=== PATIENT | female | born 1945 | race Caucasian/White ===

== ENCOUNTER → 2016-10-15 | Outpatient (CLI) | payer MEDICARE ==
--- NOTE | 2016-10-17 13:11 | MM ---
Reason for exam: screening (asymptomatic). Last mammogram was performed 2 years and 6 months ago. History: Patient is postmenopausal. Family history of breast cancer in paternal grandmother. Benign excisional biopsy of the right breast. Took estrogen for 9 years 6 months. Took progesterone for 9 years 6 months. Physical Findings: A clinical breast exam by your physician is recommended on an annual basis and results should be correlated with mammographic findings. MG Screening Mammo w CAD Bilateral CC and MLO view(s) were taken. Prior study comparison: April 14, 2014, bilateral MG screening mammo w CAD. The breast tissue is heterogeneously dense. This may lower the sensitivity of mammography. No significant changes when compared with prior studies. ASSESSMENT: Benign, BI-RAD 2 RECOMMENDATION: Routine screening mammogram of both breasts in 1 year.
== END | disposition home or self-care (01) ==
LOC: RADMAMWWP 12:28
PROVIDERS: ATTEND Family Medicine
DX: Z12.31 Encounter for screening mammogram for malignant neoplasm of breast (principal); Z80.3 Family history of malignant neoplasm of breast

== ENCOUNTER 2017-05-21 20:43 | Inpatient (IN) | payer MEDICARE ==
[~2017-05-21 20:43] MED LIST: AMIODARONE 50 MG/ML 3 ML VIAL IV ONE; NOREPINEPHRINE 1 MG/ML 4 ML VIAL IV ONE; SODIUM CHLORIDE 0.9% 250 ML BAG ONE
[2017-05-21] MEDS ORDERED: LORazepam 2 MG/ML INJ IV STA (20:51)
[2017-05-21] MEDS ORDERED: ROCURONIUM BROMIDE 10 MG/ML 10 ML VIAL IV STA (20:51)
--- NOTE | 2017-05-21 21:02 | P.CRDCN ---
History of Present Illness Consult date: 05/21/17 History of present illness: This is a 72-year-old female with history of COPD and diastolic congestive heart failure who was admitted to [facility] this afternoon with complaints of shortness of breath. She was admitted to the hospital with a diagnosis of for dyspnea related to multiple etiologies and exacerbation of COPD and CHF. There is no mention of any chest pain. However her troponins are mildly elevated. EKGs did not reveal any acute changes. Chest x-ray also showed evidence of possible right lobar lobe infiltrate. Patient was treated with some antibiotics and inhalers and was admitted to the floor. Apparently at the time of shift change, the nurses heard a loud noise and found that patient was on the floor face down. Apparently on the telemetry, patient was in ventricular fibrillation. She was given epinephrine and a shock and apparently she went into pulse less rhythm. Subsequently she gained weak pulse with blood pressure below 80. She was hypoxic. Subsequently she was intubated and prepped apparently patient remained hypotensive requiring epinephrine. Patient's EKG subsequent a showed a sinus rhythm with evidence of acute inferior wall ND. Patient was transferred to [facility] for further care. Because of history of fall and being on heparin, a computed tomography scan is done gently to rule out any intracranial bleed. The plan is to take her to carpenter/labor for intervention. If there is no bleed. Her prognosis is extremely poor. Review of Systems Not obtained Past Medical History Past Medical History: COPD, Diabetes Mellitus, Hyperlipidemia, Hypertension, Thyroid Disorder History of Any Multi-Drug Resistant Organisms: None Reported Past Surgical History: Cholecystectomy Additional Past Surgical History / Comment(s): carotid Past Psychological History: No Psychological Hx Reported Smoking Status: Current every day smoker Past Alcohol Use History: None Reported Past Drug Use History: None Reported Medications and Allergies Home Medications Medication Instructions Recorded Confirmed Type Albuterol Sulfate [Proair Hfa] 2 puff INHALATION Q4HR PRN 10/05/13 10/05/13 History Aspirin 81 mg PO DAILY 10/05/13 10/05/13 History Atorvastatin Calcium [Lipitor] 40 mg PO DAILY 10/05/13 10/05/13 History Cholecalciferol [Vitamin D3] 5,000 unit PO DAILY@1200 10/05/13 10/05/13 History FLUoxetine HCL 40 mg PO DAILY 10/05/13 10/05/13 History Levothyroxine Sodium [Synthroid] 50 mcg PO DAILY 10/05/13 10/05/13 History Lisinopril-Hctz 20-25 mg 1 each PO DAILY 10/05/13 10/05/13 History [Zestoretic 20-25] Naproxen 500 mg PO Q12HR #30 tab 10/05/13 Rx Ranitidine HCl [Zantac] 300 mg PO HS 10/05/13 10/05/13 History Simvastatin [Zocor] 20 mg PO HS 10/05/13 10/05/13 History metFORMIN HCL 500 mg PO DAILY 10/05/13 10/05/13 History Allergies Allergy/AdvReac Type Severity Reaction Status Date / Time No Known Allergies Allergy Verified 10/05/13 14:13 Physical Exam Vitals: Blood pressure is running about 180/100 and fluctuating. Patient is intubated and sedated. Lungs, diminished breath sounds with coarse rales. Heart: Distant heart sounds Abdomen: Distended Extremities mild edema EKG Interpretations (text) Sinus rhythm with acute inferior wall ND Assessment and Plan (1) Cardiac arrest Current Visit: Yes Status: Acute Code(s): I46.9 - CARDIAC ARREST, CAUSE UNSPECIFIED SNOMED Code(s): 112890704 (2) Ventricular fibrillation Current Visit: Yes Status: Acute Code(s): I49.01 - VENTRICULAR FIBRILLATION SNOMED Code(s): 89527296 (3) Acute ND, inferior wall Current Visit: Yes Status: Acute Code(s): I21.19 - STEMI INVOLVING OTH CORONARY ARTERY OF INFERIOR WALL SNOMED Code(s): 99843744 (4) CHF (congestive heart failure) Current Visit: Yes Status: Acute Code(s): I50.9 - HEART FAILURE, UNSPECIFIED SNOMED Code(s): 54728730 (5) Pneumonia Current Visit: Yes Status: Acute Code(s): J18.9 - PNEUMONIA, UNSPECIFIED ORGANISM SNOMED Code(s): 632661353 (6) COPD (chronic obstructive pulmonary disease) Current Visit: Yes Status: Acute Code(s): J44.9 - CHRONIC OBSTRUCTIVE PULMONARY DISEASE, UNSPECIFIED SNOMED Code(s): 00499326 Plan: We'll wait for the computed tomography scan. If there is no intracranial bleeding, Patient will be taken carpenter/labor. Meanwhile we'll continue the IV plus hours, IV amiodarone. Prognosis is guarded
--- NOTE | 2017-05-21 21:15 | CT ---
EXAMINATION: CT brain wo con DATE AND TIME: 05/21/2017 9:03 PM ORDERING PROVIDER: Obey Aviles DO CLINICAL INDICATION: Pain unresponsive TECHNIQUE: Standard departmental protocol. DLP 1082 mGy-cm. COMPARISON: MRI 10/28/2010 DESCRIPTION: The calvarium is intact. There is no intracranial hemorrhage. There is no mass or mass e ffect. There is no definite new attenuation defect. Remainder of the intra-axial and extra-axial comp artment examination is unremarkable. The paranasal sinuses, middle ear cavities, and mastoid sinus ai r cells are clear. The orbits are intact. IMPRESSION: NO ACUTE PROCESS.
--- NOTE | 2017-05-21 21:15 | ED ---
CPR HPI - General Chief Complaint: Cardiac Arrest/CPR Stated Complaint: unresponsive Time Seen by Provider: 05/21/17 20:44 Source: EMS Mode of arrival: EMS Limitations: no limitations - History of Present Illness Initial Comments: This 72-year-old white female presents as transfer from [facility]. She apparently was admitted as an inpatient for COPD and pneumonia. She went into cardiac arrest. She apparently had a V. fib arrest fell and hit her head. They ended up defibrillating her. They also noted a inferior wall ST elevation myocardial infarction. She did receive some epinephrine at the other hospital. The case is discussed with the ER physician at another hospital and they're sending her here to our facility for heart catheterization. They also discussed the case with the extender, Dr. Goodman from our hospital. He also accepted patient for heart catheterization. She is intubated at the other facility. She is unable to give any history. All records were obtained per transfer paperwork. - Related Data Home Medications Medication Instructions Recorded Confirmed Albuterol Sulfate [Proair Hfa] 2 puff INHALATION Q4HR PRN 10/05/13 10/05/13 Aspirin 81 mg PO DAILY 10/05/13 10/05/13 Atorvastatin Calcium [Lipitor] 40 mg PO DAILY 10/05/13 10/05/13 Cholecalciferol [Vitamin D3] 5,000 unit PO DAILY@1200 10/05/13 10/05/13 FLUoxetine HCL 40 mg PO DAILY 10/05/13 10/05/13 Levothyroxine Sodium [Synthroid] 50 mcg PO DAILY 10/05/13 10/05/13 Lisinopril-Hctz 20-25 mg 1 each PO DAILY 10/05/13 10/05/13 [Zestoretic 20-25] Ranitidine HCl [Zantac] 300 mg PO HS 10/05/13 10/05/13 Simvastatin [Zocor] 20 mg PO HS 10/05/13 10/05/13 metFORMIN HCL 500 mg PO DAILY 10/05/13 10/05/13 Previous Rx's Medication Instructions Recorded Naproxen 500 mg PO Q12HR #30 tab 10/05/13 Allergies Allergy/AdvReac Type Severity Reaction Status Date / Time No Known Allergies Allergy Verified 05/21/17 21:06 Review of Systems ROS Statement: Those systems with pertinent positive or pertinent negative responses have been documented in the HPI. ROS Other: All systems not noted in ROS Statement are negative. Past Medical History Past Medical History: COPD, Diabetes Mellitus, Hyperlipidemia, Hypertension, Thyroid Disorder History of Any Multi-Drug Resistant Organisms: None Reported Past Surgical History: Cholecystectomy Additional Past Surgical History / Comment(s): carotid Past Psychological History: No Psychological Hx Reported Smoking Status: Current every day smoker Past Alcohol Use History: None Reported Past Drug Use History: None Reported General Exam - General Exam Comments Initial Comments: GENERAL: The patient is well nourished and well hydrated. VITAL SIGNS: Heart rate, blood pressure, respiratory rate reviewed as recorded in nurse's notes. EYES: Pupils are round and reactive. Extraocular movements are intact. No conjunctival / lid redness or swelling. ENT: The patient is intubated. NECK: No swelling or evidence of injury. No subcutaneous emphysema. Trachea is midline. No thyroid mass. HEART: Regular rate and rhythm. Good peripheral pulses. LUNGS/CHEST: Breath sounds clear and equal bilaterally. No rales, rhonchi, or wheezes. No ecchymosis, subcutaneous emphysema. ABDOMEN: Abdomen soft without tenderness. No palpable masses or organomegaly. No peritoneal signs. No abdominal wall swelling or ecchymosis. EXTREMITIES: No extremity tenderness or swelling. NEUROLOGIC: Patient is intubated and sedated upon my evaluation. SKIN: No abrasions or ecchymosis is noted. No induration or masses noted. PSYCHIATRIC: Patient is currently on the ventilator and is sedated. Limitations: no limitations Course Vital Signs 05/21/17 21:03 Temperature 97.4 F L Pulse Rate 74 Respiratory 12 Rate Blood Pressure 148/104 O2 Sat by Pulse 99 Oximetry Medical Decision Making - Medical Decision Making The patient was seen and examined initially very briefly and sent directly to the computed tomography scan. It is felt as though she would require an emergent computed tomography scan to rule out intracranial bleed prior to heart catheterization and receiving heparin. The computed tomography scan did not show any evidence of intracranial bleed per my evaluation. Case is discussed with the radiologist Dr. Markham and he does not see any acute findings as well. The patient did have an EKG in the emergency department and this does show an undetermined rhythm with a wide complex QRS, suspected right bundle- branch block. There is ST depression in V4 through V6 some possible ST elevation in the inferior leads slightly. The QRS duration is 118 and the QTC is elevated at 521. The patient was emergently sent to the pathology laboratory aides teacher. Her initial blood pressure here was elevated but not treated at this time as she was sent emergently for further Cardiologic evaluation. The case will be discussed with internal medicine for admission. Disposition Clinical Impression: Acute myocardial infarction, Cardiac arrest with ventricular fibrillation, Respiratory failure, Hypertension, Pneumonia, COPD (chronic obstructive pulmonary disease) Disposition: ADMITTED IP TO THIS HOSP Condition: Critical Referrals: Charlotte Ortiz MD [Primary Care Provider] - 1-2 days Time of Disposition: 21:14 Decision Date: 05/21/17 Decision Time: 21:14
[2017-05-21] MEDS ORDERED: IV FLUID CONTINUATION 925 ML IV ONE (21:20)
[2017-05-21] MEDS ORDERED: LIDOCAINE 2% INJ 20 MG/ML SQ ONE (21:25)
[2017-05-21] MEDS ORDERED: SODIUM CHLORIDE 0.9% 1,000 ML IV ONE (21:33)
[2017-05-21] MEDS ORDERED: NOREPINEPHRIN 16 MG-0.9%NS PMX 16 MG/250 ML ML IV ONE (21:41)
[2017-05-21] MEDS ORDERED: DEXTROSE 5% IN WATER 100 ML with AMIODARONE 150 MG IV ONE (21:44)
[2017-05-21 21:46] LABS: ABG Base Excess -12.2 mmol/L; ABG HCO3 14 mmol/L (21-25); ABG Oxygen Saturation 99.3 % (94-97); ABG PCO2 29 mmHg (35-45); ABG PO2 264 mmHg (83-108); ABG TCO2 15 mmol/L (19-24)
[2017-05-21] MEDS ORDERED: IOHEXOL 350 MG/ML 125ML BOTTLE INJ ONE (21:50)
[2017-05-21] MEDS ORDERED: SODIUM BICARB 8.4% 50 ML VIAL (1 MEQ/ML) IV ONE (21:53)
[2017-05-21] MEDS ORDERED: HEPARIN SOD,PORK IN 0.45% NACL 25,000 UNIT in 0.45% NACL 1 500ML.BAG IV ONE (21:55)
[2017-05-21] MEDS ORDERED: AMIODARONE 450 MG in DEXTROSE 5% IN WATER 250 ML IV ONE ×2 (21:57)
[2017-05-21] MEDS ORDERED: HEPARIN SODIUM 1,000 UN/ML (10ML VL) ONE (22:01)
[2017-05-21] MEDS ORDERED: RX INFO: IV CONTRAST WAS GIVEN 1 EACH MISC MISCELLANE PRN (22:07)
[2017-05-21] MEDS ORDERED: ZOLPIDEM 5 MG TAB PO PRN (22:12)
[2017-05-21] MEDS ORDERED: WATER IV ONE (22:27)
[2017-05-21] MEDS ORDERED: DEXTROSE 5% IV ONE (22:27)
[2017-05-21] MEDS ORDERED: AMIODARONE IV ONE (22:27)
--- NOTE | 2017-05-21 22:31 | P.PCN ---
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 Procedure(s) Performed: Left heart catheterization without left ventriculography Description of Procedure: HISTORY: This is a 72-year-old female who was admitted to [facility] with dyspnea and evidence of CHF, pneumonia and mildly elevated troponin. Patient had a cardiac arrest with ventricular fibrillation requiring prolonged CPR and intubation. Patient was hypotensive and was started on epinephrine drip and was transferred to [facility] for cardiac cath and possible further intervention. Her EKG showed ST elevations in inferior leads. On arrival here. Patient's blood pressure was very low and patient appeared to be in atrial fibrillation. The family was apprised of her critical situation and explained that her prognosis is very poor. We got verbal consent from family proceed with catheterization. CONSENT: Patient is intubated and sedated. Pupils are dilated. Consent was obtained from the family verbally that includes and daughter. PROCEDURE: Patient was brought to the lab in a intubated status. Patient also got sedation. She was prepped and draped in the usual fashion. The peripheral pulses are very poor. The femoral vein was entered using Seldinger technique and a 5-[place] sheath was left in place. The femoral artery was entered using Seldinger technique with blind approach and a 6-[place] sheath was left in place. Both the sheaths were flushed and was connected to IV fluids. The left heart catheterization was performed using Marcelina catheters. Patient continued to be hypotensive requiring Levophed. She was found to have mild disease involving the left coronary system and possible spontaneous dissection of the RCA with good GRISEL 3 flow. The films were reviewed by Dr. Leggett who recommended maximum medical therapy. Conscious Sedation: Patient is fully Sedated by the time she came to the ammunition assembly ii laborer. HEMODYNAMICS: Blood pressure is about 70 systolic SELECTIVE CORONARY ARTERIOGRAPHY: LEFT MAIN: Moderate in size and divides immediately into the left anterior descending and circumflex THE LEFT ANTERIOR DESCENDING CORONARY ARTERY: Moderate caliber vessel with mild disease at the origin of the diagonal branch. It is calcified. No significant focal lesion noted THE LEFT CIRCUMFLEX AND IS CORONARY ARTERY: Moderate caliber vessel with no semen focal lesions THE RIGHT CORONARY ARTERY: Heavily calcified. There is a hazy lesion in the proximal and mid area which is felt to be secondary to spontaneous dissection. LEFT VENTRICULOGRAPHY: Not performed FINAL IMPRESSION: Calcified coronary system with mild disease in the LAD. The right coronary artery shows haziness in the proximal portion which is felt to be secondary to spontaneous dissection in the clot cannot be excluded. PLAN: The films were reviewed with on-call pusher operator Dr. Leggett. He recommended conservative management. PROGNOSIS: Poor
[2017-05-21 22:52] LABS: Glucose,Whole Blood 236 mg/dL (75-99)
[2017-05-21] MEDS ORDERED: POTASSIUM CHLORIDE 20 MEQ in SODIUM CHLORIDE 0.9% 100 ML IV ONE (23:00)
[2017-05-21] MEDS: SODIUM CHLORIDE 0.9% 1,000 ML IV SCH (23:03)
[2017-05-21 23:24] LABS: Basophils % (A) 0 %; Eosinophils % (A) 0 %; HCT 35.9 % (34.0-46.0); HGB 10.8 gm/dL (11.4-16.0); Hypochromasia Marked; Lymphocytes # (A) 1.1 k/uL (1.0-4.8); Lymphocytes % (A) 8 %; MCH 28.2 pg (25.0-35.0); MCHC 30.1 g/dL (31.0-37.0); MCV 93.7 fL (80.0-100.0); Mean Platelet Volume 8.8; Monocytes # (A) 0.5 k/uL (0-1.0); Monocytes % (A) 4 %; Neutrophils # (A) 11.7 k/uL (1.3-7.7); Neutrophils % (A) 87 %; Platelet Count 216 k/uL (150-450); Poikilocytosis Slight; RBC 3.83 m/uL (3.80-5.40); RDW 15.7 % (11.5-15.5); WBC 13.3 k/uL (3.8-10.6)
[2017-05-21 23:26] LABS: Albumin 2.4 g/dL (3.5-5.0); Calcium 7.1 mg/dL (8.4-10.2); Magnesium 1.4 mg/dL (1.6-2.3); Phosphorus 7.2 mg/dL (2.5-4.5); Potassium 3.8 mmol/L (3.5-5.1); Total Bilirubin 1.1 mg/dL (0.2-1.3); Total Protein 4.5 g/dL (6.3-8.2)
[2017-05-21 23:46] LABS: Creatine Kinase MB 32.8 ng/mL (0.0-2.4); Troponin I 0.875 ng/mL (0.000-0.034)
[2017-05-22] MEDS ORDERED: NALOXONE 0.4 MG/ML 1 ML VIAL IV PRN (00:03)
[2017-05-22] MEDS: MAGNESIUM SULFATE-D5W PMX 1 GM in DEXTROSE/WATER 1 100ML.BAG IVPB SCH ×3 (00:29→01:41)
[2017-05-22] MEDS: PROPOFOL 1,000 MG in EMPTY BAG 1 BAG IV SCH (00:50)
[2017-05-22] MEDS: IPRATROPIUM-ALBUTEROL 3 ML NEB INHALATION SCH ×6 (04:21→22:59)
[2017-05-22 05:14] LABS: INR 1.8 (<1.2); Partial Thromboplastin Time 26.9 sec (22.0-30.0); Prothrombin Time 16.7 sec (9.0-12.0)
[2017-05-22 05:27] LABS: Albumin 2.8 g/dL (3.5-5.0); Calcium 7.2 mg/dL (8.4-10.2); Magnesium 2.4 mg/dL (1.6-2.3); Phosphorus 4.4 mg/dL (2.5-4.5); Potassium 3.1 mmol/L (3.5-5.1); Total Bilirubin 1.5 mg/dL (0.2-1.3); Total Protein 5.1 g/dL (6.3-8.2)
[2017-05-22 05:31] LABS: HCT 38.2 % (34.0-46.0); HGB 11.3 gm/dL (11.4-16.0); Hypochromasia Marked; MCH 27.4 pg (25.0-35.0); MCHC 29.6 g/dL (31.0-37.0); MCV 92.4 fL (80.0-100.0); Mean Platelet Volume 8.9; Platelet Count 187 k/uL (150-450); Poikilocytosis Moderate; RBC 4.14 m/uL (3.80-5.40); RDW 15.8 % (11.5-15.5)
[2017-05-22 05:33] LABS: ABG HCO3 20 mmol/L (21-25); ABG PCO2 36 mmHg (35-45); ABG PH 7.36 (7.35-7.45); ABG PO2 87 mmHg (83-108); ABG TCO2 22 mmol/L (19-24)
[2017-05-22 06:18] LABS: Band Neutrophils % 29 %
[2017-05-22 06:22] LABS: Anisocytosis (M) Present; Lymphocytes # (M) 1.38 k/uL (1.0-4.8); Metamyelocytes # (M) 0.23 k/uL (0); Metamyelocytes % 1 %; Monocytes # (M) 0.23 k/uL (0-1.0); Neutrophils % (M) 64 %; Nucleated Red Blood Cells 3 /100 WBC (0-0); Polychromasia Present; Total Cells Counted 200
[2017-05-22 06:23] LABS: Large Platelets Present
[2017-05-22] MEDS ORDERED: POTASSIUM CHLORIDE ER 20 MEQ TAB.ER PO SCH (07:00)
[2017-05-22] MEDS: NOREPINEPHRIN 16 MG-0.9%NS PMX 16 MG/250 ML ML IV SCH ×2 (07:30→21:12)
[2017-05-22] MEDS: AMIODARONE 450 MG in DEXTROSE 5% IN WATER 250 ML IV SCH ×4 (07:50→22:28)
[2017-05-22] MEDS: POTASSIUM CHLORIDE 10 MEQ in SODIUM CHLORIDE 0.9% 100 ML IV SCH ×2 (08:09→09:15)
--- NOTE | 2017-05-22 08:27 | XR ---
EXAMINATION TYPE: XR chest 1V portable DATE OF EXAM: 05/22/2017 COMPARISON: 01/14/2010 INDICATION: Tube placement TECHNIQUE: Single frontal view of the chest is obtained. FINDINGS: The heart size is mildly prominent.. The pulmonary vasculature is normal. Mild right lower lobe infiltrate is minimal right pleural effusion is present. Nasogastric tube is present with the tip in left upper quadrant of the abdomen. Endotracheal tube is been placed 4.4 cm above the yeny. IMPRESSION: 1. Right lower lobe infiltrate with small right pleural effusion. Follow-up is recommended. 2. Lines and catheters discussed above.
[2017-05-22] MEDS: PANTOPRAZOLE 40 MG/10 ML VIAL IV SCH (09:29)
[2017-05-22] MEDS: ASPIRIN 325 MG TAB PO SCH (09:30)
[2017-05-22] MEDS: HEPARIN SODIUM,PORCINE 5,000 UNIT/ML 1 ML VIAL SQ SCH ×2 (09:30→17:12)
[2017-05-22] MEDS: CHLORHEXIDINE GLUCONATE 15 ML CUP MUCOUS MEM SCH ×2 (09:30→21:31)
--- NOTE | 2017-05-22 09:54 | P.CNPUL ---
History of Present Illness Consult date: 05/22/17 Chief complaint: Acute DE, acute cardiac arrest History of present illness: A 72-year-old female patient with known history of COPD and CHF with diastolic dysfunction was originally admitted to [facility] for worsening shortness of breath and acute COPD exacerbation and CHF exacerbation. She did not have any chest pain. She did have some mild elevation of the troponin and EKG did not show any acute abnormalities. Chest x-ray showed possibly a right lower lobe pneumonia. Note that the patient was being treated and she acutely had an acute cardiac arrest. She collapsed on the floor. Initially she was found to be investigated fibrillation. CPR was initiated and the patient was defibrillated on several occasions. She was intubated and she remained hypotensive requiring pressors. The exact downtime is not known however I expect this was approximately 20 minutes of CPR and defibrillation on this patient. The patient got moved to the [place] emergency department where the EKG showed acute ST segment elevation in inferior leads with reciprocal changes. 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 The left main was patent. There was mild disease in the proximal LAD and circumflex. The dominant vessel was RCA. This was reviewed by Dr. Leggett and it was decided not to do any intervention knowing that the patient had a GRISEL 3 flow in the RCA. The patient had 3 more episodes of V. tach and the [facility] where she had to be defibrillated. She was started on amiodarone drip and she got moved to the intensive care unit on 35 mics of levo fed for hypotension. This morning and echo cardiac rhythm was done and ejection fraction is less than 20%. Overnight she was given a total of 2 L of IV fluid and currently she is on normal saline today to have 100 mL an hour. She is producing urine output in the order of 20 mL an hour. She was producing better urine output prior to that. She is currently weaned down to 50 mics of the prevent. Note that the patient also had a traumatic head injury and a CAT scan of the brain was done in the emergency department that showed no acute abnormalities. As far as the right lower lobe pneumonia, the patient is on IV Zosyn. The patient has a right venous and arterial sheath in the right groin. Amiodarone is running at the maintenance of 0.5 mg/m. She is sedated and she is moving all 4 extremities to painful is diminished yet she is not following any commands. Mounika is running at 15 g. currently intubated on a mechanical ventilator on assist control mode at the rate of 18, tidal volume 500 , FiO2 of 50% and a PEEP of 5. Blood gases from this morning showed a pH of 7.36 with a pCO2 of 36 and pO2 of 87 on 50% FiO2. Review of Systems ROS unobtainable: due to endotracheal tube Past Medical History Past Medical History: COPD, Diabetes Mellitus, Hyperlipidemia, Hypertension, Thyroid Disorder History of Any Multi-Drug Resistant Organisms: None Reported Past Surgical History: Cholecystectomy Additional Past Surgical History / Comment(s): carotid Past Psychological History: No Psychological Hx Reported Smoking Status: Current every day smoker Past Alcohol Use History: None Reported Past Drug Use History: None Reported Medications and Allergies Home Medications Medication Instructions Recorded Confirmed Type Albuterol Sulfate [Proair Hfa] 1 - 2 puff INHALATION RT-Q4H PRN 10/05/13 History Aspirin 81 mg PO DAILY 10/05/13 05/22/17 History Atorvastatin Calcium [Lipitor] 40 mg PO DAILY 10/05/13 05/22/17 History Cholecalciferol [Vitamin D3] 5,000 unit PO DAILY@1200 10/05/13 05/22/17 History Levothyroxine Sodium [Synthroid] 50 mcg PO DAILY 10/05/13 05/22/17 History Lisinopril-Hctz 20-25 mg 1 tab PO DAILY 10/05/13 05/22/17 History [Zestoretic 20-25] Ranitidine HCl [Zantac] 300 mg PO BID 10/05/13 05/22/17 History metFORMIN HCL 500 mg PO DAILY 10/05/13 05/22/17 History Albuterol Nebulized [Ventolin 2.5 mg INHALATION RT-TID 05/22/17 05/22/17 History Nebulized] Budesonide/Formoterol Fumarate 2 puff INHALATION RT-BID 05/22/17 05/22/17 History [Symbicort 160-4.5 Mcg Inhaler] FLUoxetine HCL [PROzac] 60 mg PO DAILY 05/22/17 05/22/17 History HYDROcodone/APAP 10-325MG [Underwood 1 tab PO HS 05/22/17 05/22/17 History 10-325] HYDROcodone/APAP 10-325MG [[place]wood 2 tab PO TID 05/22/17 05/22/17 History 10-325] Lansoprazole [Prevacid] 30 mg PO DAILY 05/22/17 05/22/17 History Allergies Allergy/AdvReac Type Severity Reaction Status Date / Time acetaminophen Allergy Unknown Verified 05/22/17 09:03 [[facility] gabapentin Allergy Unknown Verified 05/22/17 09:03 propoxyphene Allergy Unknown Verified 05/22/17 09:[facility] Physical Exam Vitals: Vital Signs Temp Pulse Resp BP Pulse Ox 05/22/17 09:00 101 H 22 97 05/22/17 08:30 99.8 F H 97 20 97 05/22/17 08:13 97 05/22/17 08:00 96 21 96 05/22/17 07:30 95 24 97 05/22/17 07:00 95 21 96 05/22/17 06:30 94 20 96 05/22/17 06:00 93 20 97 05/22/17 05:30 92 28 H 96 05/22/17 05:00 91 24 96 05/22/17 04:43 94 05/22/17 04:30 94 18 98 05/22/17 04:20 95 05/22/17 04:00 98 22 95 05/22/17 03:30 101 H 20 96 05/22/17 03:00 100 19 96 05/22/17 02:50 98 21 95 05/22/17 02:40 97 18 95 05/22/17 02:30 96 18 94 L 05/22/17 02:20 93 18 94 L 05/22/17 02:10 90 18 94 L 05/22/17 02:00 92 18 94 L 05/22/17 01:50 93 18 96 05/22/17 01:40 96 18 97 05/22/17 01:30 95 18 97 05/22/17 01:20 94 18 96 05/22/17 01:10 111 H 19 96 05/22/17 01:00 96 19 97 05/22/17 00:50 96 20 98 05/22/17 00:40 98.4 F 95 20 100 05/22/17 00:30 113 H 21 03/07/18 00:27 114 H 05/22/17 00:20 114 H 18 82 L 05/22/17 00:17 97 05/22/17 00:10 113 H 25 H 05/22/17 00:00 112 H 23 05/21/17 23:50 115 H 20 05/21/17 23:40 112 H 22 87/69 05/21/17 23:30 111 H 21 05/21/17 23:20 111 H 20 05/21/17 23:10 94 20 05/21/17 23:00 90 21 05/21/17 22:50 90 24 05/21/17 22:40 95.8 F L 90 22 40/33 05/21/17 21:03 97.4 F L 74 12 148/104 99 Intake and Output 05/21/17 05/22/17 05/22/17 22:59 06:59 14:59 Intake Total 1000 3179.042 400 Output Total 295 70 Balance 1000 2884.042 330 Intake: IV 1000 3000 400 Magnesium Sulfate-D5w Pmx 300 1 gm In Dextrose/Water 1 100ml.bag @ 100 mls/hr IVPB Q1H [facility] Rx#: [id number] Potassium Chloride 20 meq 100 100 In Sodium Chloride 0.9% 100 ml @ 55 mls/hr IV ONCE ONE Rx#:[id number] Sodium Chloride 0.9% 1, 2600 300 000 ml As IV .STK-MED ONE Rx#:[id number] Intake, IV Titration 179.042 Amount Norepinephrin 16 mg-0.9% 167.117 Ns Pmx 16 mg In 250 ml As IV .STK-MED ONE Rx#: [id number] Propofol 1,000 mg In 11.925 Empty Bag 1 bag @ Titrate IV .Q0M [facility] Rx#: [id number] Output: Urine 295 70 Other: Voiding Method Indwelling Catheter Weight 83.915 kg 81.2 kg ABP, PAP, CO, CI - Last 8 Hours Arterial Blood Pressure 119/70 Arterial Blood Pressure 117/68 Arterial Blood Pressure 116/62 Arterial Blood Pressure 136/70 Arterial Blood Pressure 107/64 Arterial Blood Pressure 107/64 Arterial Blood Pressure 106/66 Arterial Blood Pressure 106/62 Arterial Blood Pressure 107/68 Arterial Blood Pressure 106/66 Arterial Blood Pressure 113/70 Arterial Blood Pressure 123/73 Arterial Blood Pressure 128/70 Arterial Blood Pressure 121/71 Arterial Blood Pressure 117/70 Arterial Blood Pressure 115/70 Arterial Blood Pressure 111/68 Arterial Blood Pressure 100/58 Arterial Blood Pressure 113/68 Arterial Blood Pressure 115/67 Patient currently intubated on mechanical ventilator. The patient is sedated and she is calm and comfortable. She is withdrawing to painful stimulation all 4 extremities. Neurologic exam shows adequate sensation to painful stimulation. She has a positive cough and a gag. Pupils around 5 mm in size and they're reactive to light. No nystagmus. No clonus and no facial asymmetry. Orogastric and orotracheal tube are both in place.Head exam was generally normal. There was no scleral icterus or corneal arcus. Mucous membranes were moist.Neck was supple and without jugular venous distension, thyromegaly, or carotid bruits. Carotids were easily palpable bilaterally. There was no adenopathy. Lung sounds are diminished in the right lung base otherwise breath sounds are equal and symmetrical bilaterally. ET tube is in a good location.Cardiac exam revealed the PMI to be normally situated and sized. The rhythm was regular and no extrasystoles were noted during several minutes of auscultation. The first and second heart sounds were normal and physiologic splitting of the second heart sound was noted. There were no murmurs, rubs, clicks, or gallops.Abdominal exam revealed normal bowel sounds. The abdomen was soft, non-tender, and without masses, organomegaly, or appreciable enlargement of the abdominal aorta. The patient has a right femoral venous and arterial line/sheath.Examination of the extremities revealed easily palpable radial, femoral and pedal pulses. There was no cyanosis, clubbing or edema. Patient has equal and symmetrical pulses in lower extremities bilaterally.Examination of the skin revealed no evidence of significant rashes, suspicious appearing nevi or other concerning lesions. Psych evaluation cannot be evaluated. Results - Laboratory Findings CBC and BMP: 05/22/17 04:30 05/22/17 04:30 ABG ABG pH 7.36 (7.35-7.45) 05/22/17 05:00 ABG pCO2 36 mmHg (35-45) 05/22/17 05:00 ABG pO2 87 mmHg (83-108) 05/22/17 05:00 ABG O2 Saturation 96.0 % (94-97) 05/22/17 05:00 PT/INR, D-dimer PT 16.7 sec (9.0-12.0) H 05/22/17 04:30 INR 1.8 (<1.2) H 05/22/17 04:30 Abnormal lab findings: Abnormal Labs 05/21/17 05/21/17 05/21/17 21:44 22:49 22:50 WBC Hgb MCHC RDW Neutrophils # Neutrophils # (Manual) Metamyelocytes # (Man) Nucleated RBCs PT INR ABG pH 7.30 L ABG pCO2 29 L ABG pO2 264 H ABG HCO3 14 L ABG Total CO2 15 L ABG O2 Saturation 99.3 H Potassium Carbon Dioxide Creatinine Glucose POC Glucose (mg/dL) 236 H Calcium Phosphorus Magnesium Total Bilirubin AST ALT Alkaline Phosphatase Total Creatine Kinase 601 H CK-MB (CK-2) 32.8 H* Troponin I 0.875 H* Total Protein Albumin HDL Cholesterol 05/21/17 05/21/17 05/22/17 22:50 22:50 04:30 WBC 13.3 H 23.0 H Hgb 10.8 L 11.3 L MCHC 30.1 L 29.6 L RDW 15.7 H 15.8 H Neutrophils # 11.7 H Neutrophils # (Manual) 21.30 H Metamyelocytes # (Man) 0.23 H Nucleated RBCs 3 H PT INR ABG pH ABG pCO2 ABG pO2 ABG HCO3 ABG Total CO2 ABG O2 Saturation Potassium Carbon Dioxide 16 L Creatinine Glucose 218 H POC Glucose (mg/dL) Calcium 7.1 L Phosphorus 7.2 H Magnesium 1.4 L Total Bilirubin AST 391 H ALT 102 H Alkaline Phosphatase Total Creatine Kinase CK-MB (CK-2) Troponin I Total Protein 4.5 L Albumin 2.4 L HDL Cholesterol 05/22/17 05/22/17 05/22/17 04:30 04:30 04:30 WBC Hgb MCHC RDW Neutrophils # Neutrophils # (Manual) Metamyelocytes # (Man) Nucleated RBCs PT 16.7 H INR 1.8 H ABG pH ABG pCO2 ABG pO2 ABG HCO3 ABG Total CO2 ABG O2 Saturation Potassium 3.1 L Carbon Dioxide Creatinine 1.20 H Glucose 190 H POC Glucose (mg/dL) Calcium 7.2 L Phosphorus Magnesium 2.4 H Total Bilirubin 1.5 H AST 1478 H ALT 433 H Alkaline Phosphatase 143 H Total Creatine Kinase 2781 H CK-MB (CK-2) 224.0 H* Troponin I 135.000 H* Total Protein 5.1 L Albumin 2.8 L HDL Cholesterol 29 L 05/22/17 05:00 WBC Hgb MCHC RDW Neutrophils # Neutrophils # (Manual) Metamyelocytes # (Man) Nucleated RBCs PT INR ABG pH ABG pCO2 ABG pO2 ABG HCO3 20 L ABG Total CO2 ABG O2 Saturation Potassium Carbon Dioxide Creatinine Glucose POC Glucose (mg/dL) Calcium Phosphorus Magnesium Total Bilirubin AST ALT Alkaline Phosphatase Total Creatine Kinase CK-MB (CK-2) Troponin I Total Protein Albumin HDL Cholesterol - Diagnostic Findings Chest x-ray: image reviewed Assessment and Plan Assessment: Assessment 1 acute cardiac arrest/V. fib, status post CPR, defibrillation and subsequent intubation mechanical ventilation [address] segment elevation myocardial infarction involving the inferior wall secondary to dissection of the RCA. The patient underwent emergent cardiac catheterization and she currently has a GRISEL 3 flow and she did not require coronary stenting. She was advised by interventional cardiology. 3 acute shock, cardiogenic in nature with an ejection fraction of 20% on today' s echocardiogram and the patient is pressor dependent 4 acute respiratory failure secondary to above 5 acute right lower lobe pneumonia 6 acute COPD exacerbation secondary to right lower lobe pneumonia 7 suspect hypoxic encephalopathy due to cardiac arrest 8 acute head trauma the time of a cardiac arrest. The patient had a negative CAT scan of the head 9 diabetes mellitus 10 hyperlipidemia 11 hypothyroidism 13 history of hypertension 14 leukocytosis secondary to above Plan I will bolus the patient another liter of IV fluids. I will keep the maintenance and 100 mL an hour. Wean off pressors and discontinue if possible to maintain a mean arterial pressure above 65. Continue amiodarone maintenance. Continue aspirin. Continue the pressors for now. IV Zosyn for right lower lobe pneumonia. Keep the patient sedated with Diprivan. We'll establish IV access the triple-lumen catheter and an Artline. Continue DuoNeb the last treatment [id number]. Sputum Gram stain and culture. Obtain official reports on the echocardiogram. Cardiology to follow-up. We'll continue to follow. We'll make further recommendations based on her progress. We'll also obtain a neurologic consultation regarding her cardiac arrest / hypoxic encephalopathy and had trauma. We'll put the patient is on his vascular coverage. Restart Synthroid orally through the NG tube at 50 g by mouth daily. IV Protonix. Time with Patient: Greater than 30
[2017-05-22] MEDS ORDERED: SODIUM CHLORIDE 0.9% 1,000 ML IV ONE (10:00)
--- NOTE | 2017-05-22 11:39 | XR ---
EXAMINATION TYPE: XR chest 1V confirm line [facility] DATE OF EXAM: 05/22/2017 COMPARISON: Prior chest x-ray 05/22/2017 HISTORY: Status post central venous catheter placement TECHNIQUE: Single frontal view of the chest is obtained. FINDINGS: There is been interval placement of a right subclavian central venous catheter, distal tip is overlying the right atrium. No pneumothorax or significant interval change compared to prior exam . IMPRESSION: No evident complication status post right subclavian central venous catheter placement
[2017-05-22] MEDS: PIPERACILLIN-TAZOBACTAM 3.375 GM in DEXTROSE/WATER 1 50ML.BAG IVPB SCH ×2 (11:54→21:32)
[2017-05-22] MEDS: SODIUM CHLORIDE 0.9% 1,000 ML IV SCH (11:55)
[2017-05-22] MEDS: LEVOTHYROXINE 50 MCG TAB PO SCH (11:57)
[2017-05-22] MEDS ORDERED: POTASSIUM BICARBONATE/CIT AC 20 MEQ TABLET.EFF PO SCH (12:00)
--- NOTE | 2017-05-22 12:04 | PCN ---
PROCEDURE NOTE PREOPERATIVE DIAGNOSIS: Cardiac arrest. POSTOPERATIVE DIAGNOSIS: Cardiac arrest. PROCEDURE: Insertion of triple-lumen catheter. TRIPLE LUMEN CATHETER PLACEMENT: Indication Hemodynamic monitoring/Intravenous access. A time-out was completed verifying correct patient, procedure, site, positioning, and implant(s) or special equipment if applicable. The patient was placed in a dependent position appropriate for triple lumen catheter placement based on the vein to be cannulated. The patient's right shoulder was prepped and draped in sterile fashion. 1% Lidocaine was used to anesthetize the surrounding skin area. A triple lumen 9F Cordis catheter was introduced into the right subclavian vein using Seldinger technique. The catheter was threaded smoothly over the guide wire and appropriate blood return was obtained. Each lumen of the catheter was evacuated of air and flushed with sterile saline. The catheter was then sutured in place to the skin and a sterile dressing applied. Perfusion to the extremity distal to the point of catheter insertion was checked and found to be adequate. No bedside complications or bleeding. MMODL / IJN: [id number] /
--- NOTE | 2017-05-22 12:10 | PCN ---
PROCEDURE NOTE PREOPERATIVE DIAGNOSIS: Cardiac arrest. POSTOPERATIVE DIAGNOSIS: Cardiac arrest. PROCEDURE: Insertion of an arterial line catheter. ARTERIAL LINE PLACEMENT: Indication Hemodynamic monitoring. A time-out was completed verifying correct patient, procedure, site, positioning, and implant(s) or special equipment if applicable. Memo's test was performed to ensure adequate perfusion. The patient's left wrist was prepped and draped in sterile fashion. 1% Lidocaine was used to anesthetize the area. An 18G Arrow arterial line was introduced into the left radial artery. The catheter was threaded over the guide wire and the needle was removed with appropriate pulsatile blood return. Blood loss was minimal. The catheter was then sutured in place to the skin and a sterile dressing applied. Perfusion to the extremity distal to the point of catheter insertion was checked and found to be adequate. The patient tolerated the procedure well and there were no complications. No bedside complication or bleeding. MMODL / IJN: [id number] /
[2017-05-22 13:11] LABS: Hemoglobin A1C 5.6 % (4.0-6.0)
--- NOTE | 2017-05-22 13:24 | P.HPIM ---
History of Present Illness H&P Date: 05/22/17 This is a 72-year-old female with complex past medical history noted below significant for severe COPD, underlying diastolic heart failure, and ongoing tobacco abuse who presented yesterday to [facility] with worsening shortness of breath. Patient was evaluated and was admitted to the hospital with suspected acute COPD exacerbation and acute diastolic heart failure. She was also started on broad-spectrum antibiotic for underlying pneumonia. She was found to have an elevated troponin that was indeterminant the patient denies any chest pain and there was no acute EKG changes. Patient was started on IV heparin and was admitted to telemetry floor. Last night patient went into cardiac arrest and received approximately 20 minutes of CPR and defibrillation. She became hypotensive requiring vasopressors. She was intubated and started on mechanical ventilation. Telemetry strip showed possible ventricular fibrillation with concerns about torsade de pointes. 12 leads EKG postresuscitation showed questionable ST elevation [place]. Patient was transferred to [facility] and underwent a left heart cath showing possible dissection of the RCA with otherwise nonobstructive coronary artery disease. She is currently sedated and intubated. She is in the intensive care unit. She is requiring low dose of vasopressors. Her urine output has decreased over the last several hours. She is currently maintained on IV fluid with 0.9 normal saline at 75 mL per hour. She was seen by different specialists. Review of Systems Unable to review other systems as patient is sedated and intubated Past Medical History Past Medical History: COPD, Diabetes Mellitus, Hyperlipidemia, Hypertension, Thyroid Disorder History of Any Multi-Drug Resistant Organisms: None Reported Past Surgical History: Cholecystectomy Additional Past Surgical History / Comment(s): carotid Past Psychological History: No Psychological Hx Reported Smoking Status: Current every day smoker Past Alcohol Use History: None Reported Past Drug Use History: None Reported Medications and Allergies Home Medications Medication Instructions Recorded Confirmed Type Albuterol Sulfate [Proair Hfa] 1 - 2 puff INHALATION RT-Q4H PRN 10/05/13 History Aspirin 81 mg PO DAILY 10/05/13 05/22/17 History Atorvastatin Calcium [Lipitor] 40 mg PO DAILY 10/05/13 05/22/17 History Cholecalciferol [Vitamin D3] 5,000 unit PO DAILY@1200 10/05/13 05/22/17 History Levothyroxine Sodium [Synthroid] 50 mcg PO DAILY 10/05/13 05/22/17 History Lisinopril-Hctz 20-25 mg 1 tab PO DAILY 10/05/13 05/22/17 History [Zestoretic 20-25] Ranitidine HCl [Zantac] 300 mg PO BID 10/05/13 05/22/17 History metFORMIN HCL 500 mg PO DAILY 10/05/13 05/22/17 History Albuterol Nebulized [Ventolin 2.5 mg INHALATION RT-TID 05/22/17 05/22/17 History Nebulized] Budesonide/Formoterol Fumarate 2 puff INHALATION RT-BID 05/22/17 05/22/17 History [Symbicort 160-4.5 Mcg Inhaler] FLUoxetine HCL [PROzac] 60 mg PO DAILY 05/22/17 05/22/17 History HYDROcodone/APAP 10-325MG [[place] 1 tab PO HS 05/22/17 05/22/17 History 10-325] HYDROcodone/APAP 10-325MG [[place] 2 tab PO TID 05/22/17 05/22/17 History 10-325] Lansoprazole [Prevacid] 30 mg PO DAILY 05/22/17 05/22/17 History Allergies Allergy/AdvReac Type Severity Reaction Status Date / Time acetaminophen Allergy Unknown Verified 05/22/17 09:03 [From [employer]] gabapentin Allergy Unknown Verified 05/22/17 09:03 propoxyphene Allergy Unknown Verified 05/22/17 09:03 [From [employer]] Physical Exam Vitals: Vital Signs Temp Pulse Resp BP Pulse Ox 05/22/17 13:00 99 24 94 L 05/22/17 12:30 106 H 29 H 94 L 05/22/17 12:00 99.0 F 96 24 95 05/22/17 11:30 98 20 95 05/22/17 11:00 95 27 H 96 05/22/17 10:30 99 20 96 05/22/17 10:00 101 H 22 96 05/22/17 09:30 100 28 H 96 05/22/17 09:00 101 H 22 97 05/22/17 08:30 99.8 F H 97 20 97 05/22/17 08:13 97 05/22/17 08:00 96 21 96 05/22/17 07:30 95 24 97 05/22/17 07:00 95 21 96 05/22/17 06:30 94 20 96 05/22/17 06:00 93 20 97 05/22/17 05:30 92 28 H 96 05/22/17 05:00 91 24 96 05/22/17 04:43 94 05/22/17 04:30 94 18 98 05/22/17 04:20 95 05/22/17 04:00 98 22 95 05/22/17 03:30 101 H 20 96 05/22/17 03:00 100 19 96 05/22/17 02:50 98 21 95 05/22/17 02:40 97 18 95 05/22/17 02:30 96 18 94 L 05/22/17 02:20 93 18 94 L 05/22/17 02:10 90 18 94 L 05/22/17 02:00 92 18 94 L 05/22/17 01:50 93 18 96 05/22/17 01:40 96 18 97 05/22/17 01:30 95 18 97 05/22/17 01:20 94 18 96 05/22/17 01:10 111 H 19 96 05/22/17 01:00 96 19 97 05/22/17 00:50 96 20 98 05/22/17 00:40 98.4 F 95 20 100 05/22/17 00:30 113 H 21 05/22/17 00:27 114 H 05/22/17 00:20 114 H 18 82 L 05/22/17 00:17 97 05/22/17 00:10 113 H 25 H 05/22/17 00:00 112 H 23 05/21/17 23:50 115 H 20 05/21/17 23:40 112 H 22 87/69 05/21/17 23:30 111 H 21 05/21/17 23:20 111 H 20 05/21/17 23:10 94 20 05/21/17 23:00 90 21 05/21/17 22:50 90 24 05/21/17 22:40 95.8 F L 90 22 40/33 05/21/17 21:03 97.4 F L 74 12 148/104 99 Intake and Output 05/21/17 05/22/17 05/22/17 22:59 06:59 14:59 Intake Total 1000 3179.042 900 Output Total 295 180 Balance 1000 2884.042 720 Intake: IV 1000 3000 850 Magnesium Sulfate-D5w Pmx 300 1 gm In Dextrose/Water 1 100ml.bag @ 100 mls/hr IVPB Q1H [facility] Rx#: [id number] Potassium Chloride 20 meq 100 200 In Sodium Chloride 0.9% 100 ml @ 55 mls/hr IV ONCE ONE Rx#:[id number] Sodium Chloride 0.9% 1, 2600 650 000 ml As IV .STK-MED ONE Rx#:[id number] Intake, IV Titration 179.042 50 Amount Norepinephrin 16 mg-0.9% 167.117 Ns Pmx 16 mg In 250 ml As IV .STK-MED ONE Rx#: [id number] Piperacillin-Tazobactam 3 50 .375 gm In Dextrose/Water 1 50ml.bag @ 12.5 mls/hr IVPB Q12HR [facility] Rx#: [id number] Propofol 1,000 mg In 11.925 Empty Bag 1 bag @ Titrate IV .Q0M [facility] Rx#: [id number] Output: Urine 295 180 Other: Voiding Method Indwelling Catheter Indwelling Catheter Weight 83.915 kg 81.2 kg ABP, PAP, CO, CI - Last 8 Hours Arterial Blood Pressure 143/68 Arterial Blood Pressure 116/76 Arterial Blood Pressure 104/71 Arterial Blood Pressure 140/66 Arterial Blood Pressure 128/86 Arterial Blood Pressure 110/70 Arterial Blood Pressure 124/79 Arterial Blood Pressure 123/74 Arterial Blood Pressure 119/70 Arterial Blood Pressure 117/68 Arterial Blood Pressure 116/62 Arterial Blood Pressure 136/70 Arterial Blood Pressure 107/64 Arterial Blood Pressure 107/64 Arterial Blood Pressure 106/66 Arterial Blood Pressure 106/62 General: The patient is sedated and intubated Eye: there is normal conjunctiva bilaterally. Neck: The neck is supple, there is no JVD. Cardiovascular: Normal S1-S2, no S3-S4, no murmurs. Respiratory: Lungs with mechanical ventilation found Gastrointestinal: Abdomen is soft, nontender Musculoskeletal: There is no pedal edema. Skin: Skin is warm and dry Results CBC & Chem 7: 05/22/17 04:30 05/22/17 04:30 Labs: Abnormal Lab Results - Last 24 Hours (Table) 05/21/17 05/21/17 05/21/17 Range/Units 21:44 22:49 22:50 WBC (3.8-10.6) k/uL Hgb (11.4-16.0) gm/dL MCHC (31.0-37.0) g/dL RDW (11.5-15.5) % Neutrophils # (1.3-7.7) k/uL Neutrophils # (Manual) (1.3-7.7) k/uL Metamyelocytes # (Man) (0) k/uL Nucleated RBCs (0-0) /100 WBC PT (9.0-12.0) sec INR (<1.2) ABG pH 7.30 L (7.35-7.45) ABG pCO2 29 L (35-45) mmHg ABG pO2 264 H (83-108) mmHg ABG HCO3 14 L (21-25) mmol/L ABG Total CO2 15 L (19-24) mmol/L ABG O2 Saturation 99.3 H (94-97) % Potassium (3.5-5.1) mmol/L Carbon Dioxide (22-30) mmol/L Creatinine (0.52-1.04) mg/dL Glucose (74-99) mg/dL POC Glucose (mg/dL) 236 H (75-99) mg/dL Calcium (8.4-10.2) mg/dL Phosphorus (2.5-4.5) mg/dL Magnesium (1.6-2.3) mg/dL Total Bilirubin (0.2-1.3) mg/dL AST (14-36) U/L ALT (9-52) U/L Alkaline Phosphatase (38-126) U/L Total Creatine Kinase 601 H (30-135) U/L CK-MB (CK-2) 32.8 H* (0.0-2.4) ng/mL Troponin I 0.875 H* (0.000-0.034) ng/mL Total Protein (6.3-8.2) g/dL Albumin (3.5-5.0) g/dL HDL Cholesterol (40-60) mg/dL 05/21/17 05/21/17 05/22/17 Range/Units 22:50 22:50 04:30 WBC 13.3 H 23.0 H (3.8-10.6) k/uL Hgb 10.8 L 11.3 L (11.4-16.0) gm/dL MCHC 30.1 L 29.6 L (31.0-37.0) g/dL RDW 15.7 H 15.8 H (11.5-15.5) % Neutrophils # 11.7 H (1.3-7.7) k/uL Neutrophils # (Manual) 21.30 H (1.3-7.7) k/uL Metamyelocytes # (Man) 0.23 H (0) k/uL Nucleated RBCs 3 H (0-0) /100 WBC PT (9.0-12.0) sec INR (<1.2) ABG pH (7.35-7.45) ABG pCO2 (35-45) mmHg ABG pO2 (83-108) mmHg ABG HCO3 (21-25) mmol/L ABG Total CO2 (19-24) mmol/L ABG O2 Saturation (94-97) % Potassium (3.5-5.1) mmol/L Carbon Dioxide 16 L (22-30) mmol/L Creatinine (0.52-1.04) mg/dL Glucose 218 H (74-99) mg/dL POC Glucose (mg/dL) (75-99) mg/dL Calcium 7.1 L (8.4-10.2) mg/dL Phosphorus 7.2 H (2.5-4.5) mg/dL Magnesium 1.4 L (1.6-2.3) mg/dL Total Bilirubin (0.2-1.3) mg/dL AST 391 H (14-36) U/L ALT 102 H (9-52) U/L Alkaline Phosphatase (38-126) U/L Total Creatine Kinase (30-135) U/L CK-MB (CK-2) (0.0-2.4) ng/mL Troponin I (0.000-0.034) ng/mL Total Protein 4.5 L (6.3-8.2) g/dL Albumin 2.4 L (3.5-5.0) g/dL HDL Cholesterol (40-60) mg/dL 05/22/17 05/22/17 05/22/17 Range/Units 04:30 04:30 04:30 WBC (3.8-10.6) k/uL Hgb (11.4-16.0) gm/dL MCHC (31.0-37.0) g/dL RDW (11.5-15.5) % Neutrophils # (1.3-7.7) k/uL Neutrophils # (Manual) (1.3-7.7) k/uL Metamyelocytes # (Man) (0) k/uL Nucleated RBCs (0-0) /100 WBC PT 16.7 H (9.0-12.0) sec INR 1.8 H (<1.2) ABG pH (7.35-7.45) ABG pCO2 (35-45) mmHg ABG pO2 (83-108) mmHg ABG HCO3 (21-25) mmol/L ABG Total CO2 (19-24) mmol/L ABG O2 Saturation (94-97) % Potassium 3.1 L (3.5-5.1) mmol/L Carbon Dioxide (22-30) mmol/L Creatinine 1.20 H (0.52-1.04) mg/dL Glucose 190 H (74-99) mg/dL POC Glucose (mg/dL) (75-99) mg/dL Calcium 7.2 L (8.4-10.2) mg/dL Phosphorus (2.5-4.5) mg/dL Magnesium 2.4 H (1.6-2.3) mg/dL Total Bilirubin 1.5 H (0.2-1.3) mg/dL AST 1478 H (14-36) U/L ALT 433 H (9-52) U/L Alkaline Phosphatase 143 H (38-126) U/L Total Creatine Kinase 2781 H (30-135) U/L CK-MB (CK-2) 224.0 H* (0.0-2.4) ng/mL Troponin I 135.000 H* (0.000-0.034) ng/mL Total Protein 5.1 L (6.3-8.2) g/dL Albumin 2.8 L (3.5-5.0) g/dL HDL Cholesterol 29 L (40-60) mg/dL 05/22/17 05/22/17 Range/Units 05:00 12:08 WBC (3.8-10.6) k/uL Hgb (11.4-16.0) gm/dL MCHC (31.0-37.0) g/dL RDW (11.5-15.5) % Neutrophils # (1.3-7.7) k/uL Neutrophils # (Manual) (1.3-7.7) k/uL Metamyelocytes # (Man) (0) k/uL Nucleated RBCs (0-0) /100 WBC PT (9.0-12.0) sec INR (<1.2) ABG pH (7.35-7.45) ABG pCO2 (35-45) mmHg ABG pO2 (83-108) mmHg ABG HCO3 20 L (21-25) mmol/L ABG Total CO2 (19-24) mmol/L ABG O2 Saturation (94-97) % Potassium (3.5-5.1) mmol/L Carbon Dioxide (22-30) mmol/L Creatinine (0.52-1.04) mg/dL Glucose (74-99) mg/dL POC Glucose (mg/dL) (75-99) mg/dL Calcium (8.4-10.2) mg/dL Phosphorus (2.5-4.5) mg/dL Magnesium (1.6-2.3) mg/dL Total Bilirubin (0.2-1.3) mg/dL AST (14-36) U/L ALT (9-52) U/L Alkaline Phosphatase (38-126) U/L Total Creatine Kinase 3105 H (30-135) U/L CK-MB (CK-2) 133.0 H* (0.0-2.4) ng/mL Troponin I (0.000-0.034) ng/mL Total Protein (6.3-8.2) g/dL Albumin (3.5-5.0) g/dL HDL Cholesterol (40-60) mg/dL Assessment and Plan Assessment: 1. Cardiac arrest at the outside hospital status post CPR for approximately 20 minutes/defibrillation 2. Acute ST elevation NH status post left heart catheterization with findings suggestive of dissection of the RCA. Otherwise nonobstructive coronary artery disease. Followed by cardiology. 3. Acute cardiogenic shock: Requiring vasopressors. We will continue IV fluid hydration. Repeat echocardiogram showed EF less than 20% which is new compared to her echo last month with a EF of greater than 50%. 4. Right lower lobe pneumonia maintained on Zosyn 5. Acute hypoxic respiratory failure 6. Acute liver shock with significant transaminitis secondary to episodes of hypotension. We will continue to monitor liver function tests daily 7. Type 2 diabetes mellitus 8. Mixed hyperlipidemia 9. Hypothyroidism maintained on levothyroxin Today, I reviewed her medication list and lab work results. Appreciate research consultant's recommendations. Continue ICU care. Vasopressors as needed to maintain mean arterial pressure greater than 60. Mechanical ventilation management and the client technologies specialist. We will repeat lab work in the morning. GI and DVT prophylaxis ordered.
[2017-05-22] MEDS: INSULIN ASPART 100 UNIT/ML 1 ML 10 ML VIAL SQ SCH ×5 (13:30→21:27)
[2017-05-22 13:42] LABS: Glucose,Whole Blood 135 mg/dL (75-99)
[2017-05-22] MEDS ORDERED: ATROPINE SULFATE 0.1 MG/ML 10ML SYRINGE ONE (15:18)
[2017-05-22 17:22] LABS: Glucose,Whole Blood 137 mg/dL (75-99)
--- NOTE | 2017-05-22 17:31 | ECHOF ---
Referral Reason:heart cath MEASUREMENTS -------- HEIGHT: 165.1 cm WEIGHT: 73.5 kg BP: 107/68 RVIDd: 2.9 cm (< 3.3) IVSd: 1.1 cm (0.6 - 1.1) LVIDd: 5.4 cm (3.9 - 5.3) LVPWd: 1.3 cm (0.6 - 1.1) IVSs: 1.4 cm LVIDs: 5.0 cm LVPWs: 1.8 cm LA Diam: 3.8 cm (2.7 - 3.8) LAESV Index (A-L): 31.89 ml/m Ao Diam: 3.0 cm (2.0 - 3.7) AV Cusp: 2.1 cm (1.5 - 2.6) MV EXCURSION: 21.171 mm (> 18.000) MV EF SLOPE: 116 mm/s (70 - 150) EPSS: 1.0 cm MV E Héctor: 0.76 m/s MV DecT: 165 ms MV A Héctor: 0.48 m/s MV E/A Ratio: 1.59 RAP: 15.00 mmHg RVSP: 40.96 mmHg FINDINGS -------- Sinus rhythm. This was a technically adequate study. The left ventricle is mildly dilated. There is mild concentric left ventricular hypertrophy. Over all left ventricular systolic function is severely impaired with, an EF < 20%. Global hypokinesis Atypical septal wall motion The right ventricle is normal in size. LA is midly dilated 29-33ml/m2. The right atrium is normal in size. Aortic valve is trileaflet and is mildly thickened. Mild mitral annular calcification present. [id number]-[id number] mitral regurgitation is present. Mild tricuspid regurgitation present. Right ventricular systolic pressure is normal at < 35 mmHg. The pulmonic valve was not well visualized. The aortic root size is normal. The inferior vena cava is dilated with no significant inspiratory collapse which is consistent estima lalito right atrial pressure of >15 mmHg. There is no pericardial effusion. Pleural Effusion with Fibrin. CONCLUSIONS -------- 1. Sinus rhythm. 2. This was a technically adequate study. 3. The left ventricle is mildly dilated. 4. There is mild concentric left ventricular hypertrophy. 5. Overall left ventricular systolic function is severely impaired with, an EF < 20%. 6. Global hypokinesis 7. Atypical septal wall motion 8. The right ventricle is normal in size. 9. LA is midly dilated 29-33ml/m2. 10. The right atrium is normal in size. 11. Aortic valve is trileaflet and is mildly thickened. 12. Mild mitral annular calcification present. 13. Djgpsuvy-[id number]-[id number] mitral regurgitation is present. 14. Mild tricuspid regurgitation present. 15. Right ventricular systolic pressure is normal at < 35 mmHg. 16. The pulmonic valve was not well visualized. 17. The aortic root size is normal. 18. The inferior vena cava is dilated with no significant inspiratory collapse which is consistent es timated right atrial pressure of >15 mmHg. 19. There is no pericardial effusion. 20. Pleural Effusion with Fibrin. PRECIPITATION EQUIPMENT TENDER: Catrina Barrientos RDCS
[2017-05-22] MEDS ORDERED: SODIUM CHLORIDE 0.9% 500 ML IV ONE (18:25)
[2017-05-22 19:18] LABS: Calcium 7.2 mg/dL (8.4-10.2); Potassium 3.7 mmol/L (3.5-5.1)
[2017-05-22 20:13] LABS: Glucose,Whole Blood 141 mg/dL (75-99)
[2017-05-22 21:29] LABS: Glucose,Whole Blood 139 mg/dL (75-99)
[2017-05-22 21:38] LABS: Appearance,Urine Cloudy (Clear); Bacteria,Urine Rare /hpf; Bilirubin,Urine Negative (Negative); Blood,Urine Large (Negative); Color,Urine Dark Brown; Glucose,Urine (UA) Negative (Negative); Ketones,Urine Trace (Negative); Leukocyte Esterase,Urine Negative (Negative); Mucus,Urine Few /hpf; Nitrite,Urine Negative (Negative); Protein,Urine 2+ (Negative); RBC,Urine 54 /hpf (0-5); Specific Gravity,Urine 1.031 (1.001-1.035); Squamous Epithelial Cell,Urine 3 /hpf (0-4); Urobilinogen,Urine <2.0 mg/dL (<2.0); WBC,Urine 15 /hpf (0-5)
[2017-05-22] MEDS: ATORVASTATIN 40 MG TAB PO SCH (22:29)
[2017-05-22] MEDS ORDERED: POTASSIUM BICARBONATE/CIT AC 20 MEQ TABLET.EFF NG-TUBE SCH (23:00)
[2017-05-23 00:15] LABS: Glucose,Whole Blood 134 mg/dL (75-99)
[2017-05-23] MEDS: INSULIN ASPART 100 UNIT/ML 1 ML 10 ML VIAL SQ SCH ×6 (00:16→20:35)
[2017-05-23] MEDS: HEPARIN SODIUM,PORCINE 5,000 UNIT/ML 1 ML VIAL SQ SCH ×3 (00:19→17:29)
[2017-05-23] MEDS: PROPOFOL 1,000 MG in EMPTY BAG 1 BAG IV SCH ×2 (00:48→09:10)
[2017-05-23] MEDS: IPRATROPIUM-ALBUTEROL 3 ML NEB INHALATION SCH ×5 (02:34→19:45)
[2017-05-23] MEDS ORDERED: METOPROLOL TARTRATE 25 MG TAB PO SCH (02:43)
[2017-05-23] MEDS: SODIUM CHLORIDE 0.9% 1,000 ML IV SCH ×2 (03:07→14:43)
[2017-05-23 03:53] LABS: Glucose,Whole Blood 137 mg/dL (75-99)
[2017-05-23 04:02] LABS: Anisocytosis Slight; Basophils % (A) 0 %; Eosinophils # (A) 0.1 k/uL (0-0.7); Eosinophils % (A) 1 %; HGB 10.5 gm/dL (11.4-16.0); Hypochromasia Marked; Lymphocytes # (A) 1.2 k/uL (1.0-4.8); Lymphocytes % (A) 8 %; MCH 27.6 pg (25.0-35.0); MCHC 30.8 g/dL (31.0-37.0); MCV 89.4 fL (80.0-100.0); Mean Platelet Volume 10.3; Monocytes # (A) 0.6 k/uL (0-1.0); Monocytes % (A) 4 %; Neutrophils # (A) 13.7 k/uL (1.3-7.7); Neutrophils % (A) 88 %; Platelet Count 119 k/uL (150-450); Poikilocytosis Slight; RDW 16.6 % (11.5-15.5); WBC 15.7 k/uL (3.8-10.6)
[2017-05-23 04:12] LABS: INR 2.3 (<1.2); Partial Thromboplastin Time 27.9 sec (22.0-30.0)
[2017-05-23 04:18] LABS: Albumin 2.4 g/dL (3.5-5.0); Calcium 7.2 mg/dL (8.4-10.2); Phosphorus 3.5 mg/dL (2.5-4.5); Potassium 3.4 mmol/L (3.5-5.1); Total Bilirubin 1.4 mg/dL (0.2-1.3); Total Protein 4.5 g/dL (6.3-8.2)
[2017-05-23 04:36] LABS: ABG Base Excess -1.1 mmol/L; ABG HCO3 22 mmol/L (21-25); ABG Oxygen Saturation 97.1 % (94-97); ABG PCO2 30 mmHg (35-45); ABG PH 7.48 (7.35-7.45); ABG PO2 97 mmHg (83-108); ABG TCO2 23 mmol/L (19-24)
[2017-05-23] MEDS ORDERED: CALCIUM GLUCONATE 1,000 MG in SODIUM CHLORIDE 0.9% 100 ML IVPB ONE (06:43)
[2017-05-23] MEDS ORDERED: POTASSIUM BICARBONATE/CIT AC 20 MEQ TABLET.EFF NG-TUBE SCH (07:00)
--- NOTE | 2017-05-23 07:22 | XR ---
EXAMINATION TYPE: XR chest 1V portable DATE OF EXAM: 05/23/2017 COMPARISON: Prior chest x-ray 05/22/2017 HISTORY: Intubated TECHNIQUE: Single frontal view of the chest is obtained. FINDINGS: Endotracheal tube, NG tube, right subclavian central venous catheter are overlying appropr iate positions and are stable. Heart remains enlarged. Increased density present at the right lung ba se greater than left is again seen. Interstitium mildly prominent. There is no evident pneumothorax. Overlying cardiac leads are noted. Pulmonary vascularity and abbey are stable. IMPRESSION: Cardiomegaly. Correlate for possible pneumonia and parapneumonic effusion, pulmonary kolby ous hypertension or volume overload, interstitial edema not excluded.
[2017-05-23] MEDS: CHLORHEXIDINE GLUCONATE 15 ML CUP MUCOUS MEM SCH ×2 (07:53→21:40)
[2017-05-23] MEDS: PANTOPRAZOLE 40 MG/10 ML VIAL IV SCH (07:53)
[2017-05-23] MEDS: FLUoxetine HCL 20 MG CAP PO SCH (07:54)
[2017-05-23] MEDS: LEVOTHYROXINE 50 MCG TAB PO SCH (07:54)
[2017-05-23] MEDS: ASPIRIN 325 MG TAB PO SCH (08:00)
[2017-05-23] MEDS: MAGNESIUM SULFATE-D5W PMX 1 GM in DEXTROSE/WATER 1 100ML.BAG IVPB SCH ×2 (09:00→09:15)
[2017-05-23] MEDS ORDERED: POTASSIUM CHLORIDE 20 MEQ in SODIUM CHLORIDE 0.9% 100 ML IVPB ONE (09:17)
[2017-05-23] MEDS ORDERED: Potassium Replacement Protocol 1 EACH MISC MISCELLANE PRN (09:17)
--- NOTE | 2017-05-23 10:02 | P.PN ---
Subjective Progress Note Date: 05/23/17 Principal diagnosis: Cardiac arrest This a 72-year-old female who was admitted to [facility] with dyspnea, evidence of CHF, pneumonia and mildly elevated troponins. Patient had cardiac arrest with ventricular fibrillation requiring prolonged CPR and intubation. Patient was hypotensive and was started on epinephrine drip was transferred to [facility] for cardiac catheterization and possible further intervention. 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 Patient remains sedated and intubated. She continues to have runs of nonsustained ventricular tachycardia. Echocardiogram showed an ejection fraction less than 20%. She is currently on Levophed and amiodarone. Potassium is 3.4 and magnesium is 2.0. Liver enzymes are significantly elevated. BUN/creatinine 31 and creatinine of 1.4. Blood pressure is currently stable in the 120s systolic. Objective - Vital Signs Vital signs: Vital Signs Temp 99.9 F H 05/23/17 08:00 Pulse 74 05/23/17 09:30 Resp 27 H 05/23/17 09:30 BP 87/69 05/21/17 23:40 Pulse Ox 97 05/23/17 09:30 Intake & Output 05/22/17 05/23/17 05/23/17 18:59 06:59 18:59 Intake Total 8442.536 0136.509 383.4 Output Total 330 552 30 Balance 1274.950 824.509 353.4 Weight 85.3 kg Intake: IV 1225 1046.2 383.4 Amiodarone 450 mg In 183.7 33.4 Dextrose 5% in Water 250 ml @ 0.5 MG/MIN 16.66 mls /hr IV .Q15H1M [facility] Rx#: [id number] Magnesium Sulfate-D5w Pmx 200 1 gm In Dextrose/Water 1 100ml.bag @ 100 mls/hr IVPB Q1H [facility]IA Rx#: [id number] Piperacillin-Tazobactam 3 37.5 .375 gm In Dextrose/Water 1 50ml.bag @ 12.5 mls/hr IVPB Q12HR [facility] Rx#: [id number] Potassium Chloride 20 meq 200 In Sodium Chloride 0.9% 100 ml @ 55 mls/hr IV ONCE ONE Rx#:[id number] Sodium Chloride 0.9% 1, 750 150 000 ml @ 75 mls/hr IV . [id number] [facility] Rx#:[id number] Sodium Chloride 0.9% 1, 1025 75 000 ml As IV .[facility] Rx#:[id number] Intake, IV Titration 379.950 270.309 Amount Amiodarone 450 mg In 243.791 Dextrose 5% in Water 250 ml @ 0.5 MG/MIN 16.66 mls /hr IV .Q15H1M [facility]IA Rx#: [id number] Norepinephrin 16 mg-0.9% 241.875 26.518 Ns Pmx 16 mg In 250 ml @ Titrate IV .Q0M [facility] Rx#: [id number] Piperacillin-Tazobactam 3 50 .375 gm In Dextrose/Water 1 50ml.bag @ 12.5 mls/hr IVPB Q12HR [facility] Rx#: [id number] Propofol 1,000 mg In 88.075 Empty Bag 1 bag @ Titrate IV .Q0M ANIA Rx#: [id number] Other 60 Output: Gastric Drainage 350 Urine 330 202 30 Other: Voiding Method Indwelling Catheter Indwelling Catheter ABP, PAP, CO, CI - Last Documented Arterial Blood Pressure 117/74 - Exam PHYSICAL EXAMINATION: HEENT: Head is atraumatic, normocephalic. Neck is supple. There is no elevated jugular venous pressure. HEART EXAMINATION: Heart sounds regular, S1 and S2 normal. No murmur or gallop heard. CHEST EXAMINATION: Lungs reveal diminished air entry bilaterally. No chest wall tenderness is noted on palpation or with deep breathing. ABDOMEN: Soft, distended. Bowel sounds are hypoactive. No organomegaly noted. EXTREMITIES: 1+ peripheral pulses with no evidence of peripheral edema and no calf tenderness noted. NEUROLOGIC patient is sedated and intubated. . - Labs CBC & Chem 7: 05/23/17 03:50 05/23/17 03:50 Labs: Abnormal Lab Results - Last 24 Hours (Table) 05/22/17 05/22/17 05/22/17 Range/Units 12:08 13:24 17:08 WBC (3.8-10.6) k/uL Hgb (11.4-16.0) gm/dL MCHC (31.0-37.0) g/dL RDW (11.5-15.5) % Plt Count (150-450) k/uL Neutrophils # (1.3-7.7) k/uL PT (9.0-12.0) sec INR (<1.2) ABG pH (7.35-7.45) ABG pCO2 (35-45) mmHg ABG O2 Saturation (94-97) % Potassium (3.5-5.1) mmol/L Chloride (98-107) mmol/L Carbon Dioxide (22-30) mmol/L BUN (7-17) mg/dL Creatinine (0.52-1.04) mg/dL Glucose (74-99) mg/dL POC Glucose (mg/dL) 135 H 137 H (75-99) mg/dL Calcium (8.4-10.2) mg/dL Ionized Calcium Julio César (4.5-5.3) mg/dL Total Bilirubin (0.2-1.3) mg/dL AST (14-36) U/L ALT (9-52) U/L Total Creatine Kinase 3105 H (30-135) U/L CK-MB (CK-2) 133.0 H* (0.0-2.4) ng/mL Troponin I 224.000 H* (0.000-0.034) ng/mL Total Protein (6.3-8.2) g/dL Albumin (3.5-5.0) g/dL Urine Appearance (Clear) Urine Protein (Negative) Urine Ketones (Negative) Urine Blood (Negative) Urine RBC (0-5) /hpf Urine WBC (0-5) /hpf Urine Bacteria (None) /hpf Urine Mucus (None) /hpf 05/22/17 05/22/17 05/22/17 Range/Units 18:03 20:11 21:20 WBC (3.8-10.6) k/uL Hgb (11.4-16.0) gm/dL MCHC (31.0-37.0) g/dL RDW (11.5-15.5) % Plt Count (150-450) k/uL Neutrophils # (1.3-7.7) k/uL PT (9.0-12.0) sec INR (<1.2) ABG pH (7.35-7.45) ABG pCO2 (35-45) mmHg ABG O2 Saturation (94-97) % Potassium (3.5-5.1) mmol/L Chloride 108 H (98-107) mmol/L Carbon Dioxide 21 L (22-30) mmol/L BUN 25 H (7-17) mg/dL Creatinine 1.43 H (0.52-1.04) mg/dL Glucose 130 H (74-99) mg/dL POC Glucose (mg/dL) 141 H (75-99) mg/dL Calcium 7.2 L (8.4-10.2) mg/dL Ionized Calcium Julio César (4.5-5.3) mg/dL Total Bilirubin (0.2-1.3) mg/dL AST (14-36) U/L ALT (9-52) U/L Total Creatine Kinase (30-135) U/L CK-MB (CK-2) (0.0-2.4) ng/mL Troponin I (0.000-0.034) ng/mL Total Protein (6.3-8.2) g/dL Albumin (3.5-5.0) g/dL Urine Appearance Cloudy H (Clear) Urine Protein 2+ H (Negative) Urine Ketones Trace H (Negative) Urine Blood Large H (Negative) Urine RBC 54 H (0-5) /hpf Urine WBC 15 H (0-5) /hpf Urine Bacteria Rare H (None) /hpf Urine Mucus Few H (None) /hpf 05/22/17 05/23/17 05/23/17 Range/Units 21:27 00:13 03:50 WBC 15.7 H (3.8-10.6) k/uL Hgb 10.5 L (11.4-16.0) gm/dL MCHC 30.8 L (31.0-37.0) g/dL RDW 16.6 H (11.5-15.5) % Plt Count 119 L (150-450) k/uL Neutrophils # 13.7 H (1.3-7.7) k/uL PT (9.0-12.0) sec INR (<1.2) ABG pH (7.35-7.45) ABG pCO2 (35-45) mmHg ABG O2 Saturation (94-97) % Potassium (3.5-5.1) mmol/L Chloride (98-107) mmol/L Carbon Dioxide (22-30) mmol/L BUN (7-17) mg/dL Creatinine (0.52-1.04) mg/dL Glucose (74-99) mg/dL POC Glucose (mg/dL) 139 H 134 H (75-99) mg/dL Calcium (8.4-10.2) mg/dL Ionized Calcium Julio César (4.5-5.3) mg/dL Total Bilirubin (0.2-1.3) mg/dL AST (14-36) U/L ALT (9-52) U/L Total Creatine Kinase (30-135) U/L CK-MB (CK-2) (0.0-2.4) ng/mL Troponin I (0.000-0.034) ng/mL Total Protein (6.3-8.2) g/dL Albumin (3.5-5.0) g/dL Urine Appearance (Clear) Urine Protein (Negative) Urine Ketones (Negative) Urine Blood (Negative) Urine RBC (0-5) /hpf Urine WBC (0-5) /hpf Urine Bacteria (None) /hpf Urine Mucus (None) /hpf 05/23/17 05/23/17 05/23/17 Range/Units 03:50 03:50 03:50 WBC (3.8-10.6) k/uL Hgb (11.4-16.0) gm/dL MCHC (31.0-37.0) g/dL RDW (11.5-15.5) % Plt Count (150-450) k/uL Neutrophils # (1.3-7.7) k/uL PT 21.0 H (9.0-12.0) sec INR 2.3 H (<1.2) ABG pH (7.35-7.45) ABG pCO2 (35-45) mmHg ABG O2 Saturation (94-97) % Potassium 3.4 L (3.5-5.1) mmol/L Chloride 109 H (98-107) mmol/L Carbon Dioxide (22-30) mmol/L BUN 31 H (7-17) mg/dL Creatinine 1.40 H (0.52-1.04) mg/dL Glucose 131 H (74-99) mg/dL POC Glucose (mg/dL) (75-99) mg/dL Calcium 7.2 L (8.4-10.2) mg/dL Ionized Calcium Julio César 4.1 L (4.5-5.3) mg/dL Total Bilirubin 1.4 H (0.2-1.3) mg/dL AST 7159 H (14-36) U/L ALT 2273 H (9-52) U/L Total Creatine Kinase (30-135) U/L CK-MB (CK-2) (0.0-2.4) ng/mL Troponin I (0.000-0.034) ng/mL Total Protein 4.5 L (6.3-8.2) g/dL Albumin 2.4 L (3.5-5.0) g/dL Urine Appearance (Clear) Urine Protein (Negative) Urine Ketones (Negative) Urine Blood (Negative) Urine RBC (0-5) /hpf Urine WBC (0-5) /hpf Urine Bacteria (None) /hpf Urine Mucus (None) /hpf 05/23/17 05/23/17 Range/Units 03:50 04:35 WBC (3.8-10.6) k/uL Hgb (11.4-16.0) gm/dL MCHC (31.0-37.0) g/dL RDW (11.5-15.5) % Plt Count (150-450) k/uL Neutrophils # (1.3-7.7) k/uL PT (9.0-12.0) sec INR (<1.2) ABG pH 7.48 H (7.35-7.45) ABG pCO2 30 L (35-45) mmHg ABG O2 Saturation 97.1 H (94-97) % Potassium (3.5-5.1) mmol/L Chloride (98-107) mmol/L Carbon Dioxide (22-30) mmol/L BUN (7-17) mg/dL Creatinine (0.52-1.04) mg/dL Glucose (74-99) mg/dL POC Glucose (mg/dL) 137 H (75-99) mg/dL Calcium (8.4-10.2) mg/dL Ionized Calcium Julio César (4.5-5.3) mg/dL Total Bilirubin (0.2-1.3) mg/dL AST (14-36) U/L ALT (9-52) U/L Total Creatine Kinase (30-135) U/L CK-MB (CK-2) (0.0-2.4) ng/mL Troponin I (0.000-0.034) ng/mL Total Protein (6.3-8.2) g/dL Albumin (3.5-5.0) g/dL Urine Appearance (Clear) Urine Protein (Negative) Urine Ketones (Negative) Urine Blood (Negative) Urine RBC (0-5) /hpf Urine WBC (0-5) /hpf Urine Bacteria (None) /hpf Urine Mucus (None) /hpf Microbiology - Last 24 Hours (Table) 05/22/17 08:00 Gram Stain - Preliminary Sputum Sputum Culture - Preliminary 05/22/17 21:20 Urine Culture - Preliminary Urine,Catheterized Assessment and Plan Assessment: 1 cardiac arrest with ventricular fibrillation #2 acute inferior wall IA #3 congestive heart failure, systolic, acute on chronic #4 pneumonia #5 COPD Plan: From cardiology perspective, we'll decrease the dose of Levaquin and increase amiodarone to 1 mg/min. Give 2 g of magnesium now and replace potassium with goal around 4.5. We will add metoprolol tartrate 12.5 mg by mouth twice a day only if systolic blood pressures greater than 110. We'll continue to follow the patient right further recommendations accordingly. RADIOLOGICAL ENGINEER note has been reviewed, I agree with a documented findings and plan of care. Patient was seen and examined.
--- NOTE | 2017-05-23 10:05 | P.PN ---
Subjective Progress Note Date: 05/23/17 A 72-year-old female patient with known history of COPD and CHF with diastolic dysfunction was originally admitted to [facility] for worsening shortness of breath and acute COPD exacerbation and CHF exacerbation. She did not have any chest pain. She did have some mild elevation of the troponin and EKG did not show any acute abnormalities. Chest x-ray showed possibly a right lower lobe pneumonia. Note that the patient was being treated and she acutely had an acute cardiac arrest. She collapsed on the floor. Initially she was found to be investigated fibrillation. CPR was initiated and the patient was defibrillated on several occasions. She was intubated and she remained hypotensive requiring pressors. The exact downtime is not known however I expect this was approximately 20 minutes of CPR and defibrillation on this patient. The patient got moved to the [facility] emergency department where the EKG showed acute ST segment elevation in inferior leads with reciprocal changes. 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 The left main was patent. There was mild disease in the proximal LAD and circumflex. The dominant vessel was RCA. This was reviewed by Dr. Leggett and it was decided not to do any intervention knowing that the patient had a GRISEL 3 flow in the RCA. The patient had 3 more episodes of V. tach and the [facility] where she had to be defibrillated. She was started on amiodarone drip and she got moved to the intensive care unit on 35 mics of levo fed for hypotension. This morning and echo cardiac rhythm was done and ejection fraction is less than 20%. Overnight she was given a total of 2 L of IV fluid and currently she is on normal saline today to have 100 mL an hour. She is producing urine output in the order of 20 mL an hour. She was producing better urine output prior to that. She is currently weaned down to 50 mics of the prevent. Note that the patient also had a traumatic head injury and a CAT scan of the brain was done in the emergency department that showed no acute abnormalities. As far as the right lower lobe pneumonia, the patient is on IV Zosyn. The patient has a right venous and arterial sheath in the right groin. Amiodarone is running at the maintenance of 0.5 mg/m. She is sedated and she is moving all 4 extremities to painful is diminished yet she is not following any commands. Diprivan is running at 15 g. currently intubated on a mechanical ventilator on assist control mode at the rate of 18, tidal volume 500 , FiO2 of 50% and a PEEP of 5. Blood gases from this morning showed a pH of 7.36 with a pCO2 of 36 and pO2 of 87 on 50% FiO2. On 05/23/2016 the patient is being seen for a follow-up. The patient remains intubated on a mechanical ventilator. The patient is also sedated with Diprivan. The patient remains calm and comfortable on today's evaluation. Overnight, the patient was having runs of nonsustained polymorphic V. tach. The patient did not require to be defibrillated. Cardiology was informed and the patient was placed on metoprolol 12.5 mg by mouth twice a day. This resulted in to some drop in his blood pressure. Levo fed was used to titrate the blood pressure and we have been gradually weaning down to the levo fed and currently levo fed is down to 2 mics. The patient is tolerating the drop in the pressors. Note that the patient also received significant amount of fluid and he received additional 2 L of bolus use yesterday and his net fluid balance is at least 5-1/2 L over the past 48 hours. This has helped with fluid resuscitation and the patient's CVP is currently at 18. Her chest x-ray from today is consistent with a right lower lobe pneumonia. ET tube is in a good location. No signs of any failure and the patient also has a triple lumen catheter which is in place. The patient had 2 additional rounds of polymorphic V. tach earlier this morning that were nonsustained. Cardiology was again informed. Amiodarone drip was increased up to 1 mg a minute. As far as electrolytes, the patient has a magnesium level of 2.0 and a potassium level of 3.4. Both of the electrodes were placed. Echocardiogram was done yesterday showed an ejection fraction of around less than 20%. The patient is also moderate to severe mitral regurgitation and a PA pressure of less than 35. No pericardial effusion seen. He is afebrile. The patient on Zosyn regarding the right lower lobe pneumonia. The vent settings on the day include an assist- control at the rate of 18, tidal volume 500, FiO2 of 50% with a PEEP of 5 and the patient's blood gas showed a pH of 7.48 with a pCO2 of 30 and pO2 of 97. No significant secretions from endotracheal tube. No significant bronchospasm and wheezing. The patient is still nothing by mouth. NG tube is in place. The patient also went into an acute shock liver following a cardiopulmonary arrest. The patient has significant elevation of the AST and ALT. This has also resulted in to some coagulopathy with the patient's INR is up to 2.3. There is also drop in the platelet counts down to 119. No signs of any acute bleeding. Objective - Vital Signs Vital signs: Vital Signs Temp 99.9 F H 05/23/17 08:00 Pulse 74 05/23/17 09:30 Resp 27 H 05/23/17 09:30 BP 87/69 05/21/17 23:40 Pulse Ox 97 05/23/17 09:30 Intake & Output 05/22/17 05/23/17 05/23/17 18:59 06:59 18:59 Intake Total 9305.315 0878.509 383.4 Output Total 330 552 30 Balance 1274.950 824.509 353.4 Weight 85.3 kg Intake: IV 1225 1046.2 383.4 Amiodarone 450 mg In 183.7 33.4 Dextrose 5% in Water 250 ml @ 0.5 MG/MIN 16.66 mls /hr IV .Q15H1M [facility] Rx#: [id number] Magnesium Sulfate-D5w Pmx 200 1 gm In Dextrose/Water 1 100ml.bag @ 100 mls/hr IVPB Q1H [facility] Rx#: [id number] Piperacillin-Tazobactam 3 37.5 .375 gm In Dextrose/Water 1 50ml.bag @ 12.5 mls/hr IVPB Q12HR [facility] Rx#: [id number] Potassium Chloride 20 meq 200 In Sodium Chloride 0.9% 100 ml @ 55 mls/hr IV ONCE [facility] Rx#:[id number] Sodium Chloride 0.9% 1, 750 150 000 ml @ 75 mls/hr IV . [id number] [facility] Rx#:[id number] Sodium Chloride 0.9% 1, 1025 75 000 ml As IV .[facility] Rx#:[id number] Intake, IV Titration 379.950 270.309 Amount Amiodarone 450 mg In 243.791 Dextrose 5% in Water 250 ml @ 0.5 MG/MIN 16.66 mls /hr IV .Q15H1M [facility] Rx#: [id number] Norepinephrin 16 mg-0.9% 241.875 26.518 Ns Pmx 16 mg In 250 ml @ Titrate IV .Q0M [facility] Rx#: [id number] Piperacillin-Tazobactam 3 50 .375 gm In Dextrose/Water 1 50ml.bag @ 12.5 mls/hr IVPB Q12HR [facility] Rx#: [id number] Propofol 1,000 mg In 88.075 Empty Bag 1 bag @ Titrate IV .Q0M [facility] Rx#: [id number] Other 60 Output: Gastric Drainage 350 Urine 330 202 30 Other: Voiding Method Indwelling Catheter Indwelling Catheter ABP, PAP, CO, CI - Last Documented Arterial Blood Pressure 117/74 - Exam Patient currently intubated on mechanical ventilator. The patient is sedated and she is calm and comfortable. She is withdrawing to painful stimulation all 4 extremities. Neurologic exam shows adequate sensation to painful stimulation. She has a positive cough and a gag. Pupils around 4 mm in size and they're reactive to light. No nystagmus. No clonus and no facial asymmetry. The patient is in the process of being given a sedation holiday. She's been off Diprivan for approximately 2 hours and there is no alertness still. The patient is a right subclavian triple-lumen catheter in place. Exit site is clean. Orogastric and orotracheal tube are both in place.Head exam was generally normal. There was no scleral icterus or corneal arcus. Mucous membranes were moist.Neck was supple and without jugular venous distension, thyromegaly, or carotid bruits. Carotids were easily palpable bilaterally. There was no adenopathy. Lung sounds are diminished in the right lung base otherwise breath sounds are equal and symmetrical bilaterally. ET tube is in a good location.Cardiac exam revealed the PMI to be normally situated and sized. The rhythm was regular and no extrasystoles were noted during several minutes of auscultation. The first and second heart sounds were normal and physiologic splitting of the second heart sound was noted. There were no murmurs, rubs, clicks, or gallops.Abdominal exam revealed normal bowel sounds. The abdomen was soft, non-tender, and without masses, organomegaly, or appreciable enlargement of the abdominal aorta. .Examination of the extremities revealed easily palpable radial, femoral and pedal pulses. There was no cyanosis, clubbing or edema. Patient has equal and symmetrical pulses in lower extremities bilaterally.Examination of the skin revealed no evidence of significant rashes, suspicious appearing nevi or other concerning lesions. Psych evaluation cannot be evaluated. - Labs CBC & Chem 7: 05/23/17 03:50 05/23/17 03:50 Labs: Abnormal Lab Results - Last 24 Hours (Table) 05/22/17 05/22/17 05/22/17 Range/Units 12:08 13:24 17:08 WBC (3.8-10.6) k/uL Hgb (11.4-16.0) gm/dL MCHC (31.0-37.0) g/dL RDW (11.5-15.5) % Plt Count (150-450) k/uL Neutrophils # (1.3-7.7) k/uL PT (9.0-12.0) sec INR (<1.2) ABG pH (7.35-7.45) ABG pCO2 (35-45) mmHg ABG O2 Saturation (94-97) % Potassium (3.5-5.1) mmol/L Chloride (98-107) mmol/L Carbon Dioxide (22-30) mmol/L BUN (7-17) mg/dL Creatinine (0.52-1.04) mg/dL Glucose (74-99) mg/dL POC Glucose (mg/dL) 135 H 137 H (75-99) mg/dL Calcium (8.4-10.2) mg/dL Ionized Calcium Julio César (4.5-5.3) mg/dL Total Bilirubin (0.2-1.3) mg/dL AST (14-36) U/L ALT (9-52) U/L Total Creatine Kinase 3105 H (30-135) U/L CK-MB (CK-2) 133.0 H* (0.0-2.4) ng/mL Troponin I 224.000 H* (0.000-0.034) ng/mL Total Protein (6.3-8.2) g/dL Albumin (3.5-5.0) g/dL Urine Appearance (Clear) Urine Protein (Negative) Urine Ketones (Negative) Urine Blood (Negative) Urine RBC (0-5) /hpf Urine WBC (0-5) /hpf Urine Bacteria (None) /hpf Urine Mucus (None) /hpf 05/22/17 05/22/17 05/22/17 Range/Units 18:03 20:11 21:20 WBC (3.8-10.6) k/uL Hgb (11.4-16.0) gm/dL MCHC (31.0-37.0) g/dL RDW (11.5-15.5) % Plt Count (150-450) k/uL Neutrophils # (1.3-7.7) k/uL PT (9.0-12.0) sec INR (<1.2) ABG pH (7.35-7.45) ABG pCO2 (35-45) mmHg ABG O2 Saturation (94-97) % Potassium (3.5-5.1) mmol/L Chloride 108 H (98-107) mmol/L Carbon Dioxide 21 L (22-30) mmol/L BUN 25 H (7-17) mg/dL Creatinine 1.43 H (0.52-1.04) mg/dL Glucose 130 H (74-99) mg/dL POC Glucose (mg/dL) 141 H (75-99) mg/dL Calcium 7.2 L (8.4-10.2) mg/dL Ionized Calcium Julio César (4.5-5.3) mg/dL Total Bilirubin (0.2-1.3) mg/dL AST (14-36) U/L ALT (9-52) U/L Total Creatine Kinase (30-135) U/L CK-MB (CK-2) (0.0-2.4) ng/mL Troponin I (0.000-0.034) ng/mL Total Protein (6.3-8.2) g/dL Albumin (3.5-5.0) g/dL Urine Appearance Cloudy H (Clear) Urine Protein 2+ H (Negative) Urine Ketones Trace H (Negative) Urine Blood Large H (Negative) Urine RBC 54 H (0-5) /hpf Urine WBC 15 H (0-5) /hpf Urine Bacteria Rare H (None) /hpf Urine Mucus Few H (None) /hpf 05/22/17 05/23/17 05/23/17 Range/Units 21:27 00:13 03:50 WBC 15.7 H (3.8-10.6) k/uL Hgb 10.5 L (11.4-16.0) gm/dL MCHC 30.8 L (31.0-37.0) g/dL RDW 16.6 H (11.5-15.5) % Plt Count 119 L (150-450) k/uL Neutrophils # 13.7 H (1.3-7.7) k/uL PT (9.0-12.0) sec INR (<1.2) ABG pH (7.35-7.45) ABG pCO2 (35-45) mmHg ABG O2 Saturation (94-97) % Potassium (3.5-5.1) mmol/L Chloride (98-107) mmol/L Carbon Dioxide (22-30) mmol/L BUN (7-17) mg/dL Creatinine (0.52-1.04) mg/dL Glucose (74-99) mg/dL POC Glucose (mg/dL) 139 H 134 H (75-99) mg/dL Calcium (8.4-10.2) mg/dL Ionized Calcium Julio César (4.5-5.3) mg/dL Total Bilirubin (0.2-1.3) mg/dL AST (14-36) U/L ALT (9-52) U/L Total Creatine Kinase (30-135) U/L CK-MB (CK-2) (0.0-2.4) ng/mL Troponin I (0.000-0.034) ng/mL Total Protein (6.3-8.2) g/dL Albumin (3.5-5.0) g/dL Urine Appearance (Clear) Urine Protein (Negative) Urine Ketones (Negative) Urine Blood (Negative) Urine RBC (0-5) /hpf Urine WBC (0-5) /hpf Urine Bacteria (None) /hpf Urine Mucus (None) /hpf 05/23/17 05/23/17 05/23/17 Range/Units 03:50 03:50 03:50 WBC (3.8-10.6) k/uL Hgb (11.4-16.0) gm/dL MCHC (31.0-37.0) g/dL RDW (11.5-15.5) % Plt Count (150-450) k/uL Neutrophils # (1.3-7.7) k/uL PT 21.0 H (9.0-12.0) sec INR 2.3 H (<1.2) ABG pH (7.35-7.45) ABG pCO2 (35-45) mmHg ABG O2 Saturation (94-97) % Potassium 3.4 L (3.5-5.1) mmol/L Chloride 109 H (98-107) mmol/L Carbon Dioxide (22-30) mmol/L BUN 31 H (7-17) mg/dL Creatinine 1.40 H (0.52-1.04) mg/dL Glucose 131 H (74-99) mg/dL POC Glucose (mg/dL) (75-99) mg/dL Calcium 7.2 L (8.4-10.2) mg/dL Ionized Calcium Julio César 4.1 L (4.5-5.3) mg/dL Total Bilirubin 1.4 H (0.2-1.3) mg/dL AST 7159 H (14-36) U/L ALT 2273 H (9-52) U/L Total Creatine Kinase (30-135) U/L CK-MB (CK-2) (0.0-2.4) ng/mL Troponin I (0.000-0.034) ng/mL Total Protein 4.5 L (6.3-8.2) g/dL Albumin 2.4 L (3.5-5.0) g/dL Urine Appearance (Clear) Urine Protein (Negative) Urine Ketones (Negative) Urine Blood (Negative) Urine RBC (0-5) /hpf Urine WBC (0-5) /hpf Urine Bacteria (None) /hpf Urine Mucus (None) /hpf 05/23/17 05/23/17 Range/Units 03:50 04:35 WBC (3.8-10.6) k/uL Hgb (11.4-16.0) gm/dL MCHC (31.0-37.0) g/dL RDW (11.5-15.5) % Plt Count (150-450) k/uL Neutrophils # (1.3-7.7) k/uL PT (9.0-12.0) sec INR (<1.2) ABG pH 7.48 H (7.35-7.45) ABG pCO2 30 L (35-45) mmHg ABG O2 Saturation 97.1 H (94-97) % Potassium (3.5-5.1) mmol/L Chloride (98-107) mmol/L Carbon Dioxide (22-30) mmol/L BUN (7-17) mg/dL Creatinine (0.52-1.04) mg/dL Glucose (74-99) mg/dL POC Glucose (mg/dL) 137 H (75-99) mg/dL Calcium (8.4-10.2) mg/dL Ionized Calcium Julio César (4.5-5.3) mg/dL Total Bilirubin (0.2-1.3) mg/dL AST (14-36) U/L ALT (9-52) U/L Total Creatine Kinase (30-135) U/L CK-MB (CK-2) (0.0-2.4) ng/mL Troponin I (0.000-0.034) ng/mL Total Protein (6.3-8.2) g/dL Albumin (3.5-5.0) g/dL Urine Appearance (Clear) Urine Protein (Negative) Urine Ketones (Negative) Urine Blood (Negative) Urine RBC (0-5) /hpf Urine WBC (0-5) /hpf Urine Bacteria (None) /hpf Urine Mucus (None) /hpf Microbiology - Last 24 Hours (Table) 05/22/17 08:00 Gram Stain - Preliminary Sputum Sputum Culture - Preliminary 05/22/17 21:20 Urine Culture - Preliminary Urine,Catheterized Assessment and Plan Assessment: Assessment 1 acute cardiac arrest/V. fib, status post CPR, defibrillation and subsequent intubation mechanical ventilation. [address] segment elevation myocardial infarction involving the inferior wall secondary to dissection of the RCA. The patient underwent emergent cardiac catheterization and she currently has a GRISEL 3 flow and she did not require coronary stenting. She was advised by interventional cardiology. 3 acute shock, cardiogenic in nature with an ejection fraction of 20% on today' s echocardiogram and the patient is pressor dependent On 05/23/2017, the patient is was resuscitated with IV fluids. Pressors have been cut down to 2 mics of levo fed. The patient's urine output is marginal and this morning at around 20 mL an hour. The patient will receive another [address] is up to 18. No diuretics have been utilized. Unfortunately the patient continues to have runs of nonsustained polymorphic V. tach and the patient is still on IV amiodarone at 1 mg/m per secretarial teacher recommendation. The patient also has his electrodes in place including the potassium and magnesium. Beta blockers were also initiated with Lopressor 12.5 mg by mouth twice a day. 4 acute respiratory failure secondary to above 5 acute right lower lobe pneumonia, stable on today's chest x-ray 6 acute COPD exacerbation secondary to right lower lobe pneumonia 7 suspect hypoxic encephalopathy due to cardiac arrest. The patient is currently off Diprivan and the patient is in the process of getting a sedation holiday. The mental status will be followed hourly basis. Suspect underlying hypoxic/anoxic encephalopathy. 8 acute head trauma the time of a cardiac arrest. The patient had a negative CAT scan of the head 9 diabetes mellitus 10 hyperlipidemia 11 hypothyroidism 13 history of hypertension 14 leukocytosis secondary to above 15 acute kidney injury secondary to above in the creatinine is up to 1.4 16 acute shock liver with an underlying coagulopathy. There is related to cardio pulmonary arrest. We'll monitor liver function tests. We will monitor the coagulation profile. Plan Continue vent support. Give the patient is sedation holiday and assess underlying mentation. Neurologic exam will be done hourly basis. Give the patient another 500 mL of normal saline bolus and this may be repeated to improve your urine output. Monitor the creatinine as the patient is developing acute kidney injury with a creatinine of 1.4. Monitor the liver function tests and the coagulation profile as the patient has been involved in a shock liver. Monitor the cardiac rhythm as the patient is having episodes of nonsustained VT. The patient remains on a combination of metoprolol and amiodarone. We'll try to wean of levo fed if possible and discontinue. Initiate tube feeds at a lower rate. Discontinue the Tylenol. Hold on Lipitor for 24 hours. Continue IV Zosyn regarding the right lower lobe pneumonia. Continue to follow and keep the patient ICU. We'll make further recommendations based on her progress. Critically care evaluation, 40 minutes. Time with Patient: Greater than 30
[2017-05-23] MEDS: PIPERACILLIN-TAZOBACTAM 3.375 GM in DEXTROSE/WATER 1 50ML.BAG IVPB SCH ×2 (10:26→21:42)
[2017-05-23] MEDS: AMIODARONE 450 MG in DEXTROSE 5% IN WATER 250 ML IV SCH ×6 (10:33→20:36)
[2017-05-23] MEDS ORDERED: SODIUM CHLORIDE 0.9% 500 ML IV ONE (11:00)
--- NOTE | 2017-05-23 11:32 | P.PN ---
Subjective Patient remains in critical condition. Last night she had another run of V. tach. She is on IV amiodarone. Her urine output is minimal at 20 mL per hour. Her vasopressors requirements are improving. Liver function tests are worse with worsening coagulopathy. She is off sedation this morning with no significant response to stimulation. Objective - Vital Signs Vital signs: Vital Signs Temp 99.9 F H 05/23/17 08:00 Pulse 81 05/23/17 11:14 Resp 28 H 05/23/17 10:30 BP 87/69 05/21/17 23:40 Pulse Ox 96 05/23/17 10:30 Intake & Output 05/22/17 05/23/17 05/23/17 18:59 06:59 18:59 Intake Total 6386.222 1792.509 598.838 Output Total 330 552 50 Balance 1274.950 824.509 548.838 Weight 85.3 kg Intake: IV 1225 1046.2 458.4 Amiodarone 450 mg In 183.7 33.4 Dextrose 5% in Water 250 ml @ 0.5 MG/MIN 16.66 mls /hr IV .Q15H1M [facility] Rx#: [id number] Magnesium Sulfate-D5w Pmx 200 1 gm In Dextrose/Water 1 100ml.bag @ 100 mls/hr IVPB Q1H [facility] Rx#: [id number] Piperacillin-Tazobactam 3 37.5 .375 gm In Dextrose/Water 1 50ml.bag @ 12.5 mls/hr IVPB Q12HR [facility] Rx#: [id number] Potassium Chloride 20 meq 200 In Sodium Chloride 0.9% 100 ml @ 55 mls/hr IV ONCE ONE Rx#:[id number] Sodium Chloride 0.9% 1, 750 225 000 ml @ 75 mls/hr IV . [id number] [facility] Rx#:[id number] Sodium Chloride 0.9% 1, 1025 75 000 ml As IV .[facility] Rx#:[id number] Intake, IV Titration 379.950 270.309 140.438 Amount Amiodarone 450 mg In 243.791 Dextrose 5% in Water 250 ml @ 0.5 MG/MIN 16.66 mls /hr IV .Q15H1M [facility] Rx#: [id number] Norepinephrin 16 mg-0.9% 241.875 26.518 39.188 Ns Pmx 16 mg In 250 ml @ Titrate IV .Q0M [facility] Rx#: [id number] Piperacillin-Tazobactam 3 50 .375 gm In Dextrose/Water 1 50ml.bag @ 12.5 mls/hr IVPB Q12HR [facility] Rx#: [id number] Propofol 1,000 mg In 88.075 101.250 Empty Bag 1 bag @ Titrate IV .Q0M [facility] Rx#: [id number] Other 60 Output: Gastric Drainage 350 Urine 330 202 50 Other: Voiding Method Indwelling Catheter Indwelling Catheter Indwelling Catheter ABP, PAP, CO, CI - Last Documented Arterial Blood Pressure 133/75 - Exam General: The patient is sedated and intubated Eye: there is normal conjunctiva bilaterally. Neck: The neck is supple, there is no JVD. Cardiovascular: Normal S1-S2, no S3-S4, no murmurs. Respiratory: Lungs with mechanical ventilator sounds Gastrointestinal: Abdomen is soft, nontender Musculoskeletal: There is no pedal edema. l. Skin: Skin is warm and dry - Labs CBC & Chem 7: 05/23/17 03:50 05/23/17 03:50 Labs: Abnormal Lab Results - Last 24 Hours (Table) 05/22/17 05/22/17 05/22/17 Range/Units 12:08 13:24 17:08 WBC (3.8-10.6) k/uL Hgb (11.4-16.0) gm/dL MCHC (31.0-37.0) g/dL RDW (11.5-15.5) % Plt Count (150-450) k/uL Neutrophils # (1.3-7.7) k/uL PT (9.0-12.0) sec INR (<1.2) ABG pH (7.35-7.45) ABG pCO2 (35-45) mmHg ABG O2 Saturation (94-97) % Potassium (3.5-5.1) mmol/L Chloride (98-107) mmol/L Carbon Dioxide (22-30) mmol/L BUN (7-17) mg/dL Creatinine (0.52-1.04) mg/dL Glucose (74-99) mg/dL POC Glucose (mg/dL) 135 H 137 H (75-99) mg/dL Calcium (8.4-10.2) mg/dL Ionized Calcium Julio César (4.5-5.3) mg/dL Total Bilirubin (0.2-1.3) mg/dL AST (14-36) U/L ALT (9-52) U/L Total Creatine Kinase 3105 H (30-135) U/L CK-MB (CK-2) 133.0 H* (0.0-2.4) ng/mL Troponin I 224.000 H* (0.000-0.034) ng/mL Total Protein (6.3-8.2) g/dL Albumin (3.5-5.0) g/dL Urine Appearance (Clear) Urine Protein (Negative) Urine Ketones (Negative) Urine Blood (Negative) Urine RBC (0-5) /hpf Urine WBC (0-5) /hpf Urine Bacteria (None) /hpf Urine Mucus (None) /hpf 05/22/17 05/22/17 05/22/17 Range/Units 18:03 20:11 21:20 WBC (3.8-10.6) k/uL Hgb (11.4-16.0) gm/dL MCHC (31.0-37.0) g/dL RDW (11.5-15.5) % Plt Count (150-450) k/uL Neutrophils # (1.3-7.7) k/uL PT (9.0-12.0) sec INR (<1.2) ABG pH (7.35-7.45) ABG pCO2 (35-45) mmHg ABG O2 Saturation (94-97) % Potassium (3.5-5.1) mmol/L Chloride 108 H (98-107) mmol/L Carbon Dioxide 21 L (22-30) mmol/L BUN 25 H (7-17) mg/dL Creatinine 1.43 H (0.52-1.04) mg/dL Glucose 130 H (74-99) mg/dL POC Glucose (mg/dL) 141 H (75-99) mg/dL Calcium 7.2 L (8.4-10.2) mg/dL Ionized Calcium Julio César (4.5-5.3) mg/dL Total Bilirubin (0.2-1.3) mg/dL AST (14-36) U/L ALT (9-52) U/L Total Creatine Kinase (30-135) U/L CK-MB (CK-2) (0.0-2.4) ng/mL Troponin I (0.000-0.034) ng/mL Total Protein (6.3-8.2) g/dL Albumin (3.5-5.0) g/dL Urine Appearance Cloudy H (Clear) Urine Protein 2+ H (Negative) Urine Ketones Trace H (Negative) Urine Blood Large H (Negative) Urine RBC 54 H (0-5) /hpf Urine WBC 15 H (0-5) /hpf Urine Bacteria Rare H (None) /hpf Urine Mucus Few H (None) /hpf 05/22/17 05/23/17 05/23/17 Range/Units 21:27 00:13 03:50 WBC 15.7 H (3.8-10.6) k/uL Hgb 10.5 L (11.4-16.0) gm/dL MCHC 30.8 L (31.0-37.0) g/dL RDW 16.6 H (11.5-15.5) % Plt Count 119 L (150-450) k/uL Neutrophils # 13.7 H (1.3-7.7) k/uL PT (9.0-12.0) sec INR (<1.2) ABG pH (7.35-7.45) ABG pCO2 (35-45) mmHg ABG O2 Saturation (94-97) % Potassium (3.5-5.1) mmol/L Chloride (98-107) mmol/L Carbon Dioxide (22-30) mmol/L BUN (7-17) mg/dL Creatinine (0.52-1.04) mg/dL Glucose (74-99) mg/dL POC Glucose (mg/dL) 139 H 134 H (75-99) mg/dL Calcium (8.4-10.2) mg/dL Ionized Calcium Julio César (4.5-5.3) mg/dL Total Bilirubin (0.2-1.3) mg/dL AST (14-36) U/L ALT (9-52) U/L Total Creatine Kinase (30-135) U/L CK-MB (CK-2) (0.0-2.4) ng/mL Troponin I (0.000-0.034) ng/mL Total Protein (6.3-8.2) g/dL Albumin (3.5-5.0) g/dL Urine Appearance (Clear) Urine Protein (Negative) Urine Ketones (Negative) Urine Blood (Negative) Urine RBC (0-5) /hpf Urine WBC (0-5) /hpf Urine Bacteria (None) /hpf Urine Mucus (None) /hpf 05/23/17 05/23/17 05/23/17 Range/Units 03:50 03:50 03:50 WBC (3.8-10.6) k/uL Hgb (11.4-16.0) gm/dL MCHC (31.0-37.0) g/dL RDW (11.5-15.5) % Plt Count (150-450) k/uL Neutrophils # (1.3-7.7) k/uL PT 21.0 H (9.0-12.0) sec INR 2.3 H (<1.2) ABG pH (7.35-7.45) ABG pCO2 (35-45) mmHg ABG O2 Saturation (94-97) % Potassium 3.4 L (3.5-5.1) mmol/L Chloride 109 H (98-107) mmol/L Carbon Dioxide (22-30) mmol/L BUN 31 H (7-17) mg/dL Creatinine 1.40 H (0.52-1.04) mg/dL Glucose 131 H (74-99) mg/dL POC Glucose (mg/dL) (75-99) mg/dL Calcium 7.2 L (8.4-10.2) mg/dL Ionized Calcium Julio César 4.1 L (4.5-5.3) mg/dL Total Bilirubin 1.4 H (0.2-1.3) mg/dL AST 7159 H (14-36) U/L ALT 2273 H (9-52) U/L Total Creatine Kinase (30-135) U/L CK-MB (CK-2) (0.0-2.4) ng/mL Troponin I (0.000-0.034) ng/mL Total Protein 4.5 L (6.3-8.2) g/dL Albumin 2.4 L (3.5-5.0) g/dL Urine Appearance (Clear) Urine Protein (Negative) Urine Ketones (Negative) Urine Blood (Negative) Urine RBC (0-5) /hpf Urine WBC (0-5) /hpf Urine Bacteria (None) /hpf Urine Mucus (None) /hpf 05/23/17 05/23/17 Range/Units 03:50 04:35 WBC (3.8-10.6) k/uL Hgb (11.4-16.0) gm/dL MCHC (31.0-37.0) g/dL RDW (11.5-15.5) % Plt Count (150-450) k/uL Neutrophils # (1.3-7.7) k/uL PT (9.0-12.0) sec INR (<1.2) ABG pH 7.48 H (7.35-7.45) ABG pCO2 30 L (35-45) mmHg ABG O2 Saturation 97.1 H (94-97) % Potassium (3.5-5.1) mmol/L Chloride (98-107) mmol/L Carbon Dioxide (22-30) mmol/L BUN (7-17) mg/dL Creatinine (0.52-1.04) mg/dL Glucose (74-99) mg/dL POC Glucose (mg/dL) 137 H (75-99) mg/dL Calcium (8.4-10.2) mg/dL Ionized Calcium Julio César (4.5-5.3) mg/dL Total Bilirubin (0.2-1.3) mg/dL AST (14-36) U/L ALT (9-52) U/L Total Creatine Kinase (30-135) U/L CK-MB (CK-2) (0.0-2.4) ng/mL Troponin I (0.000-0.034) ng/mL Total Protein (6.3-8.2) g/dL Albumin (3.5-5.0) g/dL Urine Appearance (Clear) Urine Protein (Negative) Urine Ketones (Negative) Urine Blood (Negative) Urine RBC (0-5) /hpf Urine WBC (0-5) /hpf Urine Bacteria (None) /hpf Urine Mucus (None) /hpf Microbiology - Last 24 Hours (Table) 05/22/17 08:00 Gram Stain - Preliminary Sputum Sputum Culture - Preliminary 05/22/17 21:20 Urine Culture - Preliminary Urine,Catheterized Assessment and Plan Assessment: 1. Cardiac arrest at the outside hospital status post CPR for approximately 20 minutes/defibrillation 2. Acute ST elevation VT status post left heart catheterization with findings suggestive of dissection of the RCA. Otherwise nonobstructive coronary artery disease. Followed by cardiology. 3. Acute cardiogenic shock: Requiring vasopressors. We will continue IV fluid hydration. Repeat echocardiogram showed EF less than 20% which is new compared to her echo last month with a EF of greater than 50%. 4. Right lower lobe pneumonia maintained on Zosyn 5. Acute hypoxic respiratory failure 6. Acute liver shock with significant transaminitis secondary to episodes of hypotension. We will continue to monitor liver function tests daily 7. Type 2 diabetes mellitus 8. Mixed hyperlipidemia 9. Hypothyroidism maintained on levothyroxin Today, I reviewed her medication list and lab work results. Appreciate exchange underwriting consultant's recommendations. Continue ICU care. Vasopressors as needed to maintain mean arterial pressure greater than 60. Mechanical ventilation management and the credit risk analyst. We will repeat lab work in the morning. GI and DVT prophylaxis ordered. Patient's overall condition is critical. Family updated by nursing and ICU staff. Overall prognosis is very poor
[2017-05-23 12:00] LABS: Glucose,Whole Blood 142 mg/dL (75-99)
[2017-05-23] MEDS: METOPROLOL TARTRATE 12.5 MG TAB PO SCH ×2 (12:24→20:39)
[2017-05-23 12:46] LABS: Ionized Calcium 4.3 mg/dL (4.5-5.3)
[2017-05-23 12:55] LABS: Calcium 7.4 mg/dL (8.4-10.2); Magnesium 2.6 mg/dL (1.6-2.3); Potassium 4.1 mmol/L (3.5-5.1)
[2017-05-23 18:07] LABS: Glucose,Whole Blood 123 mg/dL (75-99)
[2017-05-23 18:23] LABS: Magnesium 2.4 mg/dL (1.6-2.3); Potassium 3.6 mmol/L (3.5-5.1)
[2017-05-23] MEDS ORDERED: POTASSIUM CHLORIDE 20 MEQ in SODIUM CHLORIDE 0.9% 100 ML IVPB STA (18:51)
[2017-05-23 20:28] LABS: Glucose,Whole Blood 130 mg/dL (75-99)
[2017-05-23] MEDS: ATORVASTATIN 40 MG TAB PO SCH (20:39)
[2017-05-24 00:56] LABS: Glucose,Whole Blood 126 mg/dL (75-99)
[2017-05-24] MEDS: IPRATROPIUM-ALBUTEROL 3 ML NEB INHALATION SCH ×6 (00:56→19:40)
[2017-05-24] MEDS: INSULIN ASPART 100 UNIT/ML 1 ML 10 ML VIAL SQ SCH ×6 (00:59→21:00)
[2017-05-24] MEDS: HEPARIN SODIUM,PORCINE 5,000 UNIT/ML 1 ML VIAL SQ SCH ×4 (01:51→23:26)
[2017-05-24] MEDS: SODIUM CHLORIDE 0.9% 1,000 ML IV SCH ×2 (03:21→17:20)
[2017-05-24] MEDS: AMIODARONE 450 MG in DEXTROSE 5% IN WATER 250 ML IV SCH ×4 (03:22→11:48)
[2017-05-24 04:05] LABS: Anisocytosis Slight; Basophils % (A) 0 %; Eosinophils # (A) 0.3 k/uL (0-0.7); Eosinophils % (A) 2 %; HCT 36.2 % (34.0-46.0); HGB 10.9 gm/dL (11.4-16.0); Hypochromasia Marked; Lymphocytes # (A) 1.5 k/uL (1.0-4.8); Lymphocytes % (A) 8 %; MCH 27.1 pg (25.0-35.0); MCHC 30.1 g/dL (31.0-37.0); MCV 90.2 fL (80.0-100.0); Mean Platelet Volume 11.4; Monocytes # (A) 0.7 k/uL (0-1.0); Monocytes % (A) 4 %; Neutrophils # (A) 15.6 k/uL (1.3-7.7); Neutrophils % (A) 86 %; Platelet Count 103 k/uL (150-450); Poikilocytosis Slight; RBC 4.02 m/uL (3.80-5.40); RDW 16.4 % (11.5-15.5); WBC 18.2 k/uL (3.8-10.6)
[2017-05-24 04:16] LABS: Albumin 2.4 g/dL (3.5-5.0); Calcium 7.7 mg/dL (8.4-10.2); Magnesium 2.4 mg/dL (1.6-2.3); Phosphorus 3.7 mg/dL (2.5-4.5); Total Bilirubin 1.3 mg/dL (0.2-1.3); Total Protein 4.7 g/dL (6.3-8.2)
[2017-05-24 04:22] LABS: Partial Thromboplastin Time 25.2 sec (22.0-30.0); Prothrombin Time 18.1 sec (9.0-12.0)
[2017-05-24 04:27] LABS: Glucose,Whole Blood 116 mg/dL (75-99)
[2017-05-24 05:43] LABS: ABG HCO3 21 mmol/L (21-25); ABG Oxygen Saturation 96.8 % (94-97); ABG PCO2 29 mmHg (35-45); ABG PH 7.47 (7.35-7.45); ABG PO2 91 mmHg (83-108); ABG TCO2 22 mmol/L (19-24)
[2017-05-24] MEDS: LEVOTHYROXINE 50 MCG TAB PO SCH (07:14)
--- NOTE | 2017-05-24 07:18 | XR ---
EXAMINATION TYPE: XR chest 1V portable DATE OF EXAM: 05/24/2017 COMPARISON: 05/23/2017 HISTORY: Endotracheal tube placement. Ventilatory dependent respiratory failure. TECHNIQUE: Single frontal view of the chest is obtained. FINDINGS: Right-sided basilar airspace disease with a layering effect likely represents a small laye ring pleural effusion and right basal atelectasis although pneumonia is possible in the proper clinic al setting. Cardiac silhouette is enlarged. Right-sided central venous catheter, endotracheal tube, a nd enteric tube are unchanged in position in comparison to the prior. No new focal airspace disease i s seen. Left lung remains clear. Cardiac silhouette is enlarged. Mild multilevel degenerative changes of the thoracic spine and acromio clavicular joints are noted. IMPRESSION: Persistent right basilar airspace disease with a layering effect suggesting a small laye ring pleural effusion with associated atelectasis although pneumonia remains possible in the appropri ate clinical setting. Stable lines and tubes.
[2017-05-24] MEDS: CHLORHEXIDINE GLUCONATE 15 ML CUP MUCOUS MEM SCH ×2 (07:58→21:00)
[2017-05-24] MEDS: ASPIRIN 325 MG TAB PO SCH (07:58)
[2017-05-24] MEDS: PANTOPRAZOLE 40 MG/10 ML VIAL IV SCH (07:58)
[2017-05-24] MEDS: FLUoxetine HCL 20 MG CAP PO SCH (07:58)
[2017-05-24] MEDS: PROPOFOL 1,000 MG in EMPTY BAG 1 BAG IV SCH (07:59)
[2017-05-24 08:09] LABS: Glucose,Whole Blood 125 mg/dL (75-99)
[2017-05-24] MEDS: PIPERACILLIN-TAZOBACTAM 3.375 GM in DEXTROSE/WATER 1 50ML.BAG IVPB SCH ×2 (09:06→21:03)
[2017-05-24] MEDS ORDERED: ADENOSINE 3 MG/ML 2 ML VIAL IVP ONE (09:31)
[2017-05-24] MEDS: METOPROLOL TARTRATE 12.5 MG TAB PO SCH ×2 (09:58→21:00)
[2017-05-24] MEDS ORDERED: POTASSIUM CHLORIDE 20 MEQ in WATER FOR INJECTION 1 100ML.BAG IVPB STA ×2 (10:52→18:06)
[2017-05-24] MEDS ORDERED: SPIRONOLACTONE 25 MG TAB PO SCH (11:00)
--- NOTE | 2017-05-24 11:40 | P.PN ---
Subjective Progress Note Date: 05/24/17 A 72-year-old female patient with known history of COPD and CHF with diastolic dysfunction was originally admitted to [facility] for worsening shortness of breath and acute COPD exacerbation and CHF exacerbation. She did not have any chest pain. She did have some mild elevation of the troponin and EKG did not show any acute abnormalities. Chest x-ray showed possibly a right lower lobe pneumonia. Note that the patient was being treated and she acutely had an acute cardiac arrest. She collapsed on the floor. Initially she was found to be investigated fibrillation. CPR was initiated and the patient was defibrillated on several occasions. She was intubated and she remained hypotensive requiring pressors. The exact downtime is not known however I expect this was approximately 20 minutes of CPR and defibrillation on this patient. The patient got moved to the [place] emergency department where the EKG showed acute ST segment elevation in inferior leads with reciprocal changes. 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 The left main was patent. There was mild disease in the proximal LAD and circumflex. The dominant vessel was RCA. This was reviewed by Dr. Leggett and it was decided not to do any intervention knowing that the patient had a GRISEL 3 flow in the RCA. The patient had 3 more episodes of V. tach and the Instrument Room Technician where she had to be defibrillated. She was started on amiodarone drip and she got moved to the intensive care unit on 35 mics of levo fed for hypotension. This morning and echo cardiac rhythm was done and ejection fraction is less than 20%. Overnight she was given a total of 2 L of IV fluid and currently she is on normal saline today to have 100 mL an hour. She is producing urine output in the order of 20 mL an hour. She was producing better urine output prior to that. She is currently weaned down to 50 mics of the prevent. Note that the patient also had a traumatic head injury and a CAT scan of the brain was done in the emergency department that showed no acute abnormalities. As far as the right lower lobe pneumonia, the patient is on IV Zosyn. The patient has a right venous and arterial sheath in the right groin. Amiodarone is running at the maintenance of 0.5 mg/m. She is sedated and she is moving all 4 extremities to painful is diminished yet she is not following any commands. Diprivan is running at 15 g. currently intubated on a mechanical ventilator on assist control mode at the rate of 18, tidal volume 500 , FiO2 of 50% and a PEEP of 5. Blood gases from this morning showed a pH of 7.36 with a pCO2 of 36 and pO2 of 87 on 50% FiO2. On 05/23/2016 the patient is being seen for a follow-up. The patient remains intubated on a mechanical ventilator. The patient is also sedated with Diprivan. The patient remains calm and comfortable on today's evaluation. Overnight, the patient was having runs of nonsustained polymorphic V. tach. The patient did not require to be defibrillated. Cardiology was informed and the patient was placed on metoprolol 12.5 mg by mouth twice a day. This resulted in to some drop in his blood pressure. Levo fed was used to titrate the blood pressure and we have been gradually weaning down to the levo fed and currently levo fed is down to 2 mics. The patient is tolerating the drop in the pressors. Note that the patient also received significant amount of fluid and he received additional 2 L of bolus use yesterday and his net fluid balance is at least 5-1/2 L over the past 48 hours. This has helped with fluid resuscitation and the patient's CVP is currently at 18. Her chest x-ray from today is consistent with a right lower lobe pneumonia. ET tube is in a good location. No signs of any failure and the patient also has a triple lumen catheter which is in place. The patient had 2 additional rounds of polymorphic V. tach earlier this morning that were nonsustained. Cardiology was again informed. Amiodarone drip was increased up to 1 mg a minute. As far as electrolytes, the patient has a magnesium level of 2.0 and a potassium level of 3.4. Both of the electrodes were placed. Echocardiogram was done yesterday showed an ejection fraction of around less than 20%. The patient is also moderate to severe mitral regurgitation and a PA pressure of less than 35. No pericardial effusion seen. He is afebrile. The patient on Zosyn regarding the right lower lobe pneumonia. The vent settings on the day include an assist- control at the rate of 18, tidal volume 500, FiO2 of 50% with a PEEP of 5 and the patient's blood gas showed a pH of 7.48 with a pCO2 of 30 and pO2 of 97. No significant secretions from endotracheal tube. No significant bronchospasm and wheezing. The patient is still nothing by mouth. NG tube is in place. The patient also went into an acute shock liver following a cardiopulmonary arrest. The patient has significant elevation of the AST and ALT. This has also resulted in to some coagulopathy with the patient's INR is up to 2.3. There is also drop in the platelet counts down to 119. No signs of any acute bleeding. On 05/24/2018 and seeing this patient for a follow-up. As mentioned earlier the patient is post cardiac arrest. The active issue for now is her mentation. The patient was given a sedation holiday throughout the day yesterday and she was not able to follow any commands. She would open up her eyes spontaneously yet she is not purposeful. Overnight she had to be placed back on the sedation and this morning at around 7:00 I took her off the Diprivan. At the time of my evaluation, the patient was still unresponsive to any verbal stimulation. She will grimace to painful stimulation. She does not follow any commands. No seizure activity has been noted. Hemodynamically she is improved. She is off the pressors. She is producing urine output in the order of 30 mL an hour. She is on a IV fluids at 75 mL an hour normal saline. The patient is on assist control mode of ventilation at the rate of 18, tidal volume of 500, FiO2 of 40% and a PEEP of 5 and a blood gases from today showed a pH of 7.47 with a pCO2 of 10 and 29 and pO2 of 91. Chest x-ray findings are essentially unchanged and is still some persistent right lung pneumonia. Meanwhile, the patient's is still on IV Zosyn for right lung pneumonia. Cultures of been negative thus far. The sputum cultures shown Mehnaz. Renal function is stable with a creatinine of 1.4. The patient a shock liver and the liver function is improving. INR is lower compared to yesterday and dropped from 2.3 down to 2.0. The patient is tolerating the tube feeds. The patient is not having any further ventricular arrhythmias. The patient is on a maintenance amiodarone of 0.5 mg/m and Aldactone was also added to the regimen. Objective - Vital Signs Vital signs: Vital Signs Temp 98.4 F 05/24/17 08:00 Pulse 76 03/09/18 10:00 Resp 26 H 05/24/17 10:00 BP 99/66 05/24/17 10:00 Pulse Ox 98 05/24/17 10:00 Intake & Output 05/23/17 05/24/17 05/24/17 18:59 06:59 18:59 Intake Total 2307.276 1770.143 514.971 Output Total 300 316 110 Balance 2007.276 1454.143 404.971 Weight 85.3 kg 85.3 kg Intake: IV 1874.8 1049.9 300 Amiodarone 450 mg In 33.4 Dextrose 5% in Water 250 ml @ 0.5 MG/MIN 16.66 mls /hr IV .Q15H1M [facility] Rx#: [id number] Amiodarone 450 mg In 266.4 99.9 Dextrose 5% in Water 250 ml @ 1 MG/MIN 33.33 mls/ hr IV .Q7H31M [facility] Rx#: [id number] Magnesium Sulfate-D5w Pmx 200 1 gm In Dextrose/Water 1 100ml.bag @ 100 mls/hr IVPB Q1H [facility] Rx#: [id number] Piperacillin-Tazobactam 3 50 50 .375 gm In Dextrose/Water 1 50ml.bag @ 12.5 mls/hr IVPB Q12HR [facility] Rx#: [id number] Sodium Chloride 0.9% 1, 825 900 300 000 ml @ 75 mls/hr IV . [id number] [facility] Rx#:[id number] Sodium Chloride 0.9% 500 500 ml @ 999 mls/hr IV .Q31M [facility] Rx#:[id number] Intake, IV Titration 382.476 450.243 4.971 Amount Amiodarone 450 mg In 231.088 329.412 Dextrose 5% in Water 250 ml @ 1 MG/MIN 33.33 mls/ hr IV .Q7H31M [facility] Rx#: [id number] Norepinephrin 16 mg-0.9% 39.188 33.031 4.971 Ns Pmx 16 mg In 250 ml @ Titrate IV .Q0M [facility] Rx#: [id number] Propofol 1,000 mg In 112.200 87.8 Empty Bag 1 bag @ Titrate IV .Q0M [facility] Rx#: [id number] Tube Feeding 50 240 180 Other 30 30 Output: Urine 300 316 110 Other: Voiding Method Indwelling Catheter Indwelling Catheter Indwelling Catheter ABP, PAP, CO, CI - Last Documented Arterial Blood Pressure 120/98 - Exam Patient currently intubated on mechanical ventilator. The patient is sedated and she is calm and comfortable. She is withdrawing to painful stimulation all 4 extremities. N She has a positive cough and a gag. Pupils around 4 mm in size and they're reactive to light. No nystagmus. No clonus and no facial asymmetry. The patient is in the process of being given a sedation holiday. She has nonpurposeful. She is not following any simple commands at this point in time.. The patient is a right subclavian triple-lumen catheter in place. Exit site is clean. Orogastric and orotracheal tube are both in place.Head exam was generally normal. There was no scleral icterus or corneal arcus. Mucous membranes were moist.Neck was supple and without jugular venous distension, thyromegaly, or carotid bruits. Carotids were easily palpable bilaterally. There was no adenopathy. Lung sounds are diminished in the right lung base otherwise breath sounds are equal and symmetrical bilaterally. ET tube is in a good location.Cardiac exam revealed the PMI to be normally situated and sized. The rhythm was regular and no extrasystoles were noted during several minutes of auscultation. The first and second heart sounds were normal and physiologic splitting of the second heart sound was noted. There were no murmurs, rubs, clicks, or gallops.Abdominal exam revealed normal bowel sounds. The abdomen was soft, non-tender, and without masses, organomegaly, or appreciable enlargement of the abdominal aorta. .Examination of the extremities revealed easily palpable radial, femoral and pedal pulses. There was no cyanosis , clubbing or edema. Patient has equal and symmetrical pulses in lower extremities bilaterally.Examination of the skin revealed no evidence of significant rashes, suspicious appearing nevi or other concerning lesions. Psych evaluation cannot be evaluated. - Labs CBC & Chem 7: 05/24/17 03:50 05/24/17 03:50 Labs: Abnormal Lab Results - Last 24 Hours (Table) 05/23/17 05/23/17 05/23/17 Range/Units 11:58 12:00 18:00 WBC (3.8-10.6) k/uL Hgb (11.4-16.0) gm/dL MCHC (31.0-37.0) g/dL RDW (11.5-15.5) % Plt Count (150-450) k/uL Neutrophils # (1.3-7.7) k/uL PT (9.0-12.0) sec INR (<1.2) ABG pH (7.35-7.45) ABG pCO2 (35-45) mmHg Chloride 111 H (98-107) mmol/L Carbon Dioxide 20 L (22-30) mmol/L BUN 34 H (7-17) mg/dL Creatinine 1.40 H (0.52-1.04) mg/dL Glucose 130 H (74-99) mg/dL POC Glucose (mg/dL) 142 H (75-99) mg/dL Calcium 7.4 L (8.4-10.2) mg/dL Ionized Calcium Julio César 4.3 L (4.5-5.3) mg/dL Magnesium 2.6 H 2.4 H (1.6-2.3) mg/dL AST (14-36) U/L ALT (9-52) U/L Total Protein (6.3-8.2) g/dL Albumin (3.5-5.0) g/dL 05/23/17 05/23/17 05/24/17 Range/Units 18:04 20:24 00:55 WBC (3.8-10.6) k/uL Hgb (11.4-16.0) gm/dL MCHC (31.0-37.0) g/dL RDW (11.5-15.5) % Plt Count (150-450) k/uL Neutrophils # (1.3-7.7) k/uL PT (9.0-12.0) sec INR (<1.2) ABG pH (7.35-7.45) ABG pCO2 (35-45) mmHg Chloride (98-107) mmol/L Carbon Dioxide (22-30) mmol/L BUN (7-17) mg/dL Creatinine (0.52-1.04) mg/dL Glucose (74-99) mg/dL POC Glucose (mg/dL) 123 H 130 H 126 H (75-99) mg/dL Calcium (8.4-10.2) mg/dL Ionized Calcium Julio César (4.5-5.3) mg/dL Magnesium (1.6-2.3) mg/dL AST (14-36) U/L ALT (9-52) U/L Total Protein (6.3-8.2) g/dL Albumin (3.5-5.0) g/dL 05/24/17 05/24/17 05/24/17 Range/Units 03:50 03:50 04:00 WBC 18.2 H (3.8-10.6) k/uL Hgb 10.9 L (11.4-16.0) gm/dL MCHC 30.1 L (31.0-37.0) g/dL RDW 16.4 H (11.5-15.5) % Plt Count 103 L (150-450) k/uL Neutrophils # 15.6 H (1.3-7.7) k/uL PT 18.1 H (9.0-12.0) sec INR 2.0 H (<1.2) ABG pH (7.35-7.45) ABG pCO2 (35-45) mmHg Chloride 110 H (98-107) mmol/L Carbon Dioxide 20 L (22-30) mmol/L BUN 45 H (7-17) mg/dL Creatinine 1.40 H (0.52-1.04) mg/dL Glucose 127 H (74-99) mg/dL POC Glucose (mg/dL) (75-99) mg/dL Calcium 7.7 L (8.4-10.2) mg/dL Ionized Calcium Julio César (4.5-5.3) mg/dL Magnesium 2.4 H (1.6-2.3) mg/dL AST 3202 H (14-36) U/L ALT 1778 H (9-52) U/L Total Protein 4.7 L (6.3-8.2) g/dL Albumin 2.4 L (3.5-5.0) g/dL 05/24/17 05/24/17 05/24/17 Range/Units 04:13 05:39 08:07 WBC (3.8-10.6) k/uL Hgb (11.4-16.0) gm/dL MCHC (31.0-37.0) g/dL RDW (11.5-15.5) % Plt Count (150-450) k/uL Neutrophils # (1.3-7.7) k/uL PT (9.0-12.0) sec INR (<1.2) ABG pH 7.47 H (7.35-7.45) ABG pCO2 29 L (35-45) mmHg Chloride (98-107) mmol/L Carbon Dioxide (22-30) mmol/L BUN (7-17) mg/dL Creatinine (0.52-1.04) mg/dL Glucose (74-99) mg/dL POC Glucose (mg/dL) 116 H 125 H (75-99) mg/dL Calcium (8.4-10.2) mg/dL Ionized Calcium Julio César (4.5-5.3) mg/dL Magnesium (1.6-2.3) mg/dL AST (14-36) U/L ALT (9-52) U/L Total Protein (6.3-8.2) g/dL Albumin (3.5-5.0) g/dL Microbiology - Last 24 Hours (Table) 05/22/17 08:00 Gram Stain - Preliminary Sputum Sputum Culture - Preliminary Yeast species 05/22/17 21:20 Urine Culture - Final Urine,Catheterized Assessment and Plan Assessment: Assessment 1 acute cardiac arrest/V. fib, status post CPR, defibrillation and subsequent intubation mechanical ventilation. [address] segment elevation myocardial infarction involving the inferior wall secondary to dissection of the RCA. The patient underwent emergent cardiac catheterization and she currently has a GRISEL 3 flow and she did not require coronary stenting. She was advised by interventional cardiology. 3 acute shock, cardiogenic in nature with an ejection fraction of 20% on today' s echocardiogram and the patient is pressor dependent On 05/23/2017, the patient is was resuscitated with IV fluids. Pressors have been cut down to 2 mics of levo fed. The patient's urine output is marginal and this morning at around 20 mL an hour. The patient will receive another [address] is up to 18. No diuretics have been utilized. Unfortunately the patient continues to have runs of nonsustained polymorphic V. tach and the patient is still on IV amiodarone at 1 mg/m per job coach recommendation. The patient also has his electrodes in place including the potassium and magnesium. Beta blockers were also initiated with Lopressor 12.5 mg by mouth twice a day. On 05/24/2017 this shock state has improved and the patient is currently off pressors. The patient was well resuscitated IV fluids. The patient is currently on normal saline today to 75 mL an hour which can be potentially cut down further. 4 acute respiratory failure secondary to above 5 acute right lower lobe pneumonia, stable on today's chest x-ray 6 acute COPD exacerbation secondary to right lower lobe pneumonia 7 suspect hypoxic encephalopathy due to cardiac arrest. The patient did not demonstrate adequate neurologic recovery once off sedation and there may be an underlying component of hypoxic encephalopathy. 8 acute head trauma the time of a cardiac arrest. The patient had a negative CAT scan of the head 9 diabetes mellitus 10 hyperlipidemia 11 hypothyroidism 13 history of hypertension 14 leukocytosis secondary to above 15 acute kidney injury secondary to above in the creatinine is stable at 1.4 16 acute shock liver with an underlying coagulopathy. There is related to cardio pulmonary arrest. Plan Continue vent support. The patient will be kept off sedation and will monitor the mental status. We'll repeat the CAT scan of the brain special that there was a traumatic event and the patient had a blunt trauma to the head at a time of the cardiac arrest. Obtain neurology consultation. Tube feeds are being administered. Monitor the cardiac rhythm. Kept on the IV fluids to 20 mL an hour. Monitor renal function. Monitor liver function. Obtain an ammonia level. Consider addition of lactulose and ammonia is quite high. We'll continue to follow make further recommendations based on the progress. There may be a component of hypoxic/anoxic encephalopathy at time of the cardiac arrest. No other recommendations for now. Family was updated on the condition. Critically care evaluation, 35 minutes. Time with Patient: Greater than 30
--- NOTE | 2017-05-24 11:55 | P.PN ---
Subjective Patient is still intubated. She has not had any episodes of ventricular fibrillation or torsade. Vitals are stable pulse rate is in the 70s, blood pressure 120/98 mmHg arterial Breath sounds are reduced bilaterally but no rhonchi Heart sounds S1 and S2 are soft no murmurs or gallops Abdomen is soft nontender Extremities warm no edema Impression VF arrest Dissection of the RCA treated conservatively Episodes of torsade or nonsustained, yesterday Suggest Reduce IV amiodarone dose to 0.5 mg/m Maintain potassium above 5.0 Add spironolactone 25 mg by mouth daily Objective - Vital Signs Vital signs: Vital Signs Temp 98.4 F 05/24/17 08:00 Pulse 76 05/24/17 10:00 Resp 26 H 05/24/17 10:00 BP 99/66 05/24/17 10:00 Pulse Ox 98 05/24/17 10:00 Intake & Output 05/23/17 05/24/17 05/24/17 18:59 06:59 18:59 Intake Total 2307.276 1770.143 514.971 Output Total 300 316 110 Balance 2007.276 1454.143 404.971 Weight 85.3 kg 85.3 kg Intake: IV 1874.8 1049.9 300 Amiodarone 450 mg In 33.4 Dextrose 5% in Water 250 ml @ 0.5 MG/MIN 16.66 mls /hr IV .Q15H1M [facility] Rx#: [id number] Amiodarone 450 mg In 266.4 99.9 Dextrose 5% in Water 250 ml @ 1 MG/MIN 33.33 mls/ hr IV .Q7H31M [facility] Rx#: [id number] Magnesium Sulfate-D5w Pmx 200 1 gm In Dextrose/Water 1 100ml.bag @ 100 mls/hr IVPB Q1H [facility] Rx#: [id number] Piperacillin-Tazobactam 3 50 50 .375 gm In Dextrose/Water 1 50ml.bag @ 12.5 mls/hr IVPB Q12HR [facility] Rx#: [id number] Sodium Chloride 0.9% 1, 825 900 300 000 ml @ 75 mls/hr IV . [id number] [facility] Rx#:[id number] Sodium Chloride 0.9% 500 500 ml @ 999 mls/hr IV .Q31M [facility] Rx#:[id number] Intake, IV Titration 382.476 450.243 4.971 Amount Amiodarone 450 mg In 231.088 329.412 Dextrose 5% in Water 250 ml @ 1 MG/MIN 33.33 mls/ hr IV .Q7H31M [facility] Rx#: [id number] Norepinephrin 16 mg-0.9% 39.188 33.031 4.971 Ns Pmx 16 mg In 250 ml @ Titrate IV .Q0M [facility] Rx#: [id number] Propofol 1,000 mg In 112.200 87.8 Empty Bag 1 bag @ Titrate IV .Q0M [facility] Rx#: [id number] Tube Feeding 50 240 180 Other 30 30 Output: Urine 300 316 110 Other: Voiding Method Indwelling Catheter Indwelling Catheter Indwelling Catheter ABP, PAP, CO, CI - Last Documented Arterial Blood Pressure 120/98 - Labs CBC & Chem 7: 05/24/17 03:50 05/24/17 03:50 Labs: Abnormal Lab Results - Last 24 Hours (Table) 05/23/17 05/23/17 05/23/17 Range/Units 11:58 12:00 18:00 WBC (3.8-10.6) k/uL Hgb (11.4-16.0) gm/dL MCHC (31.0-37.0) g/dL RDW (11.5-15.5) % Plt Count (150-450) k/uL Neutrophils # (1.3-7.7) k/uL PT (9.0-12.0) sec INR (<1.2) ABG pH (7.35-7.45) ABG pCO2 (35-45) mmHg Chloride 111 H (98-107) mmol/L Carbon Dioxide 20 L (22-30) mmol/L BUN 34 H (7-17) mg/dL Creatinine 1.40 H (0.52-1.04) mg/dL Glucose 130 H (74-99) mg/dL POC Glucose (mg/dL) 142 H (75-99) mg/dL Calcium 7.4 L (8.4-10.2) mg/dL Ionized Calcium Julio César 4.3 L (4.5-5.3) mg/dL Magnesium 2.6 H 2.4 H (1.6-2.3) mg/dL AST (14-36) U/L ALT (9-52) U/L Total Protein (6.3-8.2) g/dL Albumin (3.5-5.0) g/dL 05/23/17 05/23/17 05/24/17 Range/Units 18:04 20:24 00:55 WBC (3.8-10.6) k/uL Hgb (11.4-16.0) gm/dL MCHC (31.0-37.0) g/dL RDW (11.5-15.5) % Plt Count (150-450) k/uL Neutrophils # (1.3-7.7) k/uL PT (9.0-12.0) sec INR (<1.2) ABG pH (7.35-7.45) ABG pCO2 (35-45) mmHg Chloride (98-107) mmol/L Carbon Dioxide (22-30) mmol/L BUN (7-17) mg/dL Creatinine (0.52-1.04) mg/dL Glucose (74-99) mg/dL POC Glucose (mg/dL) 123 H 130 H 126 H (75-99) mg/dL Calcium (8.4-10.2) mg/dL Ionized Calcium Julio César (4.5-5.3) mg/dL Magnesium (1.6-2.3) mg/dL AST (14-36) U/L ALT (9-52) U/L Total Protein (6.3-8.2) g/dL Albumin (3.5-5.0) g/dL 05/24/17 05/24/17 05/24/17 Range/Units 03:50 03:50 04:00 WBC 18.2 H (3.8-10.6) k/uL Hgb 10.9 L (11.4-16.0) gm/dL MCHC 30.1 L (31.0-37.0) g/dL RDW 16.4 H (11.5-15.5) % Plt Count 103 L (150-450) k/uL Neutrophils # 15.6 H (1.3-7.7) k/uL PT 18.1 H (9.0-12.0) sec INR 2.0 H (<1.2) ABG pH (7.35-7.45) ABG pCO2 (35-45) mmHg Chloride 110 H (98-107) mmol/L Carbon Dioxide 20 L (22-30) mmol/L BUN 45 H (7-17) mg/dL Creatinine 1.40 H (0.52-1.04) mg/dL Glucose 127 H (74-99) mg/dL POC Glucose (mg/dL) (75-99) mg/dL Calcium 7.7 L (8.4-10.2) mg/dL Ionized Calcium Julio César (4.5-5.3) mg/dL Magnesium 2.4 H (1.6-2.3) mg/dL AST 3202 H (14-36) U/L ALT 1778 H (9-52) U/L Total Protein 4.7 L (6.3-8.2) g/dL Albumin 2.4 L (3.5-5.0) g/dL 05/24/17 05/24/17 05/24/17 Range/Units 04:13 05:39 08:07 WBC (3.8-10.6) k/uL Hgb (11.4-16.0) gm/dL MCHC (31.0-37.0) g/dL RDW (11.5-15.5) % Plt Count (150-450) k/uL Neutrophils # (1.3-7.7) k/uL PT (9.0-12.0) sec INR (<1.2) ABG pH 7.47 H (7.35-7.45) ABG pCO2 29 L (35-45) mmHg Chloride (98-107) mmol/L Carbon Dioxide (22-30) mmol/L BUN (7-17) mg/dL Creatinine (0.52-1.04) mg/dL Glucose (74-99) mg/dL POC Glucose (mg/dL) 116 H 125 H (75-99) mg/dL Calcium (8.4-10.2) mg/dL Ionized Calcium Julio César (4.5-5.3) mg/dL Magnesium (1.6-2.3) mg/dL AST (14-36) U/L ALT (9-52) U/L Total Protein (6.3-8.2) g/dL Albumin (3.5-5.0) g/dL Microbiology - Last 24 Hours (Table) 05/22/17 08:00 Gram Stain - Preliminary Sputum Sputum Culture - Preliminary Yeast species 05/22/17 21:20 Urine Culture - Final Urine,Catheterized
[2017-05-24 12:10] LABS: Glucose,Whole Blood 127 mg/dL (75-99)
--- NOTE | 2017-05-24 14:03 | CT ---
EXAMINATION TYPE: CT brain wo con DATE OF EXAM: 05/24/2017 COMPARISON: NONE HISTORY: Encephalopathy CT DLP: 995.5 mGycm Automated exposure control for dose reduction was used. FINDINGS: There is [id number] degenerative change with a greater frontal lobe component. No acute hemorrh age or mass effect. No midline shift. Calvarium intact. Nonspecific periventricular white matter barba ges noted. Changes of chronic sinusitis noted. IMPRESSION: NO ACUTE HEMORRHAGE OR MASS EFFECT. DEGENERATIVE AND NONSPECIFIC PERIVENTRICULAR WHITE MATTER CHANGES NOTED. IF THERE IS CONCERN FOR ACUTE ISCHEMIA CORRELATE WITH MRI CLINICALLY WARRANTED.
--- NOTE | 2017-05-24 14:54 | P.CNNES ---
History of Present Illness Consult date: 05/24/17 Reason for Consult: Patient with cardiac arrest on ventilator and is unresponsive. History of Present Illness: This patient is a 72-year-old right-handed white female who was initially admitted to [facility] for symptoms of worsening shortness of breath and acute COPD exacerbation combined with CHF exacerbation. Chest x-ray there showed a right lower lobe pneumonia. Apparently while she was there she had a acute cardiac arrest. She collapsed to the floor. She was immediately attended to and had evidence of atrial fibrillation. CPR was initiated and the patient was defibrillated on several occasions. She was intubated and remained hypotensive requiring pressor agents. Exact downtime with a cardiac arrest is not known however due to suspected possibly 20 minutes of CPR and defibrillation was performed on the patient. The patient was then transferred to [facility] for further management. 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 The left main was patent. While in the [facility] the patient had 3 episodes of ventricular tachycardia. She had to be defibrillated. She was started on amiodarone drip and was moved up into the intensive care unit. Today the patient remains very confused and obtunded with no purposeful movements. She did have an initial computed tomography scan of the brain performed on 05/21/2017 which revealed no acute process. Despite having no sedation the patient has not shown much improvement in her overall mental status. There was concern for some some degree of anoxic encephalopathy following her cardiac arrest. For this reason neurology was consulted today for further evaluation. We did have the patient go for a repeat computed tomography scan of the brain today on 05/24/2017. CAT scan of the brain reveals no acute hemorrhage or mass effect. There is degenerative and nonspecific periventricular white matter changes noted. This essentially is unchanged from her initial computed tomography scan of the brain done on 05/21/2017. The patient is examined at bedside today in the intensive care unit. 2 of her children are there. They have not appreciated much improvement with her even though she is moving it extremities. The patient has been given a sedation holiday throughout the day today and yet has not shown much improvement in her movement. She has no purposeful movements. She is not opening her eyes. For these reasons neurology is now been consulted for further evaluation and recommendations. Review of Systems ROS unobtainable: due to endotracheal tube Constitutional: Denies chills, Denies fever Eyes: denies blurred vision, denies pain Ears, nose, mouth and throat: Denies headache, Denies sore throat Cardiovascular: Denies chest pain, Denies shortness of breath Respiratory: Denies cough Gastrointestinal: Denies abdominal pain, Denies diarrhea, Denies nausea, Denies vomiting Genitourinary: Denies dysuria, Denies hematuria Musculoskeletal: Denies myalgias Integumentary: Denies pruritus, Denies rash Neurological: Reports change in mentation, Reports confusion, Reports head injury, Denies numbness, Denies weakness Psychiatric: Denies anxiety, Denies depression Endocrine: Denies fatigue, Denies weight change Past Medical History Past Medical History: COPD, Diabetes Mellitus, Hyperlipidemia, Hypertension, Thyroid Disorder History of Any Multi-Drug Resistant Organisms: None Reported Past Surgical History: Cholecystectomy Additional Past Surgical History / Comment(s): carotid Past Psychological History: No Psychological Hx Reported Smoking Status: Current every day smoker Past Alcohol Use History: None Reported Past Drug Use History: None Reported Medications and Allergies Home Medications Medication Instructions Recorded Confirmed Type Albuterol Sulfate [Proair Hfa] 1 - 2 puff INHALATION RT-Q4H PRN 10/05/13 History Aspirin 81 mg PO DAILY 10/05/13 05/22/17 History Atorvastatin Calcium [Lipitor] 40 mg PO DAILY 10/05/13 05/22/17 History Cholecalciferol [Vitamin D3] 5,000 unit PO DAILY@1200 10/05/13 05/22/17 History Levothyroxine Sodium [Synthroid] 50 mcg PO DAILY 10/05/13 05/22/17 History Lisinopril-Hctz 20-25 mg 1 tab PO DAILY 10/05/13 05/22/17 History [Zestoretic 20-25] Ranitidine HCl [Zantac] 300 mg PO BID 10/05/13 05/22/17 History metFORMIN HCL 500 mg PO DAILY 10/05/13 05/22/17 History Albuterol Nebulized [Ventolin 2.5 mg INHALATION RT-TID 05/22/17 05/22/17 History Nebulized] Budesonide/Formoterol Fumarate 2 puff INHALATION RT-BID 05/22/17 05/22/17 History [Symbicort 160-4.5 Mcg Inhaler] FLUoxetine HCL [PROzac] 60 mg PO DAILY 05/22/17 05/22/17 History HYDROcodone/APAP 10-325MG [[place] 1 tab PO HS 05/22/17 05/22/17 History 10-325] HYDROcodone/APAP 10-325MG [[place] 2 tab PO TID 05/22/17 05/22/17 History 10-325] Lansoprazole [Prevacid] 30 mg PO DAILY 05/22/17 05/22/17 History Allergies Allergy/AdvReac Type Severity Reaction Status Date / Time acetaminophen Allergy Unknown Verified 05/22/17 09:03 [From Darvocet-N] gabapentin Allergy Unknown Verified 05/22/17 09:03 propoxyphene Allergy Unknown Verified 05/22/17 09:03 [From Darvocet-N] Physical Examination - Vital Signs Vital Signs: Vital Signs Temp Pulse Resp BP Pulse Ox 05/24/17 12:08 76 05/24/17 12:00 98.6 F 83 17 112/82 98 05/24/17 11:00 80 20 107/68 98 05/24/17 10:00 76 26 H 99/66 98 05/24/17 09:00 79 20 98 05/24/17 08:45 76 05/24/17 08:26 77 05/24/17 08:00 98.4 F 80 23 98 05/24/17 07:00 82 18 98 05/24/17 06:00 82 18 98 05/24/17 05:00 77 18 98 05/24/17 04:57 81 05/24/17 04:47 73 05/24/17 04:00 98.6 F 81 18 98 05/24/17 03:00 79 28 H 98 05/24/17 02:00 90 28 H 97 05/24/17 01:40 81 05/24/17 01:08 82 05/24/17 01:00 80 25 H 99 05/24/17 00:01 82 25 H 99 05/24/17 00:00 99 F 80 25 H 99 05/23/17 23:00 75 27 H 99 05/23/17 22:00 75 21 100 05/23/17 21:00 74 14 95 05/23/17 20:03 85 05/23/17 20:00 98.2 F 78 20 100 05/23/17 19:49 82 05/23/17 19:19 22 99 05/23/17 19:00 77 22 99 05/23/17 18:30 77 20 98 05/23/17 18:00 80 20 99 05/23/17 17:30 77 20 98 05/23/17 17:00 77 20 98 05/23/17 16:30 78 20 97 05/23/17 16:13 83 05/23/17 16:03 81 05/23/17 16:00 98.4 F 81 22 99 05/23/17 15:30 81 26 H 98 05/23/17 15:00 93 22 99 05/23/17 14:30 78 24 99 05/23/17 14:00 82 28 H 99 05/23/17 13:30 81 26 H 99 05/23/17 13:00 82 28 H 98 Intake and Output 05/23/17 05/24/17 05/24/17 22:59 06:59 14:59 Intake Total 6868.290 6252.964 664.971 Output Total 237 219 170 Balance 8623.804 4980.964 494.971 Intake: IV 816.5 666.6 450 Amiodarone 450 mg In 166.5 66.6 Dextrose 5% in Water 250 ml @ 1 MG/MIN 33.33 mls/ hr IV .Q7H31M [facility] Rx#: [id number] Piperacillin-Tazobactam 3 50 .375 gm In Dextrose/Water 1 50ml.bag @ 12.5 mls/hr IVPB Q12HR [facility] Rx#: [id number] Sodium Chloride 0.9% 1, 600 600 450 000 ml @ 75 mls/hr IV . [id number] [facility] Rx#:[id number] Intake, IV Titration 345.917 346.364 4.971 Amount Amiodarone 450 mg In 334.967 225.533 Dextrose 5% in Water 250 ml @ 1 MG/MIN 33.33 mls/ hr IV .Q7H31M [facility] Rx#: [id number] Norepinephrin 16 mg-0.9% 33.031 4.971 Ns Pmx 16 mg In 250 ml @ Titrate IV .Q0M [facility] Rx#: [id number] Propofol 1,000 mg In 10.95 87.8 Empty Bag 1 bag @ Titrate IV .Q0M [facility] Rx#: [id number] Tube Feeding 110 180 180 Other 30 30 Output: Urine 237 219 170 Other: Voiding Method Indwelling Catheter Indwelling Catheter Indwelling Catheter Weight 85.3 kg Patient Weight 05/25/17 06:59 Weight 85.3 kg ABP, PAP, CO, CI - Last 8 Hours Arterial Blood Pressure 117/97 Arterial Blood Pressure 112/88 Arterial Blood Pressure 120/98 Arterial Blood Pressure 118/98 Arterial Blood Pressure 120/96 Arterial Blood Pressure 98/89 Arterial Blood Pressure 92/79 Arterial Blood Pressure 98/80 - Constitutional General appearance: average body habitus, cooperative - EENT EENT: PERRL, mucous membranes moist - Respiratory Respiratory: lungs clear, normal breath sounds - Cardiovascular Cardiovascular: regular rate, normal S1, normal S2 Extremities: no peripheral edema bilaterally - Gastrointestinal Gastrointestinal: normoactive bowel sounds - Integumentary Integumentary: normal - Neurologic Cranial nerve examination: PERRL (Pupils are 7 mm and reactive to light. Corneal responses intact.), EOMI, face symmetric, intact gag reflex, intact corneal reflex Speech examination: other (Patient intubated on the ventilator.) Sensorimotor examination: intact Motor examination - right side: 2/5: biceps, triceps, wrist flexion, wrist extension, bag end sewer, hip flexors, knee extensors, dorsiflexion, toe extension (EHL) , plantarflexion Motor examination - left side: 3/5: biceps, triceps, wrist flexion, wrist extension, bag end sewer, hip flexors, knee extensors, dorsiflexion, toe extension (EHL) , plantarflexion Detailed sensory examination: intact Reflex and gait examination: intact Reflexes: 1+: ankle, bicep, knee, tricep - Musculoskeletal Musculoskeletal: no pain - Psychiatric Psychiatric: cooperative (Patient intubated on ventilator with non-purposeful movements.) Results - Laboratory Findings CBC and BMP: 05/24/17 03:50 05/24/17 03:50 Abnormal Lab Findings: Abnormal Labs 05/21/17 05/21/17 05/21/17 21:44 22:49 22:50 WBC Hgb MCHC RDW Plt Count Neutrophils # Neutrophils # (Manual) Metamyelocytes # (Man) Nucleated RBCs PT INR ABG pH 7.30 L ABG pCO2 29 L ABG pO2 264 H ABG HCO3 14 L ABG Total CO2 15 L ABG O2 Saturation 99.3 H Potassium Chloride Carbon Dioxide BUN Creatinine Glucose POC Glucose (mg/dL) 236 H Calcium Ionized Calcium [place] Phosphorus Magnesium Total Bilirubin AST ALT Alkaline Phosphatase Total Creatine Kinase 601 H CK-MB (CK-2) 32.8 H* Troponin I 0.875 H* Total Protein Albumin HDL Cholesterol Urine Appearance Urine Protein Urine Ketones Urine Blood Urine RBC Urine WBC Urine Bacteria Urine Mucus 05/21/17 05/21/17 05/22/17 22:50 22:50 04:30 WBC 13.3 H 23.0 H Hgb 10.8 L 11.3 L MCHC 30.1 L 29.6 L RDW 15.7 H 15.8 H Plt Count Neutrophils # 11.7 H Neutrophils # (Manual) 21.30 H Metamyelocytes # (Man) 0.23 H Nucleated RBCs 3 H PT INR ABG pH ABG pCO2 ABG pO2 ABG HCO3 ABG Total CO2 ABG O2 Saturation Potassium Chloride Carbon Dioxide 16 L BUN Creatinine Glucose 218 H POC Glucose (mg/dL) Calcium 7.1 L Ionized Calcium [place] Phosphorus 7.2 H Magnesium 1.4 L Total Bilirubin AST 391 H ALT 102 H Alkaline Phosphatase Total Creatine Kinase CK-MB (CK-2) Troponin I Total Protein 4.5 L Albumin 2.4 L HDL Cholesterol Urine Appearance Urine Protein Urine Ketones Urine Blood Urine RBC Urine WBC Urine Bacteria Urine Mucus 05/22/17 05/22/17 05/22/17 04:30 04:30 04:30 WBC Hgb MCHC RDW Plt Count Neutrophils # Neutrophils # (Manual) Metamyelocytes # (Man) Nucleated RBCs PT 16.7 H INR 1.8 H ABG pH ABG pCO2 ABG pO2 ABG HCO3 ABG Total CO2 ABG O2 Saturation Potassium 3.1 L Chloride Carbon Dioxide BUN Creatinine 1.20 H Glucose 190 H POC Glucose (mg/dL) Calcium 7.2 L Ionized Calcium [place] Phosphorus Magnesium 2.4 H Total Bilirubin 1.5 H AST 1478 H ALT 433 H Alkaline Phosphatase 143 H Total Creatine Kinase 2781 H CK-MB (CK-2) 224.0 H* Troponin I 135.000 H* Total Protein 5.1 L Albumin 2.8 L HDL Cholesterol 29 L Urine Appearance Urine Protein Urine Ketones Urine Blood Urine RBC Urine WBC Urine Bacteria Urine Mucus 05/22/17 05/22/17 05/22/17 05:00 12:08 13:24 WBC Hgb MCHC RDW Plt Count Neutrophils # Neutrophils # (Manual) Metamyelocytes # (Man) Nucleated RBCs PT INR ABG pH ABG pCO2 ABG pO2 ABG HCO3 20 L ABG Total CO2 ABG O2 Saturation Potassium Chloride Carbon Dioxide BUN Creatinine Glucose POC Glucose (mg/dL) 135 H Calcium Ionized Calcium [place] Phosphorus Magnesium Total Bilirubin AST ALT Alkaline Phosphatase Total Creatine Kinase 3105 H CK-MB (CK-2) 133.0 H* Troponin I 224.000 H* Total Protein Albumin HDL Cholesterol Urine Appearance Urine Protein Urine Ketones Urine Blood Urine RBC Urine WBC Urine Bacteria Urine Mucus 05/22/17 05/22/17 05/22/17 17:08 18:03 20:11 WBC Hgb MCHC RDW Plt Count Neutrophils # Neutrophils # (Manual) Metamyelocytes # (Man) Nucleated RBCs PT INR ABG pH ABG pCO2 ABG pO2 ABG HCO3 ABG Total CO2 ABG O2 Saturation Potassium Chloride 108 H Carbon Dioxide 21 L BUN 25 H Creatinine 1.43 H Glucose 130 H POC Glucose (mg/dL) 137 H 141 H Calcium 7.2 L Ionized Calcium [place] Phosphorus Magnesium Total Bilirubin AST ALT Alkaline Phosphatase Total Creatine Kinase CK-MB (CK-2) Troponin I Total Protein Albumin HDL Cholesterol Urine Appearance Urine Protein Urine Ketones Urine Blood Urine RBC Urine WBC Urine Bacteria Urine Mucus 05/22/17 05/22/17 05/23/17 21:20 21:27 00:13 WBC Hgb MCHC RDW Plt Count Neutrophils # Neutrophils # (Manual) Metamyelocytes # (Man) Nucleated RBCs PT INR ABG pH ABG pCO2 ABG pO2 ABG HCO3 ABG Total CO2 ABG O2 Saturation Potassium Chloride Carbon Dioxide BUN Creatinine Glucose POC Glucose (mg/dL) 139 H 134 H Calcium Ionized Calcium [place] Phosphorus Magnesium Total Bilirubin AST ALT Alkaline Phosphatase Total Creatine Kinase CK-MB (CK-2) Troponin I Total Protein Albumin HDL Cholesterol Urine Appearance Cloudy H Urine Protein 2+ H Urine Ketones Trace H Urine Blood Large H Urine RBC 54 H Urine WBC 15 H Urine Bacteria Rare H Urine Mucus Few H 05/23/17 05/23/17 05/23/17 03:50 03:50 03:50 WBC 15.7 H Hgb 10.5 L MCHC 30.8 L RDW 16.6 H Plt Count 119 L Neutrophils # 13.7 H Neutrophils # (Manual) Metamyelocytes # (Man) Nucleated RBCs PT 21.0 H INR 2.3 H ABG pH ABG pCO2 ABG pO2 ABG HCO3 ABG Total CO2 ABG O2 Saturation Potassium 3.4 L Chloride 109 H Carbon Dioxide BUN 31 H Creatinine 1.40 H Glucose 131 H POC Glucose (mg/dL) Calcium 7.2 L Ionized Calcium [place] Phosphorus Magnesium Total Bilirubin 1.4 H AST 7159 H ALT 2273 H Alkaline Phosphatase Total Creatine Kinase CK-MB (CK-2) Troponin I Total Protein 4.5 L Albumin 2.4 L HDL Cholesterol Urine Appearance Urine Protein Urine Ketones Urine Blood Urine RBC Urine WBC Urine Bacteria Urine Mucus 05/23/17 05/23/17 05/23/17 03:50 03:50 04:35 WBC Hgb MCHC RDW Plt Count Neutrophils # Neutrophils # (Manual) Metamyelocytes # (Man) Nucleated RBCs PT INR ABG pH 7.48 H ABG pCO2 30 L ABG pO2 ABG HCO3 ABG Total CO2 ABG O2 Saturation 97.1 H Potassium Chloride Carbon Dioxide BUN Creatinine Glucose POC Glucose (mg/dL) 137 H Calcium Ionized Calcium [place] 4.1 L Phosphorus Magnesium Total Bilirubin AST ALT Alkaline Phosphatase Total Creatine Kinase CK-MB (CK-2) Troponin I Total Protein Albumin HDL Cholesterol Urine Appearance Urine Protein Urine Ketones Urine Blood Urine RBC Urine WBC Urine Bacteria Urine Mucus 05/23/17 05/23/17 05/23/17 11:58 12:00 18:00 WBC Hgb MCHC RDW Plt Count Neutrophils # Neutrophils # (Manual) Metamyelocytes # (Man) Nucleated RBCs PT INR ABG pH ABG pCO2 ABG pO2 ABG HCO3 ABG Total CO2 ABG O2 Saturation Potassium Chloride 111 H Carbon Dioxide 20 L BUN 34 H Creatinine 1.40 H Glucose 130 H POC Glucose (mg/dL) 142 H Calcium 7.4 L Ionized Calcium [place] 4.3 L Phosphorus Magnesium 2.6 H 2.4 H Total Bilirubin AST ALT Alkaline Phosphatase Total Creatine Kinase CK-MB (CK-2) Troponin I Total Protein Albumin HDL Cholesterol Urine Appearance Urine Protein Urine Ketones Urine Blood Urine RBC Urine WBC Urine Bacteria Urine Mucus 05/23/17 05/23/17 05/24/17 18:04 20:24 00:55 WBC Hgb MCHC RDW Plt Count Neutrophils # Neutrophils # (Manual) Metamyelocytes # (Man) Nucleated RBCs PT INR ABG pH ABG pCO2 ABG pO2 ABG HCO3 ABG Total CO2 ABG O2 Saturation Potassium Chloride Carbon Dioxide BUN Creatinine Glucose POC Glucose (mg/dL) 123 H 130 H 126 H Calcium Ionized Calcium [place] Phosphorus Magnesium Total Bilirubin AST ALT Alkaline Phosphatase Total Creatine Kinase CK-MB (CK-2) Troponin I Total Protein Albumin HDL Cholesterol Urine Appearance Urine Protein Urine Ketones Urine Blood Urine RBC Urine WBC Urine Bacteria Urine Mucus 05/24/17 05/24/17 05/24/17 03:50 03:50 04:00 WBC 18.2 H Hgb 10.9 L MCHC 30.1 L RDW 16.4 H Plt Count 103 L Neutrophils # 15.6 H Neutrophils # (Manual) Metamyelocytes # (Man) Nucleated RBCs PT 18.1 H INR 2.0 H ABG pH ABG pCO2 ABG pO2 ABG HCO3 ABG Total CO2 ABG O2 Saturation Potassium Chloride 110 H Carbon Dioxide 20 L BUN 45 H Creatinine 1.40 H Glucose 127 H POC Glucose (mg/dL) Calcium 7.7 L Ionized Calcium [place] Phosphorus Magnesium 2.4 H Total Bilirubin AST 3202 H ALT 1778 H Alkaline Phosphatase Total Creatine Kinase CK-MB (CK-2) Troponin I Total Protein 4.7 L Albumin 2.4 L HDL Cholesterol Urine Appearance Urine Protein Urine Ketones Urine Blood Urine RBC Urine WBC Urine Bacteria Urine Mucus 05/24/17 05/24/17 05/24/17 04:13 05:39 08:07 WBC Hgb MCHC RDW Plt Count Neutrophils # Neutrophils # (Manual) Metamyelocytes # (Man) Nucleated RBCs PT INR ABG pH 7.47 H ABG pCO2 29 L ABG pO2 ABG HCO3 ABG Total CO2 ABG O2 Saturation Potassium Chloride Carbon Dioxide BUN Creatinine Glucose POC Glucose (mg/dL) 116 H 125 H Calcium Ionized Calcium [place] Phosphorus Magnesium Total Bilirubin AST ALT Alkaline Phosphatase Total Creatine Kinase CK-MB (CK-2) Troponin I Total Protein Albumin HDL Cholesterol Urine Appearance Urine Protein Urine Ketones Urine Blood Urine RBC Urine WBC Urine Bacteria Urine Mucus 05/24/17 12:07 WBC Hgb MCHC RDW Plt Count Neutrophils # Neutrophils # (Manual) Metamyelocytes # (Man) Nucleated RBCs PT INR ABG pH ABG pCO2 ABG pO2 ABG HCO3 ABG Total CO2 ABG O2 Saturation Potassium Chloride Carbon Dioxide BUN Creatinine Glucose POC Glucose (mg/dL) 127 H Calcium Ionized Calcium [place] Phosphorus Magnesium Total Bilirubin AST ALT Alkaline Phosphatase Total Creatine Kinase CK-MB (CK-2) Troponin I Total Protein Albumin HDL Cholesterol Urine Appearance Urine Protein Urine Ketones Urine Blood Urine RBC Urine WBC Urine Bacteria Urine Mucus Assessment and Plan (1) Anoxic encephalopathy Current Visit: Yes Status: Acute Code(s): G93.1 - ANOXIC BRAIN DAMAGE, NOT ELSEWHERE CLASSIFIED SNOMED Code(s): 078002177 (2) Acute myocardial infarction Current Visit: Yes Status: Acute Code(s): I21.9 - ACUTE MYOCARDIAL INFARCTION, UNSPECIFIED SNOMED Code(s): 92945037 (3) CHF (congestive heart failure) Current Visit: Yes Status: Acute Code(s): I50.9 - HEART FAILURE, UNSPECIFIED SNOMED Code(s): 69516590 (4) Cardiac arrest with ventricular fibrillation Current Visit: Yes Status: Acute Code(s): I46.9 - CARDIAC ARREST, CAUSE UNSPECIFIED; I49.01 - VENTRICULAR FIBRILLATION SNOMED Code(s): 90696224 (5) Pneumonia Current Visit: Yes Status: Acute Code(s): J18.9 - PNEUMONIA, UNSPECIFIED ORGANISM SNOMED Code(s): 952777101 Plan: This patient is a 72-year-old female with a complex past medical history including recent episode of cardiac arrest. Patient was transferred from [facility] for cardiac catheterization as she had evidence of dissection of the RCA. Cardiology is following her and she was intubated and transferred to the intensive care unit. Since extubation the patient has shown no significant improvement in her mental status. From her cardiac arrest it is estimated her down time was about 15-20 minutes before she was resuscitated. She has now been extubated in the intensive care unit but has no purposeful movements. She was sent for repeat computed tomography scan of the brain today the results which are noted above. No evidence for acute stroke or hemorrhage. No evidence of cerebral edema. She is to have a routine EEG performed today for further evaluation. Her neurological exam reveals her to have reactive pupils. Corneals are intact. She does withdraw to pain over all extremities and gag reflex is present. Her clinical history is one of severe anoxic encephalopathy following cardiac arrest. We will give further recommendations pending her EEG results. As noted repeat computed tomography scan of the brain failed to reveal any acute changes. This case was discussed at length with the patient's son who is at bedside. All of his questions were answered. He is aware of her guarded condition. We will await further recommendations from multiple specialists that are seeing this patient in the intensive care unit. Overall prognosis at this time remains very guarded. Time with Patient: Greater than 30
--- NOTE | 2017-05-24 15:44 | P.PN ---
Subjective Progress Note Date: 05/24/17 This is a 72-year-old female with complex past medical history noted below significant for severe COPD, underlying diastolic heart failure, and ongoing tobacco abuse who presented yesterday to [facility] with worsening shortness of breath. Patient was evaluated and was admitted to the hospital with suspected acute COPD exacerbation and acute diastolic heart failure. She was also started on broad-spectrum antibiotic for underlying pneumonia. She was found to have an elevated troponin that was indeterminant the patient denies any chest pain and there was no acute EKG changes. Patient was started on IV heparin and was admitted to telemetry floor. Last night patient went into cardiac arrest and received approximately 20 minutes of CPR and defibrillation. She became hypotensive requiring vasopressors. She was intubated and started on mechanical ventilation. Telemetry strip showed possible ventricular fibrillation with concerns about torsade de pointes. 12 leads EKG postresuscitation showed questionable ST elevation [place]. Patient was transferred to [facility] and underwent a left heart cath showing possible dissection of the RCA with otherwise nonobstructive coronary artery disease. She is currently sedated and intubated. She is in the intensive care unit. She is requiring low dose of vasopressors. Her urine output has decreased over the last several hours. She is currently maintained on IV fluid with 0.9 normal saline at 75 mL per hour. She was seen by different specialists. 05/24/2017 patient remains in the ICU intubated and requiring vasopressors. When the patient was weaned off sedation she did not wake up. She has movements of her arms and head that are not purposeful. She was seen by neurology they repeated a computed tomography scan of the brain showing no acute changes. She is going to have an EEG completed in a few minutes. Neurology felt this is likely related to anoxic encephalopathy due to her cardiac arrest. She is on IV antibiotics for her pneumonia. She is on IV amiodarone for runs of nonsustained polymorphic V. tach. She has been in sinus rhythm today. Cardiology is following. Patient is been evaluated by multiple consultants physicians. Objective - Vital Signs Vital signs: Vital Signs Temp 98.6 F 05/24/17 12:00 Pulse 72 05/24/17 15:00 Resp 25 H 05/24/17 15:00 BP 100/58 05/24/17 14:00 Pulse Ox 98 05/24/17 15:00 Intake & Output 05/23/17 05/24/17 05/24/17 18:59 06:59 18:59 Intake Total 230.276 1770.143 949.971 Output Total 300 316 290 Balance 2006.276 1454.143 659.971 Weight 85.3 kg 85.3 kg Intake: IV 1874.8 1049.9 675 Amiodarone 450 mg In 33.4 Dextrose 5% in Water 250 ml @ 0.5 MG/MIN 16.66 mls /hr IV .Q15H1M [facility] Rx#: [id number] Amiodarone 450 mg In 266.4 99.9 Dextrose 5% in Water 250 ml @ 1 MG/MIN 33.33 mls/ hr IV .Q7H31M [facility] Rx#: [id number] Magnesium Sulfate-D5w Pmx 200 1 gm In Dextrose/Water 1 100ml.bag @ 100 mls/hr IVPB Q1H [facility] Rx#: [id number] Piperacillin-Tazobactam 3 50 50 .375 gm In Dextrose/Water 1 50ml.bag @ 12.5 mls/hr IVPB Q12HR [facility] Rx#: [id number] Sodium Chloride 0.9% 1, 825 900 675 000 ml @ 75 mls/hr IV . [id number] [facility] Rx#:[id number] Sodium Chloride 0.9% 500 500 ml @ 999 mls/hr IV .Q31M [facility] Rx#:[id number] Intake, IV Titration 382.476 450.243 4.971 Amount Amiodarone 450 mg In 231.088 329.412 Dextrose 5% in Water 250 ml @ 1 MG/MIN 33.33 mls/ hr IV .Q7H31M [facility] Rx#: [id number] Norepinephrin 16 mg-0.9% 39.188 33.031 4.971 Ns Pmx 16 mg In 250 ml @ Titrate IV .Q0M [facility] Rx#: [id number] Propofol 1,000 mg In 112.200 87.8 Empty Bag 1 bag @ Titrate IV .Q0M [facility] Rx#: [id number] Tube Feeding 50 240 240 Other 30 30 Output: Urine 300 316 290 Other: Voiding Method Indwelling Catheter Indwelling Catheter Indwelling Catheter ABP, PAP, CO, CI - Last Documented Arterial Blood Pressure 115/93 - Exam Head normocephalic Neck supple Lungs clear to auscultation bilaterally no wheezing or crackles Heart regular rate and rhythm S1-S2, no rub or gallop Abdomen is soft nontender nondistended positive bowel sounds no hepatosplenomegaly Extremities no edema Neuro patient is intubated. Movements of her arms and head. She does not follow simple commands - Labs CBC & Chem 7: 05/24/17 03:50 05/24/17 03:50 Labs: Abnormal Lab Results - Last 24 Hours (Table) 05/23/17 05/23/17 05/23/17 Range/Units 18:00 18:04 20:24 WBC (3.8-10.6) k/uL Hgb (11.4-16.0) gm/dL MCHC (31.0-37.0) g/dL RDW (11.5-15.5) % Plt Count (150-450) k/uL Neutrophils # (1.3-7.7) k/uL PT (9.0-12.0) sec INR (<1.2) ABG pH (7.35-7.45) ABG pCO2 (35-45) mmHg Chloride (98-107) mmol/L Carbon Dioxide (22-30) mmol/L BUN (7-17) mg/dL Creatinine (0.52-1.04) mg/dL Glucose (74-99) mg/dL POC Glucose (mg/dL) 123 H 130 H (75-99) mg/dL Calcium (8.4-10.2) mg/dL Magnesium 2.4 H (1.6-2.3) mg/dL AST (14-36) U/L ALT (9-52) U/L Total Protein (6.3-8.2) g/dL Albumin (3.5-5.0) g/dL 05/24/17 05/24/17 05/24/17 Range/Units 00:55 03:50 03:50 WBC 18.2 H (3.8-10.6) k/uL Hgb 10.9 L (11.4-16.0) gm/dL MCHC 30.1 L (31.0-37.0) g/dL RDW 16.4 H (11.5-15.5) % Plt Count 103 L (150-450) k/uL Neutrophils # 15.6 H (1.3-7.7) k/uL PT (9.0-12.0) sec INR (<1.2) ABG pH (7.35-7.45) ABG pCO2 (35-45) mmHg Chloride 110 H (98-107) mmol/L Carbon Dioxide 20 L (22-30) mmol/L BUN 45 H (7-17) mg/dL Creatinine 1.40 H (0.52-1.04) mg/dL Glucose 127 H (74-99) mg/dL POC Glucose (mg/dL) 126 H (75-99) mg/dL Calcium 7.7 L (8.4-10.2) mg/dL Magnesium 2.4 H (1.6-2.3) mg/dL AST 3202 H (14-36) U/L ALT 1778 H (9-52) U/L Total Protein 4.7 L (6.3-8.2) g/dL Albumin 2.4 L (3.5-5.0) g/dL 05/24/17 05/24/17 05/24/17 Range/Units 04:00 04:13 05:39 WBC (3.8-10.6) k/uL Hgb (11.4-16.0) gm/dL MCHC (31.0-37.0) g/dL RDW (11.5-15.5) % Plt Count (150-450) k/uL Neutrophils # (1.3-7.7) k/uL PT 18.1 H (9.0-12.0) sec INR 2.0 H (<1.2) ABG pH 7.47 H (7.35-7.45) ABG pCO2 29 L (35-45) mmHg Chloride (98-107) mmol/L Carbon Dioxide (22-30) mmol/L BUN (7-17) mg/dL Creatinine (0.52-1.04) mg/dL Glucose (74-99) mg/dL POC Glucose (mg/dL) 116 H (75-99) mg/dL Calcium (8.4-10.2) mg/dL Magnesium (1.6-2.3) mg/dL AST (14-36) U/L ALT (9-52) U/L Total Protein (6.3-8.2) g/dL Albumin (3.5-5.0) g/dL 05/24/17 05/24/17 Range/Units 08:07 12:07 WBC (3.8-10.6) k/uL Hgb (11.4-16.0) gm/dL MCHC (31.0-37.0) g/dL RDW (11.5-15.5) % Plt Count (150-450) k/uL Neutrophils # (1.3-7.7) k/uL PT (9.0-12.0) sec INR (<1.2) ABG pH (7.35-7.45) ABG pCO2 (35-45) mmHg Chloride (98-107) mmol/L Carbon Dioxide (22-30) mmol/L BUN (7-17) mg/dL Creatinine (0.52-1.04) mg/dL Glucose (74-99) mg/dL POC Glucose (mg/dL) 125 H 127 H (75-99) mg/dL Calcium (8.4-10.2) mg/dL Magnesium (1.6-2.3) mg/dL AST (14-36) U/L ALT (9-52) U/L Total Protein (6.3-8.2) g/dL Albumin (3.5-5.0) g/dL Microbiology - Last 24 Hours (Table) 05/22/17 08:00 Gram Stain - Preliminary Sputum Sputum Culture - Preliminary Yeast species 05/22/17 21:20 Urine Culture - Final Urine,Catheterized Assessment and Plan Assessment: 1. Cardiac arrest with ventricular fibrillation at an outside hospital status post CPR for approximately 20 minutes and defibrillation. Required mechanical ventilation 2. Acute ST elevation [place] status post left heart catheterization with findings suggestive of dissection of the RCA. Otherwise nonobstructive coronary artery disease. Followed by cardiology. 3. Acute cardiogenic shock: Requiring vasopressors. We will continue IV fluid hydration. Repeat echocardiogram showed EF less than 20% which is new compared to her echo last month with a EF of greater than 50%. 4. Right lower lobe pneumonia maintained on Zosyn 5. Acute hypoxic respiratory failure 6. Acute liver shock with significant transaminitis secondary to episodes of hypotension. We will continue to monitor liver function tests daily 7. Type 2 diabetes mellitus 8. Mixed hyperlipidemia 9. Hypothyroidism maintained on levothyroxine 10. Acute kidney injury: Continue IV fluids. Creatinine 1.4 11. 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 Repeat computed tomography scan of the brain showing no acute changes. Patient scheduled for EEG. Neurology following. DVT prophylaxis subcu heparin GI prophylaxis Protonix I performed an examination of the patient and discussed their management with the physician Payroll Benefits Administrator. I have reviewed the Physician Payroll Benefits Administrator's notes and agree with the documented findings and plan of care
[2017-05-24 17:21] LABS: Glucose,Whole Blood 134 mg/dL (75-99)
[2017-05-24 17:36] LABS: Magnesium 2.1 mg/dL (1.6-2.3)
[2017-05-24] MEDS ORDERED: POTASSIUM CHLORIDE 20 MEQ in SODIUM CHLORIDE 0.9% 100 ML IVPB STA (18:17)
[2017-05-24 21:01] LABS: Glucose,Whole Blood 151 mg/dL (75-99)
[2017-05-24] MEDS ORDERED: HYDROmorphone 2 MG TAB PO PRN (22:56)
[2017-05-24] MEDS: HYDROmorphone 4 MG TABLET PO PRN (23:25)
[2017-05-25 00:06] LABS: Glucose,Whole Blood 127 mg/dL (75-99)
[2017-05-25] MEDS: IPRATROPIUM-ALBUTEROL 3 ML NEB INHALATION SCH ×6 (00:27→20:02)
[2017-05-25] MEDS: INSULIN ASPART 100 UNIT/ML 1 ML 10 ML VIAL SQ SCH ×6 (00:35→23:08)
[2017-05-25] MEDS: AMIODARONE 450 MG in DEXTROSE 5% IN WATER 250 ML IV SCH ×2 (01:30)
[2017-05-25 03:42] LABS: Glucose,Whole Blood 140 mg/dL (75-99)
[2017-05-25 04:19] LABS: Anisocytosis Slight; HCT 34.4 % (34.0-46.0); HGB 10.2 gm/dL (11.4-16.0); Hypochromasia Marked; MCHC 29.5 g/dL (31.0-37.0); MCV 91.6 fL (80.0-100.0); Mean Platelet Volume 11.9; Poikilocytosis Slight; RBC 3.76 m/uL (3.80-5.40); RDW 16.6 % (11.5-15.5)
[2017-05-25 04:30] LABS: Albumin 2.2 g/dL (3.5-5.0); Calcium 7.7 mg/dL (8.4-10.2); Magnesium 1.9 mg/dL (1.6-2.3); Phosphorus 2.8 mg/dL (2.5-4.5); Potassium 3.4 mmol/L (3.5-5.1); Total Bilirubin 1.2 mg/dL (0.2-1.3); Total Protein 4.3 g/dL (6.3-8.2)
[2017-05-25 05:16] LABS: Lymphocytes # (M) 1.19 k/uL (1.0-4.8); Metamyelocytes # (M) 0.15 k/uL (0); Metamyelocytes % 1 %; Monocytes # (M) 1.49 k/uL (0-1.0); Neutrophils # (M) 12.22 k/uL (1.3-7.7); Neutrophils % (M) 82 %; Nucleated Red Blood Cells 3 /100 WBC (0-0); Total Cells Counted 200; WBC 14.9 k/uL (3.8-10.6)
[2017-05-25 05:17] LABS: Platelet Count 59 k/uL (150-450)
[2017-05-25 05:18] LABS: ABG Base Excess -1.2 mmol/L; ABG HCO3 24 mmol/L (21-25); ABG Oxygen Saturation 97.3 % (94-97); ABG PCO2 38 mmHg (35-45); ABG PO2 102 mmHg (83-108); ABG TCO2 25 mmol/L (19-24)
[2017-05-25 05:27] LABS: INR 1.8 (<1.2); Partial Thromboplastin Time 26.9 sec (22.0-30.0); Prothrombin Time 16.2 sec (9.0-12.0)
[2017-05-25] MEDS ORDERED: Potassium Replacement Protocol 1 EACH MISC MISCELLANE PRN ×2 (05:46→06:00)
[2017-05-25] MEDS ORDERED: Magnesium Replacement Protocol 1 EACH MISC MISCELLANE PRN (05:47)
[2017-05-25] MEDS: SODIUM CHLORIDE 0.9% 1,000 ML IV SCH ×2 (05:57→22:43)
[2017-05-25] MEDS ORDERED: POTASSIUM CHLORIDE ER 20 MEQ TAB.ER PO SCH (06:00)
[2017-05-25] MEDS: LEVOTHYROXINE 50 MCG TAB PO SCH (06:17)
[2017-05-25] MEDS: MAGNESIUM SULFATE-D5W PMX 1 GM in DEXTROSE/WATER 1 100ML.BAG IVPB SCH ×2 (06:17→07:13)
[2017-05-25] MEDS: POTASSIUM BICARBONATE/CIT AC 20 MEQ TABLET.EFF NG-TUBE SCH ×2 (07:13→08:55)
--- NOTE | 2017-05-25 08:16 | XR ---
EXAMINATION TYPE: XR chest 1V portable DATE OF EXAM: 05/25/2017 CLINICAL HISTORY: Difficulty breathing progress study. TECHNIQUE: Single AP portable upright view of the chest is obtained. COMPARISON: Chest x-ray from one day earlier and older studies. FINDINGS: An endotracheal tube, orogastric tube, and right subclavian central venous catheter are al l stable in appearance. There is persisting cardiomegaly with atherosclerotic thoracic aorta. There is redemonstration of sma ll right pleural effusion and associated right lung atelectasis and/or infiltrate. Findings stable or slightly worsened. Left lung remains clear. Osseous structures are intact. IMPRESSION: Cardiomegaly with small right pleural effusion and associated right basilar atelectasis a nd/or infiltrate all redemonstrated. Finding slightly more prominent versus one day earlier.
[2017-05-25 08:18] LABS: Glucose,Whole Blood 178 mg/dL (75-99)
[2017-05-25] MEDS: ASPIRIN 325 MG TAB PO SCH (08:55)
[2017-05-25] MEDS: PANTOPRAZOLE 40 MG/10 ML VIAL IV SCH (08:55)
[2017-05-25] MEDS: METOPROLOL TARTRATE 12.5 MG TAB PO SCH ×2 (08:55→21:00)
[2017-05-25] MEDS: HEPARIN SODIUM,PORCINE 5,000 UNIT/ML 1 ML VIAL SQ SCH ×3 (08:55→23:08)
[2017-05-25] MEDS: FLUoxetine HCL 20 MG CAP PO SCH (08:55)
[2017-05-25] MEDS: CHLORHEXIDINE GLUCONATE 15 ML CUP MUCOUS MEM SCH ×2 (08:55→21:00)
[2017-05-25] MEDS: SPIRONOLACTONE 25 MG TAB PO SCH (08:56)
[2017-05-25] MEDS: PIPERACILLIN-TAZOBACTAM 3.375 GM in DEXTROSE/WATER 1 50ML.BAG IVPB SCH ×2 (09:00→21:00)
--- NOTE | 2017-05-25 10:58 | P.PN ---
Subjective Progress Note Date: 05/25/17 A 72-year-old female patient with known history of COPD and CHF with diastolic dysfunction was originally admitted to [facility] for worsening shortness of breath and acute COPD exacerbation and CHF exacerbation. She did not have any chest pain. She did have some mild elevation of the troponin and EKG did not show any acute abnormalities. Chest x-ray showed possibly a right lower lobe pneumonia. Note that the patient was being treated and she acutely had an acute cardiac arrest. She collapsed on the floor. Initially she was found to be investigated fibrillation. CPR was initiated and the patient was defibrillated on several occasions. She was intubated and she remained hypotensive requiring pressors. The exact downtime is not known however I expect this was approximately 20 minutes of CPR and defibrillation on this patient. The patient got moved to the [place] emergency department where the EKG showed acute ST segment elevation in inferior leads with reciprocal changes. 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 The left main was patent. There was mild disease in the proximal LAD and circumflex. The dominant vessel was RCA. This was reviewed by Dr. Leggett and it was decided not to do any intervention knowing that the patient had a GRISEL 3 flow in the RCA. The patient had 3 more episodes of V. tach and the [facility] [facility] where she had to be defibrillated. She was started on amiodarone drip and she got moved to the intensive care unit on 35 mics of levo fed for hypotension. This morning and echo cardiac rhythm was done and ejection fraction is less than 20%. Overnight she was given a total of 2 L of IV fluid and currently she is on normal saline today to have 100 mL an hour. She is producing urine output in the order of 20 mL an hour. She was producing better urine output prior to that. She is currently weaned down to 50 mics of the prevent. Note that the patient also had a traumatic head injury and a CAT scan of the brain was done in the emergency department that showed no acute abnormalities. As far as the right lower lobe pneumonia, the patient is on IV Zosyn. The patient has a right venous and arterial sheath in the right groin. Amiodarone is running at the maintenance of 0.5 mg/m. She is sedated and she is moving all 4 extremities to painful is diminished yet she is not following any commands. Diprivan is running at 15 g. currently intubated on a mechanical ventilator on assist control mode at the rate of 18, tidal volume 500 , FiO2 of 50% and a PEEP of 5. Blood gases from this morning showed a pH of 7.36 with a pCO2 of 36 and pO2 of 87 on 50% FiO2. On 05/23/2016 the patient is being seen for a follow-up. The patient remains intubated on a mechanical ventilator. The patient is also sedated with Diprivan. The patient remains calm and comfortable on today's evaluation. Overnight, the patient was having runs of nonsustained polymorphic V. tach. The patient did not require to be defibrillated. Cardiology was informed and the patient was placed on metoprolol 12.5 mg by mouth twice a day. This resulted in to some drop in his blood pressure. Levo fed was used to titrate the blood pressure and we have been gradually weaning down to the levo fed and currently levo fed is down to 2 mics. The patient is tolerating the drop in the pressors. Note that the patient also received significant amount of fluid and he received additional 2 L of bolus use yesterday and his net fluid balance is at least 5-1/2 L over the past 48 hours. This has helped with fluid resuscitation and the patient's CVP is currently at 18. Her chest x-ray from today is consistent with a right lower lobe pneumonia. ET tube is in a good location. No signs of any failure and the patient also has a triple lumen catheter which is in place. The patient had 2 additional rounds of polymorphic V. tach earlier this morning that were nonsustained. Cardiology was again informed. Amiodarone drip was increased up to 1 mg a minute. As far as electrolytes, the patient has a magnesium level of 2.0 and a potassium level of 3.4. Both of the electrodes were placed. Echocardiogram was done yesterday showed an ejection fraction of around less than 20%. The patient is also moderate to severe mitral regurgitation and a PA pressure of less than 35. No pericardial effusion seen. He is afebrile. The patient on Zosyn regarding the right lower lobe pneumonia. The vent settings on the day include an assist- control at the rate of 18, tidal volume 500, FiO2 of 50% with a PEEP of 5 and the patient's blood gas showed a pH of 7.48 with a pCO2 of 30 and pO2 of 97. No significant secretions from endotracheal tube. No significant bronchospasm and wheezing. The patient is still nothing by mouth. NG tube is in place. The patient also went into an acute shock liver following a cardiopulmonary arrest. The patient has significant elevation of the AST and ALT. This has also resulted in to some coagulopathy with the patient's INR is up to 2.3. There is also drop in the platelet counts down to 119. No signs of any acute bleeding. On 05/24/2017 and seeing this patient for a follow-up. As mentioned earlier the patient is post cardiac arrest. The active issue for now is her mentation. The patient was given a sedation holiday throughout the day yesterday and she was not able to follow any commands. She would open up her eyes spontaneously yet she is not purposeful. Overnight she had to be placed back on the sedation and this morning at around 7:00 I took her off the Diprivan. At the time of my evaluation, the patient was still unresponsive to any verbal stimulation. She will grimace to painful stimulation. She does not follow any commands. No seizure activity has been noted. Hemodynamically she is improved. She is off the pressors. She is producing urine output in the order of 30 mL an hour. She is on a IV fluids at 75 mL an hour normal saline. The patient is on assist control mode of ventilation at the rate of 18, tidal volume of 500, FiO2 of 40% and a PEEP of 5 and a blood gases from today showed a pH of 7.47 with a pCO2 of 10 and 29 and pO2 of 91. Chest x-ray findings are essentially unchanged and is still some persistent right lung pneumonia. Meanwhile, the patient's is still on IV Zosyn for right lung pneumonia. Cultures of been negative thus far. The sputum cultures shown Mehnaz. Renal function is stable with a creatinine of 1.4. The patient a shock liver and the liver function is improving. INR is lower compared to yesterday and dropped from 2.3 down to 2.0. The patient is tolerating the tube feeds. The patient is not having any further ventricular arrhythmias. The patient is on a maintenance amiodarone of 0.5 mg/m and Aldactone was also added to the regimen. On 05/25/2017, I'm seeing this patient for a follow-up. The patient is off sedation for 24 hours. There is a concern of hypoxic encephalopathy versus metabolic encephalopathy as the patient has not completely regained her consciousness. She is opening her eyes and she is moving all 4 extremities. She is not purposeful that she is not following any commands. CAT scan of the brain was done and was negative for any acute abnormalities and the EEG was also done and the patient also had an urology evaluation. The patient is off sedation. The patient is intubated on a mechanical ventilator. Vent settings remain essentially unchanged within assist-control of 18, tidal volume 500, FiO2 of 40% and a PEEP of 5 and the chest x-ray from today shows persistent right lower lobe consolidation and small effusion. The patient has a pH of 7.4 with a pCO2 of 38 and pO2 of 102. Renal function continues to improve and the creatinine is down to 1.1. As for the liver function tests, the patient also shows a drop and AST and ALP and a shock liver is also improving. INR is still at 1.8 with a PT of 16.2. The patient is producing adequate amount of urine output. Denies fluid balance is +2 L over the past 24 hours. The patient is on normal saline today to 75 mL an hour. The patient is also tolerating tube feeds. The patient is on IV Zosyn. Dilaudid was added for chronic back pain. Cardiac rhythm is sinus. Amiodarone drip is still running at maintenance. Objective - Vital Signs Vital signs: Vital Signs Temp 97.6 F 05/25/17 08:00 Pulse 78 05/25/17 10:00 Resp 21 05/25/17 10:00 BP 109/58 05/25/17 10:00 Pulse Ox 97 05/25/17 10:00 Intake & Output 05/24/17 05/25/17 05/25/17 18:59 06:59 18:59 Intake Total 2739.912 9138.242 630 Output Total 410 755 360 Balance 1076.288 993.242 270 Weight 85.3 kg Intake: IV 900 900 425 Piperacillin-Tazobactam 3 50 .375 gm In Dextrose/Water 1 50ml.bag @ 12.5 mls/hr IVPB Q12HR ANIA Rx#: [id number] Sodium Chloride 0.9% 1, 900 900 375 000 ml @ 75 mls/hr IV . [id number] ANIA Rx#:[id number] Intake, IV Titration 6.288 228.242 Amount Amiodarone 450 mg In 228.242 Dextrose 5% in Water 250 ml @ 0.5 MG/MIN 16.66 mls /hr IV .Q15H1M ANIA Rx#: [id number] Norepinephrin 16 mg-0.9% 4.971 Ns Pmx 16 mg In 250 ml @ Titrate IV .Q0M ANIA Rx#: [id number] Propofol 1,000 mg In 1.317 Empty Bag 1 bag @ Titrate IV .Q0M ANIA Rx#: [id number] Tube Feeding 520 560 175 Other 60 60 30 Output: Urine 410 755 360 Other: Voiding Method Indwelling Catheter Indwelling Catheter ABP, PAP, CO, CI - Last Documented Arterial Blood Pressure 133/93 - Exam Patient currently intubated on mechanical ventilator. The patient is off sedation for the past 24 hours. The patient is moving all 4 extremities and her neurologic exam is nonfocal. Nevertheless she is not purposeful that she is not following any commands. She withdraws to painful stimuli in all 4 extremities. She has a positive cough and a gag. Pupils around 4 mm in size and they're reactive to light. No nystagmus. No clonus and no facial asymmetry. The patient is in the process of being given a sedation holiday. She has nonpurposeful. She is not following any simple commands at this point in time.. The patient is a right subclavian triple-lumen catheter in place. Exit site is clean. Orogastric and orotracheal tube are both in place.Head exam was generally normal. There was no scleral icterus or corneal arcus. Mucous membranes were moist.Neck was supple and without jugular venous distension, thyromegaly, or carotid bruits. Carotids were easily palpable bilaterally. There was no adenopathy. Lung sounds are diminished in the right lung base otherwise breath sounds are equal and symmetrical bilaterally. ET tube is in a good location.Cardiac exam revealed the PMI to be normally situated and sized. The rhythm was regular and no extrasystoles were noted during several minutes of auscultation. The first and second heart sounds were normal and physiologic splitting of the second heart sound was noted. There were no murmurs, rubs, clicks, or gallops.Abdominal exam revealed normal bowel sounds. The abdomen was soft, non-tender, and without masses, organomegaly, or appreciable enlargement of the abdominal aorta. .Examination of the extremities revealed easily palpable radial, femoral and pedal pulses. There was no cyanosis , clubbing or edema. Patient has equal and symmetrical pulses in lower extremities bilaterally.Examination of the skin revealed no evidence of significant rashes, suspicious appearing nevi or other concerning lesions. Psych evaluation cannot be evaluated. - Labs CBC & Chem 7: 05/25/17 03:40 05/25/17 03:40 Labs: Abnormal Lab Results - Last 24 Hours (Table) 05/24/17 05/24/17 05/24/17 Range/Units 12:07 17:20 20:59 WBC (3.8-10.6) k/uL RBC (3.80-5.40) m/uL Hgb (11.4-16.0) gm/dL MCHC (31.0-37.0) g/dL RDW (11.5-15.5) % Plt Count (150-450) k/uL Neutrophils # (Manual) (1.3-7.7) k/uL Monocytes # (Manual) (0-1.0) k/uL Metamyelocytes # (Man) (0) k/uL Nucleated RBCs (0-0) /100 WBC PT (9.0-12.0) sec INR (<1.2) ABG Total CO2 (19-24) mmol/L ABG O2 Saturation (94-97) % Potassium (3.5-5.1) mmol/L Chloride (98-107) mmol/L BUN (7-17) mg/dL Creatinine (0.52-1.04) mg/dL Glucose (74-99) mg/dL POC Glucose (mg/dL) 127 H 134 H 151 H (75-99) mg/dL Calcium (8.4-10.2) mg/dL AST (14-36) U/L ALT (9-52) U/L Total Protein (6.3-8.2) g/dL Albumin (3.5-5.0) g/dL 05/25/17 05/25/17 05/25/17 Range/Units 00:04 03:39 03:40 WBC 14.9 H (3.8-10.6) k/uL RBC 3.76 L (3.80-5.40) m/uL Hgb 10.2 L (11.4-16.0) gm/dL MCHC 29.5 L (31.0-37.0) g/dL RDW 16.6 H (11.5-15.5) % Plt Count 59 L (150-450) k/uL Neutrophils # (Manual) 12.22 H (1.3-7.7) k/uL Monocytes # (Manual) 1.49 H (0-1.0) k/uL Metamyelocytes # (Man) 0.15 H (0) k/uL Nucleated RBCs 3 H (0-0) /100 WBC PT (9.0-12.0) sec INR (<1.2) ABG Total CO2 (19-24) mmol/L ABG O2 Saturation (94-97) % Potassium (3.5-5.1) mmol/L Chloride (98-107) mmol/L BUN (7-17) mg/dL Creatinine (0.52-1.04) mg/dL Glucose (74-99) mg/dL POC Glucose (mg/dL) 127 H 140 H (75-99) mg/dL Calcium (8.4-10.2) mg/dL AST (14-36) U/L ALT (9-52) U/L Total Protein (6.3-8.2) g/dL Albumin (3.5-5.0) g/dL 05/25/17 05/25/17 05/25/17 Range/Units 03:40 04:50 05:16 WBC (3.8-10.6) k/uL RBC (3.80-5.40) m/uL Hgb (11.4-16.0) gm/dL MCHC (31.0-37.0) g/dL RDW (11.5-15.5) % Plt Count (150-450) k/uL Neutrophils # (Manual) (1.3-7.7) k/uL Monocytes # (Manual) (0-1.0) k/uL Metamyelocytes # (Man) (0) k/uL Nucleated RBCs (0-0) /100 WBC PT 16.2 H (9.0-12.0) sec INR 1.8 H (<1.2) ABG Total CO2 25 H (19-24) mmol/L ABG O2 Saturation 97.3 H (94-97) % Potassium 3.4 L (3.5-5.1) mmol/L Chloride 109 H (98-107) mmol/L BUN 46 H (7-17) mg/dL Creatinine 1.10 H (0.52-1.04) mg/dL Glucose 136 H (74-99) mg/dL POC Glucose (mg/dL) (75-99) mg/dL Calcium 7.7 L (8.4-10.2) mg/dL AST 1144 H (14-36) U/L ALT 1157 H (9-52) U/L Total Protein 4.3 L (6.3-8.2) g/dL Albumin 2.2 L (3.5-5.0) g/dL 05/25/17 Range/Units 08:15 WBC (3.8-10.6) k/uL RBC (3.80-5.40) m/uL Hgb (11.4-16.0) gm/dL MCHC (31.0-37.0) g/dL RDW (11.5-15.5) % Plt Count (150-450) k/uL Neutrophils # (Manual) (1.3-7.7) k/uL Monocytes # (Manual) (0-1.0) k/uL Metamyelocytes # (Man) (0) k/uL Nucleated RBCs (0-0) /100 WBC PT (9.0-12.0) sec INR (<1.2) ABG Total CO2 (19-24) mmol/L ABG O2 Saturation (94-97) % Potassium (3.5-5.1) mmol/L Chloride (98-107) mmol/L BUN (7-17) mg/dL Creatinine (0.52-1.04) mg/dL Glucose (74-99) mg/dL POC Glucose (mg/dL) 178 H (75-99) mg/dL Calcium (8.4-10.2) mg/dL AST (14-36) U/L ALT (9-52) U/L Total Protein (6.3-8.2) g/dL Albumin (3.5-5.0) g/dL Microbiology - Last 24 Hours (Table) 05/22/17 08:00 Gram Stain - Preliminary Sputum Sputum Culture - Preliminary Yeast species Assessment and Plan Assessment: Assessment 1 acute cardiac arrest/V. fib, status post CPR, defibrillation and subsequent intubation mechanical ventilation. The patient was treated with amiodarone [address] segment elevation myocardial infarction involving the inferior wall secondary to dissection of the RCA. The patient underwent emergent cardiac catheterization and she currently has a GRISEL 3 flow and she did not require coronary stenting. She was advised by interventional cardiology. 3 acute shock, cardiogenic in nature with an ejection fraction of 20% and the patient has been on pressors which subsequently got wean off and discontinued. The patient is also on normal state rate of 75 mL an hour. 4 acute respiratory failure secondary to above 5 acute right lower lobe pneumonia, stable on today's chest x-ray 6 acute COPD exacerbation secondary to right lower lobe pneumonia 7 encephalopathy, rule out hypoxic encephalopathy rule out metabolic encephalopathy as the patient was in acute liver and kidney injury post cardiac arrest. LFTs are improving. Function is improving. Ammonia level is low. CAT scan of the brain is negative. Neurologist on the case. 8 acute head trauma the time of a cardiac arrest. The patient had a negative CAT scan of the head 9 diabetes mellitus 10 hyperlipidemia 11 hypothyroidism 13 history of hypertension 14 leukocytosis secondary to above 15 acute kidney injury improving the creatinine is down to 1.1 16 acute shock liver with an underlying coagulopathy. There is related to cardio pulmonary arrest. The liver function is improving. INR is at 1.8. Plan Continue vent support. The patient will be kept off sedation. Monitor mental status. There could be a component of metabolic encephalopathy which may ultimately improved. CAT scan of the brain is negative. Neurology on the case. EEG is performed and done and the results are still pending for now. Meanwhile, the patient is hemodynamically stable. The patient is off pressors. Creatinine is normalized down to 1.1. Patient is tolerating tube feeds. Hemodynamically stable and the patient is adequately being oxygenated and ventilated. No cardiac arrhythmias have been noted. We'll start the patient oral amiodarone to 400 mg by mouth twice a day. The patient is stable. Not ready for further weaning and extubation yet. I had a lengthy discussion with the family and updated them on this patient's condition. There is a critically care evaluation, 32 minutes. Time with Patient: Greater than 30
--- NOTE | 2017-05-25 11:40 | EEG ---
ELECTROENCEPHALOGRAM REPORT DATE OF EE05/24/2017 ELECTROENCEPHALOGRAPHIC EXAMINATION REPORT: INDICATION FOR EXAMINATION: This patient is a 72-year-old female, intubated on the ventilator, and is unresponsive. Patient with history of cardiac arrest. AGE: 72. EEG FINDINGS: A routine 21-channel awake digital EEG recording was accomplished utilizing the 10-20 international system with bipolar and referential montages. The background activity in the most alert resting state at a sensitivity setting of 7 microvolts is a 5 Hz activity over the posterior head regions. This posterior rhythm attenuates minimally to eye opening. There is a moderate amount of low amplitude 18-20 Hz beta activity seen maximally over the anterior head regions. Muscle and movement artifact was observed on a few occasions during the tracing. Hyperventilation was not performed. Photic stimulation at flash frequencies of 2-30 Hz produced a minimal occipital driving response. No epileptiform discharges were seen. IMPRESSION: This EEG gives evidence of a severe widespread diffuse disturbance in cerebral function. The EEG failed to reveal any focal, lateralized, or epileptiform abnormalities. If clinically indicated, a follow-up EEG is recommended. Clinical correlation is recommended. MMODL / IJN: [id number] /
[2017-05-25] MEDS: AMIODARONE 200 MG TAB PO SCH ×2 (11:54→21:00)
[2017-05-25 12:11] LABS: Glucose,Whole Blood 134 mg/dL (75-99)
--- NOTE | 2017-05-25 13:37 | P.PN ---
Subjective Progress Note Date: 05/25/17 This is a 72-year-old female with complex past medical history noted below significant for severe COPD, underlying diastolic heart failure, and ongoing tobacco abuse who presented yesterday to [facility] with worsening shortness of breath. Patient was evaluated and was admitted to the hospital with suspected acute COPD exacerbation and acute diastolic heart failure. She was also started on broad-spectrum antibiotic for underlying pneumonia. She was found to have an elevated troponin that was indeterminant the patient denies any chest pain and there was no acute EKG changes. Patient was started on IV heparin and was admitted to telemetry floor. Last night patient went into cardiac arrest and received approximately 20 minutes of CPR and defibrillation. She became hypotensive requiring vasopressors. She was intubated and started on mechanical ventilation. Telemetry strip showed possible ventricular fibrillation with concerns about torsade de pointes. 12 leads EKG postresuscitation showed questionable ST elevation [place]. 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 She is currently sedated and intubated. She is in the intensive care unit. She is requiring low dose of vasopressors. Her urine output has decreased over the last several hours. She is currently maintained on IV fluid with 0.9 normal saline at 75 mL per hour. She was seen by different specialists. 05/24/2017 patient remains in the ICU intubated and requiring vasopressors. When the patient was weaned off sedation she did not wake up. She has movements of her arms and head that are not purposeful. She was seen by neurology they repeated a computed tomography scan of the brain showing no acute changes. She is going to have an EEG completed in a few minutes. Neurology felt this is likely related to anoxic encephalopathy due to her cardiac arrest. She is on IV antibiotics for her pneumonia. She is on IV amiodarone for runs of nonsustained polymorphic V. tach. She has been in sinus rhythm today. Cardiology is following. Patient is been evaluated by multiple consultants physicians. On 05/25/2017 patient remains in the ICU intubated. She is opening her eyes and turning her head to the side of her son calling her. She also has movements of her arms and head that are not purposeful. She was seen by neurology they repeated a computed tomography scan of the brain showing no acute changes. She had an EEG. Neurology felt this is likely related to anoxic encephalopathy due to her cardiac arrest. She is on IV antibiotics for her pneumonia. She is on IV amiodarone for runs of nonsustained polymorphic V. tach. She has been in sinus rhythm today. Cardiology is following. Patient is been evaluated by multiple consultants physicians. Objective - Vital Signs Vital signs: Vital Signs Temp 97.6 F 05/25/17 08:00 Pulse 63 05/25/17 12:00 Resp 18 05/25/17 12:00 BP 94/51 05/25/17 12:00 Pulse Ox 98 05/25/17 12:00 Intake & Output 05/24/17 05/25/17 05/25/17 18:59 06:59 18:59 Intake Total 0844.636 3358.242 665 Output Total 410 755 360 Balance 1076.288 993.242 305 Weight 85.3 kg Intake: IV 900 900 425 Piperacillin-Tazobactam 3 50 .375 gm In Dextrose/Water 1 50ml.bag @ 12.5 mls/hr IVPB Q12HR [facility] Rx#: [id number] Sodium Chloride 0.9% 1, 900 900 375 000 ml @ 75 mls/hr IV . [id number] [facility] Rx#:[id number] Intake, IV Titration 6.288 228.242 Amount Amiodarone 450 mg In 228.242 Dextrose 5% in Water 250 ml @ 0.5 MG/MIN 16.66 mls /hr IV .Q15H1M [facility] Rx#: [id number] Norepinephrin 16 mg-0.9% 4.971 Ns Pmx 16 mg In 250 ml @ Titrate IV .Q0M [facility] Rx#: [id number] Propofol 1,000 mg In 1.317 Empty Bag 1 bag @ Titrate IV .Q0M [facility] Rx#: [id number] Tube Feeding 520 560 210 Other 60 60 30 Output: Urine 410 755 360 Other: Voiding Method Indwelling Catheter Indwelling Catheter ABP, PAP, CO, CI - Last Documented Arterial Blood Pressure 133/93 - Exam Head normocephalic and atraumatic Neck supple no JVD Lungs clear to auscultation bilaterally no wheezing or crackles Heart regular rate and rhythm S1-S2, no rub or gallop Abdomen is soft nontender nondistended positive bowel sounds no hepatosplenomegaly Extremities no edema no cyanosis or clubbing Neuro patient is intubated. Movements of her arms and head. She did follow simple commands today which is a change since yesterday. - Labs CBC & Chem 7: 05/25/17 03:40 05/25/17 03:40 Labs: Abnormal Lab Results - Last 24 Hours (Table) 05/24/17 05/24/17 05/25/17 Range/Units 17:20 20:59 00:04 WBC (3.8-10.6) k/uL RBC (3.80-5.40) m/uL Hgb (11.4-16.0) gm/dL MCHC (31.0-37.0) g/dL RDW (11.5-15.5) % Plt Count (150-450) k/uL Neutrophils # (Manual) (1.3-7.7) k/uL Monocytes # (Manual) (0-1.0) k/uL Metamyelocytes # (Man) (0) k/uL Nucleated RBCs (0-0) /100 WBC PT (9.0-12.0) sec INR (<1.2) ABG Total CO2 (19-24) mmol/L ABG O2 Saturation (94-97) % Potassium (3.5-5.1) mmol/L Chloride (98-107) mmol/L BUN (7-17) mg/dL Creatinine (0.52-1.04) mg/dL Glucose (74-99) mg/dL POC Glucose (mg/dL) 134 H 151 H 127 H (75-99) mg/dL Calcium (8.4-10.2) mg/dL AST (14-36) U/L ALT (9-52) U/L Total Protein (6.3-8.2) g/dL Albumin (3.5-5.0) g/dL 05/25/17 05/25/17 05/25/17 Range/Units 03:39 03:40 03:40 WBC 14.9 H (3.8-10.6) k/uL RBC 3.76 L (3.80-5.40) m/uL Hgb 10.2 L (11.4-16.0) gm/dL MCHC 29.5 L (31.0-37.0) g/dL RDW 16.6 H (11.5-15.5) % Plt Count 59 L (150-450) k/uL Neutrophils # (Manual) 12.22 H (1.3-7.7) k/uL Monocytes # (Manual) 1.49 H (0-1.0) k/uL Metamyelocytes # (Man) 0.15 H (0) k/uL Nucleated RBCs 3 H (0-0) /100 WBC PT (9.0-12.0) sec INR (<1.2) ABG Total CO2 (19-24) mmol/L ABG O2 Saturation (94-97) % Potassium 3.4 L (3.5-5.1) mmol/L Chloride 109 H (98-107) mmol/L BUN 46 H (7-17) mg/dL Creatinine 1.10 H (0.52-1.04) mg/dL Glucose 136 H (74-99) mg/dL POC Glucose (mg/dL) 140 H (75-99) mg/dL Calcium 7.7 L (8.4-10.2) mg/dL AST 1144 H (14-36) U/L ALT 1157 H (9-52) U/L Total Protein 4.3 L (6.3-8.2) g/dL Albumin 2.2 L (3.5-5.0) g/dL 05/25/17 05/25/17 05/25/17 Range/Units 04:50 05:16 08:15 WBC (3.8-10.6) k/uL RBC (3.80-5.40) m/uL Hgb (11.4-16.0) gm/dL MCHC (31.0-37.0) g/dL RDW (11.5-15.5) % Plt Count (150-450) k/uL Neutrophils # (Manual) (1.3-7.7) k/uL Monocytes # (Manual) (0-1.0) k/uL Metamyelocytes # (Man) (0) k/uL Nucleated RBCs (0-0) /100 WBC PT 16.2 H (9.0-12.0) sec INR 1.8 H (<1.2) ABG Total CO2 25 H (19-24) mmol/L ABG O2 Saturation 97.3 H (94-97) % Potassium (3.5-5.1) mmol/L Chloride (98-107) mmol/L BUN (7-17) mg/dL Creatinine (0.52-1.04) mg/dL Glucose (74-99) mg/dL POC Glucose (mg/dL) 178 H (75-99) mg/dL Calcium (8.4-10.2) mg/dL AST (14-36) U/L ALT (9-52) U/L Total Protein (6.3-8.2) g/dL Albumin (3.5-5.0) g/dL 05/25/17 Range/Units 12:09 WBC (3.8-10.6) k/uL RBC (3.80-5.40) m/uL Hgb (11.4-16.0) gm/dL MCHC (31.0-37.0) g/dL RDW (11.5-15.5) % Plt Count (150-450) k/uL Neutrophils # (Manual) (1.3-7.7) k/uL Monocytes # (Manual) (0-1.0) k/uL Metamyelocytes # (Man) (0) k/uL Nucleated RBCs (0-0) /100 WBC PT (9.0-12.0) sec INR (<1.2) ABG Total CO2 (19-24) mmol/L ABG O2 Saturation (94-97) % Potassium (3.5-5.1) mmol/L Chloride (98-107) mmol/L BUN (7-17) mg/dL Creatinine (0.52-1.04) mg/dL Glucose (74-99) mg/dL POC Glucose (mg/dL) 134 H (75-99) mg/dL Calcium (8.4-10.2) mg/dL AST (14-36) U/L ALT (9-52) U/L Total Protein (6.3-8.2) g/dL Albumin (3.5-5.0) g/dL Microbiology - Last 24 Hours (Table) 05/22/17 08:00 Gram Stain - Preliminary Sputum Sputum Culture - Preliminary Yeast species Assessment and Plan Plan: 1. Cardiac arrest with ventricular fibrillation at an outside hospital status post CPR for approximately 20 minutes and defibrillation. Required mechanical ventilation 2. Acute ST elevation [place] status post left heart catheterization with findings suggestive of dissection of the RCA. Otherwise nonobstructive coronary artery disease. Followed by cardiology. 3. Acute cardiogenic shock: Requiring vasopressors. We will continue IV fluid hydration. Repeat echocardiogram showed EF less than 20% which is new compared to her echo last month with a EF of greater than 50%. 4. Right lower lobe pneumonia maintained on Zosyn 5. Acute hypoxic respiratory failure 6. Acute liver shock with significant transaminitis secondary to episodes of hypotension. We will continue to monitor liver function tests daily 7. Type 2 diabetes mellitus 8. Mixed hyperlipidemia 9. Hypothyroidism maintained on levothyroxine 10. Acute kidney injury: Continue IV fluids. Creatinine 1.4 11. 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 Repeat computed tomography scan of the brain showing no acute changes. Patient scheduled for EEG. Neurology following. DVT prophylaxis subcu heparin GI prophylaxis Protonix
--- NOTE | 2017-05-25 15:23 | P.PN ---
Subjective Progress Note Date: 05/25/17 This patient is a 72-year-old female who is seen today in the intensive care unit following recent episode of cardiac arrest and anoxic encephalopathy. Patient was seen yesterday on initial neurological consultation. She was sent for a computed tomography scan of the brain yesterday which revealed no acute hemorrhage or mass effect. There were degenerative and nonspecific periventricular white matter changes noted. There was no evidence for cerebral edema. Patient also underwent a routine EEG which was reviewed yesterday and revealed severe slowing but no epileptiform discharges. This would be consistent with a anoxic encephalopathy following cardiac arrest. This morning she is examined at bedside in the intensive care unit with 2 of her sons at bedside. The patient is more awake today and is able to follow simple commands. She could not do this yesterday. Pulmonary medicine is keeping her on the vent overnight to see how she does. She has been off of all sedation since yesterday morning. Hopefully she will remain off of sedation and weaning trials may be initiated tomorrow per Dr. Alaniz. Overall the patient is following some simple commands. We reviewed the results of the CAT scan of the brain and EEG results with both of the sons were at bedside. They're aware of these findings today. We will plan to get a follow-up EEG for her possibly on Saturday for comparison. Clinically she is showing some improvement in her mental status. We will continue close neurological follow-up this patient in the intensive care unit. Objective - Vital Signs Vital signs: Vital Signs Temp 97.5 F L 05/25/17 12:00 Pulse 66 05/25/17 13:00 Resp 19 05/25/17 13:00 BP 98/50 05/25/17 13:00 Pulse Ox 99 05/25/17 13:00 Intake & Output 05/24/17 05/25/17 05/25/17 18:59 06:59 18:59 Intake Total 4592.385 7786.242 915 Output Total 410 755 485 Balance 1076.288 993.242 430 Weight 85.3 kg Intake: IV 900 900 575 Piperacillin-Tazobactam 3 50 .375 gm In Dextrose/Water 1 50ml.bag @ 12.5 mls/hr IVPB Q12HR [facility] Rx#: [id number] Sodium Chloride 0.9% 1, 900 900 525 000 ml @ 75 mls/hr IV . [id number] [facility] Rx#:[id number] Intake, IV Titration 6.288 228.242 Amount Amiodarone 450 mg In 228.242 Dextrose 5% in Water 250 ml @ 0.5 MG/MIN 16.66 mls /hr IV .Q15H1M [facility] Rx#: [id number] Norepinephrin 16 mg-0.9% 4.971 Ns Pmx 16 mg In 250 ml @ Titrate IV .Q0M [facility] Rx#: [id number] Propofol 1,000 mg In 1.317 Empty Bag 1 bag @ Titrate IV .Q0M [facility] Rx#: [id number] Tube Feeding 520 560 280 Other 60 60 60 Output: Urine 410 755 485 Other: Voiding Method Indwelling Catheter Indwelling Catheter ABP, PAP, CO, CI - Last Documented Arterial Blood Pressure 133/93 - Exam Physical examination: PHYSICAL EXAMINATION: Patient is resting comfortably in bed. VITAL SIGNS: Blood pressure is [94/51]. Heart rate is [63]. Respiration is [18] . Temperature is [97.7]. HEENT: Head is atraumatic, neck is supple, there were no carotid bruits. CHEST: Lungs are clear to auscultation and percussion. CARDIAC: S1, S2 normal rate and rhythm. There is no murmur. ABDOMEN: Soft and nontender. Bowel sounds are present. EXTREMITIES: There is no pedal edema. Peripheral pulses are present. Neurological examination: Patient is examined today in the intensive care unit. She remains on the ventilator. She is opening her eyes and is following some simple commands. She is able to initiate hand kid club attendant squeeze on her right side very easily. Cranial nerves II through XII are grossly intact. Patient does withdraw to painful stimuli overall 4 extremities. Deep tendon reflexes are 1+ and symmetric. Plantar responses flexor bilaterally. - Labs CBC & Chem 7: 05/25/17 03:40 05/25/17 03:40 Labs: Abnormal Lab Results - Last 24 Hours (Table) 05/24/17 05/24/17 05/25/17 Range/Units 17:20 20:59 00:04 WBC (3.8-10.6) k/uL RBC (3.80-5.40) m/uL Hgb (11.4-16.0) gm/dL MCHC (31.0-37.0) g/dL RDW (11.5-15.5) % Plt Count (150-450) k/uL Neutrophils # (Manual) (1.3-7.7) k/uL Monocytes # (Manual) (0-1.0) k/uL Metamyelocytes # (Man) (0) k/uL Nucleated RBCs (0-0) /100 WBC PT (9.0-12.0) sec INR (<1.2) ABG Total CO2 (19-24) mmol/L ABG O2 Saturation (94-97) % Potassium (3.5-5.1) mmol/L Chloride (98-107) mmol/L BUN (7-17) mg/dL Creatinine (0.52-1.04) mg/dL Glucose (74-99) mg/dL POC Glucose (mg/dL) 134 H 151 H 127 H (75-99) mg/dL Calcium (8.4-10.2) mg/dL AST (14-36) U/L ALT (9-52) U/L Total Protein (6.3-8.2) g/dL Albumin (3.5-5.0) g/dL 05/25/17 05/25/17 05/25/17 Range/Units 03:39 03:40 03:40 WBC 14.9 H (3.8-10.6) k/uL RBC 3.76 L (3.80-5.40) m/uL Hgb 10.2 L (11.4-16.0) gm/dL MCHC 29.5 L (31.0-37.0) g/dL RDW 16.6 H (11.5-15.5) % Plt Count 59 L (150-450) k/uL Neutrophils # (Manual) 12.22 H (1.3-7.7) k/uL Monocytes # (Manual) 1.49 H (0-1.0) k/uL Metamyelocytes # (Man) 0.15 H (0) k/uL Nucleated RBCs 3 H (0-0) /100 WBC PT (9.0-12.0) sec INR (<1.2) ABG Total CO2 (19-24) mmol/L ABG O2 Saturation (94-97) % Potassium 3.4 L (3.5-5.1) mmol/L Chloride 109 H (98-107) mmol/L BUN 46 H (7-17) mg/dL Creatinine 1.10 H (0.52-1.04) mg/dL Glucose 136 H (74-99) mg/dL POC Glucose (mg/dL) 140 H (75-99) mg/dL Calcium 7.7 L (8.4-10.2) mg/dL AST 1144 H (14-36) U/L ALT 1157 H (9-52) U/L Total Protein 4.3 L (6.3-8.2) g/dL Albumin 2.2 L (3.5-5.0) g/dL 05/25/17 05/25/17 05/25/17 Range/Units 04:50 05:16 08:15 WBC (3.8-10.6) k/uL RBC (3.80-5.40) m/uL Hgb (11.4-16.0) gm/dL MCHC (31.0-37.0) g/dL RDW (11.5-15.5) % Plt Count (150-450) k/uL Neutrophils # (Manual) (1.3-7.7) k/uL Monocytes # (Manual) (0-1.0) k/uL Metamyelocytes # (Man) (0) k/uL Nucleated RBCs (0-0) /100 WBC PT 16.2 H (9.0-12.0) sec INR 1.8 H (<1.2) ABG Total CO2 25 H (19-24) mmol/L ABG O2 Saturation 97.3 H (94-97) % Potassium (3.5-5.1) mmol/L Chloride (98-107) mmol/L BUN (7-17) mg/dL Creatinine (0.52-1.04) mg/dL Glucose (74-99) mg/dL POC Glucose (mg/dL) 178 H (75-99) mg/dL Calcium (8.4-10.2) mg/dL AST (14-36) U/L ALT (9-52) U/L Total Protein (6.3-8.2) g/dL Albumin (3.5-5.0) g/dL 05/25/17 Range/Units 12:09 WBC (3.8-10.6) k/uL RBC (3.80-5.40) m/uL Hgb (11.4-16.0) gm/dL MCHC (31.0-37.0) g/dL RDW (11.5-15.5) % Plt Count (150-450) k/uL Neutrophils # (Manual) (1.3-7.7) k/uL Monocytes # (Manual) (0-1.0) k/uL Metamyelocytes # (Man) (0) k/uL Nucleated RBCs (0-0) /100 WBC PT (9.0-12.0) sec INR (<1.2) ABG Total CO2 (19-24) mmol/L ABG O2 Saturation (94-97) % Potassium (3.5-5.1) mmol/L Chloride (98-107) mmol/L BUN (7-17) mg/dL Creatinine (0.52-1.04) mg/dL Glucose (74-99) mg/dL POC Glucose (mg/dL) 134 H (75-99) mg/dL Calcium (8.4-10.2) mg/dL AST (14-36) U/L ALT (9-52) U/L Total Protein (6.3-8.2) g/dL Albumin (3.5-5.0) g/dL Microbiology - Last 24 Hours (Table) 05/22/17 08:00 Gram Stain - Preliminary Sputum Sputum Culture - Preliminary Yeast species Assessment and Plan (1) Anoxic encephalopathy Current Visit: Yes Status: Acute Code(s): G93.1 - ANOXIC BRAIN DAMAGE, NOT ELSEWHERE CLASSIFIED SNOMED Code(s): 064103885 (2) Acute myocardial infarction Current Visit: Yes Status: Acute Code(s): I21.9 - ACUTE MYOCARDIAL INFARCTION, UNSPECIFIED SNOMED Code(s): 70432209 (3) CHF (congestive heart failure) Current Visit: Yes Status: Acute Code(s): I50.9 - HEART FAILURE, UNSPECIFIED SNOMED Code(s): 52679832 (4) Cardiac arrest with ventricular fibrillation Current Visit: Yes Status: Acute Code(s): I46.9 - CARDIAC ARREST, CAUSE UNSPECIFIED; I49.01 - VENTRICULAR FIBRILLATION SNOMED Code(s): 34292571 (5) Pneumonia Current Visit: Yes Status: Acute Code(s): J18.9 - PNEUMONIA, UNSPECIFIED ORGANISM SNOMED Code(s): 403894383 Plan: This patient is a 72-year-old female with a complex past medical history including recent episode of cardiac arrest. Patient was transferred from [facility] for cardiac catheterization as she had evidence of dissection of the RCA. Cardiology is following her and she was intubated and transferred to the intensive care unit. The patient remains on the ventilator. She is much more awake and alert today as compared to yesterday. Patient is to remain on the ventilator today. Pulmonary medicine may consider weaning parameters tomorrow. She was sent for a computed tomography scan of the brain yesterday results which are noted above. CAT scan failed to reveal any evidence of acute stroke or cerebral edema following cardiac arrest. As noted her mental status is improved today and she is opening her eyes and following some simple commands. Patient underwent routine EEG the results of which are noted above. EEG is consistent with an anoxic encephalopathy following cardiac arrest. We have recommended a follow-up EEG to be done on Saturday for comparison. The patient's neurological exam findings and test results were reviewed today with 2 of her sons at bedside. All of their questions were answered. She is requiring some dye allotted for treatment of chronic back pain. The sons are aware that she is being given pain medication when needed. She is making slow progress following cardiac arrest. As noted we will plan to get a follow-up EEG on Saturday for comparison. Her overall prognosis at this time remains guarded. This case was discussed at length with both of her sons at bedside today in the intensive care unit. All of their questions were answered. They are aware of her guarded condition.
--- NOTE | 2017-05-25 16:02 | P.PN ---
Subjective Patient is still intubated. 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 Ventricular fibrillation Episodes of PMVT, nonsustained which is now settled down Plan Keep potassium greater than 4.5, keep magnesium greater than 2.0 avoid QT prolonging drugs Continue spironolactone Objective - Vital Signs Vital signs: Vital Signs Temp 97.5 F L 05/25/17 12:00 Pulse 62 05/25/17 15:37 Resp 19 05/25/17 13:00 BP 98/50 05/25/17 13:00 Pulse Ox 99 05/25/17 13:00 Intake & Output 05/24/17 05/25/17 05/25/17 18:59 06:59 18:59 Intake Total 3078.879 2179.242 915 Output Total 410 755 485 Balance 1076.288 993.242 430 Weight 85.3 kg Intake: IV 900 900 575 Piperacillin-Tazobactam 3 50 .375 gm In Dextrose/Water 1 50ml.bag @ 12.5 mls/hr IVPB Q12HR [facility] Rx#: [id number] Sodium Chloride 0.9% 1, 900 900 525 000 ml @ 75 mls/hr IV . [id number] [facility] Rx#:[id number] Intake, IV Titration 6.288 228.242 Amount Amiodarone 450 mg In 228.242 Dextrose 5% in Water 250 ml @ 0.5 MG/MIN 16.66 mls /hr IV .Q15H1M [facility] Rx#: [id number] Norepinephrin 16 mg-0.9% 4.971 Ns Pmx 16 mg In 250 ml @ Titrate IV .Q0M [facility] Rx#: [id number] Propofol 1,000 mg In 1.317 Empty Bag 1 bag @ Titrate IV .Q0M [facility] Rx#: [id number] Tube Feeding 520 560 280 Other 60 60 60 Output: Urine 410 755 485 Other: Voiding Method Indwelling Catheter Indwelling Catheter ABP, PAP, CO, CI - Last Documented Arterial Blood Pressure 133/93 - Labs CBC & Chem 7: 05/25/17 03:40 05/25/17 03:40 Labs: Abnormal Lab Results - Last 24 Hours (Table) 05/24/17 05/24/17 05/25/17 Range/Units 17:20 20:59 00:04 WBC (3.8-10.6) k/uL RBC (3.80-5.40) m/uL Hgb (11.4-16.0) gm/dL MCHC (31.0-37.0) g/dL RDW (11.5-15.5) % Plt Count (150-450) k/uL Neutrophils # (Manual) (1.3-7.7) k/uL Monocytes # (Manual) (0-1.0) k/uL Metamyelocytes # (Man) (0) k/uL Nucleated RBCs (0-0) /100 WBC PT (9.0-12.0) sec INR (<1.2) ABG Total CO2 (19-24) mmol/L ABG O2 Saturation (94-97) % Potassium (3.5-5.1) mmol/L Chloride (98-107) mmol/L BUN (7-17) mg/dL Creatinine (0.52-1.04) mg/dL Glucose (74-99) mg/dL POC Glucose (mg/dL) 134 H 151 H 127 H (75-99) mg/dL Calcium (8.4-10.2) mg/dL AST (14-36) U/L ALT (9-52) U/L Total Protein (6.3-8.2) g/dL Albumin (3.5-5.0) g/dL 05/25/17 05/25/17 05/25/17 Range/Units 03:39 03:40 03:40 WBC 14.9 H (3.8-10.6) k/uL RBC 3.76 L (3.80-5.40) m/uL Hgb 10.2 L (11.4-16.0) gm/dL MCHC 29.5 L (31.0-37.0) g/dL RDW 16.6 H (11.5-15.5) % Plt Count 59 L (150-450) k/uL Neutrophils # (Manual) 12.22 H (1.3-7.7) k/uL Monocytes # (Manual) 1.49 H (0-1.0) k/uL Metamyelocytes # (Man) 0.15 H (0) k/uL Nucleated RBCs 3 H (0-0) /100 WBC PT (9.0-12.0) sec INR (<1.2) ABG Total CO2 (19-24) mmol/L ABG O2 Saturation (94-97) % Potassium 3.4 L (3.5-5.1) mmol/L Chloride 109 H (98-107) mmol/L BUN 46 H (7-17) mg/dL Creatinine 1.10 H (0.52-1.04) mg/dL Glucose 136 H (74-99) mg/dL POC Glucose (mg/dL) 140 H (75-99) mg/dL Calcium 7.7 L (8.4-10.2) mg/dL AST 1144 H (14-36) U/L ALT 1157 H (9-52) U/L Total Protein 4.3 L (6.3-8.2) g/dL Albumin 2.2 L (3.5-5.0) g/dL 05/25/17 05/25/17 05/25/17 Range/Units 04:50 05:16 08:15 WBC (3.8-10.6) k/uL RBC (3.80-5.40) m/uL Hgb (11.4-16.0) gm/dL MCHC (31.0-37.0) g/dL RDW (11.5-15.5) % Plt Count (150-450) k/uL Neutrophils # (Manual) (1.3-7.7) k/uL Monocytes # (Manual) (0-1.0) k/uL Metamyelocytes # (Man) (0) k/uL Nucleated RBCs (0-0) /100 WBC PT 16.2 H (9.0-12.0) sec INR 1.8 H (<1.2) ABG Total CO2 25 H (19-24) mmol/L ABG O2 Saturation 97.3 H (94-97) % Potassium (3.5-5.1) mmol/L Chloride (98-107) mmol/L BUN (7-17) mg/dL Creatinine (0.52-1.04) mg/dL Glucose (74-99) mg/dL POC Glucose (mg/dL) 178 H (75-99) mg/dL Calcium (8.4-10.2) mg/dL AST (14-36) U/L ALT (9-52) U/L Total Protein (6.3-8.2) g/dL Albumin (3.5-5.0) g/dL 05/25/17 Range/Units 12:09 WBC (3.8-10.6) k/uL RBC (3.80-5.40) m/uL Hgb (11.4-16.0) gm/dL MCHC (31.0-37.0) g/dL RDW (11.5-15.5) % Plt Count (150-450) k/uL Neutrophils # (Manual) (1.3-7.7) k/uL Monocytes # (Manual) (0-1.0) k/uL Metamyelocytes # (Man) (0) k/uL Nucleated RBCs (0-0) /100 WBC PT (9.0-12.0) sec INR (<1.2) ABG Total CO2 (19-24) mmol/L ABG O2 Saturation (94-97) % Potassium (3.5-5.1) mmol/L Chloride (98-107) mmol/L BUN (7-17) mg/dL Creatinine (0.52-1.04) mg/dL Glucose (74-99) mg/dL POC Glucose (mg/dL) 134 H (75-99) mg/dL Calcium (8.4-10.2) mg/dL AST (14-36) U/L ALT (9-52) U/L Total Protein (6.3-8.2) g/dL Albumin (3.5-5.0) g/dL
[2017-05-25 16:32] LABS: Glucose,Whole Blood 153 mg/dL (75-99)
[2017-05-25 22:49] LABS: Glucose,Whole Blood 126 mg/dL (75-99)
[2017-05-25 23:45] LABS: Glucose,Whole Blood 128 mg/dL (75-99)
[2017-05-26] MEDS: IPRATROPIUM-ALBUTEROL 3 ML NEB INHALATION SCH ×7 (00:24→23:21)
[2017-05-26] MEDS ORDERED: Potassium Replacement Protocol 1 EACH MISC MISCELLANE PRN (00:52)
[2017-05-26] MEDS: INSULIN ASPART 100 UNIT/ML 1 ML 10 ML VIAL SQ SCH ×4 (01:03→19:05)
[2017-05-26] MEDS: POTASSIUM BICARBONATE/CIT AC 20 MEQ TABLET.EFF NG-TUBE SCH ×2 (03:21→04:54)
[2017-05-26 04:47] LABS: Anisocytosis Slight; HCT 36.1 % (34.0-46.0); HGB 10.7 gm/dL (11.4-16.0); Hypochromasia Marked; MCH 27.4 pg (25.0-35.0); MCHC 29.6 g/dL (31.0-37.0); MCV 92.6 fL (80.0-100.0); Mean Platelet Volume 11.6; Poikilocytosis Moderate; RDW 16.2 % (11.5-15.5)
[2017-05-26 04:51] LABS: Platelet Count 69 k/uL (150-450)
[2017-05-26 04:53] LABS: INR 1.4 (<1.2); Partial Thromboplastin Time 24.6 sec (22.0-30.0); Prothrombin Time 13.5 sec (9.0-12.0)
[2017-05-26 05:01] LABS: ABG Base Excess 0.1 mmol/L; ABG HCO3 24 mmol/L (21-25); ABG Oxygen Saturation 97.6 % (94-97); ABG PCO2 36 mmHg (35-45); ABG PH 7.43 (7.35-7.45); ABG PO2 99 mmHg (83-108)
[2017-05-26 05:38] LABS: ALT 807 U/L (9-52); AST 453 U/L (14-36); Albumin 2.4 g/dL (3.5-5.0); Alkaline Phosphatase 112 U/L (38-126); Anion Gap 8 mmol/L; Blood Urea Nitrogen 39 mg/dL (7-17); Calcium 8.2 mg/dL (8.4-10.2); Carbon Dioxide 24 mmol/L (22-30); Chloride 112 mmol/L (98-107); Glucose 128 mg/dL (74-99); Magnesium 1.9 mg/dL (1.6-2.3); Phosphorus 2.9 mg/dL (2.5-4.5); Potassium 4.5 mmol/L (3.5-5.1); Sodium 144 mmol/L (137-145); Total Bilirubin 1.1 mg/dL (0.2-1.3); Total Protein 4.6 g/dL (6.3-8.2)
[2017-05-26] MEDS: LEVOTHYROXINE 50 MCG TAB PO SCH (06:46)
[2017-05-26] MEDS: HEPARIN SODIUM,PORCINE 5,000 UNIT/ML 1 ML VIAL SQ SCH ×2 (07:41→17:29)
[2017-05-26] MEDS: ASPIRIN 325 MG TAB PO SCH (07:42)
[2017-05-26] MEDS: FLUoxetine HCL 20 MG CAP PO SCH (07:42)
[2017-05-26] MEDS: METOPROLOL TARTRATE 12.5 MG TAB PO SCH ×2 (07:42→20:32)
[2017-05-26] MEDS: SPIRONOLACTONE 25 MG TAB PO SCH (07:42)
[2017-05-26] MEDS: CHLORHEXIDINE GLUCONATE 15 ML CUP MUCOUS MEM SCH ×2 (07:42→20:33)
[2017-05-26] MEDS: PANTOPRAZOLE 40 MG/10 ML VIAL IV SCH (07:42)
[2017-05-26] MEDS: AMIODARONE 200 MG TAB PO SCH ×2 (07:43→20:32)
--- NOTE | 2017-05-26 07:46 | XR ---
EXAMINATION TYPE: XR chest 1V portable DATE OF EXAM: 05/26/2017 CLINICAL HISTORY: Difficulty breathing progress study. TECHNIQUE: Single AP portable semiupright view of the chest is obtained. COMPARISON: Chest x-ray from one day earlier and older studies. FINDINGS: An endotracheal tube, orogastric tube, and right subclavian central venous catheter are al l stable in appearance. There is persistent cardiomegaly with atherosclerotic thoracic aorta. There is redemonstration of rig ht basilar opacity felt to reflect small right pleural effusion and associated right lung atelectasis and/or infiltrate. Findings stable from most recent study. Left lung remains predominantly clear. Os seous structures are intact. IMPRESSION: Overall stable findings, cardiomegaly with small right pleural effusion and associated right basilar atelectasis and/or infiltrate all redemonstrated.
[2017-05-26] MEDS: PIPERACILLIN-TAZOBACTAM 3.375 GM in DEXTROSE/WATER 1 50ML.BAG IVPB SCH ×2 (07:53→22:05)
[2017-05-26] MEDS: MAGNESIUM SULFATE-D5W PMX 1 GM in DEXTROSE/WATER 1 100ML.BAG IVPB SCH ×2 (07:53→10:34)
[2017-05-26 07:58] LABS: Band Neutrophils % 1 %; Lymphocytes # (M) 1.47 k/uL (1.0-4.8); Metamyelocytes # (M) 0.16 k/uL (0); Metamyelocytes % 1 %; Monocytes # (M) 1.14 k/uL (0-1.0); Neutrophils % (M) 84 %; Nucleated Red Blood Cells 5 /100 WBC (0-0); Polychromasia Present; Total Cells Counted 200; WBC 16.3 k/uL (3.8-10.6)
--- NOTE | 2017-05-26 09:08 | US ---
EXAMINATION TYPE: US venous doppler duplex UE LT DATE OF EXAM: 05/26/2017 COMPARISON: NONE CLINICAL HISTORY: R/O blood clot. Nurse states patient upper forearm and lower upper arm were swelled and warm, but has improved. Not on blood thinners. SIDE PERFORMED: Left Limited exam due to patient on vent and unable to move Left Arm: Negative for DVT. Edema is seen. Grayscale, color doppler, spectral doppler imaging performed of the deep veins of the left upper extr emity. There is normal flow, compressibility and vascular waveforms. IMPRESSION: No ultrasound evidence for acute DVT in visualized portions of the left upper extremity.
--- NOTE | 2017-05-26 10:16 | P.PN ---
Subjective Progress Note Date: 05/26/17 A 72-year-old female patient with known history of COPD and CHF with diastolic dysfunction was originally admitted to [facility] for worsening shortness of breath and acute COPD exacerbation and CHF exacerbation. She did not have any chest pain. She did have some mild elevation of the troponin and EKG did not show any acute abnormalities. Chest x-ray showed possibly a right lower lobe pneumonia. Note that the patient was being treated and she acutely had an acute cardiac arrest. She collapsed on the floor. Initially she was found to be investigated fibrillation. CPR was initiated and the patient was defibrillated on several occasions. She was intubated and she remained hypotensive requiring pressors. The exact downtime is not known however I expect this was approximately 20 minutes of CPR and defibrillation on this patient. The patient got moved to the [place] emergency department where the EKG showed acute ST segment elevation in inferior leads with reciprocal changes. 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 The left main was patent. There was mild disease in the proximal LAD and circumflex. The dominant vessel was RCA. This was reviewed by Dr. Leggett and it was decided not to do any intervention knowing that the patient had a GRISEL 3 flow in the RCA. The patient had 3 more episodes of V. tach and the [facility] where she had to be defibrillated. She was started on amiodarone drip and she got moved to the intensive care unit on 35 mics of levo fed for hypotension. This morning and echo cardiac rhythm was done and ejection fraction is less than 20%. Overnight she was given a total of 2 L of IV fluid and currently she is on normal saline today to have 100 mL an hour. She is producing urine output in the order of 20 mL an hour. She was producing better urine output prior to that. She is currently weaned down to 50 mics of the prevent. Note that the patient also had a traumatic head injury and a CAT scan of the brain was done in the emergency department that showed no acute abnormalities. As far as the right lower lobe pneumonia, the patient is on IV Zosyn. The patient has a right venous and arterial sheath in the right groin. Amiodarone is running at the maintenance of 0.5 mg/m. She is sedated and she is moving all 4 extremities to painful is diminished yet she is not following any commands. Diprivan is running at 15 g. currently intubated on a mechanical ventilator on assist control mode at the rate of 18, tidal volume 500 , FiO2 of 50% and a PEEP of 5. Blood gases from this morning showed a pH of 7.36 with a pCO2 of 36 and pO2 of 87 on 50% FiO2. On 05/23/2016 the patient is being seen for a follow-up. The patient remains intubated on a mechanical ventilator. The patient is also sedated with Diprivan. The patient remains calm and comfortable on today's evaluation. Overnight, the patient was having runs of nonsustained polymorphic V. tach. The patient did not require to be defibrillated. Cardiology was informed and the patient was placed on metoprolol 12.5 mg by mouth twice a day. This resulted in to some drop in his blood pressure. Levo fed was used to titrate the blood pressure and we have been gradually weaning down to the levo fed and currently levo fed is down to 2 mics. The patient is tolerating the drop in the pressors. Note that the patient also received significant amount of fluid and he received additional 2 L of bolus use yesterday and his net fluid balance is at least 5-1/2 L over the past 48 hours. This has helped with fluid resuscitation and the patient's CVP is currently at 18. Her chest x-ray from today is consistent with a right lower lobe pneumonia. ET tube is in a good location. No signs of any failure and the patient also has a triple lumen catheter which is in place. The patient had 2 additional rounds of polymorphic V. tach earlier this morning that were nonsustained. Cardiology was again informed. Amiodarone drip was increased up to 1 mg a minute. As far as electrolytes, the patient has a magnesium level of 2.0 and a potassium level of 3.4. Both of the electrodes were placed. Echocardiogram was done yesterday showed an ejection fraction of around less than 20%. The patient is also moderate to severe mitral regurgitation and a PA pressure of less than 35. No pericardial effusion seen. He is afebrile. The patient on Zosyn regarding the right lower lobe pneumonia. The vent settings on the day include an assist- control at the rate of 18, tidal volume 500, FiO2 of 50% with a PEEP of 5 and the patient's blood gas showed a pH of 7.48 with a pCO2 of 30 and pO2 of 97. No significant secretions from endotracheal tube. No significant bronchospasm and wheezing. The patient is still nothing by mouth. NG tube is in place. The patient also went into an acute shock liver following a cardiopulmonary arrest. The patient has significant elevation of the AST and ALT. This has also resulted in to some coagulopathy with the patient's INR is up to 2.3. There is also drop in the platelet counts down to 119. No signs of any acute bleeding. On 05/24/2017 and seeing this patient for a follow-up. As mentioned earlier the patient is post cardiac arrest. The active issue for now is her mentation. The patient was given a sedation holiday throughout the day yesterday and she was not able to follow any commands. She would open up her eyes spontaneously yet she is not purposeful. Overnight she had to be placed back on the sedation and this morning at around 7:00 I took her off the Diprivan. At the time of my evaluation, the patient was still unresponsive to any verbal stimulation. She will grimace to painful stimulation. She does not follow any commands. No seizure activity has been noted. Hemodynamically she is improved. She is off the pressors. She is producing urine output in the order of 30 mL an hour. She is on a IV fluids at 75 mL an hour normal saline. The patient is on assist control mode of ventilation at the rate of 18, tidal volume of 500, FiO2 of 40% and a PEEP of 5 and a blood gases from today showed a pH of 7.47 with a pCO2 of 10 and 29 and pO2 of 91. Chest x-ray findings are essentially unchanged and is still some persistent right lung pneumonia. Meanwhile, the patient's is still on IV Zosyn for right lung pneumonia. Cultures of been negative thus far. The sputum cultures shown Mehnaz. Renal function is stable with a creatinine of 1.4. The patient a shock liver and the liver function is improving. INR is lower compared to yesterday and dropped from 2.3 down to 2.0. The patient is tolerating the tube feeds. The patient is not having any further ventricular arrhythmias. The patient is on a maintenance amiodarone of 0.5 mg/m and Aldactone was also added to the regimen. On 05/25/2017, I'm seeing this patient for a follow-up. The patient is off sedation for 24 hours. There is a concern of hypoxic encephalopathy versus metabolic encephalopathy as the patient has not completely regained her consciousness. She is opening her eyes and she is moving all 4 extremities. She is not purposeful that she is not following any commands. CAT scan of the brain was done and was negative for any acute abnormalities and the EEG was also done and the patient also had an urology evaluation. The patient is off sedation. The patient is intubated on a mechanical ventilator. Vent settings remain essentially unchanged within assist-control of 18, tidal volume 500, FiO2 of 40% and a PEEP of 5 and the chest x-ray from today shows persistent right lower lobe consolidation and small effusion. The patient has a pH of 7.4 with a pCO2 of 38 and pO2 of 102. Renal function continues to improve and the creatinine is down to 1.1. As for the liver function tests, the patient also shows a drop and AST and ALP and a shock liver is also improving. INR is still at 1.8 with a PT of 16.2. The patient is producing adequate amount of urine output. Denies fluid balance is +2 L over the past 24 hours. The patient is on normal saline today to 75 mL an hour. The patient is also tolerating tube feeds. The patient is on IV Zosyn. Dilaudid was added for chronic back pain. Cardiac rhythm is sinus. Amiodarone drip is still running at maintenance. On 05/27/2007 and I'm seeing this patient. The patient has still been off sedation for the past 48 hours. She is encephalopathic. I would say her neurologic exam is essentially the same. She still not following commands and she is not purposeful. She'll open her eyes and when yelled that she would. The nose and showed a grandson open her eyes. For now she hasn't followed any commands to me at least. The nurses confirm that. No seizure activity. Neurologist on the case. She is an assist-control mode of ventilation at the rate of 18, FiO2 of 5040% with a PEEP of 5 and tidal volume of 500. Blood gases from today showed a pH of 7.43 with a pCO2 of 36 and pO2 of 99. Chest x- ray is essentially unchanged and there patient has a stable consolidation of the right lung base. She remains on IV Zosyn. He was dynamically, she is in a sinus rhythm and the patient is on no pressors. No further cardiac arrhythmias have been noted the patient was switched to oral amiodarone yesterday. Her measured ejection fraction is around 20%. Producing adequate amount of urine output. tolerating the tube feeds. The patient is afebrile. The patient is on normal saline at the rate of 20 mL an hour. No other significant events overnight. For now we are waiting to have some improvement in mentation to proceed with further weaning. Objective - Vital Signs Vital signs: Vital Signs Temp 96.9 F L 05/26/17 08:00 Pulse 69 05/26/17 08:00 Resp 19 05/26/17 08:00 BP 124/87 05/26/17 08:00 Pulse Ox 98 05/26/17 08:00 Intake & Output 05/25/17 05/26/17 05/26/17 17:59 06:59 18:59 Intake Total 325.5 Output Total 60 Balance 265.5 Weight Intake: IV 90.5 0.9% normal saline 3 pressure bag Piperacillin-Tazobactam 3 12.5 .375 gm In Dextrose/Water 1 50ml.bag @ 12.5 mls/hr IVPB Q12HR ANIA Rx#: [id number] Sodium Chloride 0.9% 1, 75 000 ml @ 75 mls/hr IV . [id number] ANIA Rx#:[id number] Intake, IV Titration 100 Amount Magnesium Sulfate-D5w Pmx 100 1 gm In Dextrose/Water 1 100ml.bag @ 100 mls/hr IVPB Q1H ANIA Rx#: [id number] Tube Feeding 105 Other 30 Output: Urine 60 Other: Voiding Method ABP, PAP, CO, CI - Last Documented Arterial Blood Pressure 133/93 - Exam Patient currently intubated on mechanical ventilator. The patient is off sedation for the past 24 hours. The patient is moving all 4 extremities and her neurologic exam is nonfocal. Nevertheless she is not purposeful that she is not following any commands. She withdraws to painful stimuli in all 4 extremities. She has a positive cough and a gag. Pupils around 4 mm in size and they're reactive to light. No nystagmus. No clonus and no facial asymmetry. The patient is in the process of being given a sedation holiday. She has nonpurposeful. She is not following any simple commands at this point in time.. The patient is a right subclavian triple-lumen catheter in place. Exit site is clean. Orogastric and orotracheal tube are both in place.Head exam was generally normal. There was no scleral icterus or corneal arcus. Mucous membranes were moist.Neck was supple and without jugular venous distension, thyromegaly, or carotid bruits. Carotids were easily palpable bilaterally. There was no adenopathy. Lung sounds are diminished in the right lung base otherwise breath sounds are equal and symmetrical bilaterally. ET tube is in a good location.Cardiac exam revealed the PMI to be normally situated and sized. The rhythm was regular and no extrasystoles were noted during several minutes of auscultation. The first and second heart sounds were normal and physiologic splitting of the second heart sound was noted. There were no murmurs, rubs, clicks, or gallops.Abdominal exam revealed normal bowel sounds. The abdomen was soft, non-tender, and without masses, organomegaly, or appreciable enlargement of the abdominal aorta. .Examination of the extremities revealed easily palpable radial, femoral and pedal pulses. There was no cyanosis , clubbing or edema. Patient has equal and symmetrical pulses in lower extremities bilaterally.Examination of the skin revealed no evidence of significant rashes, suspicious appearing nevi or other concerning lesions. Psych evaluation cannot be evaluated. - Labs CBC & Chem 7: 05/26/17 03:20 05/26/17 03:20 Labs: Abnormal Lab Results - Last 24 Hours (Table) 05/25/17 05/25/17 05/25/17 Range/Units 12:09 16:30 22:47 WBC (3.8-10.6) k/uL Hgb (11.4-16.0) gm/dL MCHC (31.0-37.0) g/dL RDW (11.5-15.5) % Plt Count (150-450) k/uL Neutrophils # (Manual) (1.3-7.7) k/uL Monocytes # (Manual) (0-1.0) k/uL Metamyelocytes # (Man) (0) k/uL Nucleated RBCs (0-0) /100 WBC PT (9.0-12.0) sec INR (<1.2) ABG O2 Saturation (94-97) % Chloride (98-107) mmol/L BUN (7-17) mg/dL Glucose (74-99) mg/dL POC Glucose (mg/dL) 134 H 153 H 126 H (75-99) mg/dL Calcium (8.4-10.2) mg/dL AST (14-36) U/L ALT (9-52) U/L Total Protein (6.3-8.2) g/dL Albumin (3.5-5.0) g/dL 05/25/17 05/26/17 05/26/17 Range/Units 23:43 03:20 03:20 WBC 16.3 H (3.8-10.6) k/uL Hgb 10.7 L (11.4-16.0) gm/dL MCHC 29.6 L (31.0-37.0) g/dL RDW 16.2 H (11.5-15.5) % Plt Count 69 L (150-450) k/uL Neutrophils # (Manual) 13.80 H (1.3-7.7) k/uL Monocytes # (Manual) 1.14 H (0-1.0) k/uL Metamyelocytes # (Man) 0.16 H (0) k/uL Nucleated RBCs 5 H (0-0) /100 WBC PT 13.5 H (9.0-12.0) sec INR 1.4 H (<1.2) ABG O2 Saturation (94-97) % Chloride (98-107) mmol/L BUN (7-17) mg/dL Glucose (74-99) mg/dL POC Glucose (mg/dL) 128 H (75-99) mg/dL Calcium (8.4-10.2) mg/dL AST (14-36) U/L ALT (9-52) U/L Total Protein (6.3-8.2) g/dL Albumin (3.5-5.0) g/dL 05/26/17 05/26/17 Range/Units 03:20 04:45 WBC (3.8-10.6) k/uL Hgb (11.4-16.0) gm/dL MCHC (31.0-37.0) g/dL RDW (11.5-15.5) % Plt Count (150-450) k/uL Neutrophils # (Manual) (1.3-7.7) k/uL Monocytes # (Manual) (0-1.0) k/uL Metamyelocytes # (Man) (0) k/uL Nucleated RBCs (0-0) /100 WBC PT (9.0-12.0) sec INR (<1.2) ABG O2 Saturation 97.6 H (94-97) % Chloride 112 H (98-107) mmol/L BUN 39 H (7-17) mg/dL Glucose 128 H (74-99) mg/dL POC Glucose (mg/dL) (75-99) mg/dL Calcium 8.2 L (8.4-10.2) mg/dL AST 453 H (14-36) U/L ALT 807 H (9-52) U/L Total Protein 4.6 L (6.3-8.2) g/dL Albumin 2.4 L (3.5-5.0) g/dL Microbiology - Last 24 Hours (Table) 05/22/17 08:00 Gram Stain - Final Sputum Sputum Culture - Final Saccaromyces cerevisiae 05/25/17 18:05 Gram Stain - Preliminary Arm - Left Wound Culture - Preliminary 05/25/17 18:45 Anaerobic Culture - Preliminary Arm - Left Assessment and Plan Assessment: Assessment 1 acute cardiac arrest/V. fib, status post CPR, defibrillation and subsequent intubation mechanical ventilation. Currently in a sinus rhythm and the patient is on amiodarone orally. [address] segment elevation myocardial infarction involving the inferior wall secondary to dissection of the RCA. The patient underwent emergent cardiac catheterization and she currently has a GRISEL 3 flow and she did not require coronary stenting. She was advised by interventional cardiology. 3 acute shock, cardiogenic in nature with an ejection fraction of 20% and the patient has been on pressors which subsequently got wean off and discontinued. 4 acute hypoxic respiratory failure secondary to above 5 acute right lower lobe pneumonia, stable on today's chest x-ray 6 acute COPD exacerbation secondary to right lower lobe pneumonia 7 encephalopathy, rule out hypoxic encephalopathy rule out metabolic encephalopathy as the patient was in acute liver and kidney injury post cardiac arrest. LFTs are improving. Function is improving. Ammonia level is low. CAT scan of the brain is negative. Neurologist on the case. The patient has been off sedation for the past 48 hours and unfortunately the neurologic status is still the same and the patient is not following any simple commands yet and the neurologic exam is nonfocal yet the patient is not purposeful. 8 acute head trauma the time of a cardiac arrest. The patient had a negative CAT scan of the head 9 diabetes mellitus 10 hyperlipidemia 11 hypothyroidism 13 history of hypertension 14 leukocytosis secondary to above 15 acute kidney injury improving the creatinine is down to 0.7 16 acute shock liver with an underlying coagulopathy. There is related to cardiopulmonary arrest. The liver function is improving. Plan We'll check weaning parameters. I don't think the patient is very to wean yet as long as the mental status is still inappropriate. Hemodynamically she is doing well. She is quite stable for now. Her cardiac rhythm is sinus. Right lower lobe pneumonia is being treated. Continue vent support. Continue monitoring the neuro status and would proceed with further weaning was the patient is purposeful and recover some of her underlying altered mentation. She is still encephalopathic. The EEG showing severe widespread diffuse disturbance of the cerebral function. It'll be worthwhile to repeat the EEG again. May consider another CAT scan of the brain. We'll discuss this with neurology. We'll check a follow-up coagulation profile. Put the patient on lactulose. We'll continue to follow. This is a critically care evaluation was done and 32 minutes. Time with Patient: Greater than 30
[2017-05-26] MEDS: SODIUM CHLORIDE 0.9% 1,000 ML IV SCH (10:35)
[2017-05-26] MEDS: LACTULOSE 20 GM/30 ML CUP PO SCH (11:11)
[2017-05-26] MEDS ORDERED: VANCOMYCIN IV PER PHARMACY 1 EACH MISC MISCELLANE SCH (11:30)
--- NOTE | 2017-05-26 11:31 | P.PN ---
Subjective Progress Note Date: 05/26/17 This is a 72-year-old female with complex past medical history noted below significant for severe COPD, underlying diastolic heart failure, and ongoing tobacco abuse who presented yesterday to [facility] with worsening shortness of breath. Patient was evaluated and was admitted to the hospital with suspected acute COPD exacerbation and acute diastolic heart failure. She was also started on broad-spectrum antibiotic for underlying pneumonia. She was found to have an elevated troponin that was indeterminant the patient denies any chest pain and there was no acute EKG changes. Patient was started on IV heparin and was admitted to telemetry floor. Last night patient went into cardiac arrest and received approximately 20 minutes of CPR and defibrillation. She became hypotensive requiring vasopressors. She was intubated and started on mechanical ventilation. Telemetry strip showed possible ventricular fibrillation with concerns about torsade de pointes. 12 leads EKG postresuscitation showed questionable ST elevation [place]. Patient was transferred to [facility] and underwent a left heart cath showing possible dissection of the RCA with otherwise nonobstructive coronary artery disease. She is currently sedated and intubated. She is in the intensive care unit. She is requiring low dose of vasopressors. Her urine output has decreased over the last several hours. She is currently maintained on IV fluid with 0.9 normal saline at 75 mL per hour. She was seen by different specialists. 05/24/2017 patient remains in the ICU intubated and requiring vasopressors. When the patient was weaned off sedation she did not wake up. She has movements of her arms and head that are not purposeful. She was seen by neurology they repeated a computed tomography scan of the brain showing no acute changes. She is going to have an EEG completed in a few minutes. Neurology felt this is likely related to anoxic encephalopathy due to her cardiac arrest. She is on IV antibiotics for her pneumonia. She is on IV amiodarone for runs of nonsustained polymorphic V. tach. She has been in sinus rhythm today. Cardiology is following. Patient is been evaluated by multiple consultants physicians. On 05/25/2017 patient remains in the ICU intubated. She is opening her eyes and turning her head to the side of her son calling her. She also has movements of her arms and head that are not purposeful. She was seen by neurology they repeated a computed tomography scan of the brain showing no acute changes. She had an EEG. Neurology felt this is likely related to anoxic encephalopathy due to her cardiac arrest. She is on IV antibiotics for her pneumonia. She is on IV amiodarone for runs of nonsustained polymorphic V. tach. She has been in sinus rhythm today. Cardiology is following. Patient is been evaluated by multiple consultants physicians. On 05/26/2017 patient remains in the ICU intubated and maintained on mechanical ventilation. She is opening her eyes but not following any commands. She also has movements of her arms and head that are not purposeful. She was seen by neurology they repeated a computed tomography scan of the brain showing no acute changes. She had an EEG. Neurology felt this is likely related to anoxic encephalopathy due to her cardiac arrest. She is on IV antibiotics for her pneumonia. She has swelling and warm salt of the left upper extremity there was minimal amount of pus coming out of what looks like an old IV site , Doppler was done and was negative for DVT , culture of the drainage was done , will add IV vancomycin pharmacy to dose .She is on IV amiodarone for runs of nonsustained polymorphic V. tach. She has been in sinus rhythm today. Cardiology is following. Patient is been evaluated by multiple consultants physicians. Objective - Vital Signs Vital signs: Vital Signs Temp 96.9 F L 05/26/17 08:00 Pulse 74 05/26/17 11:00 Resp 15 05/26/17 11:00 BP 103/73 05/26/17 11:00 Pulse Ox 98 05/26/17 11:00 Intake & Output 05/25/17 05/26/17 05/26/17 17:59 06:59 18:59 Intake Total 772.0 Output Total 195 Balance 577.0 Weight Intake: IV 332.0 0.9% normal saline 12 pressure bag Piperacillin-Tazobactam 3 50.0 .375 gm In Dextrose/Water 1 50ml.bag @ 12.5 mls/hr IVPB Q12HR ANIA Rx#: [id number] Sodium Chloride 0.9% 1, 270 000 ml @ 75 mls/hr IV . [id number] ANIA Rx#:[id number] Intake, IV Titration 200 Amount Magnesium Sulfate-D5w Pmx 200 1 gm In Dextrose/Water 1 100ml.bag @ 100 mls/hr IVPB Q1H ANIA Rx#: [id number] Tube Feeding 210 Other 30 Output: Urine 195 Other: Voiding Method Indwelling Catheter # Bowel Movements 1 ABP, PAP, CO, CI - Last Documented Arterial Blood Pressure 133/93 - Exam Head normocephalic and atraumatic Neck supple no JVD Lungs clear to auscultation bilaterally no wheezing or crackles Heart regular rate and rhythm S1-S2, no rub or gallop Abdomen is soft nontender nondistended positive bowel sounds no hepatosplenomegaly Extremities no edema no cyanosis or clubbing Neuro patient is intubated. Movements of her arms and head. She did follow simple commands today which is a change since yesterday. - Labs CBC & Chem 7: 05/26/17 03:20 05/26/17 03:20 Labs: Abnormal Lab Results - Last 24 Hours (Table) 05/25/17 05/25/17 05/25/17 Range/Units 12:09 16:30 22:47 WBC (3.8-10.6) k/uL Hgb (11.4-16.0) gm/dL MCHC (31.0-37.0) g/dL RDW (11.5-15.5) % Plt Count (150-450) k/uL Neutrophils # (Manual) (1.3-7.7) k/uL Monocytes # (Manual) (0-1.0) k/uL Metamyelocytes # (Man) (0) k/uL Nucleated RBCs (0-0) /100 WBC PT (9.0-12.0) sec INR (<1.2) ABG O2 Saturation (94-97) % Chloride (98-107) mmol/L BUN (7-17) mg/dL Glucose (74-99) mg/dL POC Glucose (mg/dL) 134 H 153 H 126 H (75-99) mg/dL Calcium (8.4-10.2) mg/dL AST (14-36) U/L ALT (9-52) U/L Total Protein (6.3-8.2) g/dL Albumin (3.5-5.0) g/dL 05/25/17 05/26/17 05/26/17 Range/Units 23:43 03:20 03:20 WBC 16.3 H (3.8-10.6) k/uL Hgb 10.7 L (11.4-16.0) gm/dL MCHC 29.6 L (31.0-37.0) g/dL RDW 16.2 H (11.5-15.5) % Plt Count 69 L (150-450) k/uL Neutrophils # (Manual) 13.80 H (1.3-7.7) k/uL Monocytes # (Manual) 1.14 H (0-1.0) k/uL Metamyelocytes # (Man) 0.16 H (0) k/uL Nucleated RBCs 5 H (0-0) /100 WBC PT 13.5 H (9.0-12.0) sec INR 1.4 H (<1.2) ABG O2 Saturation (94-97) % Chloride (98-107) mmol/L BUN (7-17) mg/dL Glucose (74-99) mg/dL POC Glucose (mg/dL) 128 H (75-99) mg/dL Calcium (8.4-10.2) mg/dL AST (14-36) U/L ALT (9-52) U/L Total Protein (6.3-8.2) g/dL Albumin (3.5-5.0) g/dL 05/26/17 05/26/17 Range/Units 03:20 04:45 WBC (3.8-10.6) k/uL Hgb (11.4-16.0) gm/dL MCHC (31.0-37.0) g/dL RDW (11.5-15.5) % Plt Count (150-450) k/uL Neutrophils # (Manual) (1.3-7.7) k/uL Monocytes # (Manual) (0-1.0) k/uL Metamyelocytes # (Man) (0) k/uL Nucleated RBCs (0-0) /100 WBC PT (9.0-12.0) sec INR (<1.2) ABG O2 Saturation 97.6 H (94-97) % Chloride 112 H (98-107) mmol/L BUN 39 H (7-17) mg/dL Glucose 128 H (74-99) mg/dL POC Glucose (mg/dL) (75-99) mg/dL Calcium 8.2 L (8.4-10.2) mg/dL AST 453 H (14-36) U/L ALT 807 H (9-52) U/L Total Protein 4.6 L (6.3-8.2) g/dL Albumin 2.4 L (3.5-5.0) g/dL Microbiology - Last 24 Hours (Table) 05/22/17 08:00 Gram Stain - Final Sputum Sputum Culture - Final Saccaromyces cerevisiae 05/25/17 18:05 Gram Stain - Preliminary Arm - Left Wound Culture - Preliminary 05/25/17 18:45 Anaerobic Culture - Preliminary Arm - Left Assessment and Plan Plan: 1. Cardiac arrest with ventricular fibrillation at an outside hospital status post CPR for approximately 20 minutes and defibrillation. Required mechanical ventilation 2. Acute ST elevation OK status post left heart catheterization with findings suggestive of dissection of the RCA. Otherwise nonobstructive coronary artery disease. Followed by cardiology. 3. Acute cardiogenic shock: Requiring vasopressors. We will continue IV fluid hydration. Repeat echocardiogram showed EF less than 20% which is new compared to her echo last month with a EF of greater than 50%. 4. Right lower lobe pneumonia maintained on Zosyn 5. Acute hypoxic respiratory failure 6. Acute liver shock with significant transaminitis secondary to episodes of hypotension. We will continue to monitor liver function tests daily 7. Type 2 diabetes mellitus 8. Mixed hyperlipidemia 9. Hypothyroidism maintained on levothyroxine 10. Acute kidney injury: Continue IV fluids. Creatinine 1.4 11. 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 Repeat computed tomography scan of the brain showing no acute changes. Patient scheduled for EEG. Neurology following. DVT prophylaxis subcu heparin GI prophylaxis Protonix
[2017-05-26 12:03] LABS: Glucose,Whole Blood 132 mg/dL (75-99)
--- NOTE | 2017-05-26 12:36 | P.PN ---
Subjective Progress Note Date: 05/26/17 This patient is a 72-year-old female who is seen today in the intensive care unit for follow-up regarding anoxic encephalopathy following cardiac arrest. Her son is at bedside and apparently today he has noted a slight decline in her cognitive functioning. Patient remains intubated on the ventilator and is encephalopathic. She had a history of cardiac arrest with a prolonged downtime. She is currently on IV amiodarone for runs of nonsustained polymorphic V. tach. Cardiology is following the patient. Yesterday the patient was somewhat more alert and was opening her eyes and seemed to nod appropriately to questions. Today she seems to be more lethargic. Son also feels she is not as responsive as she was yesterday. She did undergo routine EEG on 05/24/2017. This EEG did give evidence of severe disturbance in cerebral function consistent with anoxic encephalopathy following cardiac arrest. We have recommended a repeat EEG to be done tomorrow morning for comparison. We would recommend a computed tomography scan of the brain to be done today and compared to her previous CT of the brain done on 05/24/2017 to make sure there is no interval change. The patient is currently on the ventilator. She has remained off of all sedation. She is still is encephalopathic and does not have purposeful movements. She does open her eyes but is slightly less responsive as compared to yesterday. The patient was noted to show increased swelling around her left arm. She was sent for a ultrasound venous Doppler of the left upper extremity. This came back negative for evidence of DVT. Pulmonary medicine is following her condition closely in the ICU. We will continue close neurological follow-up for this patient in the intensive care unit. Her overall prognosis remains guarded. Case was discussed at length with the patient's son who was at bedside and all of his questions were answered. He is aware of her guarded condition. Objective - Vital Signs Vital signs: Vital Signs Temp 96.9 F L 05/26/17 08:00 Pulse 68 05/26/17 12:00 Resp 15 05/26/17 11:00 BP 103/73 05/26/17 11:00 Pulse Ox 98 05/26/17 11:00 Intake & Output 05/25/17 05/26/17 05/26/17 17:59 06:59 18:59 Intake Total 772.0 Output Total 195 Balance 577.0 Weight Intake: IV 332.0 0.9% normal saline 12 pressure bag Piperacillin-Tazobactam 3 50.0 .375 gm In Dextrose/Water 1 50ml.bag @ 12.5 mls/hr IVPB Q12HR ANIA Rx#: [id number] Sodium Chloride 0.9% 1, 270 000 ml @ 75 mls/hr IV . [id number] ANIA Rx#:[id number] Intake, IV Titration 200 Amount Magnesium Sulfate-D5w Pmx 200 1 gm In Dextrose/Water 1 100ml.bag @ 100 mls/hr IVPB Q1H ANIA Rx#: [id number] Tube Feeding 210 Other 30 Output: Urine 195 Other: Voiding Method Indwelling Catheter # Bowel Movements 1 ABP, PAP, CO, CI - Last Documented Arterial Blood Pressure 133/93 - Exam Physical examination: PHYSICAL EXAMINATION: Patient is resting comfortably in bed. VITAL SIGNS: Blood pressure is [103/73]. Heart rate is [74]. Respiration is [15] . Temperature is [96.9]. HEENT: Head is atraumatic, neck is supple, there were no carotid bruits. CHEST: Lungs are clear to auscultation and percussion. CARDIAC: S1, S2 normal rate and rhythm. There is no murmur. ABDOMEN: Soft and nontender. Bowel sounds are present. EXTREMITIES: There is no pedal edema. Peripheral pulses are present. Neurological examination: Patient is examined today in the intensive care unit. She remains on the ventilator. She is opening her eyes but is not following simple commands today. She does open her eyes and seems to track. She seems less responsive as compared to yesterday. Cranial nerves II through XII are grossly intact. Patient does withdraw to painful stimuli overall 4 extremities. Deep tendon reflexes are 1+ and symmetric. Plantar responses flexor bilaterally. - Labs CBC & Chem 7: 05/26/17 03:20 05/26/17 03:20 Labs: Abnormal Lab Results - Last 24 Hours (Table) 05/25/17 05/25/17 05/25/17 Range/Units 12:09 16:30 22:47 WBC (3.8-10.6) k/uL Hgb (11.4-16.0) gm/dL MCHC (31.0-37.0) g/dL RDW (11.5-15.5) % Plt Count (150-450) k/uL Neutrophils # (Manual) (1.3-7.7) k/uL Monocytes # (Manual) (0-1.0) k/uL Metamyelocytes # (Man) (0) k/uL Nucleated RBCs (0-0) /100 WBC PT (9.0-12.0) sec INR (<1.2) ABG O2 Saturation (94-97) % Chloride (98-107) mmol/L BUN (7-17) mg/dL Glucose (74-99) mg/dL POC Glucose (mg/dL) 134 H 153 H 126 H (75-99) mg/dL Calcium (8.4-10.2) mg/dL AST (14-36) U/L ALT (9-52) U/L Total Protein (6.3-8.2) g/dL Albumin (3.5-5.0) g/dL 05/25/17 05/26/17 05/26/17 Range/Units 23:43 03:20 03:20 WBC 16.3 H (3.8-10.6) k/uL Hgb 10.7 L (11.4-16.0) gm/dL MCHC 29.6 L (31.0-37.0) g/dL RDW 16.2 H (11.5-15.5) % Plt Count 69 L (150-450) k/uL Neutrophils # (Manual) 13.80 H (1.3-7.7) k/uL Monocytes # (Manual) 1.14 H (0-1.0) k/uL Metamyelocytes # (Man) 0.16 H (0) k/uL Nucleated RBCs 5 H (0-0) /100 WBC PT 13.5 H (9.0-12.0) sec INR 1.4 H (<1.2) ABG O2 Saturation (94-97) % Chloride (98-107) mmol/L BUN (7-17) mg/dL Glucose (74-99) mg/dL POC Glucose (mg/dL) 128 H (75-99) mg/dL Calcium (8.4-10.2) mg/dL AST (14-36) U/L ALT (9-52) U/L Total Protein (6.3-8.2) g/dL Albumin (3.5-5.0) g/dL 05/26/17 05/26/17 05/26/17 Range/Units 03:20 04:45 12:00 WBC (3.8-10.6) k/uL Hgb (11.4-16.0) gm/dL MCHC (31.0-37.0) g/dL RDW (11.5-15.5) % Plt Count (150-450) k/uL Neutrophils # (Manual) (1.3-7.7) k/uL Monocytes # (Manual) (0-1.0) k/uL Metamyelocytes # (Man) (0) k/uL Nucleated RBCs (0-0) /100 WBC PT (9.0-12.0) sec INR (<1.2) ABG O2 Saturation 97.6 H (94-97) % Chloride 112 H (98-107) mmol/L BUN 39 H (7-17) mg/dL Glucose 128 H (74-99) mg/dL POC Glucose (mg/dL) 132 H (75-99) mg/dL Calcium 8.2 L (8.4-10.2) mg/dL AST 453 H (14-36) U/L ALT 807 H (9-52) U/L Total Protein 4.6 L (6.3-8.2) g/dL Albumin 2.4 L (3.5-5.0) g/dL Microbiology - Last 24 Hours (Table) 05/22/17 08:00 Gram Stain - Final Sputum Sputum Culture - Final Saccaromyces cerevisiae 05/25/17 18:05 Gram Stain - Preliminary Arm - Left Wound Culture - Preliminary 05/25/17 18:45 Anaerobic Culture - Preliminary Arm - Left Assessment and Plan (1) Anoxic encephalopathy Current Visit: Yes Status: Acute Code(s): G93.1 - ANOXIC BRAIN DAMAGE, NOT ELSEWHERE CLASSIFIED SNOMED Code(s): 076387317 (2) Acute myocardial infarction Current Visit: Yes Status: Acute Code(s): I21.9 - ACUTE MYOCARDIAL INFARCTION, UNSPECIFIED SNOMED Code(s): 64014744 (3) CHF (congestive heart failure) Current Visit: Yes Status: Acute Code(s): I50.9 - HEART FAILURE, UNSPECIFIED SNOMED Code(s): 39485575 (4) Cardiac arrest with ventricular fibrillation Current Visit: Yes Status: Acute Code(s): I46.9 - CARDIAC ARREST, CAUSE UNSPECIFIED; I49.01 - VENTRICULAR FIBRILLATION SNOMED Code(s): 02488821 (5) Pneumonia Current Visit: Yes Status: Acute Code(s): J18.9 - PNEUMONIA, UNSPECIFIED ORGANISM SNOMED Code(s): 742118834 Plan: This patient is a 72-year-old female who is seen today in the intensive care unit following cardiac arrest with prolonged down time. She underwent evaluation for anoxic encephalopathy following cardiac arrest and had a computed tomography scan of the brain and EEG performed on 05/24/2017. Today she is reevaluated in the intensive care unit and has remained off of all sedation. She seems to be less responsive today as compared to yesterday. She is opening her eyes but has no purposeful movements. We have recommended repeat computed tomography scan of the brain to be done today. We will also obtain a follow-up EEG tomorrow for comparison. Clinically she has evidence of a severe anoxic encephalopathy following cardiac arrest. We have reviewed these results once again with the patient's son who is at bedside. All of his questions were answered. We will continue close neurological follow-up for this patient in the intensive care unit. Her overall prognosis at this time remains very guarded.
[2017-05-26] MEDS: VANCOMYCIN 1,500 MG in SODIUM CHLORIDE 0.9% 250 ML IVPB SCH (13:03)
[2017-05-26 13:13] LABS: Glucose,Whole Blood 140 mg/dL (75-99)
--- NOTE | 2017-05-26 14:23 | CT ---
EXAMINATION TYPE: CT brain wo con DATE OF EXAM: 05/26/2017 COMPARISON: 05/24/2017 HISTORY: Follow up for continued altered mental status. CT DLP: 813.3 mGycm Automated exposure control for dose reduction was used. TECHNIQUE: CT scan of the head is performed without contrast. FINDINGS: There is no acute intracranial hemorrhage or midline shift identified. There is diffuse v entricular and sulcal prominence consistent with diffuse age-related cerebral atrophy. There is low- attenuation in the periventricular white matter consistent with chronic small vessel ischemic change. The globes are intact. Mild mucosal thickening is seen within the sphenoid and ethmoid sinuses. Rem ainder the visualized paranasal sinuses are well aerated. Note is made of cerumen in the external aud itory canals. Focal area of encephalomalacia within the right candelaria likely relates to old lacunar inju ry. This is CSF attenuated. IMPRESSION: 1. No acute intracranial hemorrhage or midline shift. 2. Nonspecific white matter change, likely on the basis of microangiopathy with old lacunar injury in the right candelaria. 2. Age-related cerebral atrophy. 3. Mild paranasal sinus disease and incidental note of cerumen within the external auditory canals.
--- NOTE | 2017-05-26 15:39 | XR ---
EXAMINATION TYPE: XR chest 1V portable DATE OF EXAM: 05/26/2017 COMPARISON: 05/26/2017 at 6:18 AM HISTORY: Orogastric tube placement TECHNIQUE: Single frontal view of the chest is obtained. FINDINGS: Bibasilar airspace disease is similar to the prior, right greater than left. Endotracheal tube slightly cephalad in position but may relate to patient head positioning as it was appropriate o n the prior exam. Right central venous catheter is unchanged. Enteric tube courses below the gastroes ophageal junction, appropriately placed. Cardiac silhouette is enlarged. Osseous structures appear gr ossly intact with degenerative changes of the acromio clavicular joints. IMPRESSION: Appropriately placed orogastric tube and right central venous catheter. Endotracheal tub e appears slightly cephalad in position but may relate to the patient's head positioning as it was ap propriately placed on the prior. 2. Bibasilar linear opacities favored to represent small effusions with associated atelectasis.
--- NOTE | 2017-05-26 16:08 | P.PN ---
Subjective Patient is still intubated. Minimal neurologic improvement so far. No ventricular arrhythmias now. Sinus rhythm in the 50s and 60s Blood pressure 119/83 mmHg pulse rate in the 60s Breath sounds are clear no rhonchi or crackles Heart sounds are soft normal S1 normal S2 Abdomen is soft nontender Extremities are warm Impression Ventricular fibrillation RCA dissection on medical treatment Episodes of polymorphic VT which are now settled down and she has not had any ventricular arrhythmias over the last 72 hours Plan Continue current treatment and maintain electrolytes Objective - Vital Signs Vital signs: Vital Signs Temp 97.9 F 05/26/17 16:00 Pulse 68 05/26/17 16:00 Resp 19 05/26/17 16:00 BP 124/82 05/26/17 16:00 Pulse Ox 99 05/26/17 16:00 Intake & Output 05/25/17 05/26/17 05/26/17 17:59 06:59 18:59 Intake Total 1469.0 Output Total 380 Balance 1089.0 Weight Intake: IV 894.0 0.9% normal saline 24 pressure bag Piperacillin-Tazobactam 3 50.0 .375 gm In Dextrose/Water 1 50ml.bag @ 12.5 mls/hr IVPB Q12HR ANIA Rx#: [id number] Sodium Chloride 0.9% 1, 570 000 ml @ 75 mls/hr IV . [id number] ANIA Rx#:[id number] Vancomycin 1,500 mg In 250 Sodium Chloride 0.9% 250 ml @ 125 mls/hr IVPB Q16H ANIA Rx#:[id number] Intake, IV Titration 200 Amount Magnesium Sulfate-D5w Pmx 200 1 gm In Dextrose/Water 1 100ml.bag @ 100 mls/hr IVPB Q1H ANIA Rx#: [id number] Tube Feeding 315 Other 60 Output: Urine 380 Other: Voiding Method Indwelling Catheter # Bowel Movements 1 ABP, PAP, CO, CI - Last Documented Arterial Blood Pressure 133/93 - Labs CBC & Chem 7: 05/26/17 03:20 05/26/17 03:20 Labs: Abnormal Lab Results - Last 24 Hours (Table) 05/25/17 05/25/17 05/25/17 Range/Units 16:30 22:47 23:43 WBC (3.8-10.6) k/uL Hgb (11.4-16.0) gm/dL MCHC (31.0-37.0) g/dL RDW (11.5-15.5) % Plt Count (150-450) k/uL Neutrophils # (Manual) (1.3-7.7) k/uL Monocytes # (Manual) (0-1.0) k/uL Metamyelocytes # (Man) (0) k/uL Nucleated RBCs (0-0) /100 WBC PT (9.0-12.0) sec INR (<1.2) ABG O2 Saturation (94-97) % Chloride (98-107) mmol/L BUN (7-17) mg/dL Glucose (74-99) mg/dL POC Glucose (mg/dL) 153 H 126 H 128 H (75-99) mg/dL Calcium (8.4-10.2) mg/dL AST (14-36) U/L ALT (9-52) U/L Total Protein (6.3-8.2) g/dL Albumin (3.5-5.0) g/dL 05/26/17 05/26/17 05/26/17 Range/Units 03:20 03:20 03:20 WBC 16.3 H (3.8-10.6) k/uL Hgb 10.7 L (11.4-16.0) gm/dL MCHC 29.6 L (31.0-37.0) g/dL RDW 16.2 H (11.5-15.5) % Plt Count 69 L (150-450) k/uL Neutrophils # (Manual) 13.80 H (1.3-7.7) k/uL Monocytes # (Manual) 1.14 H (0-1.0) k/uL Metamyelocytes # (Man) 0.16 H (0) k/uL Nucleated RBCs 5 H (0-0) /100 WBC PT 13.5 H (9.0-12.0) sec INR 1.4 H (<1.2) ABG O2 Saturation (94-97) % Chloride 112 H (98-107) mmol/L BUN 39 H (7-17) mg/dL Glucose 128 H (74-99) mg/dL POC Glucose (mg/dL) (75-99) mg/dL Calcium 8.2 L (8.4-10.2) mg/dL AST 453 H (14-36) U/L ALT 807 H (9-52) U/L Total Protein 4.6 L (6.3-8.2) g/dL Albumin 2.4 L (3.5-5.0) g/dL 05/26/17 05/26/17 05/26/17 Range/Units 04:45 12:00 13:02 WBC (3.8-10.6) k/uL Hgb (11.4-16.0) gm/dL MCHC (31.0-37.0) g/dL RDW (11.5-15.5) % Plt Count (150-450) k/uL Neutrophils # (Manual) (1.3-7.7) k/uL Monocytes # (Manual) (0-1.0) k/uL Metamyelocytes # (Man) (0) k/uL Nucleated RBCs (0-0) /100 WBC PT (9.0-12.0) sec INR (<1.2) ABG O2 Saturation 97.6 H (94-97) % Chloride (98-107) mmol/L BUN (7-17) mg/dL Glucose (74-99) mg/dL POC Glucose (mg/dL) 132 H 140 H (75-99) mg/dL Calcium (8.4-10.2) mg/dL AST (14-36) U/L ALT (9-52) U/L Total Protein (6.3-8.2) g/dL Albumin (3.5-5.0) g/dL Microbiology - Last 24 Hours (Table) 05/22/17 08:00 Gram Stain - Final Sputum Sputum Culture - Final Saccaromyces cerevisiae 05/25/17 18:05 Gram Stain - Preliminary Arm - Left Wound Culture - Preliminary 05/25/17 18:45 Anaerobic Culture - Preliminary Arm - Left
[2017-05-26 19:04] LABS: Glucose,Whole Blood 138 mg/dL (75-99)
[2017-05-26 20:13] LABS: Glucose,Whole Blood 125 mg/dL (75-99)
[2017-05-27 00:03] LABS: Glucose,Whole Blood 144 mg/dL (75-99)
[2017-05-27] MEDS: HEPARIN SODIUM,PORCINE 5,000 UNIT/ML 1 ML VIAL SQ SCH ×4 (00:44→23:45)
[2017-05-27] MEDS: INSULIN ASPART 100 UNIT/ML 1 ML 10 ML VIAL SQ SCH ×5 (01:17→23:41)
[2017-05-27] MEDS: HYDROmorphone 4 MG TABLET PO PRN ×2 (01:48→20:38)
[2017-05-27] MEDS: IPRATROPIUM-ALBUTEROL 3 ML NEB INHALATION SCH ×5 (02:41→19:56)
[2017-05-27 04:25] LABS: Anisocytosis Slight; Basophils % (A) 0 %; Eosinophils % (A) 0 %; HCT 33.3 % (34.0-46.0); Hypochromasia Marked; Lymphocytes # (A) 1.3 k/uL (1.0-4.8); Lymphocytes % (A) 8 %; MCH 27.5 pg (25.0-35.0); MCHC 30.1 g/dL (31.0-37.0); MCV 91.5 fL (80.0-100.0); Mean Platelet Volume 11.8; Monocytes # (A) 1.6 k/uL (0-1.0); Monocytes % (A) 10 %; Neutrophils # (A) 12.2 k/uL (1.3-7.7); Neutrophils % (A) 78 %; Poikilocytosis Slight; RBC 3.64 m/uL (3.80-5.40); RDW 17.4 % (11.5-15.5); WBC 15.7 k/uL (3.8-10.6)
[2017-05-27 04:32] LABS: INR 1.5 (<1.2); Partial Thromboplastin Time 24.3 sec (22.0-30.0); Prothrombin Time 13.6 sec (9.0-12.0)
[2017-05-27 04:34] LABS: Platelet Count 74 k/uL (150-450)
[2017-05-27 05:06] LABS: ABG Base Excess 1.4 mmol/L; ABG HCO3 26 mmol/L (21-25); ABG Oxygen Saturation 96.6 % (94-97); ABG PCO2 38 mmHg (35-45); ABG PH 7.44 (7.35-7.45); ABG PO2 90 mmHg (83-108); ABG TCO2 27 mmol/L (19-24)
[2017-05-27 05:19] LABS: Albumin 2.3 g/dL (3.5-5.0); Magnesium 1.8 mg/dL (1.6-2.3); Phosphorus 3.1 mg/dL (2.5-4.5); Total Bilirubin 1.1 mg/dL (0.2-1.3); Total Protein 4.5 g/dL (6.3-8.2)
[2017-05-27 05:46] LABS: Potassium 4.1 mmol/L (3.5-5.1)
--- NOTE | 2017-05-27 07:15 | XR ---
EXAMINATION TYPE: XR chest 1V portable DATE OF EXAM: 05/27/2017 COMPARISON: 05/26/2017 HISTORY: Ventilatory dependent respiratory failure. TECHNIQUE: Single frontal view of the chest is obtained. FINDINGS: There are stable lines and tubes with appropriately placed enteric tube, endotracheal tube, and right-sided central venous catheter. There is unchanged bibasilar airspace disease with a layer ing effect on the right suggesting a small layering pleural effusion. Remainder the lungs are clear. Cardiac silhouette is again enlarged. Osseous structures appear grossly intact with degenerative shanelle nges of the acromioclavicular joints and thoracic spine. IMPRESSION: Stable properly placed lines and tubes. Unchanged bibasilar opacities, right greater poonam n left favored to represent a small right pleural effusion and bibasilar atelectasis.
[2017-05-27 07:43] LABS: Glucose,Whole Blood 119 mg/dL (75-99)
[2017-05-27] MEDS: LEVOTHYROXINE 50 MCG TAB PO SCH (08:31)
[2017-05-27] MEDS: FLUoxetine HCL 20 MG CAP PO SCH (08:31)
[2017-05-27] MEDS: METOPROLOL TARTRATE 12.5 MG TAB PO SCH ×2 (08:31→20:37)
[2017-05-27] MEDS: SPIRONOLACTONE 25 MG TAB PO SCH (08:31)
[2017-05-27] MEDS: CHLORHEXIDINE GLUCONATE 15 ML CUP MUCOUS MEM SCH (08:31)
[2017-05-27] MEDS: LACTULOSE 20 GM/30 ML CUP PO SCH (08:31)
[2017-05-27] MEDS: PANTOPRAZOLE 40 MG/10 ML VIAL IV SCH (08:31)
[2017-05-27] MEDS: AMIODARONE 200 MG TAB PO SCH ×2 (08:32→20:38)
[2017-05-27] MEDS: ASPIRIN 325 MG TAB PO SCH (08:32)
[2017-05-27] MEDS: VANCOMYCIN 1,500 MG in SODIUM CHLORIDE 0.9% 250 ML IVPB SCH ×2 (08:37→23:46)
--- NOTE | 2017-05-27 12:00 | P.PN ---
Subjective Progress Note Date: 05/27/17 Patient is more awake this morning. Plan is to extubate later on. Objective - Vital Signs Vital signs: Vital Signs Temp 97.7 F 05/27/17 08:00 Pulse 63 05/27/17 11:46 Resp 18 05/27/17 10:00 BP 101/69 05/27/17 10:00 Pulse Ox 97 05/27/17 10:00 Intake & Output 05/26/17 05/27/17 05/27/17 18:59 06:59 18:59 Intake Total 1838.0 1511.0 328 Output Total 525 595 133 Balance 1313.0 916.0 195 Weight 91.5 kg 91.5 kg Intake: IV 1128.0 986.0 228 0.9% normal saline 33 36 3 pressure bag Piperacillin-Tazobactam 3 50.0 50.0 .375 gm In Dextrose/Water 1 50ml.bag @ 12.5 mls/hr IVPB Q12HR ANIA Rx#: [id number] Sodium Chloride 0.9% 1, 795 900 225 000 ml @ 75 mls/hr IV . [id number] ANIA Rx#:[id number] Vancomycin 1,500 mg In 250 Sodium Chloride 0.9% 250 ml @ 125 mls/hr IVPB Q16H ANIA Rx#:[id number] Intake, IV Titration 200 Amount Magnesium Sulfate-D5w Pmx 200 1 gm In Dextrose/Water 1 100ml.bag @ 100 mls/hr IVPB Q1H ANIA Rx#: [id number] Tube Feeding 420 525 70 Other 90 30 Output: Urine 525 595 133 Other: Voiding Method Indwelling Catheter Indwelling Catheter # Bowel Movements 1 1 2 ABP, PAP, CO, CI - Last Documented Arterial Blood Pressure 133/93 - Exam General: The patient is intubated. She is awake and responsive. Eye: there is normal conjunctiva bilaterally. Neck: The neck is supple, there is no JVD. Cardiovascular: Normal S1-S2, no S3-S4, no murmurs. Respiratory: Lungs with mechanical ventilator sounds Gastrointestinal: Abdomen is soft, nontender Musculoskeletal: There is no pedal edema. l. Skin: Skin is warm and dry - Labs CBC & Chem 7: 05/27/17 04:15 05/27/17 04:15 Labs: Abnormal Lab Results - Last 24 Hours (Table) 05/26/17 05/26/17 05/26/17 Range/Units 12:00 13:02 19:02 WBC (3.8-10.6) k/uL RBC (3.80-5.40) m/uL Hgb (11.4-16.0) gm/dL Hct (34.0-46.0) % MCHC (31.0-37.0) g/dL RDW (11.5-15.5) % Plt Count (150-450) k/uL Neutrophils # (1.3-7.7) k/uL Monocytes # (0-1.0) k/uL PT (9.0-12.0) sec INR (<1.2) ABG HCO3 (21-25) mmol/L ABG Total CO2 (19-24) mmol/L Chloride (98-107) mmol/L BUN (7-17) mg/dL Glucose (74-99) mg/dL POC Glucose (mg/dL) 132 H 140 H 138 H (75-99) mg/dL Calcium (8.4-10.2) mg/dL AST (14-36) U/L ALT (9-52) U/L Total Protein (6.3-8.2) g/dL Albumin (3.5-5.0) g/dL 05/26/17 05/27/17 05/27/17 Range/Units 20:11 00:00 04:15 WBC 15.7 H (3.8-10.6) k/uL RBC 3.64 L (3.80-5.40) m/uL Hgb 10.0 L (11.4-16.0) gm/dL Hct 33.3 L (34.0-46.0) % MCHC 30.1 L (31.0-37.0) g/dL RDW 17.4 H (11.5-15.5) % Plt Count 74 L (150-450) k/uL Neutrophils # 12.2 H (1.3-7.7) k/uL Monocytes # 1.6 H (0-1.0) k/uL PT (9.0-12.0) sec INR (<1.2) ABG HCO3 (21-25) mmol/L ABG Total CO2 (19-24) mmol/L Chloride (98-107) mmol/L BUN (7-17) mg/dL Glucose (74-99) mg/dL POC Glucose (mg/dL) 125 H 144 H (75-99) mg/dL Calcium (8.4-10.2) mg/dL AST (14-36) U/L ALT (9-52) U/L Total Protein (6.3-8.2) g/dL Albumin (3.5-5.0) g/dL 05/27/17 05/27/17 05/27/17 Range/Units 04:15 04:15 05:03 WBC (3.8-10.6) k/uL RBC (3.80-5.40) m/uL Hgb (11.4-16.0) gm/dL Hct (34.0-46.0) % MCHC (31.0-37.0) g/dL RDW (11.5-15.5) % Plt Count (150-450) k/uL Neutrophils # (1.3-7.7) k/uL Monocytes # (0-1.0) k/uL PT 13.6 H (9.0-12.0) sec INR 1.5 H (<1.2) ABG HCO3 26 H (21-25) mmol/L ABG Total CO2 27 H (19-24) mmol/L Chloride 111 H (98-107) mmol/L BUN 38 H (7-17) mg/dL Glucose 119 H (74-99) mg/dL POC Glucose (mg/dL) (75-99) mg/dL Calcium 8.0 L (8.4-10.2) mg/dL AST 205 H (14-36) U/L ALT 553 H (9-52) U/L Total Protein 4.5 L (6.3-8.2) g/dL Albumin 2.3 L (3.5-5.0) g/dL 05/27/17 Range/Units 07:42 WBC (3.8-10.6) k/uL RBC (3.80-5.40) m/uL Hgb (11.4-16.0) gm/dL Hct (34.0-46.0) % MCHC (31.0-37.0) g/dL RDW (11.5-15.5) % Plt Count (150-450) k/uL Neutrophils # (1.3-7.7) k/uL Monocytes # (0-1.0) k/uL PT (9.0-12.0) sec INR (<1.2) ABG HCO3 (21-25) mmol/L ABG Total CO2 (19-24) mmol/L Chloride (98-107) mmol/L BUN (7-17) mg/dL Glucose (74-99) mg/dL POC Glucose (mg/dL) 119 H (75-99) mg/dL Calcium (8.4-10.2) mg/dL AST (14-36) U/L ALT (9-52) U/L Total Protein (6.3-8.2) g/dL Albumin (3.5-5.0) g/dL Microbiology - Last 24 Hours (Table) 05/25/17 18:05 Gram Stain - Preliminary Arm - Left Wound Culture - Preliminary Assessment and Plan Assessment: 1. Cardiac arrest at the outside hospital status post CPR for approximately 20 minutes/defibrillation 2. 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 Otherwise nonobstructive coronary artery disease. Followed by cardiology. 3. Acute cardiogenic shock: Requiring vasopressors. We will continue IV fluid hydration. Repeat echocardiogram showed EF less than 20% which is new compared to her echo last month with a EF of greater than 50%. 4. Right lower lobe pneumonia maintained on Zosyn 5. Acute hypoxic respiratory failure 6. Acute liver shock with significant transaminitis secondary to episodes of hypotension. now improving significantly 7. Type 2 diabetes mellitus 8. Mixed hyperlipidemia 9. Hypothyroidism maintained on levothyroxin Patient is doing a lot better. Plan is to extubate later on today. We'll continue supportive care. Repeat lab work in the morning.
[2017-05-27 12:13] LABS: Glucose,Whole Blood 120 mg/dL (75-99)
--- NOTE | 2017-05-27 12:44 | P.PN ---
Subjective Progress Note Date: 05/27/17 Principal diagnosis: Acute cardiac arrest/ventricular fibrillation status post CPR defibrillation and subsequent intubation A 72-year-old female patient with known history of COPD and CHF with diastolic dysfunction was originally admitted to [facility] for worsening shortness of breath and acute COPD exacerbation and CHF exacerbation. She did not have any chest pain. She did have some mild elevation of the troponin and EKG did not show any acute abnormalities. Chest x-ray showed possibly a right lower lobe pneumonia. Note that the patient was being treated and she acutely had an acute cardiac arrest. She collapsed on the floor. Initially she was found to be investigated fibrillation. CPR was initiated and the patient was defibrillated on several occasions. She was intubated and she remained hypotensive requiring pressors. The exact downtime is not known however I expect this was approximately 20 minutes of CPR and defibrillation on this patient. The patient got moved to the [facility] emergency department where the EKG showed acute ST segment elevation in inferior leads with reciprocal changes. The patient was taken immediately to the [facility] and the patient was found to have a dissection the RCA. The left main was patent. There was mild disease in the proximal LAD and circumflex. The dominant vessel was RCA. This was reviewed by Dr. Leggett and it was decided not to do any intervention knowing that the patient had a GRISEL 3 flow in the RCA. The patient had 3 more episodes of V. tach and the [facility] where she had to be defibrillated. She was started on amiodarone drip and she got moved to the intensive care unit on 35 mics of levo fed for hypotension. This morning and echo cardiac rhythm was done and ejection fraction is less than 20%. Overnight she was given a total of 2 L of IV fluid and currently she is on normal saline today to have 100 mL an hour. She is producing urine output in the order of 20 mL an hour. She was producing better urine output prior to that. She is currently weaned down to 50 mics of the prevent. Note that the patient also had a traumatic head injury and a CAT scan of the brain was done in the emergency department that showed no acute abnormalities. As far as the right lower lobe pneumonia, the patient is on IV Zosyn. The patient has a right venous and arterial sheath in the right groin. Amiodarone is running at the maintenance of 0.5 mg/m. She is sedated and she is moving all 4 extremities to painful is diminished yet she is not following any commands. Diprivan is running at 15 g. currently intubated on a mechanical ventilator on assist control mode at the rate of 18, tidal volume 500 , FiO2 of 50% and a PEEP of 5. Blood gases from this morning showed a pH of 7.36 with a pCO2 of 36 and pO2 of 87 on 50% FiO2. On 05/23/2016 the patient is being seen for a follow-up. The patient remains intubated on a mechanical ventilator. The patient is also sedated with Diprivan. The patient remains calm and comfortable on today's evaluation. Overnight, the patient was having runs of nonsustained polymorphic V. tach. The patient did not require to be defibrillated. Cardiology was informed and the patient was placed on metoprolol 12.5 mg by mouth twice a day. This resulted in to some drop in his blood pressure. Levo fed was used to titrate the blood pressure and we have been gradually weaning down to the levo fed and currently levo fed is down to 2 mics. The patient is tolerating the drop in the pressors. Note that the patient also received significant amount of fluid and he received additional 2 L of bolus use yesterday and his net fluid balance is at least 5-1/2 L over the past 48 hours. This has helped with fluid resuscitation and the patient's CVP is currently at 18. Her chest x-ray from today is consistent with a right lower lobe pneumonia. ET tube is in a good location. No signs of any failure and the patient also has a triple lumen catheter which is in place. The patient had 2 additional rounds of polymorphic V. tach earlier this morning that were nonsustained. Cardiology was again informed. Amiodarone drip was increased up to 1 mg a minute. As far as electrolytes, the patient has a magnesium level of 2.0 and a potassium level of 3.4. Both of the electrodes were placed. Echocardiogram was done yesterday showed an ejection fraction of around less than 20%. The patient is also moderate to severe mitral regurgitation and a PA pressure of less than 35. No pericardial effusion seen. He is afebrile. The patient on Zosyn regarding the right lower lobe pneumonia. The vent settings on the day include an assist- control at the rate of 18, tidal volume 500, FiO2 of 50% with a PEEP of 5 and the patient's blood gas showed a pH of 7.48 with a pCO2 of 30 and pO2 of 97. No significant secretions from endotracheal tube. No significant bronchospasm and wheezing. The patient is still nothing by mouth. NG tube is in place. The patient also went into an acute shock liver following a cardiopulmonary arrest. The patient has significant elevation of the AST and ALT. This has also resulted in to some coagulopathy with the patient's INR is up to 2.3. There is also drop in the platelet counts down to 119. No signs of any acute bleeding. On 05/24/2017 and seeing this patient for a follow-up. As mentioned earlier the patient is post cardiac arrest. The active issue for now is her mentation. The patient was given a sedation holiday throughout the day yesterday and she was not able to follow any commands. She would open up her eyes spontaneously yet she is not purposeful. Overnight she had to be placed back on the sedation and this morning at around 7:00 I took her off the Diprivan. At the time of my evaluation, the patient was still unresponsive to any verbal stimulation. She will grimace to painful stimulation. She does not follow any commands. No seizure activity has been noted. Hemodynamically she is improved. She is off the pressors. She is producing urine output in the order of 30 mL an hour. She is on a IV fluids at 75 mL an hour normal saline. The patient is on assist control mode of ventilation at the rate of 18, tidal volume of 500, FiO2 of 40% and a PEEP of 5 and a blood gases from today showed a pH of 7.47 with a pCO2 of 10 and 29 and pO2 of 91. Chest x-ray findings are essentially unchanged and is still some persistent right lung pneumonia. Meanwhile, the patient's is still on IV Zosyn for right lung pneumonia. Cultures of been negative thus far. The sputum cultures shown Mehnaz. Renal function is stable with a creatinine of 1.4. The patient a shock liver and the liver function is improving. INR is lower compared to yesterday and dropped from 2.3 down to 2.0. The patient is tolerating the tube feeds. The patient is not having any further ventricular arrhythmias. The patient is on a maintenance amiodarone of 0.5 mg/m and Aldactone was also added to the regimen. On 05/25/2017, I'm seeing this patient for a follow-up. The patient is off sedation for 24 hours. There is a concern of hypoxic encephalopathy versus metabolic encephalopathy as the patient has not completely regained her consciousness. She is opening her eyes and she is moving all 4 extremities. She is not purposeful that she is not following any commands. CAT scan of the brain was done and was negative for any acute abnormalities and the EEG was also done and the patient also had an urology evaluation. The patient is off sedation. The patient is intubated on a mechanical ventilator. Vent settings remain essentially unchanged within assist-control of 18, tidal volume 500, FiO2 of 40% and a PEEP of 5 and the chest x-ray from today shows persistent right lower lobe consolidation and small effusion. The patient has a pH of 7.4 with a pCO2 of 38 and pO2 of 102. Renal function continues to improve and the creatinine is down to 1.1. As for the liver function tests, the patient also shows a drop and AST and ALP and a shock liver is also improving. INR is still at 1.8 with a PT of 16.2. The patient is producing adequate amount of urine output. Denies fluid balance is +2 L over the past 24 hours. The patient is on normal saline today to 75 mL an hour. The patient is also tolerating tube feeds. The patient is on IV Zosyn. Dilaudid was added for chronic back pain. Cardiac rhythm is sinus. Amiodarone drip is still running at maintenance. On 05/27/2007 and I'm seeing this patient. The patient has still been off sedation for the past 48 hours. She is encephalopathic. I would say her neurologic exam is essentially the same. She still not following commands and she is not purposeful. She'll open her eyes and when yelled that she would. The nose and showed a grandson open her eyes. For now she hasn't followed any commands to me at least. The nurses confirm that. No seizure activity. Neurologist on the case. She is an assist-control mode of ventilation at the rate of 18, FiO2 of 5040% with a PEEP of 5 and tidal volume of 500. Blood gases from today showed a pH of 7.43 with a pCO2 of 36 and pO2 of 99. Chest x- ray is essentially unchanged and there patient has a stable consolidation of the right lung base. She remains on IV Zosyn. He was dynamically, she is in a sinus rhythm and the patient is on no pressors. No further cardiac arrhythmias have been noted the patient was switched to oral amiodarone yesterday. Her measured ejection fraction is around 20%. Producing adequate amount of urine output. tolerating the tube feeds. The patient is afebrile. The patient is on normal saline at the rate of 20 mL an hour. No other significant events overnight. For now we are waiting to have some improvement in mentation to proceed with further weaning. Patient was reevaluated today on 05/27/2017, she remains on mechanical ventilation, ventilator settings were noted FiO2 of 40% assist control rate of 18 tidal volume of 500 and PEEP of 5. ABG showed a pO2 of 90 pCO2 of 38 pH of 7.44 electrolytes were noted renal profile was noted. Seems to be relatively normal liver enzymes are noted to be a bit elevated. CBC is relatively normal. Chest x-ray showed bibasilar opacities right more so than left, and small right-sided pleural effusion. Chest x-ray findings favor atelectasis. Objective - Vital Signs Vital signs: Vital Signs Temp 97.7 F 05/27/17 08:00 Pulse 63 05/27/17 11:46 Resp 18 05/27/17 10:00 BP 101/69 05/27/17 10:00 Pulse Ox 97 05/27/17 10:00 Intake & Output 05/26/17 05/27/17 05/27/17 18:59 06:59 18:59 Intake Total 1838.0 1511.0 328 Output Total 525 595 133 Balance 1313.0 916.0 195 Weight 91.5 kg 91.5 kg Intake: IV 1128.0 986.0 228 0.9% normal saline 33 36 3 pressure bag Piperacillin-Tazobactam 3 50.0 50.0 .375 gm In Dextrose/Water 1 50ml.bag @ 12.5 mls/hr IVPB Q12HR ANIA Rx#: [id number] Sodium Chloride 0.9% 1, 795 900 225 000 ml @ 75 mls/hr IV . [id number] ANIA Rx#:[id number] Vancomycin 1,500 mg In 250 Sodium Chloride 0.9% 250 ml @ 125 mls/hr IVPB Q16H ANIA Rx#:[id number] Intake, IV Titration 200 Amount Magnesium Sulfate-D5w Pmx 200 1 gm In Dextrose/Water 1 100ml.bag @ 100 mls/hr IVPB Q1H ANIA Rx#: [id number] Tube Feeding 420 525 70 Other 90 30 Output: Urine 525 595 133 Other: Voiding Method Indwelling Catheter Indwelling Catheter # Bowel Movements 1 1 2 ABP, PAP, CO, CI - Last Documented Arterial Blood Pressure 133/93 - Exam Physical Exam: Revealed a 72-year-old female in no distress on mechanical ventilation, arousable, follows all simple instructions. Head: Atraumatic, normocephalic. Neck: Neck supple no neck masses, endotracheal tube is intact. HEENT:[ PERRLA, EOMI, no icterus, throat is clear, moist mucous membranes noted..] Chest: [Clear throughout, no crackles, no rhonchi, no wheezes.] Cardiac Exam: [Normal S1 and S2, no S3 gallop, no murmur.] Abdomen: [Soft, nontender, no megaly, no rebound, no guarding, normal bowel sounds.] Extremities: [No clubbing, no edema, no cyanosis.] Neurological Exam: [No focal neurologic deficit.] Psychiatric: Normal mood affect and mental status examination. - Labs CBC & Chem 7: 05/27/17 04:15 05/27/17 04:15 Labs: Abnormal Lab Results - Last 24 Hours (Table) 05/26/17 05/26/17 05/26/17 Range/Units 13:02 19:02 20:11 WBC (3.8-10.6) k/uL RBC (3.80-5.40) m/uL Hgb (11.4-16.0) gm/dL Hct (34.0-46.0) % MCHC (31.0-37.0) g/dL RDW (11.5-15.5) % Plt Count (150-450) k/uL Neutrophils # (1.3-7.7) k/uL Monocytes # (0-1.0) k/uL PT (9.0-12.0) sec INR (<1.2) ABG HCO3 (21-25) mmol/L ABG Total CO2 (19-24) mmol/L Chloride (98-107) mmol/L BUN (7-17) mg/dL Glucose (74-99) mg/dL POC Glucose (mg/dL) 140 H 138 H 125 H (75-99) mg/dL Calcium (8.4-10.2) mg/dL AST (14-36) U/L ALT (9-52) U/L Total Protein (6.3-8.2) g/dL Albumin (3.5-5.0) g/dL 05/27/17 05/27/17 05/27/17 Range/Units 00:00 04:15 04:15 WBC 15.7 H (3.8-10.6) k/uL RBC 3.64 L (3.80-5.40) m/uL Hgb 10.0 L (11.4-16.0) gm/dL Hct 33.3 L (34.0-46.0) % MCHC 30.1 L (31.0-37.0) g/dL RDW 17.4 H (11.5-15.5) % Plt Count 74 L (150-450) k/uL Neutrophils # 12.2 H (1.3-7.7) k/uL Monocytes # 1.6 H (0-1.0) k/uL PT 13.6 H (9.0-12.0) sec INR 1.5 H (<1.2) ABG HCO3 (21-25) mmol/L ABG Total CO2 (19-24) mmol/L Chloride (98-107) mmol/L BUN (7-17) mg/dL Glucose (74-99) mg/dL POC Glucose (mg/dL) 144 H (75-99) mg/dL Calcium (8.4-10.2) mg/dL AST (14-36) U/L ALT (9-52) U/L Total Protein (6.3-8.2) g/dL Albumin (3.5-5.0) g/dL 05/27/17 05/27/17 05/27/17 Range/Units 04:15 05:03 07:42 WBC (3.8-10.6) k/uL RBC (3.80-5.40) m/uL Hgb (11.4-16.0) gm/dL Hct (34.0-46.0) % MCHC (31.0-37.0) g/dL RDW (11.5-15.5) % Plt Count (150-450) k/uL Neutrophils # (1.3-7.7) k/uL Monocytes # (0-1.0) k/uL PT (9.0-12.0) sec INR (<1.2) ABG HCO3 26 H (21-25) mmol/L ABG Total CO2 27 H (19-24) mmol/L Chloride 111 H (98-107) mmol/L BUN 38 H (7-17) mg/dL Glucose 119 H (74-99) mg/dL POC Glucose (mg/dL) 119 H (75-99) mg/dL Calcium 8.0 L (8.4-10.2) mg/dL AST 205 H (14-36) U/L ALT 553 H (9-52) U/L Total Protein 4.5 L (6.3-8.2) g/dL Albumin 2.3 L (3.5-5.0) g/dL 05/27/17 Range/Units 12:12 WBC (3.8-10.6) k/uL RBC (3.80-5.40) m/uL Hgb (11.4-16.0) gm/dL Hct (34.0-46.0) % MCHC (31.0-37.0) g/dL RDW (11.5-15.5) % Plt Count (150-450) k/uL Neutrophils # (1.3-7.7) k/uL Monocytes # (0-1.0) k/uL PT (9.0-12.0) sec INR (<1.2) ABG HCO3 (21-25) mmol/L ABG Total CO2 (19-24) mmol/L Chloride (98-107) mmol/L BUN (7-17) mg/dL Glucose (74-99) mg/dL POC Glucose (mg/dL) 120 H (75-99) mg/dL Calcium (8.4-10.2) mg/dL AST (14-36) U/L ALT (9-52) U/L Total Protein (6.3-8.2) g/dL Albumin (3.5-5.0) g/dL Microbiology - Last 24 Hours (Table) 0310/18 18:05 Gram Stain - Preliminary Arm - Left Wound Culture - Preliminary Assessment and Plan Assessment: 1 acute cardiac arrest/V. fib, status post CPR, defibrillation and subsequent intubation mechanical ventilation. Currently in a sinus rhythm and the patient is on amiodarone orally. [address] segment elevation myocardial infarction involving the inferior wall secondary to dissection of the RCA. The patient underwent emergent cardiac catheterization and she currently has a GRISEL 3 flow and she did not require coronary stenting. She was advised by interventional cardiology. 3 acute shock, cardiogenic in nature with an ejection fraction of 20% and the patient has been on pressors which subsequently got wean off and discontinued. 4 acute hypoxic respiratory failure secondary to above 5 acute right lower lobe pneumonia, stable on today's chest x-ray 6 acute COPD exacerbation secondary to right lower lobe pneumonia 7 encephalopathy, rule out hypoxic encephalopathy rule out metabolic encephalopathy as the patient was in acute liver and kidney injury post cardiac arrest. LFTs are improving. Function is improving. Ammonia level is low. CAT scan of the brain is negative. Neurologist on the case. The patient has been off sedation for the past 48 hours and unfortunately the neurologic status is still the same and the patient is not following any simple commands yet and the neurologic exam is nonfocal yet the patient is not purposeful. 8 acute head trauma the time of a cardiac arrest. The patient had a negative CAT scan of the head 9 diabetes mellitus 10 hyperlipidemia 11 hypothyroidism 13 history of hypertension 14 leukocytosis secondary to above 15 acute kidney injury improving the creatinine is down to 0.8 16 acute shock liver with an underlying coagulopathy. There is related to cardiopulmonary arrest. The liver function is improving. Recommendation: Patient was evaluated thoroughly, she was given a weaning trial with a pressure support and CPAP, and she seemed to tolerated that spontaneous breathing trial on her own quite well. I was at the bedside when this was happening, she was following all simple instructions for me, hence proceeded to extubating the patient. Discussed her condition with family members at bedside. Critical care time is 35 minutes. Time with Patient: Greater than 30
--- NOTE | 2017-05-27 15:07 | P.PN ---
Subjective Patient is still intubated. Doing well from a cardiac vascular standpoint and no ventricular fibrillation or ventricular tachycardia. Pulse rate in the 60s, blood pressure 101/71 mmHg respirations 20 Breath sounds are reduced bilaterally no rhonchi no crackles Heart sounds are normal normal S1 normal S2 Extent is warm Impression Coronary dissection of the RCA Medical treatment Ventricular fibrillation No further episodes Plan Continue medical treatment Objective - Vital Signs Vital signs: Vital Signs Temp 98 F 05/27/17 12:00 Pulse 62 05/27/17 14:00 Resp 21 05/27/17 14:00 BP 101/71 05/27/17 14:00 Pulse Ox 96 05/27/17 14:00 Intake & Output 05/26/17 05/27/17 05/27/17 18:59 06:59 18:59 Intake Total 1838.0 1511.0 703 Output Total 525 595 294 Balance 1313.0 916.0 409 Weight 91.5 kg 91.5 kg Intake: IV 1128.0 986.0 603 0.9% normal saline 33 36 3 pressure bag Piperacillin-Tazobactam 3 50.0 50.0 .375 gm In Dextrose/Water 1 50ml.bag @ 12.5 mls/hr IVPB Q12HR AN[facility] Rx#: [id number] Sodium Chloride 0.9% 1, 795 900 600 000 ml @ 75 mls/hr IV . [id number] ANIA Rx#:[id number] Vancomycin 1,500 mg In 250 Sodium Chloride 0.9% 250 ml @ 125 mls/hr IVPB Q16H ANIA Rx#:[id number] Intake, IV Titration 200 Amount Magnesium Sulfate-D5w Pmx 200 1 gm In Dextrose/Water 1 100ml.bag @ 100 mls/hr IVPB Q1H ANIA Rx#: [id number] Tube Feeding 420 525 70 Other 90 30 Output: Urine 525 595 294 Other: Voiding Method Indwelling Catheter Indwelling Catheter Indwelling Catheter # Bowel Movements 1 1 2 ABP, PAP, CO, CI - Last Documented Arterial Blood Pressure 133/93 - Labs CBC & Chem 7: 05/27/17 04:15 05/27/17 04:15 Labs: Abnormal Lab Results - Last 24 Hours (Table) 05/26/17 05/26/17 05/27/17 Range/Units 19:02 20:11 00:00 WBC (3.8-10.6) k/uL RBC (3.80-5.40) m/uL Hgb (11.4-16.0) gm/dL Hct (34.0-46.0) % MCHC (31.0-37.0) g/dL RDW (11.5-15.5) % Plt Count (150-450) k/uL Neutrophils # (1.3-7.7) k/uL Monocytes # (0-1.0) k/uL PT (9.0-12.0) sec INR (<1.2) ABG HCO3 (21-25) mmol/L ABG Total CO2 (19-24) mmol/L Chloride (98-107) mmol/L BUN (7-17) mg/dL Glucose (74-99) mg/dL POC Glucose (mg/dL) 138 H 125 H 144 H (75-99) mg/dL Calcium (8.4-10.2) mg/dL AST (14-36) U/L ALT (9-52) U/L Total Protein (6.3-8.2) g/dL Albumin (3.5-5.0) g/dL 05/27/17 05/27/17 05/27/17 Range/Units 04:15 04:15 04:15 WBC 15.7 H (3.8-10.6) k/uL RBC 3.64 L (3.80-5.40) m/uL Hgb 10.0 L (11.4-16.0) gm/dL Hct 33.3 L (34.0-46.0) % MCHC 30.1 L (31.0-37.0) g/dL RDW 17.4 H (11.5-15.5) % Plt Count 74 L (150-450) k/uL Neutrophils # 12.2 H (1.3-7.7) k/uL Monocytes # 1.6 H (0-1.0) k/uL PT 13.6 H (9.0-12.0) sec INR 1.5 H (<1.2) ABG HCO3 (21-25) mmol/L ABG Total CO2 (19-24) mmol/L Chloride 111 H (98-107) mmol/L BUN 38 H (7-17) mg/dL Glucose 119 H (74-99) mg/dL POC Glucose (mg/dL) (75-99) mg/dL Calcium 8.0 L (8.4-10.2) mg/dL AST 205 H (14-36) U/L ALT 553 H (9-52) U/L Total Protein 4.5 L (6.3-8.2) g/dL Albumin 2.3 L (3.5-5.0) g/dL 05/27/17 05/27/17 05/27/17 Range/Units 05:03 07:42 12:12 WBC (3.8-10.6) k/uL RBC (3.80-5.40) m/uL Hgb (11.4-16.0) gm/dL Hct (34.0-46.0) % MCHC (31.0-37.0) g/dL RDW (11.5-15.5) % Plt Count (150-450) k/uL Neutrophils # (1.3-7.7) k/uL Monocytes # (0-1.0) k/uL PT (9.0-12.0) sec INR (<1.2) ABG HCO3 26 H (21-25) mmol/L ABG Total CO2 27 H (19-24) mmol/L Chloride (98-107) mmol/L BUN (7-17) mg/dL Glucose (74-99) mg/dL POC Glucose (mg/dL) 119 H 120 H (75-99) mg/dL Calcium (8.4-10.2) mg/dL AST (14-36) U/L ALT (9-52) U/L Total Protein (6.3-8.2) g/dL Albumin (3.5-5.0) g/dL Microbiology - Last 24 Hours (Table) 05/25/17 18:05 Gram Stain - Preliminary Arm - Left Wound Culture - Preliminary
[2017-05-27] MEDS: SODIUM CHLORIDE 0.9% 1,000 ML IV SCH ×2 (17:23→20:39)
[2017-05-27 18:02] LABS: Glucose,Whole Blood 118 mg/dL (75-99)
[2017-05-27] MEDS: ACETAMINOPHEN TAB 325 MG TAB PO PRN (18:03)
[2017-05-27] MEDS: PIPERACILLIN-TAZOBACTAM 3.375 GM in DEXTROSE/WATER 1 50ML.BAG IVPB SCH ×2 (20:04→20:38)
--- NOTE | 2017-05-27 22:58 | P.PN ---
Subjective Progress Note Date: 05/27/17 This patient is a 72-year-old female who is seen today in the intensive care unit for follow-up regarding anoxic encephalopathy following cardiac arrest. The patient was seen yesterday while she was still intubated on the ventilator. She underwent a computed tomography scan of the brain which failed to reveal any acute changes. Today the patient was able to be extubated and is now resting comfortably in bed. She is able to answer simple questions. She does seem to be awakened appropriate at this time. Patient's and son were at bedside. They're pleased with her improvement overnight. The patient does seem to follow all simple commands. She is afebrile. As noted her cardiac arrest was significant but she is showing good improvement today in terms of her mental status. She is being followed by cardiology. Would continue close follow-up with this patient in the intensive care unit. Case was discussed at length today with the patient's son and at bedside. There were updated on her overall neurological status and condition today. We will continue close follow-up with this patient in the intensive care unit. Objective - Vital Signs Vital signs: Vital Signs Temp 98.2 F 05/27/17 16:00 Pulse 63 05/27/17 17:00 Resp 22 05/27/17 17:00 BP 103/68 05/27/17 17:00 Pulse Ox 97 05/27/17 17:00 Intake & Output 05/26/17 05/27/17 05/27/17 18:59 06:59 18:59 Intake Total 1838.0 1511.0 928 Output Total 525 595 391 Balance 1313.0 916.0 537 Weight 91.5 kg 91.5 kg Intake: IV 1128.0 986.0 828 0.9% normal saline 33 36 3 pressure bag Piperacillin-Tazobactam 3 50.0 50.0 .375 gm In Dextrose/Water 1 50ml.bag @ 12.5 mls/hr IVPB Q12HR ANIA Rx#: [id number] Sodium Chloride 0.9% 1, 795 900 825 000 ml @ 75 mls/hr IV . [id number] ANIA Rx#:[id number] Vancomycin 1,500 mg In 250 Sodium Chloride 0.9% 250 ml @ 125 mls/hr IVPB Q16H ANIA Rx#:[id number] Intake, IV Titration 200 Amount Magnesium Sulfate-D5w Pmx 200 1 gm In Dextrose/Water 1 100ml.bag @ 100 mls/hr IVPB Q1H ANIA Rx#: [id number] Tube Feeding 420 525 70 Other 90 30 Output: Urine 525 595 391 Other: Voiding Method Indwelling Catheter Indwelling Catheter Indwelling Catheter # Bowel Movements 1 1 2 ABP, PAP, CO, CI - Last Documented Arterial Blood Pressure 133/93 - Exam Physical examination: PHYSICAL EXAMINATION: Patient is resting comfortably in bed. Patient was extubated today. VITAL SIGNS: Blood pressure is [103/68]. Heart rate is [63]. Respiration is [22] . Temperature is [98.2]. HEENT: Head is atraumatic, neck is supple, there were no carotid bruits. CHEST: Lungs are clear to auscultation and percussion. CARDIAC: S1, S2 normal rate and rhythm. There is no murmur. ABDOMEN: Soft and nontender. Bowel sounds are present. EXTREMITIES: There is no pedal edema. Peripheral pulses are present. Neurological examination: Patient is examined today in the intensive care unit. Patient was extubated earlier today. She is now alert and able to follow simple commands. Her speech is slow but fluent with no evidence of any aphasia or dysarthria. Her memory and intellectual functions slightly impaired. Cranial nerves II through XII are grossly intact. Motor examination fails to reveal any focal weakness. Deep tendon reflexes are 1+ and symmetric. Plantar responses flexor bilaterally. Coordination gait cannot be assessed in this patient at this time. - Labs CBC & Chem 7: 05/27/17 04:15 05/27/17 04:15 Labs: Abnormal Lab Results - Last 24 Hours (Table) 05/26/17 05/26/17 05/27/17 Range/Units 19:02 20:11 00:00 WBC (3.8-10.6) k/uL RBC (3.80-5.40) m/uL Hgb (11.4-16.0) gm/dL Hct (34.0-46.0) % MCHC (31.0-37.0) g/dL RDW (11.5-15.5) % Plt Count (150-450) k/uL Neutrophils # (1.3-7.7) k/uL Monocytes # (0-1.0) k/uL PT (9.0-12.0) sec INR (<1.2) ABG HCO3 (21-25) mmol/L ABG Total CO2 (19-24) mmol/L Chloride (98-107) mmol/L BUN (7-17) mg/dL Glucose (74-99) mg/dL POC Glucose (mg/dL) 138 H 125 H 144 H (75-99) mg/dL Calcium (8.4-10.2) mg/dL AST (14-36) U/L ALT (9-52) U/L Total Protein (6.3-8.2) g/dL Albumin (3.5-5.0) g/dL 05/27/17 05/27/17 05/27/17 Range/Units 04:15 04:15 04:15 WBC 15.7 H (3.8-10.6) k/uL RBC 3.64 L (3.80-5.40) m/uL Hgb 10.0 L (11.4-16.0) gm/dL Hct 33.3 L (34.0-46.0) % MCHC 30.1 L (31.0-37.0) g/dL RDW 17.4 H (11.5-15.5) % Plt Count 74 L (150-450) k/uL Neutrophils # 12.2 H (1.3-7.7) k/uL Monocytes # 1.6 H (0-1.0) k/uL PT 13.6 H (9.0-12.0) sec INR 1.5 H (<1.2) ABG HCO3 (21-25) mmol/L ABG Total CO2 (19-24) mmol/L Chloride 111 H (98-107) mmol/L BUN 38 H (7-17) mg/dL Glucose 119 H (74-99) mg/dL POC Glucose (mg/dL) (75-99) mg/dL Calcium 8.0 L (8.4-10.2) mg/dL AST 205 H (14-36) U/L ALT 553 H (9-52) U/L Total Protein 4.5 L (6.3-8.2) g/dL Albumin 2.3 L (3.5-5.0) g/dL 05/27/17 05/27/17 05/27/17 Range/Units 05:03 07:42 12:12 WBC (3.8-10.6) k/uL RBC (3.80-5.40) m/uL Hgb (11.4-16.0) gm/dL Hct (34.0-46.0) % MCHC (31.0-37.0) g/dL RDW (11.5-15.5) % Plt Count (150-450) k/uL Neutrophils # (1.3-7.7) k/uL Monocytes # (0-1.0) k/uL PT (9.0-12.0) sec INR (<1.2) ABG HCO3 26 H (21-25) mmol/L ABG Total CO2 27 H (19-24) mmol/L Chloride (98-107) mmol/L BUN (7-17) mg/dL Glucose (74-99) mg/dL POC Glucose (mg/dL) 119 H 120 H (75-99) mg/dL Calcium (8.4-10.2) mg/dL AST (14-36) U/L ALT (9-52) U/L Total Protein (6.3-8.2) g/dL Albumin (3.5-5.0) g/dL Microbiology - Last 24 Hours (Table) 05/25/17 18:05 Gram Stain - Preliminary Arm - Left Wound Culture - Preliminary Assessment and Plan (1) Anoxic encephalopathy Current Visit: Yes Status: Acute Code(s): G93.1 - ANOXIC BRAIN DAMAGE, NOT ELSEWHERE CLASSIFIED SNOMED Code(s): 567349640 (2) Acute myocardial infarction Current Visit: Yes Status: Acute Code(s): I21.9 - ACUTE MYOCARDIAL INFARCTION, UNSPECIFIED SNOMED Code(s): 85598293 (3) CHF (congestive heart failure) Current Visit: Yes Status: Acute Code(s): I50.9 - HEART FAILURE, UNSPECIFIED SNOMED Code(s): 48259258 (4) Cardiac arrest with ventricular fibrillation Current Visit: Yes Status: Acute Code(s): I46.9 - CARDIAC ARREST, CAUSE UNSPECIFIED; I49.01 - VENTRICULAR FIBRILLATION SNOMED Code(s): 48569546 (5) Pneumonia Current Visit: Yes Status: Acute Code(s): J18.9 - PNEUMONIA, UNSPECIFIED ORGANISM SNOMED Code(s): 417950892 Plan: This patient is a 72-year-old female who suffered an acute cardiac arrest with downtime of around 20 minutes. She has been showing good recovery today in the intensive care unit. She was extubated this afternoon and is more awake and alert. She is now following all simple commands. This is significant improvement for the patient as compared to yesterday. We will continue to follow her progress closely in the intensive care unit. Would increase activity as she tolerates. Her overall prognosis at this time remains guarded.
[2017-05-27 23:41] LABS: Glucose,Whole Blood 109 mg/dL (75-99)
[2017-05-28] MEDS: IPRATROPIUM-ALBUTEROL 3 ML NEB INHALATION SCH ×6 (00:39→21:44)
[2017-05-28 05:24] LABS: Anisocytosis Slight; Basophils % (A) 0 %; Eosinophils # (A) 0.1 k/uL (0-0.7); Eosinophils % (A) 0 %; HCT 32.9 % (34.0-46.0); HGB 9.7 gm/dL (11.4-16.0); Hypochromasia Marked; Lymphocytes # (A) 1.9 k/uL (1.0-4.8); Lymphocytes % (A) 10 %; MCH 27.3 pg (25.0-35.0); MCHC 29.3 g/dL (31.0-37.0); MCV 92.9 fL (80.0-100.0); Mean Platelet Volume 11.1; Monocytes # (A) 1.7 k/uL (0-1.0); Monocytes % (A) 9 %; Neutrophils # (A) 15.1 k/uL (1.3-7.7); Neutrophils % (A) 79 %; Poikilocytosis Slight; RBC 3.54 m/uL (3.80-5.40); RDW 17.6 % (11.5-15.5); WBC 19.2 k/uL (3.8-10.6)
[2017-05-28 05:26] LABS: Anion Gap 7 mmol/L; Blood Urea Nitrogen 36 mg/dL (7-17); Calcium 8.4 mg/dL (8.4-10.2); Carbon Dioxide 27 mmol/L (22-30); Chloride 110 mmol/L (98-107); Glucose 95 mg/dL (74-99); Potassium 4.7 mmol/L (3.5-5.1); Sodium 144 mmol/L (137-145)
[2017-05-28 05:42] LABS: Platelet Count 92 k/uL (150-450)
[2017-05-28] MEDS: SODIUM CHLORIDE 0.9% 1,000 ML IV SCH (05:51)
[2017-05-28] MEDS: HYDROmorphone 4 MG TABLET PO PRN (05:53)
[2017-05-28] MEDS: INSULIN ASPART 100 UNIT/ML 1 ML 10 ML VIAL SQ SCH ×3 (05:58→17:42)
[2017-05-28 05:59] LABS: Glucose,Whole Blood 102 mg/dL (75-99)
[2017-05-28 06:43] LABS: Magnesium 1.6 mg/dL (1.6-2.3); Phosphorus 3.6 mg/dL (2.5-4.5)
[2017-05-28] MEDS: LEVOTHYROXINE 50 MCG TAB PO SCH (06:53)
[2017-05-28] MEDS: PIPERACILLIN-TAZOBACTAM 3.375 GM in DEXTROSE/WATER 1 50ML.BAG IVPB SCH ×2 (08:29→20:16)
[2017-05-28] MEDS: AMIODARONE 200 MG TAB PO SCH ×2 (08:30→20:05)
[2017-05-28] MEDS: MAGNESIUM SULFATE-D5W PMX 1 GM in DEXTROSE/WATER 1 100ML.BAG IVPB SCH ×2 (08:30→09:32)
[2017-05-28] MEDS: HEPARIN SODIUM,PORCINE 5,000 UNIT/ML 1 ML VIAL SQ SCH ×3 (08:30→23:28)
[2017-05-28] MEDS: METOPROLOL TARTRATE 12.5 MG TAB PO SCH ×2 (08:31→20:05)
[2017-05-28] MEDS: LACTULOSE 20 GM/30 ML CUP PO SCH (08:31)
[2017-05-28] MEDS: FLUoxetine HCL 20 MG CAP PO SCH (08:31)
[2017-05-28] MEDS: PANTOPRAZOLE 40 MG/10 ML VIAL IV SCH (08:31)
[2017-05-28] MEDS: ASPIRIN 325 MG TAB PO SCH (08:31)
[2017-05-28] MEDS: SPIRONOLACTONE 25 MG TAB PO SCH (08:32)
--- NOTE | 2017-05-28 10:18 | XR ---
EXAMINATION TYPE: XR chest 1V DATE OF EXAM: 05/28/2017 COMPARISON: NONE INDICATION: Shortness of breath TECHNIQUE: Single frontal view of the chest is obtained. FINDINGS: The heart size is enlarged. The pulmonary vasculature is normal. There is silhouetting the bilateral diaphragms suggestive for underlying pleural fluid and/or atelect asis. Right central venous catheter is present with the tip in the proximal right atrium. EKG leads o verlie the chest. IMPRESSION: 1. Worsening bibasilar opacities may be subsegmental atelectasis and/or small pleural effusions. Cont inued follow-up is recommended. 2. Cardiomegaly. 3. Right central venous catheter with the tip in the proximal right atrium. The nasogastric tube and endotracheal tube is been.
[2017-05-28 11:58] LABS: Glucose,Whole Blood 133 mg/dL (75-99)
--- NOTE | 2017-05-28 12:21 | P.PN ---
Subjective Patient is doing significantly better today. She was extubated yesterday. Family at bedside. She is awake and alert. She is answering all of my questions appropriately and following all commands. Objective - Vital Signs Vital signs: Vital Signs Temp 97.6 F 05/28/17 08:00 Pulse 63 05/28/17 12:00 Resp 22 05/28/17 12:00 BP 104/68 05/28/17 12:00 Pulse Ox 97 05/28/17 12:00 Intake & Output 05/27/17 05/28/17 05/28/17 18:59 06:59 18:59 Intake Total 1003 1064 634.0 Output Total 471 450 195 Balance 532 614 439.0 Weight 91.5 kg 95.9 kg Intake: IV 903 1064 434.0 0.9% normal saline 3 39 9 pressure bag Piperacillin-Tazobactam 3 50 50.0 .375 gm In Dextrose/Water 1 50ml.bag @ 12.5 mls/hr IVPB Q12HR ANIA Rx#: [id number] Sodium Chloride 0.9% 1, 900 975 375 000 ml @ 75 mls/hr IV . [id number] ANIA Rx#:[id number] Intake, IV Titration 200 Amount Magnesium Sulfate-D5w Pmx 200 1 gm In Dextrose/Water 1 100ml.bag @ 100 mls/hr IVPB Q1H ANIA Rx#: [id number] Tube Feeding 70 Other 30 Output: Urine 471 450 195 Other: Voiding Method Indwelling Catheter Indwelling Catheter Indwelling Catheter # Bowel Movements 2 ABP, PAP, CO, CI - Last Documented Arterial Blood Pressure 133/93 - Exam General: The patient is intubated. She is awake and responsive. Eye: there is normal conjunctiva bilaterally. Neck: The neck is supple, there is no JVD. Cardiovascular: Normal S1-S2, no S3-S4, no murmurs. Respiratory: Lungs with mechanical ventilator sounds Gastrointestinal: Abdomen is soft, nontender Musculoskeletal: There is no pedal edema. l. Skin: Skin is warm and dry - Labs CBC & Chem 7: 05/28/17 05:00 05/28/17 05:00 Labs: Abnormal Lab Results - Last 24 Hours (Table) 05/27/17 05/27/17 05/28/17 Range/Units 18:00 23:41 05:00 WBC (3.8-10.6) k/uL RBC (3.80-5.40) m/uL Hgb (11.4-16.0) gm/dL Hct (34.0-46.0) % MCHC (31.0-37.0) g/dL RDW (11.5-15.5) % Plt Count (150-450) k/uL Neutrophils # (1.3-7.7) k/uL Monocytes # (0-1.0) k/uL Chloride 110 H (98-107) mmol/L BUN 36 H (7-17) mg/dL POC Glucose (mg/dL) 118 H 109 H (75-99) mg/dL 05/28/17 05/28/17 05/28/17 Range/Units 05:00 05:57 11:56 WBC 19.2 H (3.8-10.6) k/uL RBC 3.54 L (3.80-5.40) m/uL Hgb 9.7 L (11.4-16.0) gm/dL Hct 32.9 L (34.0-46.0) % MCHC 29.3 L (31.0-37.0) g/dL RDW 17.6 H (11.5-15.5) % Plt Count 92 L (150-450) k/uL Neutrophils # 15.1 H (1.3-7.7) k/uL Monocytes # 1.7 H (0-1.0) k/uL Chloride (98-107) mmol/L BUN (7-17) mg/dL POC Glucose (mg/dL) 102 H 133 H (75-99) mg/dL Microbiology - Last 24 Hours (Table) 05/25/17 18:45 Anaerobic Culture - Preliminary Arm - Left 05/25/17 18:05 Gram Stain - Final Arm - Left Wound Culture - Final Assessment and Plan Assessment: 1. Cardiac arrest at the outside hospital status post CPR for approximately 20 minutes/defibrillation 2. Acute ST elevation LA status post left heart catheterization with findings suggestive of dissection of the RCA. Otherwise nonobstructive coronary artery disease. Followed by cardiology. 3. Acute cardiogenic shock: Requiring vasopressors. We will continue IV fluid hydration. Repeat echocardiogram showed EF less than 20% which is new compared to her echo last month with a EF of greater than 50%. 4. Right lower lobe pneumonia maintained on Zosyn 5. Acute hypoxic respiratory failure 6. Acute liver shock with significant transaminitis secondary to episodes of hypotension. now improving significantly. Liver function test back to normal 7. Type 2 diabetes mellitus 8. Mixed hyperlipidemia 9. Hypothyroidism maintained on levothyroxin Patient is doing a lot better. She was extubated on 05/27. Family at bedside. She may be transferred outside of the intensive care unit to telemetry floor. PT/OT evaluation. We'll continue supportive care. Repeat lab work in the morning.
--- NOTE | 2017-05-28 13:12 | P.PN ---
Subjective Progress Note Date: 05/28/17 Principal diagnosis: Acute cardiac arrest/ventricular fibrillation status post CPR defibrillation and subsequent intubation A 72-year-old female patient with known history of COPD and CHF with diastolic dysfunction was originally admitted to [facility] for worsening shortness of breath and acute COPD exacerbation and CHF exacerbation. She did not have any chest pain. She did have some mild elevation of the troponin and EKG did not show any acute abnormalities. Chest x-ray showed possibly a right lower lobe pneumonia. Note that the patient was being treated and she acutely had an acute cardiac arrest. She collapsed on the floor. Initially she was found to be investigated fibrillation. CPR was initiated and the patient was defibrillated on several occasions. She was intubated and she remained hypotensive requiring pressors. The exact downtime is not known however I expect this was approximately 20 minutes of CPR and defibrillation on this patient. The patient got moved to the [place] emergency department where the EKG showed acute ST segment elevation in inferior leads with reciprocal changes. 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 The left main was patent. There was mild disease in the proximal LAD and circumflex. The dominant vessel was RCA. This was reviewed by Dr. Leggett and it was decided not to do any intervention knowing that the patient had a GRISEL 3 flow in the RCA. The patient had 3 more episodes of V. tach and the [employer] [facility] where she had to be defibrillated. She was started on amiodarone drip and she got moved to the intensive care unit on 35 mics of levo fed for hypotension. This morning and echo cardiac rhythm was done and ejection fraction is less than 20%. Overnight she was given a total of 2 L of IV fluid and currently she is on normal saline today to have 100 mL an hour. She is producing urine output in the order of 20 mL an hour. She was producing better urine output prior to that. She is currently weaned down to 50 mics of the prevent. Note that the patient also had a traumatic head injury and a CAT scan of the brain was done in the emergency department that showed no acute abnormalities. As far as the right lower lobe pneumonia, the patient is on IV Zosyn. The patient has a right venous and arterial sheath in the right groin. Amiodarone is running at the maintenance of 0.5 mg/m. She is sedated and she is moving all 4 extremities to painful is diminished yet she is not following any commands. Diprivan is running at 15 g. currently intubated on a mechanical ventilator on assist control mode at the rate of 18, tidal volume 500 , FiO2 of 50% and a PEEP of 5. Blood gases from this morning showed a pH of 7.36 with a pCO2 of 36 and pO2 of 87 on 50% FiO2. On 05/23/2016 the patient is being seen for a follow-up. The patient remains intubated on a mechanical ventilator. The patient is also sedated with Diprivan. The patient remains calm and comfortable on today's evaluation. Overnight, the patient was having runs of nonsustained polymorphic V. tach. The patient did not require to be defibrillated. Cardiology was informed and the patient was placed on metoprolol 12.5 mg by mouth twice a day. This resulted in to some drop in his blood pressure. Levo fed was used to titrate the blood pressure and we have been gradually weaning down to the levo fed and currently levo fed is down to 2 mics. The patient is tolerating the drop in the pressors. Note that the patient also received significant amount of fluid and he received additional 2 L of bolus use yesterday and his net fluid balance is at least 5-1/2 L over the past 48 hours. This has helped with fluid resuscitation and the patient's CVP is currently at 18. Her chest x-ray from today is consistent with a right lower lobe pneumonia. ET tube is in a good location. No signs of any failure and the patient also has a triple lumen catheter which is in place. The patient had 2 additional rounds of polymorphic V. tach earlier this morning that were nonsustained. Cardiology was again informed. Amiodarone drip was increased up to 1 mg a minute. As far as electrolytes, the patient has a magnesium level of 2.0 and a potassium level of 3.4. Both of the electrodes were placed. Echocardiogram was done yesterday showed an ejection fraction of around less than 20%. The patient is also moderate to severe mitral regurgitation and a PA pressure of less than 35. No pericardial effusion seen. He is afebrile. The patient on Zosyn regarding the right lower lobe pneumonia. The vent settings on the day include an assist- control at the rate of 18, tidal volume 500, FiO2 of 50% with a PEEP of 5 and the patient's blood gas showed a pH of 7.48 with a pCO2 of 30 and pO2 of 97. No significant secretions from endotracheal tube. No significant bronchospasm and wheezing. The patient is still nothing by mouth. NG tube is in place. The patient also went into an acute shock liver following a cardiopulmonary arrest. The patient has significant elevation of the AST and ALT. This has also resulted in to some coagulopathy with the patient's INR is up to 2.3. There is also drop in the platelet counts down to 119. No signs of any acute bleeding. On 05/24/2017 and seeing this patient for a follow-up. As mentioned earlier the patient is post cardiac arrest. The active issue for now is her mentation. The patient was given a sedation holiday throughout the day yesterday and she was not able to follow any commands. She would open up her eyes spontaneously yet she is not purposeful. Overnight she had to be placed back on the sedation and this morning at around 7:00 I took her off the Diprivan. At the time of my evaluation, the patient was still unresponsive to any verbal stimulation. She will grimace to painful stimulation. She does not follow any commands. No seizure activity has been noted. Hemodynamically she is improved. She is off the pressors. She is producing urine output in the order of 30 mL an hour. She is on a IV fluids at 75 mL an hour normal saline. The patient is on assist control mode of ventilation at the rate of 18, tidal volume of 500, FiO2 of 40% and a PEEP of 5 and a blood gases from today showed a pH of 7.47 with a pCO2 of 10 and 29 and pO2 of 91. Chest x-ray findings are essentially unchanged and is still some persistent right lung pneumonia. Meanwhile, the patient's is still on IV Zosyn for right lung pneumonia. Cultures of been negative thus far. The sputum cultures shown Mehnaz. Renal function is stable with a creatinine of 1.4. The patient a shock liver and the liver function is improving. INR is lower compared to yesterday and dropped from 2.3 down to 2.0. The patient is tolerating the tube feeds. The patient is not having any further ventricular arrhythmias. The patient is on a maintenance amiodarone of 0.5 mg/m and Aldactone was also added to the regimen. On 05/25/2017, I'm seeing this patient for a follow-up. The patient is off sedation for 24 hours. There is a concern of hypoxic encephalopathy versus metabolic encephalopathy as the patient has not completely regained her consciousness. She is opening her eyes and she is moving all 4 extremities. She is not purposeful that she is not following any commands. CAT scan of the brain was done and was negative for any acute abnormalities and the EEG was also done and the patient also had an urology evaluation. The patient is off sedation. The patient is intubated on a mechanical ventilator. Vent settings remain essentially unchanged within assist-control of 18, tidal volume 500, FiO2 of 40% and a PEEP of 5 and the chest x-ray from today shows persistent right lower lobe consolidation and small effusion. The patient has a pH of 7.4 with a pCO2 of 38 and pO2 of 102. Renal function continues to improve and the creatinine is down to 1.1. As for the liver function tests, the patient also shows a drop and AST and ALP and a shock liver is also improving. INR is still at 1.8 with a PT of 16.2. The patient is producing adequate amount of urine output. Denies fluid balance is +2 L over the past 24 hours. The patient is on normal saline today to 75 mL an hour. The patient is also tolerating tube feeds. The patient is on IV Zosyn. Dilaudid was added for chronic back pain. Cardiac rhythm is sinus. Amiodarone drip is still running at maintenance. On 05/27/2007 and I'm seeing this patient. The patient has still been off sedation for the past 48 hours. She is encephalopathic. I would say her neurologic exam is essentially the same. She still not following commands and she is not purposeful. She'll open her eyes and when yelled that she would. The nose and showed a grandson open her eyes. For now she hasn't followed any commands to me at least. The nurses confirm that. No seizure activity. Neurologist on the case. She is an assist-control mode of ventilation at the rate of 18, FiO2 of 5040% with a PEEP of 5 and tidal volume of 500. Blood gases from today showed a pH of 7.43 with a pCO2 of 36 and pO2 of 99. Chest x- ray is essentially unchanged and there patient has a stable consolidation of the right lung base. She remains on IV Zosyn. He was dynamically, she is in a sinus rhythm and the patient is on no pressors. No further cardiac arrhythmias have been noted the patient was switched to oral amiodarone yesterday. Her measured ejection fraction is around 20%. Producing adequate amount of urine output. tolerating the tube feeds. The patient is afebrile. The patient is on normal saline at the rate of 20 mL an hour. No other significant events overnight. For now we are waiting to have some improvement in mentation to proceed with further weaning. Patient was reevaluated today on 05/27/2017, she remains on mechanical ventilation, ventilator settings were noted FiO2 of 40% assist control rate of 18 tidal volume of 500 and PEEP of 5. ABG showed a pO2 of 90 pCO2 of 38 pH of 7.44 electrolytes were noted renal profile was noted. Seems to be relatively normal liver enzymes are noted to be a bit elevated. CBC is relatively normal. Chest x-ray showed bibasilar opacities right more so than left, and small right-sided pleural effusion. Chest x-ray findings favor atelectasis. Patient was reevaluated today on 05/28/2017, patient was extubated yesterday, presently on a nasal cannula, doing well, she has no active pulmonary symptoms, no cough no wheezing no shortness of breath. Slightly confused, but overall quite appropriate. Patient couldn't recall the year, but she was able to recall the month, and the place where she is. Labs were reviewed WBC count is 19.2 hemoglobin is 9.7 basic metabolic profile is relatively normal renal profile is also relatively normal. Objective - Vital Signs Vital signs: Vital Signs Temp 97.6 F 05/28/17 08:00 Pulse 68 05/28/17 12:57 Resp 22 05/28/17 12:00 BP 104/68 05/28/17 12:00 Pulse Ox 97 05/28/17 12:00 Intake & Output 05/27/17 05/28/17 05/28/17 18:59 06:59 18:59 Intake Total 1003 1064 634.0 Output Total 471 450 195 Balance 532 614 439.0 Weight 91.5 kg 95.9 kg Intake: IV 903 1064 434.0 0.9% normal saline 3 39 9 pressure bag Piperacillin-Tazobactam 3 50 50.0 .375 gm In Dextrose/Water 1 50ml.bag @ 12.5 mls/hr IVPB Q12HR ANIA Rx#: [id number] Sodium Chloride 0.9% 1, 900 975 375 000 ml @ 75 mls/hr IV . [id number] ANIA Rx#:[id number] Intake, IV Titration 200 Amount Magnesium Sulfate-D5w Pmx 200 1 gm In Dextrose/Water 1 100ml.bag @ 100 mls/hr IVPB Q1H ANIA Rx#: [id number] Tube Feeding 70 Other 30 Output: Urine 471 450 195 Other: Voiding Method Indwelling Catheter Indwelling Catheter Indwelling Catheter # Bowel Movements 2 ABP, PAP, CO, CI - Last Documented Arterial Blood Pressure 133/93 - Exam Physical Exam: Revealed a 72-year-old female in no distress on nasal cannula. Head: Atraumatic, normocephalic. Neck: Neck supple no neck masses, endotracheal tube is intact. HEENT:[ PERRLA, EOMI, no icterus, throat is clear, moist mucous membranes noted..] Chest: [Clear throughout, no crackles, no rhonchi, no wheezes.] Cardiac Exam: [Normal S1 and S2, no S3 gallop, no murmur.] Abdomen: [Soft, nontender, no megaly, no rebound, no guarding, normal bowel sounds.] Extremities: [No clubbing, no edema, no cyanosis.] Neurological Exam: [No gross focal neurologic deficit.] Psychiatric: Normal mood affect and mental status examination. - Labs CBC & Chem 7: 05/28/17 05:00 05/28/17 05:00 Labs: Abnormal Lab Results - Last 24 Hours (Table) 05/27/17 05/27/17 05/28/17 Range/Units 18:00 23:41 05:00 WBC (3.8-10.6) k/uL RBC (3.80-5.40) m/uL Hgb (11.4-16.0) gm/dL Hct (34.0-46.0) % MCHC (31.0-37.0) g/dL RDW (11.5-15.5) % Plt Count (150-450) k/uL Neutrophils # (1.3-7.7) k/uL Monocytes # (0-1.0) k/uL Chloride 110 H (98-107) mmol/L BUN 36 H (7-17) mg/dL POC Glucose (mg/dL) 118 H 109 H (75-99) mg/dL 05/28/17 05/28/17 05/28/17 Range/Units 05:00 05:57 11:56 WBC 19.2 H (3.8-10.6) k/uL RBC 3.54 L (3.80-5.40) m/uL Hgb 9.7 L (11.4-16.0) gm/dL Hct 32.9 L (34.0-46.0) % MCHC 29.3 L (31.0-37.0) g/dL RDW 17.6 H (11.5-15.5) % Plt Count 92 L (150-450) k/uL Neutrophils # 15.1 H (1.3-7.7) k/uL Monocytes # 1.7 H (0-1.0) k/uL Chloride (98-107) mmol/L BUN (7-17) mg/dL POC Glucose (mg/dL) 102 H 133 H (75-99) mg/dL Microbiology - Last 24 Hours (Table) 05/25/17 18:45 Anaerobic Culture - Preliminary Arm - Left 05/25/17 18:05 Gram Stain - Final Arm - Left Wound Culture - Final Assessment and Plan Assessment: 1 acute cardiac arrest/V. fib, status post CPR, defibrillation and subsequent intubation mechanical ventilation. Currently in a sinus rhythm and the patient is on amiodarone orally. [address] segment elevation myocardial infarction involving the inferior wall secondary to dissection of the RCA. The patient underwent emergent cardiac catheterization and she currently has a GRISEL 3 flow and she did not require coronary stenting. She was advised by interventional cardiology. 3 acute shock, cardiogenic in nature with an ejection fraction of 20% and the patient has been on pressors which subsequently got wean off and discontinued. 4 acute hypoxic respiratory failure secondary to above 5 acute right lower lobe pneumonia, stable on today's chest x-ray 6 acute COPD exacerbation secondary to right lower lobe pneumonia 7 encephalopathy, rule out hypoxic encephalopathy rule out metabolic encephalopathy as the patient was in acute liver and kidney injury post cardiac arrest. LFTs are improving. Function is improving. Ammonia level is low. CAT scan of the brain is negative. Neurologist on the case. The patient has been off sedation for the past 48 hours and unfortunately the neurologic status is still the same and the patient is not following any simple commands yet and the neurologic exam is nonfocal yet the patient is not purposeful. 8 acute head trauma the time of a cardiac arrest. The patient had a negative CAT scan of the head 9 diabetes mellitus 10 hyperlipidemia 11 hypothyroidism 13 history of hypertension 14 leukocytosis secondary to above 15 acute kidney injury improving the creatinine is down to 0.8 16 acute shock liver with an underlying coagulopathy. There is related to cardiopulmonary arrest. The liver function is improving. Recommendation: Continue present supportive care measures, patient could be transferred out of the ICU to a monitor bed on selective, we'll continue to follow closely. Time with Patient: Less than 30
[2017-05-28] MEDS ORDERED: VANCOMYCIN TROUGH DUE 1 EACH MISC MISCELLANE ONE (15:00)
[2017-05-28 17:16] LABS: Glucose,Whole Blood 109 mg/dL (75-99)
[2017-05-28] MEDS: VANCOMYCIN 1,500 MG in SODIUM CHLORIDE 0.9% 250 ML IVPB SCH (17:44)
[2017-05-28] MEDS: ACETAMINOPHEN TAB 325 MG TAB PO PRN (18:10)
--- NOTE | 2017-05-28 20:04 | EEG ---
ELECTROENCEPHALOGRAM REPORT DATE OF EE05/28/2017 ELECTROENCEPHALOGRAPHIC EXAMINATION REPORT: INDICATION FOR EXAMINATION: This patient is a 72-year-old female who has suffered an acute cardiac arrest. Patient extubated yesterday and is now showing signs of improvement. This is a follow-up EEG for comparison. AGE: 74. EEG FINDINGS: A routine 21-channel awake digital EEG recording was accomplished utilizing the 10-20 international system with bipolar and referential montages. The background activity in the most alert resting state consists of a low to medium amplitude, fairly well developed and well sustained 6-7 Hz activity over the posterior head region. This posterior rhythm attenuates to eye opening. There is a small amount of low amplitude 18-20 Hz beta activity seen maximally over the anterior head regions. Muscle and movement artifact was observed on a few occasions during the tracing. Hyperventilation was not performed. Photic stimulation at flash frequencies of 2-30 Hz produced a good symmetrical occipital driving response. Toward the early and mid portion of the tracing the patient does drift into spontaneous drowsiness producing generalized slowing. No epileptiform discharges were seen. IMPRESSION: This EEG is mildly abnormal in a diffuse fashion due to slowing of the EEG background. The EEG failed to reveal any focal, lateralized, or epileptiform abnormalities. Compared to a previous EEG performed on 05/24/2017, there is significant improvement in the EEG background. Clinical correlation is recommended. MMBENNETTL / WONGN: [id number] /
--- NOTE | 2017-05-28 20:13 | P.PN ---
Subjective Progress Note Date: 05/28/17 This patient is a 72-year-old female who suffered cardiac arrest with a down time of the approximately 20 minutes of CPR and defibrillation. She was initially intubated and was closely monitored in the intensive care unit over the last few days. She was extubated yesterday and did show significant improvement in her mental status and is much more awake and alert today. She was transferred out of the intensive care unit to the [facility] care floor earlier this morning. Patient did have evidence of acute ST elevation myocardial involvement and underwent cardiac catheterization finding suggesting a dissection of the RCA. Cardiology is following the patient for this condition. Patient had significant evidence on initial EEG for severe anoxic encephalopathy following cardiac arrest. She did have a follow-up EEG today which will be reviewed. Her EEG was completed today and was reviewed and does reveal mild to moderate degree of slowing. There are episodes during the EEG when she becomes more lethargic but easily arousable. We discussed these findings today with the patient's son who was admitted bedside. Apparently this morning she was much more alert and able to follow all commands. She is still alert but seems to be slightly confused at times. We have discussed the findings again with the son who was at bedside in that she has suffered some degree of anoxic brain injury from the cardiac arrest. We are recommending a repeat computed tomography scan of the brain to be done tonight and we will follow-up and compared to the previous scan that was done on 05/26/2017. The patient does follow simple commands. She does show slight weakness in her left upper extremity as there is also swelling in the left forearm. We will continue to follow her progress for a closely and will await the result of her computed tomography scan of the brain to be done later today. We have discussed these findings in detail with the son. He also feels that she is not as alert as she was yesterday. We will continue close neurological follow-up with the patient. Objective - Vital Signs Vital signs: Vital Signs Temp 97.6 F 05/28/17 08:00 Pulse 66 05/28/17 16:59 Resp 18 05/28/17 16:00 BP 126/86 05/28/17 16:00 Pulse Ox 98 05/28/17 16:00 Intake & Output 05/27/17 05/28/17 05/28/17 18:59 06:59 18:59 Intake Total 1003 1064 752.0 Output Total 471 450 195 Balance 532 614 557.0 Weight 91.5 kg 95.9 kg Intake: IV 903 1064 434.0 0.9% normal saline 3 39 9 pressure bag Piperacillin-Tazobactam 3 50 50.0 .375 gm In Dextrose/Water 1 50ml.bag @ 12.5 mls/hr IVPB Q12HR ANIA Rx#: [id number] Sodium Chloride 0.9% 1, 900 975 375 000 ml @ 75 mls/hr IV . [id number] ANIA Rx#:[id number] Intake, IV Titration 200 Amount Magnesium Sulfate-D5w Pmx 200 1 gm In Dextrose/Water 1 100ml.bag @ 100 mls/hr IVPB Q1H ANIA Rx#: [id number] Oral 118 Tube Feeding 70 Other 30 Output: Urine 471 450 195 Other: Voiding Method Indwelling Catheter Indwelling Catheter Indwelling Catheter # Bowel Movements 2 ABP, PAP, CO, CI - Last Documented Arterial Blood Pressure 133/93 - Exam Physical examination: PHYSICAL EXAMINATION: Patient is resting comfortably in bed. Patient examined on selective care today. She is slightly confused. VITAL SIGNS: Blood pressure is [126/86]. Heart rate is [65]. Respiration is [18] . Temperature is [97.7]. HEENT: Head is atraumatic, neck is supple, there were no carotid bruits. CHEST: Lungs are clear to auscultation and percussion. CARDIAC: S1, S2 normal rate and rhythm. There is no murmur. ABDOMEN: Soft and nontender. Bowel sounds are present. EXTREMITIES: There is no pedal edema. Peripheral pulses are present. Neurological examination: Patient is examined today and selective care floor. She was transferred out of the intensive care unit this morning. She is following some simple commands but still seems to be slightly encephalopathic. She has slight weakness in her left upper extremity. There is no facial asymmetry. Deep tendon reflexes are 1 + and symmetric. Plantar response is flexor bilaterally. - Labs CBC & Chem 7: 05/28/17 05:00 05/28/17 05:00 Labs: Abnormal Lab Results - Last 24 Hours (Table) 05/27/17 05/28/17 05/28/17 Range/Units 23:41 05:00 05:00 WBC 19.2 H (3.8-10.6) k/uL RBC 3.54 L (3.80-5.40) m/uL Hgb 9.7 L (11.4-16.0) gm/dL Hct 32.9 L (34.0-46.0) % MCHC 29.3 L (31.0-37.0) g/dL RDW 17.6 H (11.5-15.5) % Plt Count 92 L (150-450) k/uL Neutrophils # 15.1 H (1.3-7.7) k/uL Monocytes # 1.7 H (0-1.0) k/uL Chloride 110 H (98-107) mmol/L BUN 36 H (7-17) mg/dL POC Glucose (mg/dL) 109 H (75-99) mg/dL 05/28/17 05/28/17 05/28/17 Range/Units 05:57 11:56 16:49 WBC (3.8-10.6) k/uL RBC (3.80-5.40) m/uL Hgb (11.4-16.0) gm/dL Hct (34.0-46.0) % MCHC (31.0-37.0) g/dL RDW (11.5-15.5) % Plt Count (150-450) k/uL Neutrophils # (1.3-7.7) k/uL Monocytes # (0-1.0) k/uL Chloride (98-107) mmol/L BUN (7-17) mg/dL POC Glucose (mg/dL) 102 H 133 H 109 H (75-99) mg/dL Microbiology - Last 24 Hours (Table) 05/25/17 18:45 Anaerobic Culture - Preliminary Arm - Left 05/25/17 18:05 Gram Stain - Final Arm - Left Wound Culture - Final Assessment and Plan (1) Anoxic encephalopathy Current Visit: Yes Status: Acute Code(s): G93.1 - ANOXIC BRAIN DAMAGE, NOT ELSEWHERE CLASSIFIED SNOMED Code(s): 509674019 (2) Acute myocardial infarction Current Visit: Yes Status: Acute Code(s): I21.9 - ACUTE MYOCARDIAL INFARCTION, UNSPECIFIED SNOMED Code(s): 74582079 (3) CHF (congestive heart failure) Current Visit: Yes Status: Acute Code(s): I50.9 - HEART FAILURE, UNSPECIFIED SNOMED Code(s): 24970500 (4) Cardiac arrest with ventricular fibrillation Current Visit: Yes Status: Acute Code(s): I46.9 - CARDIAC ARREST, CAUSE UNSPECIFIED; I49.01 - VENTRICULAR FIBRILLATION SNOMED Code(s): 49095056 (5) Pneumonia Current Visit: Yes Status: Acute Code(s): J18.9 - PNEUMONIA, UNSPECIFIED ORGANISM SNOMED Code(s): 163437260 Plan: This patient is a 72-year-old female who suffered an acute cardiac arrest with downtime of about 20 minutes. She has suffered some degree of anoxic encephalopathy following cardiac arrest. She was extubated yesterday in the intensive care unit. She was transferred to the [facility] care medical floor early this morning and was making some improvement. This evening she is slightly more confused and not is a little awake and alert as she was yesterday. We have recommended to have a repeat computed tomography scan of the brain done this evening as follow-up in comparison to her previous study. She is being treated for right lower lobe pneumonia and is currently on Zosyn. She was much more awake and alert this morning according to the son. However since the past several hours she seems to be slightly more confused. We have discussed these findings with the son at that side today. He is aware for change in mentation slightly from yesterday. We will have a follow-up computed tomography scan of the brain done today and will await those results. We reviewed the results of the EEG that was done today with the son as well. There is still mild to moderate slowing noted throughout. This is an improvement from her initial EEG however she does seem to be mildly encephalopathic this evening. We will continue close neurological follow-up with the patient. Her overall prognosis remains guarded. Case was discussed with the patient's son at bedside. All of his questions were answered. He is aware of her guarded condition.
--- NOTE | 2017-05-28 20:48 | CT ---
EXAMINATION TYPE: CT brain wo con DATE OF EXAM: 05/28/2017 COMPARISON: 05/26/2017 HISTORY: Confusion CT DLP: 776.2 mGycm Automated exposure control for dose reduction was used. FINDINGS: There is mild cerebral cortical atrophy. There is no mass effect nor midline shift. There is no sign of intracranial hemorrhage. The calvarium is intact. There is some mucosal thickening in the ethmoid and sphenoid sinus. There is debris in both external auditory canals. IMPRESSION: MILD ATROPHY. NO ACUTE INTRACRANIAL ABNORMALITY. MILD SINUSITIS. NO CHANGE.
[2017-05-28 21:01] LABS: Glucose,Whole Blood 117 mg/dL (75-99)
[2017-05-29] MEDS: IPRATROPIUM-ALBUTEROL 3 ML NEB INHALATION SCH ×7 (00:16→23:24)
[2017-05-29 05:50] LABS: Glucose,Whole Blood 101 mg/dL (75-99)
[2017-05-29] MEDS: INSULIN ASPART 100 UNIT/ML 1 ML 10 ML VIAL SQ SCH ×4 (06:01→21:42)
[2017-05-29] MEDS: VANCOMYCIN 1,750 MG in SODIUM CHLORIDE 0.9% 250 ML IVPB SCH ×2 (06:01→21:27)
[2017-05-29] MEDS: LEVOTHYROXINE 50 MCG TAB PO SCH (06:01)
[2017-05-29] MEDS: ACETAMINOPHEN TAB 325 MG TAB PO PRN (06:47)
[2017-05-29 06:53] LABS: Anisocytosis Slight; Basophils % (A) 0 %; Eosinophils # (A) 0.1 k/uL (0-0.7); Eosinophils % (A) 0 %; HCT 36.3 % (34.0-46.0); HGB 10.7 gm/dL (11.4-16.0); Hypochromasia Marked; Lymphocytes # (A) 1.6 k/uL (1.0-4.8); Lymphocytes % (A) 8 %; MCH 27.4 pg (25.0-35.0); MCHC 29.5 g/dL (31.0-37.0); MCV 92.8 fL (80.0-100.0); Mean Platelet Volume 9.6; Monocytes # (A) 1.4 k/uL (0-1.0); Monocytes % (A) 7 %; Neutrophils # (A) 16.4 k/uL (1.3-7.7); Neutrophils % (A) 83 %; Platelet Count 135 k/uL (150-450); Poikilocytosis Moderate; RBC 3.91 m/uL (3.80-5.40); RDW 17.7 % (11.5-15.5); WBC 19.8 k/uL (3.8-10.6)
[2017-05-29 07:03] LABS: Calcium 8.6 mg/dL (8.4-10.2); Potassium 4.7 mmol/L (3.5-5.1)
[2017-05-29] MEDS: HEPARIN SODIUM,PORCINE 5,000 UNIT/ML 1 ML VIAL SQ SCH ×3 (09:08→23:54)
[2017-05-29] MEDS: AMIODARONE 200 MG TAB PO SCH (09:08)
[2017-05-29] MEDS: ASPIRIN 325 MG TAB PO SCH (09:08)
[2017-05-29] MEDS: FLUoxetine HCL 20 MG CAP PO SCH (09:08)
[2017-05-29] MEDS: METOPROLOL TARTRATE 12.5 MG TAB PO SCH (09:09)
[2017-05-29] MEDS: SPIRONOLACTONE 25 MG TAB PO SCH (09:09)
[2017-05-29] MEDS: LACTULOSE 20 GM/30 ML CUP PO SCH (09:09)
[2017-05-29] MEDS: PIPERACILLIN-TAZOBACTAM 3.375 GM in DEXTROSE/WATER 1 50ML.BAG IVPB SCH ×2 (09:09→23:54)
[2017-05-29] MEDS: PANTOPRAZOLE 40 MG/10 ML VIAL IV SCH (09:09)
--- NOTE | 2017-05-29 10:10 | P.PN ---
Subjective Patient is resting in bed. Mildly tachypneic vitals stable blood pressure 126/ 92 mmHg pulse rate in the 70s afebrile 97.6F Breath sounds but reduced bilaterally with rhonchorous breath sounds bilaterally crackles at the bases bilaterally Heart sounds S1 and S2 are soft and normal no murmurs Abdomen soft nontender Extremities warm no edema Labs reviewed white count elevated hemoglobin 10.7 potassium 4.7 creatinine 0.81 Impression RCA dissection, medical treatment VF arrest Short bursts of PMVT No arrhythmias for the last several days in the ICU or on telemetry now while on medical treatment Severe LV dysfunction ejection fraction less than 20% Plan Reduce amiodarone to 4 mg by mouth daily Continue aspirin Increase metoprolol to 50 mg twice daily Spironolactone 25 g by mouth daily to continue Keep potassium greater than 4.0 and magnesium within 2.0 Repeat 2-D echo tomorrow Objective - Vital Signs Vital signs: Vital Signs Temp 97.6 F 05/29/17 03:31 Pulse 72 05/29/17 08:14 Resp 18 05/29/17 03:31 BP 126/92 05/29/17 03:31 Pulse Ox 99 05/29/17 03:31 Intake & Output 05/28/17 05/29/17 05/29/17 18:59 06:59 18:59 Intake Total 752.0 Output Total 195 450 Balance 557.0 -450 Weight 93.5 kg Intake: IV 434.0 0.9% normal saline 9 pressure bag Piperacillin-Tazobactam 3 50.0 .375 gm In Dextrose/Water 1 50ml.bag @ 12.5 mls/hr IVPB Q12HR ANIA Rx#: [id number] Sodium Chloride 0.9% 1, 375 000 ml @ 75 mls/hr IV . [id number] ANIA Rx#:[id number] Intake, IV Titration 200 Amount Magnesium Sulfate-D5w Pmx 200 1 gm In Dextrose/Water 1 100ml.bag @ 100 mls/hr IVPB Q1H ANIA Rx#: [id number] Oral 118 Output: Urine 195 450 Uretheral (Constantino) 200 Other: Voiding Method Indwelling Catheter Indwelling Catheter ABP, PAP, CO, CI - Last Documented Arterial Blood Pressure 133/93 - Labs CBC & Chem 7: 05/29/17 05:53 05/29/17 05:53 Labs: Abnormal Lab Results - Last 24 Hours (Table) 05/28/17 05/28/17 05/28/17 Range/Units 11:56 16:49 20:59 WBC (3.8-10.6) k/uL Hgb (11.4-16.0) gm/dL MCHC (31.0-37.0) g/dL RDW (11.5-15.5) % Plt Count (150-450) k/uL Neutrophils # (1.3-7.7) k/uL Monocytes # (0-1.0) k/uL Chloride (98-107) mmol/L BUN (7-17) mg/dL POC Glucose (mg/dL) 133 H 109 H 117 H (75-99) mg/dL 05/29/17 05/29/17 05/29/17 Range/Units 05:48 05:53 05:53 WBC 19.8 H (3.8-10.6) k/uL Hgb 10.7 L (11.4-16.0) gm/dL MCHC 29.5 L (31.0-37.0) g/dL RDW 17.7 H (11.5-15.5) % Plt Count 135 L (150-450) k/uL Neutrophils # 16.4 H (1.3-7.7) k/uL Monocytes # 1.4 H (0-1.0) k/uL Chloride 112 H (98-107) mmol/L BUN 34 H (7-17) mg/dL POC Glucose (mg/dL) 101 H (75-99) mg/dL
[2017-05-29 11:50] LABS: Glucose,Whole Blood 121 mg/dL (75-99)
--- NOTE | 2017-05-29 12:28 | P.PN ---
Subjective Patient is doing well today. She is awake and alert. No issues overnight. She is getting a bedside echocardiogram done this morning. Objective - Vital Signs Vital signs: Vital Signs Temp 98.0 F 05/29/17 12:00 Pulse 73 05/29/17 12:00 Resp 18 05/29/17 12:00 BP 134/92 05/29/17 12:00 Pulse Ox 97 05/29/17 12:00 Intake & Output 05/28/17 05/29/17 05/29/17 18:59 06:59 18:59 Intake Total 752.0 Output Total 195 450 Balance 557.0 -450 Weight 93.5 kg Intake: IV 434.0 0.9% normal saline 9 pressure bag Piperacillin-Tazobactam 3 50.0 .375 gm In Dextrose/Water 1 50ml.bag @ 12.5 mls/hr IVPB Q12HR ANIA Rx#: [id number] Sodium Chloride 0.9% 1, 375 000 ml @ 75 mls/hr IV . [id number] ANIA Rx#:[id number] Intake, IV Titration 200 Amount Magnesium Sulfate-D5w Pmx 200 1 gm In Dextrose/Water 1 100ml.bag @ 100 mls/hr IVPB Q1H ANIA Rx#: [id number] Oral 118 Output: Urine 195 450 Uretheral (Constantino) 200 Other: Voiding Method Indwelling Catheter Indwelling Catheter ABP, PAP, CO, CI - Last Documented Arterial Blood Pressure 133/93 - Exam General: Patient is awake and alert. Eye: there is normal conjunctiva bilaterally. Neck: The neck is supple, there is no JVD. Cardiovascular: Normal S1-S2, no S3-S4, no murmurs. Respiratory: Lungs there is scattered crackles all over the chest. Gastrointestinal: Abdomen is soft, nontender Musculoskeletal: There is no pedal edema. Skin: Skin is warm and dry - Labs CBC & Chem 7: 05/29/17 05:53 05/29/17 05:53 Labs: Abnormal Lab Results - Last 24 Hours (Table) 05/28/17 05/28/17 05/29/17 Range/Units 16:49 20:59 05:48 WBC (3.8-10.6) k/uL Hgb (11.4-16.0) gm/dL MCHC (31.0-37.0) g/dL RDW (11.5-15.5) % Plt Count (150-450) k/uL Neutrophils # (1.3-7.7) k/uL Monocytes # (0-1.0) k/uL Chloride (98-107) mmol/L BUN (7-17) mg/dL POC Glucose (mg/dL) 109 H 117 H 101 H (75-99) mg/dL 05/29/17 05/29/17 05/29/17 Range/Units 05:53 05:53 11:32 WBC 19.8 H (3.8-10.6) k/uL Hgb 10.7 L (11.4-16.0) gm/dL MCHC 29.5 L (31.0-37.0) g/dL RDW 17.7 H (11.5-15.5) % Plt Count 135 L (150-450) k/uL Neutrophils # 16.4 H (1.3-7.7) k/uL Monocytes # 1.4 H (0-1.0) k/uL Chloride 112 H (98-107) mmol/L BUN 34 H (7-17) mg/dL POC Glucose (mg/dL) 121 H (75-99) mg/dL Assessment and Plan Assessment: 1. Cardiac arrest at the outside hospital status post CPR for approximately 20 minutes/defibrillation 2. Acute ST elevation [place] status post left heart catheterization with findings suggestive of dissection of the RCA. Otherwise nonobstructive coronary artery disease. Followed by cardiology. 3. Acute cardiogenic shock: Requiring vasopressors. We will continue IV fluid hydration. Repeat echocardiogram showed EF less than 20% which is new compared to her echo last month with a EF of greater than 50%. 4. Right lower lobe pneumonia maintained on Zosyn and vancomycin. 5. Acute hypoxic respiratory failure 6. Acute liver shock with significant transaminitis secondary to episodes of hypotension. now improving significantly. Liver function test back to normal 7. Type 2 diabetes mellitus 8. Mixed hyperlipidemia 9. Hypothyroidism maintained on levothyroxin Patient is doing a lot better. She was extubated on 05/27. Repeat echocardiogram done this morning awaiting report. PT/OT evaluation. We'll continue supportive care. Repeat lab work in the morning.
[2017-05-29] MEDS: HYDROmorphone 4 MG TABLET PO PRN (12:51)
[2017-05-29] MEDS ORDERED: FUROSEMIDE 10 MG/ML 2 ML VIAL IV STA (13:04)
--- NOTE | 2017-05-29 13:28 | XR ---
EXAMINATION TYPE: XR chest 1V portable DATE OF EXAM: 05/29/2017 Comparison: 05/28/2017 Clinical History: 72-year-old female with shortness of breath. Findings: RIGHT subclavian CVC tip in the right atrium. Heart mildly enlarged. Diffuse interstitial prominence with a slight increasing right greater than left bibasilar densities and suggestion of small effusion s, right greater than left. Impression: 1. Continued CHF with pulmonary vascular congestion. Slight worsening from prior. 2. Small effusions, right greater than left, with prominent adjacent atelectasis and/or consolidation extending up to the midlung level.
--- NOTE | 2017-05-29 14:01 | P.PN ---
Subjective Progress Note Date: 05/29/17 Principal diagnosis: Acute cardiac arrest/ventricular fibrillation status post CPR defibrillation and subsequent intubation A 72-year-old female patient with known history of COPD and CHF with diastolic dysfunction was originally admitted to [facility] for worsening shortness of breath and acute COPD exacerbation and CHF exacerbation. She did not have any chest pain. She did have some mild elevation of the troponin and EKG did not show any acute abnormalities. Chest x-ray showed possibly a right lower lobe pneumonia. Note that the patient was being treated and she acutely had an acute cardiac arrest. She collapsed on the floor. Initially she was found to be investigated fibrillation. CPR was initiated and the patient was defibrillated on several occasions. She was intubated and she remained hypotensive requiring pressors. The exact downtime is not known however I expect this was approximately 20 minutes of CPR and defibrillation on this patient. The patient got moved to the [place] emergency department where the EKG showed acute ST segment elevation in inferior leads with reciprocal changes. 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 The left main was patent. There was mild disease in the proximal LAD and circumflex. The dominant vessel was RCA. This was reviewed by Dr. Leggett and it was decided not to do any intervention knowing that the patient had a GRISEL 3 flow in the RCA. The patient had 3 more episodes of V. tach and the [facility] where she had to be defibrillated. She was started on amiodarone drip and she got moved to the intensive care unit on 35 mics of levo fed for hypotension. This morning and echo cardiac rhythm was done and ejection fraction is less than 20%. Overnight she was given a total of 2 L of IV fluid and currently she is on normal saline today to have 100 mL an hour. She is producing urine output in the order of 20 mL an hour. She was producing better urine output prior to that. She is currently weaned down to 50 mics of the prevent. Note that the patient also had a traumatic head injury and a CAT scan of the brain was done in the emergency department that showed no acute abnormalities. As far as the right lower lobe pneumonia, the patient is on IV Zosyn. The patient has a right venous and arterial sheath in the right groin. Amiodarone is running at the maintenance of 0.5 mg/m. She is sedated and she is moving all 4 extremities to painful is diminished yet she is not following any commands. Diprivan is running at 15 g. currently intubated on a mechanical ventilator on assist control mode at the rate of 18, tidal volume 500 , FiO2 of 50% and a PEEP of 5. Blood gases from this morning showed a pH of 7.36 with a pCO2 of 36 and pO2 of 87 on 50% FiO2. On 05/23/2016 the patient is being seen for a follow-up. The patient remains intubated on a mechanical ventilator. The patient is also sedated with Diprivan. The patient remains calm and comfortable on today's evaluation. Overnight, the patient was having runs of nonsustained polymorphic V. tach. The patient did not require to be defibrillated. Cardiology was informed and the patient was placed on metoprolol 12.5 mg by mouth twice a day. This resulted in to some drop in his blood pressure. Levo fed was used to titrate the blood pressure and we have been gradually weaning down to the levo fed and currently levo fed is down to 2 mics. The patient is tolerating the drop in the pressors. Note that the patient also received significant amount of fluid and he received additional 2 L of bolus use yesterday and his net fluid balance is at least 5-1/2 L over the past 48 hours. This has helped with fluid resuscitation and the patient's CVP is currently at 18. Her chest x-ray from today is consistent with a right lower lobe pneumonia. ET tube is in a good location. No signs of any failure and the patient also has a triple lumen catheter which is in place. The patient had 2 additional rounds of polymorphic V. tach earlier this morning that were nonsustained. Cardiology was again informed. Amiodarone drip was increased up to 1 mg a minute. As far as electrolytes, the patient has a magnesium level of 2.0 and a potassium level of 3.4. Both of the electrodes were placed. Echocardiogram was done yesterday showed an ejection fraction of around less than 20%. The patient is also moderate to severe mitral regurgitation and a PA pressure of less than 35. No pericardial effusion seen. He is afebrile. The patient on Zosyn regarding the right lower lobe pneumonia. The vent settings on the day include an assist- control at the rate of 18, tidal volume 500, FiO2 of 50% with a PEEP of 5 and the patient's blood gas showed a pH of 7.48 with a pCO2 of 30 and pO2 of 97. No significant secretions from endotracheal tube. No significant bronchospasm and wheezing. The patient is still nothing by mouth. NG tube is in place. The patient also went into an acute shock liver following a cardiopulmonary arrest. The patient has significant elevation of the AST and ALT. This has also resulted in to some coagulopathy with the patient's INR is up to 2.3. There is also drop in the platelet counts down to 119. No signs of any acute bleeding. On 05/24/2017 and seeing this patient for a follow-up. As mentioned earlier the patient is post cardiac arrest. The active issue for now is her mentation. The patient was given a sedation holiday throughout the day yesterday and she was not able to follow any commands. She would open up her eyes spontaneously yet she is not purposeful. Overnight she had to be placed back on the sedation and this morning at around 7:00 I took her off the Diprivan. At the time of my evaluation, the patient was still unresponsive to any verbal stimulation. She will grimace to painful stimulation. She does not follow any commands. No seizure activity has been noted. Hemodynamically she is improved. She is off the pressors. She is producing urine output in the order of 30 mL an hour. She is on a IV fluids at 75 mL an hour normal saline. The patient is on assist control mode of ventilation at the rate of 18, tidal volume of 500, FiO2 of 40% and a PEEP of 5 and a blood gases from today showed a pH of 7.47 with a pCO2 of 10 and 29 and pO2 of 91. Chest x-ray findings are essentially unchanged and is still some persistent right lung pneumonia. Meanwhile, the patient's is still on IV Zosyn for right lung pneumonia. Cultures of been negative thus far. The sputum cultures shown Mehnaz. Renal function is stable with a creatinine of 1.4. The patient a shock liver and the liver function is improving. INR is lower compared to yesterday and dropped from 2.3 down to 2.0. The patient is tolerating the tube feeds. The patient is not having any further ventricular arrhythmias. The patient is on a maintenance amiodarone of 0.5 mg/m and Aldactone was also added to the regimen. On 05/25/2017, I'm seeing this patient for a follow-up. The patient is off sedation for 24 hours. There is a concern of hypoxic encephalopathy versus metabolic encephalopathy as the patient has not completely regained her consciousness. She is opening her eyes and she is moving all 4 extremities. She is not purposeful that she is not following any commands. CAT scan of the brain was done and was negative for any acute abnormalities and the EEG was also done and the patient also had an urology evaluation. The patient is off sedation. The patient is intubated on a mechanical ventilator. Vent settings remain essentially unchanged within assist-control of 18, tidal volume 500, FiO2 of 40% and a PEEP of 5 and the chest x-ray from today shows persistent right lower lobe consolidation and small effusion. The patient has a pH of 7.4 with a pCO2 of 38 and pO2 of 102. Renal function continues to improve and the creatinine is down to 1.1. As for the liver function tests, the patient also shows a drop and AST and ALP and a shock liver is also improving. INR is still at 1.8 with a PT of 16.2. The patient is producing adequate amount of urine output. Denies fluid balance is +2 L over the past 24 hours. The patient is on normal saline today to 75 mL an hour. The patient is also tolerating tube feeds. The patient is on IV Zosyn. Dilaudid was added for chronic back pain. Cardiac rhythm is sinus. Amiodarone drip is still running at maintenance. On 05/27/2007 and I'm seeing this patient. The patient has still been off sedation for the past 48 hours. She is encephalopathic. I would say her neurologic exam is essentially the same. She still not following commands and she is not purposeful. She'll open her eyes and when yelled that she would. The nose and showed a grandson open her eyes. For now she hasn't followed any commands to me at least. The nurses confirm that. No seizure activity. Neurologist on the case. She is an assist-control mode of ventilation at the rate of 18, FiO2 of 5040% with a PEEP of 5 and tidal volume of 500. Blood gases from today showed a pH of 7.43 with a pCO2 of 36 and pO2 of 99. Chest x- ray is essentially unchanged and there patient has a stable consolidation of the right lung base. She remains on IV Zosyn. He was dynamically, she is in a sinus rhythm and the patient is on no pressors. No further cardiac arrhythmias have been noted the patient was switched to oral amiodarone yesterday. Her measured ejection fraction is around 20%. Producing adequate amount of urine output. tolerating the tube feeds. The patient is afebrile. The patient is on normal saline at the rate of 20 mL an hour. No other significant events overnight. For now we are waiting to have some improvement in mentation to proceed with further weaning. Patient was reevaluated today on 05/27/2017, she remains on mechanical ventilation, ventilator settings were noted FiO2 of 40% assist control rate of 18 tidal volume of 500 and PEEP of 5. ABG showed a pO2 of 90 pCO2 of 38 pH of 7.44 electrolytes were noted renal profile was noted. Seems to be relatively normal liver enzymes are noted to be a bit elevated. CBC is relatively normal. Chest x-ray showed bibasilar opacities right more so than left, and small right-sided pleural effusion. Chest x-ray findings favor atelectasis. Patient was reevaluated today on 05/28/2017, patient was extubated yesterday, presently on a nasal cannula, doing well, she has no active pulmonary symptoms, no cough no wheezing no shortness of breath. Slightly confused, but overall quite appropriate. Patient couldn't recall the year, but she was able to recall the month, and the place where she is. Labs were reviewed WBC count is 19.2 hemoglobin is 9.7 basic metabolic profile is relatively normal renal profile is also relatively normal. Patient was reevaluated today on 05/29/2017, she is presently on a monitor bed on selective, a bit confused, remains on nasal cannula, has a weak nonproductive cough. Patient does not seem to be clearing her secretions well because of her weak cough. Chest x-ray today is consistent with pulmonary vascular congestion, and possibly right lower lobe atelectasis or consolidation. Patient is already on antibiotics for presumptive aspiration pneumonia, and I have recommended giving her Lasix now at 20 mg IV push 1, may place her on a maintenance dose of Lasix of 20 mg IV push every 12 hours. CBC showed leukocytosis with WBC count of 19.8. Renal profile showed a BUN of 34 creatinine of 0.81. Echocardiogram is pending to be done today remains on Aldactone 25 mg by mouth daily. Objective - Vital Signs Vital signs: Vital Signs Temp 98.0 F 05/29/17 12:00 Pulse 72 05/29/17 13:16 Resp 18 05/29/17 12:00 BP 134/92 05/29/17 12:00 Pulse Ox 97 05/29/17 12:00 Intake & Output 05/28/17 05/29/17 05/29/17 18:59 06:59 18:59 Intake Total 752.0 90 Output Total 195 450 200 Balance 557.0 -450 -110 Weight 93.5 kg Intake: IV 434.0 0.9% normal saline 9 pressure bag Piperacillin-Tazobactam 3 50.0 .375 gm In Dextrose/Water 1 50ml.bag @ 12.5 mls/hr IVPB Q12HR ANIA Rx#: [id number] Sodium Chloride 0.9% 1, 375 000 ml @ 75 mls/hr IV . [id number] ANIA Rx#:[id number] Intake, IV Titration 200 Amount Magnesium Sulfate-D5w Pmx 200 1 gm In Dextrose/Water 1 100ml.bag @ 100 mls/hr IVPB Q1H ANIA Rx#: [id number] Oral 118 90 Output: Urine 195 450 200 Uretheral (Constantino) 200 Other: Voiding Method Indwelling Catheter Indwelling Catheter ABP, PAP, CO, CI - Last Documented Arterial Blood Pressure 133/93 - Exam Physical Exam: Revealed a 72-year-old female in no distress on nasal cannula. Head: Atraumatic, normocephalic. Neck: Neck supple no neck masses, endotracheal tube is intact. HEENT:[ PERRLA, EOMI, no icterus, throat is clear, moist mucous membranes noted..] Chest: [Crackles noted at the bases, more so at the right base. Cardiac Exam: [Normal S1 and S2, no S3 gallop, no murmur.] Abdomen: [Soft, nontender, no megaly, no rebound, no guarding, normal bowel sounds.] Extremities: [No clubbing, no edema, no cyanosis.] Neurological Exam: Slightly confused, otherwise [No gross focal neurologic deficit.] Psychiatric: Normal mood affect and mental status examination. - Labs CBC & Chem 7: 05/29/17 05:53 05/29/17 05:53 Labs: Abnormal Lab Results - Last 24 Hours (Table) 05/28/17 05/28/17 05/29/17 Range/Units 16:49 20:59 05:48 WBC (3.8-10.6) k/uL Hgb (11.4-16.0) gm/dL MCHC (31.0-37.0) g/dL RDW (11.5-15.5) % Plt Count (150-450) k/uL Neutrophils # (1.3-7.7) k/uL Monocytes # (0-1.0) k/uL Chloride (98-107) mmol/L BUN (7-17) mg/dL POC Glucose (mg/dL) 109 H 117 H 101 H (75-99) mg/dL 05/29/17 05/29/17 05/29/17 Range/Units 05:53 05:53 11:32 WBC 19.8 H (3.8-10.6) k/uL Hgb 10.7 L (11.4-16.0) gm/dL MCHC 29.5 L (31.0-37.0) g/dL RDW 17.7 H (11.5-15.5) % Plt Count 135 L (150-450) k/uL Neutrophils # 16.4 H (1.3-7.7) k/uL Monocytes # 1.4 H (0-1.0) k/uL Chloride 112 H (98-107) mmol/L BUN 34 H (7-17) mg/dL POC Glucose (mg/dL) 121 H (75-99) mg/dL Assessment and Plan Assessment: 1 acute cardiac arrest/V. fib, status post CPR, defibrillation and subsequent intubation mechanical ventilation. Currently in a sinus rhythm and the patient is on amiodarone orally. [address] segment elevation myocardial infarction involving the inferior wall secondary to dissection of the RCA. The patient underwent emergent cardiac catheterization and she currently has a GRISEL 3 flow and she did not require coronary stenting. She was advised by interventional cardiology. 3 acute shock, cardiogenic in nature with an ejection fraction of 20% and the patient has been on pressors which subsequently got wean off and discontinued. 4 acute hypoxic respiratory failure secondary to above 5 acute right lower lobe pneumonia, stable on today's chest x-ray 6 acute COPD exacerbation secondary to right lower lobe pneumonia 7 encephalopathy, rule out hypoxic encephalopathy rule out metabolic encephalopathy repeat CT of the brain showed mild atrophy otherwise no abnormality noted. This was done on 05/28/2017. 8 acute head trauma the time of a cardiac arrest. The patient had a negative CAT scan of the head 9 diabetes mellitus 10 hyperlipidemia 11 hypothyroidism 13 history of hypertension 14 leukocytosis secondary to above 15 acute kidney injury improving the creatinine is down to 0.8 16 acute shock liver with an underlying coagulopathy. There is related to cardiopulmonary arrest. The liver function is improving. Recommendation: Continue present supportive care measures, given 1 dose of Lasix 20 mg IV push, will likely recommend maintenance dose of diuretics, continue antibiotics, and will follow. Time with Patient: Less than 30
[2017-05-29] MEDS ORDERED: Magnesium Replacement Protocol 1 EACH MISC MISCELLANE PRN (14:07)
[2017-05-29] MEDS: MAGNESIUM SULFATE-D5W PMX 1 GM in DEXTROSE/WATER 1 100ML.BAG IVPB STA ×2 (15:10→15:47)
[2017-05-29 17:18] LABS: Glucose,Whole Blood 156 mg/dL (75-99)
[2017-05-29] MEDS: METOPROLOL TARTRATE 25 MG TAB PO SCH (20:26)
[2017-05-29 20:40] LABS: Glucose,Whole Blood 108 mg/dL (75-99)
[2017-05-30] MEDS: IPRATROPIUM-ALBUTEROL 3 ML NEB INHALATION SCH ×5 (03:29→19:38)
[2017-05-30 05:44] LABS: Glucose,Whole Blood 109 mg/dL (75-99)
[2017-05-30] MEDS: INSULIN ASPART 100 UNIT/ML 1 ML 10 ML VIAL SQ SCH ×4 (06:22→22:33)
[2017-05-30] MEDS: LEVOTHYROXINE 50 MCG TAB PO SCH (06:28)
[2017-05-30 06:32] LABS: Anisocytosis Slight; Basophils % (A) 0 %; Eosinophils % (A) 0 %; HCT 32.5 % (34.0-46.0); HGB 9.7 gm/dL (11.4-16.0); Hypochromasia Marked; Lymphocytes # (A) 1.4 k/uL (1.0-4.8); Lymphocytes % (A) 7 %; MCH 27.7 pg (25.0-35.0); MCHC 29.7 g/dL (31.0-37.0); MCV 93.2 fL (80.0-100.0); Macrocytosis Slight; Mean Platelet Volume 9.8; Monocytes # (A) 1.4 k/uL (0-1.0); Monocytes % (A) 7 %; Neutrophils # (A) 16.7 k/uL (1.3-7.7); Neutrophils % (A) 84 %; Platelet Count 138 k/uL (150-450); Poikilocytosis Moderate; RBC 3.49 m/uL (3.80-5.40); RDW 18.5 % (11.5-15.5); WBC 19.8 k/uL (3.8-10.6)
[2017-05-30 06:45] LABS: Calcium 8.5 mg/dL (8.4-10.2); Potassium 4.4 mmol/L (3.5-5.1)
[2017-05-30] MEDS: FLUoxetine HCL 20 MG CAP PO SCH (08:59)
[2017-05-30] MEDS: METOPROLOL TARTRATE 25 MG TAB PO SCH ×3 (08:59→19:39)
[2017-05-30] MEDS: AMIODARONE 200 MG TAB PO SCH (08:59)
[2017-05-30] MEDS: PANTOPRAZOLE 40 MG/10 ML VIAL IV SCH (08:59)
[2017-05-30] MEDS: SPIRONOLACTONE 25 MG TAB PO SCH (08:59)
[2017-05-30] MEDS: LACTULOSE 20 GM/30 ML CUP PO SCH (09:00)
[2017-05-30] MEDS: ASPIRIN 81 MG PO SCH (09:00)
[2017-05-30] MEDS: HEPARIN SODIUM,PORCINE 5,000 UNIT/ML 1 ML VIAL SQ SCH ×3 (09:00→23:10)
[2017-05-30] MEDS: PIPERACILLIN-TAZOBACTAM 3.375 GM in DEXTROSE/WATER 1 50ML.BAG IVPB SCH ×2 (09:03→19:38)
[2017-05-30] MEDS: FUROSEMIDE 10 MG/ML 2 ML VIAL IV SCH ×2 (09:04→19:39)
[2017-05-30] MEDS: HYDROmorphone 4 MG TABLET PO PRN ×2 (09:09→21:07)
--- NOTE | 2017-05-30 11:19 | P.PN ---
Subjective Recurrence of an episode of ventricular fibrillation despite being in medical treatment for all these days. Severe cardio myopathy Being treated for pneumonitis heart rate in the 60s, temperature 99.2F, blood pressure 120 266. His mercury, elevated white count of 19.8 thousand Breath sounds are reduced bilaterally with bilateral rhonchorous sounds Heart sounds are soft Suggest Increase beta lincoln dose Add mexiletine 150 mg 3 times a day Increase spironolactone to 50 mrem a day Keep potassium 4.5 and keep magnesium greater than [address] Goodman Once pneumonitis improves defibrillator therapy with external or internal should be considered See full dictation by nurse practitioner Objective - Vital Signs Vital signs: Vital Signs Temp 99.2 F 05/30/17 08:00 Pulse 68 05/30/17 08:01 Resp 16 05/30/17 08:00 BP 128/66 05/30/17 08:00 Pulse Ox 97 05/30/17 08:00 Intake & Output 05/29/17 05/30/17 05/30/17 18:59 06:59 18:59 Intake Total 90 250 Output Total 2400 500 Balance -2310 -250 Weight 94 kg 94 kg Intake: IV 250 Vancomycin 1,500 mg In 250 Sodium Chloride 0.9% 250 ml @ 125 mls/hr IVPB Q16H ANIA Rx#:[id number] Oral 90 Output: Urine 2400 500 Other: Voiding Method Indwelling Catheter Indwelling Catheter # Bowel Movements 0 ABP, PAP, CO, CI - Last Documented Arterial Blood Pressure 133/93 - Labs CBC & Chem 7: 05/30/17 05:28 05/30/17 05:28 Labs: Abnormal Lab Results - Last 24 Hours (Table) 05/29/17 05/29/17 05/29/17 Range/Units 11:32 16:20 20:38 WBC (3.8-10.6) k/uL RBC (3.80-5.40) m/uL Hgb (11.4-16.0) gm/dL Hct (34.0-46.0) % MCHC (31.0-37.0) g/dL RDW (11.5-15.5) % Plt Count (150-450) k/uL Neutrophils # (1.3-7.7) k/uL Monocytes # (0-1.0) k/uL Chloride (98-107) mmol/L BUN (7-17) mg/dL POC Glucose (mg/dL) 121 H 156 H 108 H (75-99) mg/dL 05/30/17 05/30/17 05/30/17 Range/Units 05:28 05:28 05:43 WBC 19.8 H (3.8-10.6) k/uL RBC 3.49 L (3.80-5.40) m/uL Hgb 9.7 L (11.4-16.0) gm/dL Hct 32.5 L (34.0-46.0) % MCHC 29.7 L (31.0-37.0) g/dL RDW 18.5 H (11.5-15.5) % Plt Count 138 L (150-450) k/uL Neutrophils # 16.7 H (1.3-7.7) k/uL Monocytes # 1.4 H (0-1.0) k/uL Chloride 109 H (98-107) mmol/L BUN 37 H (7-17) mg/dL POC Glucose (mg/dL) 109 H (75-99) mg/dL Microbiology - Last 24 Hours (Table) 05/25/17 18:45 Anaerobic Culture - Final Arm - Left
[2017-05-30 11:46] LABS: Glucose,Whole Blood 136 mg/dL (75-99)
--- NOTE | 2017-05-30 11:48 | P.PN ---
Subjective Progress Note Date: 05/30/17 Principal diagnosis: Acute cardiac arrest/ventricular fibrillation status post CPR defibrillation and subsequent intubation A 72-year-old female patient with known history of COPD and CHF with diastolic dysfunction was originally admitted to [facility] for worsening shortness of breath and acute COPD exacerbation and CHF exacerbation. She did not have any chest pain. She did have some mild elevation of the troponin and EKG did not show any acute abnormalities. Chest x-ray showed possibly a right lower lobe pneumonia. Note that the patient was being treated and she acutely had an acute cardiac arrest. She collapsed on the floor. Initially she was found to be investigated fibrillation. CPR was initiated and the patient was defibrillated on several occasions. She was intubated and she remained hypotensive requiring pressors. The exact downtime is not known however I expect this was approximately 20 minutes of CPR and defibrillation on this patient. The patient got moved to the [place] emergency department where the EKG showed acute ST segment elevation in inferior leads with reciprocal changes. 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 The left main was patent. There was mild disease in the proximal LAD and circumflex. The dominant vessel was RCA. This was reviewed by Dr. Leggett and it was decided not to do any intervention knowing that the patient had a GRISEL 3 flow in the RCA. The patient had 3 more episodes of V. tach and the Pediatric Allergist where she had to be defibrillated. She was started on amiodarone drip and she got moved to the intensive care unit on 35 mics of levo fed for hypotension. This morning and echo cardiac rhythm was done and ejection fraction is less than 20%. Overnight she was given a total of 2 L of IV fluid and currently she is on normal saline today to have 100 mL an hour. She is producing urine output in the order of 20 mL an hour. She was producing better urine output prior to that. She is currently weaned down to 50 mics of the prevent. Note that the patient also had a traumatic head injury and a CAT scan of the brain was done in the emergency department that showed no acute abnormalities. As far as the right lower lobe pneumonia, the patient is on IV Zosyn. The patient has a right venous and arterial sheath in the right groin. Amiodarone is running at the maintenance of 0.5 mg/m. She is sedated and she is moving all 4 extremities to painful is diminished yet she is not following any commands. Diprivan is running at 15 g. currently intubated on a mechanical ventilator on assist control mode at the rate of 18, tidal volume 500 , FiO2 of 50% and a PEEP of 5. Blood gases from this morning showed a pH of 7.36 with a pCO2 of 36 and pO2 of 87 on 50% FiO2. On 05/23/2016 the patient is being seen for a follow-up. The patient remains intubated on a mechanical ventilator. The patient is also sedated with Diprivan. The patient remains calm and comfortable on today's evaluation. Overnight, the patient was having runs of nonsustained polymorphic V. tach. The patient did not require to be defibrillated. Cardiology was informed and the patient was placed on metoprolol 12.5 mg by mouth twice a day. This resulted in to some drop in his blood pressure. Levo fed was used to titrate the blood pressure and we have been gradually weaning down to the levo fed and currently levo fed is down to 2 mics. The patient is tolerating the drop in the pressors. Note that the patient also received significant amount of fluid and he received additional 2 L of bolus use yesterday and his net fluid balance is at least 5-1/2 L over the past 48 hours. This has helped with fluid resuscitation and the patient's CVP is currently at 18. Her chest x-ray from today is consistent with a right lower lobe pneumonia. ET tube is in a good location. No signs of any failure and the patient also has a triple lumen catheter which is in place. The patient had 2 additional rounds of polymorphic V. tach earlier this morning that were nonsustained. Cardiology was again informed. Amiodarone drip was increased up to 1 mg a minute. As far as electrolytes, the patient has a magnesium level of 2.0 and a potassium level of 3.4. Both of the electrodes were placed. Echocardiogram was done yesterday showed an ejection fraction of around less than 20%. The patient is also moderate to severe mitral regurgitation and a PA pressure of less than 35. No pericardial effusion seen. He is afebrile. The patient on Zosyn regarding the right lower lobe pneumonia. The vent settings on the day include an assist- control at the rate of 18, tidal volume 500, FiO2 of 50% with a PEEP of 5 and the patient's blood gas showed a pH of 7.48 with a pCO2 of 30 and pO2 of 97. No significant secretions from endotracheal tube. No significant bronchospasm and wheezing. The patient is still nothing by mouth. NG tube is in place. The patient also went into an acute shock liver following a cardiopulmonary arrest. The patient has significant elevation of the AST and ALT. This has also resulted in to some coagulopathy with the patient's INR is up to 2.3. There is also drop in the platelet counts down to 119. No signs of any acute bleeding. On 05/24/2017 and seeing this patient for a follow-up. As mentioned earlier the patient is post cardiac arrest. The active issue for now is her mentation. The patient was given a sedation holiday throughout the day yesterday and she was not able to follow any commands. She would open up her eyes spontaneously yet she is not purposeful. Overnight she had to be placed back on the sedation and this morning at around 7:00 I took her off the Diprivan. At the time of my evaluation, the patient was still unresponsive to any verbal stimulation. She will grimace to painful stimulation. She does not follow any commands. No seizure activity has been noted. Hemodynamically she is improved. She is off the pressors. She is producing urine output in the order of 30 mL an hour. She is on a IV fluids at 75 mL an hour normal saline. The patient is on assist control mode of ventilation at the rate of 18, tidal volume of 500, FiO2 of 40% and a PEEP of 5 and a blood gases from today showed a pH of 7.47 with a pCO2 of 10 and 29 and pO2 of 91. Chest x-ray findings are essentially unchanged and is still some persistent right lung pneumonia. Meanwhile, the patient's is still on IV Zosyn for right lung pneumonia. Cultures of been negative thus far. The sputum cultures shown Mehnaz. Renal function is stable with a creatinine of 1.4. The patient a shock liver and the liver function is improving. INR is lower compared to yesterday and dropped from 2.3 down to 2.0. The patient is tolerating the tube feeds. The patient is not having any further ventricular arrhythmias. The patient is on a maintenance amiodarone of 0.5 mg/m and Aldactone was also added to the regimen. On 05/25/2017, I'm seeing this patient for a follow-up. The patient is off sedation for 24 hours. There is a concern of hypoxic encephalopathy versus metabolic encephalopathy as the patient has not completely regained her consciousness. She is opening her eyes and she is moving all 4 extremities. She is not purposeful that she is not following any commands. CAT scan of the brain was done and was negative for any acute abnormalities and the EEG was also done and the patient also had an urology evaluation. The patient is off sedation. The patient is intubated on a mechanical ventilator. Vent settings remain essentially unchanged within assist-control of 18, tidal volume 500, FiO2 of 40% and a PEEP of 5 and the chest x-ray from today shows persistent right lower lobe consolidation and small effusion. The patient has a pH of 7.4 with a pCO2 of 38 and pO2 of 102. Renal function continues to improve and the creatinine is down to 1.1. As for the liver function tests, the patient also shows a drop and AST and ALP and a shock liver is also improving. INR is still at 1.8 with a PT of 16.2. The patient is producing adequate amount of urine output. Denies fluid balance is +2 L over the past 24 hours. The patient is on normal saline today to 75 mL an hour. The patient is also tolerating tube feeds. The patient is on IV Zosyn. Dilaudid was added for chronic back pain. Cardiac rhythm is sinus. Amiodarone drip is still running at maintenance. On 05/27/2007 and I'm seeing this patient. The patient has still been off sedation for the past 48 hours. She is encephalopathic. I would say her neurologic exam is essentially the same. She still not following commands and she is not purposeful. She'll open her eyes and when yelled that she would. The nose and showed a grandson open her eyes. For now she hasn't followed any commands to me at least. The nurses confirm that. No seizure activity. Neurologist on the case. She is an assist-control mode of ventilation at the rate of 18, FiO2 of 5040% with a PEEP of 5 and tidal volume of 500. Blood gases from today showed a pH of 7.43 with a pCO2 of 36 and pO2 of 99. Chest x- ray is essentially unchanged and there patient has a stable consolidation of the right lung base. She remains on IV Zosyn. He was dynamically, she is in a sinus rhythm and the patient is on no pressors. No further cardiac arrhythmias have been noted the patient was switched to oral amiodarone yesterday. Her measured ejection fraction is around 20%. Producing adequate amount of urine output. tolerating the tube feeds. The patient is afebrile. The patient is on normal saline at the rate of 20 mL an hour. No other significant events overnight. For now we are waiting to have some improvement in mentation to proceed with further weaning. Patient was reevaluated today on 05/27/2017, she remains on mechanical ventilation, ventilator settings were noted FiO2 of 40% assist control rate of 18 tidal volume of 500 and PEEP of 5. ABG showed a pO2 of 90 pCO2 of 38 pH of 7.44 electrolytes were noted renal profile was noted. Seems to be relatively normal liver enzymes are noted to be a bit elevated. CBC is relatively normal. Chest x-ray showed bibasilar opacities right more so than left, and small right-sided pleural effusion. Chest x-ray findings favor atelectasis. Patient was reevaluated today on 05/28/2017, patient was extubated yesterday, presently on a nasal cannula, doing well, she has no active pulmonary symptoms, no cough no wheezing no shortness of breath. Slightly confused, but overall quite appropriate. Patient couldn't recall the year, but she was able to recall the month, and the place where she is. Labs were reviewed WBC count is 19.2 hemoglobin is 9.7 basic metabolic profile is relatively normal renal profile is also relatively normal. Patient was reevaluated today on 05/29/2017, she is presently on a monitor bed on selective, a bit confused, remains on nasal cannula, has a weak nonproductive cough. Patient does not seem to be clearing her secretions well because of her weak cough. Chest x-ray today is consistent with pulmonary vascular congestion, and possibly right lower lobe atelectasis or consolidation. Patient is already on antibiotics for presumptive aspiration pneumonia, and I have recommended giving her Lasix now at 20 mg IV push 1, may place her on a maintenance dose of Lasix of 20 mg IV push every 12 hours. CBC showed leukocytosis with WBC count of 19.8. Renal profile showed a BUN of 34 creatinine of 0.81. Echocardiogram is pending to be done today remains on Aldactone 25 mg by mouth daily. Patient was reevaluated today on 05/30/2017, seems to be doing relatively well, remains a slightly confused, not in distress, but she has difficulty with relatively weak cough. Patient had a follow-up chest x-ray yesterday which showed possible infiltrates at the right base, possibility of mild interstitial edema is also not entirely ruled out. At any rate patient remains on antibiotics, and today I maintained the patient on Lasix 20 mg daily. All her meds and her labs were reviewed, renal profile was also noted. Basically unchanged. Objective - Vital Signs Vital signs: Vital Signs Temp 99.2 F 05/30/17 08:00 Pulse 68 05/30/17 08:01 Resp 16 05/30/17 08:00 BP 128/66 05/30/17 08:00 Pulse Ox 97 05/30/17 08:00 Intake & Output 05/29/17 05/30/17 05/30/17 18:59 06:59 18:59 Intake Total 90 250 120 Output Total 2400 500 Balance -2310 -250 120 Weight 94 kg 94 kg Intake: IV 250 Vancomycin 1,500 mg In 250 Sodium Chloride 0.9% 250 ml @ 125 mls/hr IVPB Q16H [facility] Rx#:[id number] Oral 90 120 Output: Urine 2400 500 Other: Voiding Method Indwelling Catheter Indwelling Catheter # Bowel Movements 0 ABP, PAP, CO, CI - Last Documented Arterial Blood Pressure 133/93 - Exam Physical Exam: Revealed a 72-year-old female in no distress on nasal cannula. Minimal confusion noted Head: Atraumatic, normocephalic. Neck: Neck supple no neck masses, endotracheal tube is intact. HEENT:[ PERRLA, EOMI, no icterus, throat is clear, moist mucous membranes noted..] Chest: [Crackles noted at the bases, more so at the right base. Cardiac Exam: [Normal S1 and S2, no S3 gallop, no murmur.] Abdomen: [Soft, nontender, no megaly, no rebound, no guarding, normal bowel sounds.] Extremities: [No clubbing, no edema, no cyanosis.] Neurological Exam: Slightly confused, otherwise [No gross focal neurologic deficit.] Psychiatric: Normal mood affect relatively normal mental status exam, however slightly confused. - Labs CBC & Chem 7: 05/30/17 05:28 05/30/17 05:28 Labs: Abnormal Lab Results - Last 24 Hours (Table) 05/29/17 05/29/17 05/29/17 Range/Units 11:32 16:20 20:38 WBC (3.8-10.6) k/uL RBC (3.80-5.40) m/uL Hgb (11.4-16.0) gm/dL Hct (34.0-46.0) % MCHC (31.0-37.0) g/dL RDW (11.5-15.5) % Plt Count (150-450) k/uL Neutrophils # (1.3-7.7) k/uL Monocytes # (0-1.0) k/uL Chloride (98-107) mmol/L BUN (7-17) mg/dL POC Glucose (mg/dL) 121 H 156 H 108 H (75-99) mg/dL 05/30/17 05/30/17 05/30/17 Range/Units 05:28 05:28 05:43 WBC 19.8 H (3.8-10.6) k/uL RBC 3.49 L (3.80-5.40) m/uL Hgb 9.7 L (11.4-16.0) gm/dL Hct 32.5 L (34.0-46.0) % MCHC 29.7 L (31.0-37.0) g/dL RDW 18.5 H (11.5-15.5) % Plt Count 138 L (150-450) k/uL Neutrophils # 16.7 H (1.3-7.7) k/uL Monocytes # 1.4 H (0-1.0) k/uL Chloride 109 H (98-107) mmol/L BUN 37 H (7-17) mg/dL POC Glucose (mg/dL) 109 H (75-99) mg/dL Microbiology - Last 24 Hours (Table) 05/25/17 18:45 Anaerobic Culture - Final Arm - Left Assessment and Plan Assessment: 1 acute cardiac arrest/V. fib, status post CPR, defibrillation and subsequent intubation mechanical ventilation. Currently in a sinus rhythm and the patient is on amiodarone orally. [address] segment elevation myocardial infarction involving the inferior wall secondary to dissection of the RCA. The patient underwent emergent cardiac catheterization and she currently has a GRISEL 3 flow and she did not require coronary stenting 3 acute shock, cardiogenic in nature with an ejection fraction of 20% and the patient has been on pressors which subsequently got wean off and discontinued. 4 acute hypoxic respiratory failure secondary to above 5 acute right lower lobe pneumonia, stable on today's chest x-ray, remains on Zosyn 6 acute COPD exacerbation secondary to right lower lobe pneumonia 7 encephalopathy, rule out hypoxic encephalopathy rule out metabolic encephalopathy repeat CT of the brain showed mild atrophy otherwise no abnormality noted. This was done on 05/28/2017. 8 acute head trauma the time of a cardiac arrest. The patient had a negative CAT scan of the head 9 diabetes mellitus 10 hyperlipidemia 11 hypothyroidism 13 history of hypertension 14 leukocytosis secondary to above 15 acute kidney injury improved renal profile was noted 16 acute shock liver with an underlying coagulopathy. There is related to cardiopulmonary arrest. The liver function is improving. Recommendation: Continue present supportive care measures, will maintain on Lasix 20 mg IV push every 12 hours. Continue incentive spirometry, continue antibiotics, will initiate physical therapy consultation. Time with Patient: Less than 30
--- NOTE | 2017-05-30 13:22 | ECHOF ---
Referral Reason: MEASUREMENTS -------- HEIGHT: 0.0 cm WEIGHT: 0.0 kg BP: IVSd: 1.0 cm (0.6 - 1.1) LVIDd: 5.7 cm (3.9 - 5.3) LVPWd: 1.0 cm (0.6 - 1.1) IVSs: 1.0 cm LVIDs: 5.5 cm LVPWs: 1.2 cm FINDINGS -------- Resting bradycardia (HR<60bpm). This was a technically adequate study. The left ventricle is mildly dilated. There is severe global hypokinesis of LV . Overall left kolby tricular systolic function is severely impaired with, an EF between 25 - 30 %. 5ml of Lumason was utilized for enhancement of images. CONCLUSIONS -------- 1. Resting bradycardia (HR<60bpm). 2. This was a technically adequate study. 3. The left ventricle is mildly dilated. 4. Overall left ventricular systolic function is severely impaired with, an EF between 25 - 30 %. 5. 5ml of Lumason was utilized for enhancement of images. MISSION WORKER: Surya Covington RDCS
--- NOTE | 2017-05-30 13:51 | P.PN ---
Subjective Progress Note Date: 05/30/17 Patient had an episode of ventricular fibrillation last night. She is resting comfortably today. Objective - Vital Signs Vital signs: Vital Signs Temp 99.5 F 05/30/17 12:00 Pulse 68 05/30/17 12:04 Resp 16 05/30/17 12:00 BP 96/67 05/30/17 12:00 Pulse Ox 97 05/30/17 08:00 Intake & Output 05/29/17 05/30/17 05/30/17 18:59 06:59 18:59 Intake Total 90 250 470 Output Total 2400 500 Balance -2310 -250 470 Weight 94 kg 94 kg Intake: IV 250 100 Piperacillin-Tazobactam 3 100 .375 gm In Dextrose/Water 1 50ml.bag @ 12.5 mls/hr IVPB Q12HR [facility] Rx#: [id number] Vancomycin 1,500 mg In 250 Sodium Chloride 0.9% 250 ml @ 125 mls/hr IVPB Q16H [facility] Rx#:[id number] Intake, IV Titration 250 Amount Vancomycin 1,750 mg In 250 Sodium Chloride 0.9% 250 ml @ 125 mls/hr IVPB Q16H [facility] Rx#:[id number] Oral 90 120 Output: Urine 2400 500 Other: Voiding Method Indwelling Catheter Indwelling Catheter # Bowel Movements 0 ABP, PAP, CO, CI - Last Documented Arterial Blood Pressure 133/93 - Exam General: Patient is awake and alert. Eye: there is normal conjunctiva bilaterally. Neck: The neck is supple, there is no JVD. Cardiovascular: Normal S1-S2, no S3-S4, no murmurs. Respiratory: Lungs there is scattered crackles and rhonchi all over the chest. Gastrointestinal: Abdomen is soft, nontender Musculoskeletal: There is no pedal edema. Skin: Skin is warm and dry - Labs CBC & Chem 7: 05/30/17 05:28 05/30/17 05:28 Labs: Abnormal Lab Results - Last 24 Hours (Table) 05/29/17 05/29/17 05/30/17 Range/Units 16:20 20:38 05:28 WBC (3.8-10.6) k/uL RBC (3.80-5.40) m/uL Hgb (11.4-16.0) gm/dL Hct (34.0-46.0) % MCHC (31.0-37.0) g/dL RDW (11.5-15.5) % Plt Count (150-450) k/uL Neutrophils # (1.3-7.7) k/uL Monocytes # (0-1.0) k/uL Chloride 109 H (98-107) mmol/L BUN 37 H (7-17) mg/dL POC Glucose (mg/dL) 156 H 108 H (75-99) mg/dL 05/30/17 05/30/17 05/30/17 Range/Units 05:28 05:43 11:40 WBC 19.8 H (3.8-10.6) k/uL RBC 3.49 L (3.80-5.40) m/uL Hgb 9.7 L (11.4-16.0) gm/dL Hct 32.5 L (34.0-46.0) % MCHC 29.7 L (31.0-37.0) g/dL RDW 18.5 H (11.5-15.5) % Plt Count 138 L (150-450) k/uL Neutrophils # 16.7 H (1.3-7.7) k/uL Monocytes # 1.4 H (0-1.0) k/uL Chloride (98-107) mmol/L BUN (7-17) mg/dL POC Glucose (mg/dL) 109 H 136 H (75-99) mg/dL Microbiology - Last 24 Hours (Table) 05/25/17 18:45 Anaerobic Culture - Final Arm - Left Assessment and Plan Assessment: 1. Cardiac arrest at the outside hospital status post CPR for approximately 20 minutes/defibrillation 2. Acute ST elevation SD status post left heart catheterization with findings suggestive of dissection of the RCA. Otherwise nonobstructive coronary artery disease. Followed by cardiology. 3. Acute cardiogenic shock: Requiring vasopressors. Now resolved. Blood pressure within acceptable range. Repeat echocardiogram showed EF less than 20 % which is new compared to her echo last month with a EF of greater than 50%. 4. Right lower lobe pneumonia maintained on Zosyn and vancomycin. 5. Acute hypoxic respiratory failure 6. Acute liver shock with significant transaminitis secondary to episodes of hypotension. now improving significantly. Liver function test back to normal 7. Type 2 diabetes mellitus 8. Mixed hyperlipidemia 9. Hypothyroidism maintained on levothyroxin 10. Episode of V. fib: Cardiology following closely. Her regimen has been adjusted. Patient would eventually need a defibrillator when her overall condition is improved. Electrolytes within acceptable range. Patient is making slow progress.. She was extubated on 05/27. Repeat echocardiogram done yesterday awaiting report. PT/OT evaluation. We'll continue supportive care. Repeat lab work in the morning.
--- NOTE | 2017-05-30 14:07 | P.PN ---
Subjective Progress Note Date: 05/30/17 This is a 72-year-old female patient with history of COPD, diastolic congestive heart failure, who was admitted to [facility] with complaints of shortness of breath. Her troponins were noted to be mildly elevated, EKGs did not reveal any acute changes. Chest x-ray suggested a right lower lobe pneumonia. Patient was treated with antibiotics. At the time of shift change, the nurses heard a loud noise and found that the patient was on the floor face down. On the supervisor [employer] patient was noted to be in ventricular fibrillation, she was given epinephrine, as well as a shock and went into pulseless rhythm. She apparently regained a pulse, blood pressure at that time was very low. She was significantly hypoxic. Subsequent to that she was intubated, remained hypotensive requiring epinephrine. Patient then was transferred here to [facility] for further care. Patient was taken to the cardiac catheterization lab where she was found to have calcified coronary system with mild disease in the LAD. The right coronary artery shows haziness in the proximal portion which is felt to be secondary to spontaneous dissection that cannot be excluded. Films were reviewed at that time by Dr. Leggett in the decision was made to maximize medical therapy. Patient was noted at times to have a low magnesium and low potassium level, these were replaced. Patient had medication adjustments made. In spite of that it was noted that through afternoon hours yesterday patient again had runs of ventricular fibrillation. Magnesium level today is 2.0. Dr. Solano did discuss the patient's case with Dr. Goodman. Recommendations were to increase beta lincoln dose, add mexiletine 150 3 times a day, increase Aldactone to 50 daily, keep potassium in the range of 4.5 and keep the magnesium greater than 2. The patient's pneumonia improves, AICD therapy with external or internal should be considered. Objective - Vital Signs Vital signs: Vital Signs Temp 99.5 F 05/30/17 12:00 Pulse 68 05/30/17 12:04 Resp 16 05/30/17 12:00 BP 96/67 05/30/17 12:00 Pulse Ox 97 05/30/17 08:00 Intake & Output 05/29/17 05/30/17 05/30/17 18:59 06:59 18:59 Intake Total 90 250 470 Output Total 2400 500 Balance -2310 -250 470 Weight 94 kg 94 kg Intake: IV 250 100 Piperacillin-Tazobactam 3 100 .375 gm In Dextrose/Water 1 50ml.bag @ 12.5 mls/hr IVPB Q12HR [facility] Rx#: [id number] Vancomycin 1,500 mg In 250 Sodium Chloride 0.9% 250 ml @ 125 mls/hr IVPB Q16H [facility] Rx#:[id number] Intake, IV Titration 250 Amount Vancomycin 1,750 mg In 250 Sodium Chloride 0.9% 250 ml @ 125 mls/hr IVPB Q16H [facility] Rx#:[id number] Oral 90 120 Output: Urine 2400 500 Other: Voiding Method Indwelling Catheter Indwelling Catheter # Bowel Movements 0 ABP, PAP, CO, CI - Last Documented Arterial Blood Pressure 133/93 - Exam PHYSICAL EXAMINATION: HEENT: Head is atraumatic, normocephalic. Pupils equal, round. Neck is supple. There is no elevated jugular venous pressure. HEART EXAMINATION: Heart S1, S2 normal. No murmur or gallop heard. CHEST EXAMINATION: Lungs reveal crackles to bilateral bases, fine wheezing also noted. ABDOMEN: Soft, nontender. Bowel sounds are heard. No organomegaly noted. EXTREMITIES: 2+ peripheral pulses with no evidence of peripheral edema and no calf tenderness noted. NEUROLOGIC patient is awake, mildly confused . - Labs CBC & Chem 7: 05/30/17 05:28 05/30/17 05:28 Labs: Abnormal Lab Results - Last 24 Hours (Table) 05/29/17 05/29/17 05/30/17 Range/Units 16:20 20:38 05:28 WBC (3.8-10.6) k/uL RBC (3.80-5.40) m/uL Hgb (11.4-16.0) gm/dL Hct (34.0-46.0) % MCHC (31.0-37.0) g/dL RDW (11.5-15.5) % Plt Count (150-450) k/uL Neutrophils # (1.3-7.7) k/uL Monocytes # (0-1.0) k/uL Chloride 109 H (98-107) mmol/L BUN 37 H (7-17) mg/dL POC Glucose (mg/dL) 156 H 108 H (75-99) mg/dL 03/05/30/17 05/30/17 Range/Units 05:28 05:43 11:40 WBC 19.8 H (3.8-10.6) k/uL RBC 3.49 L (3.80-5.40) m/uL Hgb 9.7 L (11.4-16.0) gm/dL Hct 32.5 L (34.0-46.0) % MCHC 29.7 L (31.0-37.0) g/dL RDW 18.5 H (11.5-15.5) % Plt Count 138 L (150-450) k/uL Neutrophils # 16.7 H (1.3-7.7) k/uL Monocytes # 1.4 H (0-1.0) k/uL Chloride (98-107) mmol/L BUN (7-17) mg/dL POC Glucose (mg/dL) 109 H 136 H (75-99) mg/dL Microbiology - Last 24 Hours (Table) 05/25/17 18:45 Anaerobic Culture - Final Arm - Left Assessment and Plan Plan: Assessment and plan #1 acute cardiac arrest/V. fib, status post CPR, defibrillation, and subsequent intubation requiring mechanical ventilation. Patient was noted again yesterday evening to have a run of ventricular fibrillation. #[address] elevation myocardial infarction involving the inferior wall, secondary to dissection of the RCA. Patient did undergo cardiac catheterization which revealed GRISEL-3 flow and did not require stenting #3 acute shock, cardiogenic in nature, EF 20% #4 acute hypoxic respiratory failure #5 right lower lobe pneumonia #6 COPD #7 diabetes #8 hyperlipidemia #9 hypertension #10 hypothyroidism Plan We will increase the current beta lincoln dose to 3 times a day, add mexiletine 150 mg 3 times a day to the patient's medication regime. Increase Aldactone to 50 mg daily, keep potassium 4.5 and magnesium greater than 2. Once the pneumonia improves, defibrillator therapy with external or internal needs to be considered. DNP note has been reviewed, I agree with a documented findings and plan of care. Patient was seen and examined.
[2017-05-30] MEDS: MEXILETINE 150 MG CAP PO SCH (16:04)
[2017-05-30] MEDS: VANCOMYCIN 1,750 MG in SODIUM CHLORIDE 0.9% 250 ML IVPB SCH (16:11)
[2017-05-30 16:45] LABS: Glucose,Whole Blood 128 mg/dL (75-99)
--- NOTE | 2017-05-30 20:05 | P.PN ---
Subjective Progress Note Date: 05/30/17 This patient is a 72-year-old female who suffered cardiac arrest with a down time of the approximately 20 minutes of CPR and defibrillation. She was initially intubated and was closely monitored in the intensive care unit over the last few days. She was extubated yesterday and did show significant improvement in her mental status and is much more awake and alert today. She was transferred out of the intensive care unit to the [facility] care floor earlier this morning. Patient did have evidence of acute ST elevation myocardial involvement and underwent cardiac catheterization finding suggesting a dissection of the RCA. Cardiology is following the patient for this condition. Patient had significant evidence on initial EEG for severe anoxic encephalopathy following cardiac arrest. She did have a follow-up EEG today which was reviewed. Her EEG was completed and was reviewed and does reveal mild to moderate degree of slowing. There are episodes during the EEG when she becomes more lethargic but easily arousable. We discussed these findings today with the patient's son who was at bedside. Apparently this morning she was much more alert and able to follow all commands. She is still alert but seems to be slightly confused at times. We have discussed the findings again with the son who was at bedside in that she has suffered some degree of anoxic brain injury from the cardiac arrest. We are recommending a repeat computed tomography scan of the brain to be done and we will follow-up and compared to the previous CAT scan. This was completed on 05/28/2017. This CAT scan revealed mild atrophy with no acute intracranial abnormality. The patient had an episode of ventricular fibrillation last night. According to the son who is at bedside this occurred during breathing treatment. This only lasted several seconds. Cardiology was aware of this and have seen the patient today and made some adjustments with her medications. The patient likely will need a defibrillator once her medical condition is stabilized. We have discussed these findings in detail with the son. The patient is more awake and alert today. She is able to follow all commands. According to the son she is showing slow improvement following her cardiac arrest. We will continue close neurological follow-up with the patient. Objective - Vital Signs Vital signs: Vital Signs Temp 99.5 F 05/30/17 12:00 Pulse 68 05/30/17 16:09 Resp 16 05/30/17 14:51 BP 96/67 05/30/17 12:00 Pulse Ox 97 05/30/17 08:00 Intake & Output 05/29/17 05/30/17 05/30/17 18:59 06:59 18:59 Intake Total 90 250 570 Output Total 2400 500 1500 Balance -2310 -250 -930 Weight 94 kg 94 kg Intake: IV 250 100 Piperacillin-Tazobactam 3 100 .375 gm In Dextrose/Water 1 50ml.bag @ 12.5 mls/hr IVPB Q12HR [facility] Rx#: [id number] Vancomycin 1,500 mg In 250 Sodium Chloride 0.9% 250 ml @ 125 mls/hr IVPB Q16H [facility] Rx#:[id number] Intake, IV Titration 250 Amount Vancomycin 1,750 mg In 250 Sodium Chloride 0.9% 250 ml @ 125 mls/hr IVPB Q16H [facility] Rx#:[id number] Oral 90 220 Output: Urine 2400 500 1500 Other: Voiding Method Indwelling Catheter Indwelling Catheter # Bowel Movements 0 ABP, PAP, CO, CI - Last Documented Arterial Blood Pressure 133/93 - Exam Physical examination: PHYSICAL EXAMINATION: Patient is resting comfortably in bed. Patient examined on selective care today. She is slightly confused. VITAL SIGNS: Blood pressure is [100/67]. Heart rate is [58]. Respiration is [16] . Temperature is [99.5]. HEENT: Head is atraumatic, neck is supple, there were no carotid bruits. CHEST: Lungs are clear to auscultation and percussion. CARDIAC: S1, S2 normal rate and rhythm. There is no murmur. ABDOMEN: Soft and nontender. Bowel sounds are present. EXTREMITIES: There is no pedal edema. Peripheral pulses are present. Neurological examination: Patient is examined today and selective care floor. The patient is awake and alert. She is following simple commands. She is more responsive as noted by her son. The patient is moving all extremities. Muscle tone is normal. Muscle strength testing reveals 4/5 strength throughout. Deep tendon reflexes are hypoactive. Plantar responses flexor bilaterally - Labs CBC & Chem 7: 05/30/17 05:28 05/30/17 05:28 Labs: Abnormal Lab Results - Last 24 Hours (Table) 05/29/17 05/30/17 05/30/17 Range/Units 20:38 05:28 05:28 WBC 19.8 H (3.8-10.6) k/uL RBC 3.49 L (3.80-5.40) m/uL Hgb 9.7 L (11.4-16.0) gm/dL Hct 32.5 L (34.0-46.0) % MCHC 29.7 L (31.0-37.0) g/dL RDW 18.5 H (11.5-15.5) % Plt Count 138 L (150-450) k/uL Neutrophils # 16.7 H (1.3-7.7) k/uL Monocytes # 1.4 H (0-1.0) k/uL Chloride 109 H (98-107) mmol/L BUN 37 H (7-17) mg/dL POC Glucose (mg/dL) 108 H (75-99) mg/dL 05/30/17 05/30/17 05/30/17 Range/Units 05:43 11:40 16:26 WBC (3.8-10.6) k/uL RBC (3.80-5.40) m/uL Hgb (11.4-16.0) gm/dL Hct (34.0-46.0) % MCHC (31.0-37.0) g/dL RDW (11.5-15.5) % Plt Count (150-450) k/uL Neutrophils # (1.3-7.7) k/uL Monocytes # (0-1.0) k/uL Chloride (98-107) mmol/L BUN (7-17) mg/dL POC Glucose (mg/dL) 109 H 136 H 128 H (75-99) mg/dL Microbiology - Last 24 Hours (Table) 05/25/17 18:45 Anaerobic Culture - Final Arm - Left Assessment and Plan (1) Anoxic encephalopathy Current Visit: Yes Status: Acute Code(s): G93.1 - ANOXIC BRAIN DAMAGE, NOT ELSEWHERE CLASSIFIED SNOMED Code(s): 995485072 (2) Acute myocardial infarction Current Visit: Yes Status: Acute Code(s): I21.9 - ACUTE MYOCARDIAL INFARCTION, UNSPECIFIED SNOMED Code(s): 74867075 (3) CHF (congestive heart failure) Current Visit: Yes Status: Acute Code(s): I50.9 - HEART FAILURE, UNSPECIFIED SNOMED Code(s): 12343289 (4) Cardiac arrest with ventricular fibrillation Current Visit: Yes Status: Acute Code(s): I46.9 - CARDIAC ARREST, CAUSE UNSPECIFIED; I49.01 - VENTRICULAR FIBRILLATION SNOMED Code(s): 80810193 (5) Pneumonia Current Visit: Yes Status: Acute Code(s): J18.9 - PNEUMONIA, UNSPECIFIED ORGANISM SNOMED Code(s): 278848303 Plan: This patient is a 72-year-old female who was initially evaluated for episode of cardiac arrest with a downtime of at least 20-30 minutes. She was resuscitated and transferred to [facility] where she underwent cardiac catheterization. She was found to have calcified coronary system with mild disease in the LAD. Right coronary arteries showed signs of possible spontaneous dissection. She was intubated and had been monitored for several days in the intensive care unit. She was extubated and transferred to [facility] care floor. She had been making good progress but still is quite slow and lethargic at times. Yesterday evening she had a episode of ventricular fibrillation. Cardiology has addressed this and has changed some of her cardiac medications. Once this patient's pneumonia improves she is going to be considered for defibrillator placement. The patient is more awake and alert today. She is following simple commands. We will continue close neurological follow-up for the patient during this admission. She is making very slow progress in terms of her recovery following cardiac arrest. Cognitively she is showing slow improvement day by day. We've discussed her findings today in detail with the patient's son who is at bedside. We have answered all of his questions. We will continue close neurological follow-up for this patient.
[2017-05-30 22:15] LABS: Glucose,Whole Blood 134 mg/dL (75-99)
[2017-05-31] MEDS: IPRATROPIUM-ALBUTEROL 3 ML NEB INHALATION SCH ×6 (00:15→19:26)
[2017-05-31] MEDS: MEXILETINE 150 MG CAP PO SCH ×4 (00:28→23:03)
[2017-05-31] MEDS ORDERED: VANCOMYCIN TROUGH DUE 1 EACH MISC MISCELLANE ONE (05:00)
[2017-05-31 06:15] LABS: Calcium 8.5 mg/dL (8.4-10.2); Potassium 3.9 mmol/L (3.5-5.1)
[2017-05-31] MEDS: VANCOMYCIN 1,750 MG in SODIUM CHLORIDE 0.9% 250 ML IVPB SCH (06:25)
[2017-05-31] MEDS: LEVOTHYROXINE 50 MCG TAB PO SCH (06:25)
[2017-05-31] MEDS: INSULIN ASPART 100 UNIT/ML 1 ML 10 ML VIAL SQ SCH ×4 (06:36→21:03)
[2017-05-31 06:37] LABS: Glucose,Whole Blood 125 mg/dL (75-99)
[2017-05-31] MEDS: AMIODARONE 200 MG TAB PO SCH (08:50)
[2017-05-31] MEDS: HEPARIN SODIUM,PORCINE 5,000 UNIT/ML 1 ML VIAL SQ SCH ×2 (08:50→21:02)
[2017-05-31] MEDS: METOPROLOL TARTRATE 25 MG TAB PO SCH (08:51)
[2017-05-31] MEDS: FLUoxetine HCL 20 MG CAP PO SCH (08:51)
[2017-05-31] MEDS: PANTOPRAZOLE 40 MG/10 ML VIAL IV SCH (08:51)
[2017-05-31] MEDS: FUROSEMIDE 10 MG/ML 2 ML VIAL IV SCH (08:51)
[2017-05-31] MEDS: LACTULOSE 20 GM/30 ML CUP PO SCH (08:51)
[2017-05-31] MEDS: ASPIRIN 81 MG PO SCH (08:51)
[2017-05-31] MEDS: PIPERACILLIN-TAZOBACTAM 3.375 GM in DEXTROSE/WATER 1 50ML.BAG IVPB SCH ×2 (08:52→21:01)
[2017-05-31] MEDS ORDERED: SPIRONOLACTONE 25 MG TAB PO SCH (09:00)
[2017-05-31] MEDS: HYDROmorphone 4 MG TABLET PO PRN (09:02)
--- NOTE | 2017-05-31 10:51 | P.PN ---
Progress Note - Text Patient seen by Dr. Goodman in consultation for ventricular fibrillation From a cardiac standpoint initially after the first event she was treated medically and for several days did not have any episodes of ventricular fibrillation When she was transferred out of the ICU she had an episode of ventricular fibrillation that was brief and self terminated Currently the pulmonary issues elevated white count increased for pneumonitis Stable from a cardiovascular standpoint. Medications were maximized At discharge I would recommend at least a LifeVest and reevaluation of LV function in about 6 weeks for consideration for ICD If there is prior documentation of cardio myopathy then an ICD may be implanted once her white count normalizes Please see full dictation by nurse practitioner
--- NOTE | 2017-05-31 11:08 | P.PN ---
Subjective Progress Note Date: 05/31/17 This is a 72-year-old female patient with history of COPD, diastolic congestive heart failure, who was admitted to [facility] with complaints of shortness of breath. Her troponins were noted to be mildly elevated, EKGs did not reveal any acute changes. Chest x-ray suggested a right lower lobe pneumonia. Patient was treated with antibiotics. At the time of shift change, the nurses heard a loud noise and found that the patient was on the floor face down. On the rating examiner patient was noted to be in ventricular fibrillation, she was given epinephrine, as well as a shock and went into pulseless rhythm. She apparently regained a pulse, blood pressure at that time was very low. She was significantly hypoxic. Subsequent to that she was intubated, remained hypotensive requiring epinephrine. Patient then was transferred here to [facility] for further care. Patient was taken to the cardiac catheterization lab where she was found to have calcified coronary system with mild disease in the LAD. The right coronary artery shows haziness in the proximal portion which is felt to be secondary to spontaneous dissection that cannot be excluded. Films were reviewed at that time by Dr. Leggett in the decision was made to maximize medical therapy. Patient was noted at times to have a low magnesium and low potassium level, these were replaced. Patient had medication adjustments made. In spite of that it was noted that through afternoon hours yesterday patient again had runs of ventricular fibrillation. Magnesium level today is 2.0. Dr. Solano did discuss the patient's case with Dr. Goodman. Recommendations were to increase beta lincoln dose, add mexiletine 150 3 times a day, increase Aldactone to 50 daily, keep potassium in the range of 4.5 and keep the magnesium greater than 2. The patient's pneumonia improves, AICD therapy with external or internal should be considered. 05/31/2017 Patient was seen and examined this morning, overall feeling better. No further episodes of ventricular fibrillation were noted on the monitor. Blood pressure 102/60 with a heart rate in the 50s. Patient continues to be on 4 L of oxygen, satting 93%. Sodium 142, potassium 3.9, BUN 37, creatinine 1.0. Patient continues to be on IV antibiotics and IV Lasix. Objective - Vital Signs Vital signs: Vital Signs Temp 97.6 F 05/31/17 08:00 Pulse 52 L 05/31/17 09:10 Resp 20 05/31/17 08:00 BP 102/63 05/31/17 08:00 Pulse Ox 93 L 05/31/17 08:00 Intake & Output 05/30/17 05/31/17 05/31/17 18:59 06:59 18:59 Intake Total 570 248 Output Total 1500 1450 250 Balance -930 -1450 -2 Weight 94 kg 116.9 kg Intake: IV 100 70 Invasive Line 6 20 Piperacillin-Tazobactam 3 100 50 .375 gm In Dextrose/Water 1 50ml.bag @ 12.5 mls/hr IVPB Q12HR [facility] Rx#: [id number] Intake, IV Titration 250 Amount Vancomycin 1,750 mg In 250 Sodium Chloride 0.9% 250 ml @ 125 mls/hr IVPB Q16H [facility] Rx#:[id number] Oral 220 178 Output: Urine 1500 1450 250 Other: Voiding Method Indwelling Catheter Indwelling Catheter Indwelling Catheter ABP, PAP, CO, CI - Last Documented Arterial Blood Pressure 133/93 - Exam PHYSICAL EXAMINATION: HEENT: Head is atraumatic, normocephalic. Pupils equal, round. Neck is supple. There is no elevated jugular venous pressure. HEART EXAMINATION: Heart S1, S2 normal. No murmur or gallop heard. CHEST EXAMINATION: Lungs reveal crackles to bilateral bases, fine wheezing also noted. ABDOMEN: Soft, nontender. Bowel sounds are heard. No organomegaly noted. EXTREMITIES: 2+ peripheral pulses with no evidence of peripheral edema and no calf tenderness noted. NEUROLOGIC patient is awake, mildly confused . - Labs CBC & Chem 7: 05/30/17 05:28 05/31/17 05:29 Labs: Abnormal Lab Results - Last 24 Hours (Table) 05/30/17 05/30/17 05/30/17 Range/Units 11:40 16:26 22:12 BUN (7-17) mg/dL Glucose (74-99) mg/dL POC Glucose (mg/dL) 136 H 128 H 134 H (75-99) mg/dL 05/31/17 05/31/17 Range/Units 05:29 06:35 BUN 37 H (7-17) mg/dL Glucose 106 H (74-99) mg/dL POC Glucose (mg/dL) 125 H (75-99) mg/dL Assessment and Plan Plan: Assessment and plan #1 acute cardiac arrest/V. fib, status post CPR, defibrillation, and subsequent intubation requiring mechanical ventilation. Patient was noted again yesterday evening to have a run of ventricular fibrillation. #[address] elevation myocardial infarction involving the inferior wall, secondary to dissection of the RCA. Patient did undergo cardiac catheterization which revealed GRISEL-3 flow and did not require stenting #3 acute shock, cardiogenic in nature, EF 20% #4 acute hypoxic respiratory failure #5 right lower lobe pneumonia #6 COPD #7 diabetes #8 hyperlipidemia #9 hypertension #10 hypothyroidism Plan From cardiology's perspective, we'll continue current medications which include amiodarone 400 mg daily, aspirin 162 mg daily, metoprolol 25 mg 3 times a day, mexiletine 150 mg every 8 hour and Aldactone 50 mg daily. Once the pneumonia clears, defibrillator therapy with external or internal needs to be considered. We would recommend patient wear a LifeVest on discharge. DNP note has been reviewed, I agree with a documented findings and plan of care. Patient was seen and examined.
[2017-05-31] MEDS ORDERED: LACTULOSE 20 GM/30 ML CUP PO PRN (11:54)
--- NOTE | 2017-05-31 12:16 | P.PN ---
Subjective Progress Note Date: 05/31/17 Principal diagnosis: Acute cardiac arrest/ventricular fibrillation status post CPR defibrillation and subsequent intubation A 72-year-old female patient with known history of COPD and CHF with diastolic dysfunction was originally admitted to [facility] for worsening shortness of breath and acute COPD exacerbation and CHF exacerbation. She did not have any chest pain. She did have some mild elevation of the troponin and EKG did not show any acute abnormalities. Chest x-ray showed possibly a right lower lobe pneumonia. Note that the patient was being treated and she acutely had an acute cardiac arrest. She collapsed on the floor. Initially she was found to be investigated fibrillation. CPR was initiated and the patient was defibrillated on several occasions. She was intubated and she remained hypotensive requiring pressors. The exact downtime is not known however I expect this was approximately 20 minutes of CPR and defibrillation on this patient. The patient got moved to the [place] emergency department where the EKG showed acute ST segment elevation in inferior leads with reciprocal changes. 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 The left main was patent. There was mild disease in the proximal LAD and circumflex. The dominant vessel was RCA. This was reviewed by Dr. Leggett and it was decided not to do any intervention knowing that the patient had a GRISEL 3 flow in the RCA. The patient had 3 more episodes of V. tach and the [facility] where she had to be defibrillated. She was started on amiodarone drip and she got moved to the intensive care unit on 35 mics of levo fed for hypotension. This morning and echo cardiac rhythm was done and ejection fraction is less than 20%. Overnight she was given a total of 2 L of IV fluid and currently she is on normal saline today to have 100 mL an hour. She is producing urine output in the order of 20 mL an hour. She was producing better urine output prior to that. She is currently weaned down to 50 mics of the prevent. Note that the patient also had a traumatic head injury and a CAT scan of the brain was done in the emergency department that showed no acute abnormalities. As far as the right lower lobe pneumonia, the patient is on IV Zosyn. The patient has a right venous and arterial sheath in the right groin. Amiodarone is running at the maintenance of 0.5 mg/m. She is sedated and she is moving all 4 extremities to painful is diminished yet she is not following any commands. Mounika is running at 15 g. currently intubated on a mechanical ventilator on assist control mode at the rate of 18, tidal volume 500 , FiO2 of 50% and a PEEP of 5. Blood gases from this morning showed a pH of 7.36 with a pCO2 of 36 and pO2 of 87 on 50% FiO2. Patient was reevaluated today on 05/30/2017, seems to be doing relatively well, remains a slightly confused, not in distress, but she has difficulty with relatively weak cough. Patient had a follow-up chest x-ray yesterday which showed possible infiltrates at the right base, possibility of mild interstitial edema is also not entirely ruled out. At any rate patient remains on antibiotics, and today I maintained the patient on Lasix 20 mg daily. All her meds and her labs were reviewed, renal profile was also noted. Basically unchanged. Reevaluated today on 05/31/2017, patient looks frail, weak, continues to have a weak cough, but hemodynamically stable, seems to be less and less confused compared to the last few days. Basic metabolic profile is relatively normal, remains on bronchodilators, antibiotics, and diuretics. Objective - Vital Signs Vital signs: Vital Signs Temp 97.0 F L 05/31/17 11:56 Pulse 47 L 05/31/17 11:56 Resp 20 05/31/17 11:56 BP 80/59 05/31/17 11:56 Pulse Ox 100 05/31/17 11:56 Intake & Output 05/30/17 05/31/17 05/31/17 18:59 06:59 18:59 Intake Total 570 248 Output Total 1500 1450 250 Balance -930 -1450 -2 Weight 94 kg 116.9 kg 116.9 kg Intake: IV 100 70 Invasive Line 6 20 Piperacillin-Tazobactam 3 100 50 .375 gm In Dextrose/Water 1 50ml.bag @ 12.5 mls/hr IVPB Q12HR [facility] Rx#: [id number] Intake, IV Titration 250 Amount Vancomycin 1,750 mg In 250 Sodium Chloride 0.9% 250 ml @ 125 mls/hr IVPB Q16H [facility] Rx#:[id number] Oral 220 178 Output: Urine 1500 1450 250 Other: Voiding Method Indwelling Catheter Indwelling Catheter Indwelling Catheter ABP, PAP, CO, CI - Last Documented Arterial Blood Pressure 133/93 - Exam Physical Exam: Revealed a 72-year-old female in no distress on nasal cannula. Definitely less confused today, recognizes all her family members around him today. And she knew where she was. Head: Atraumatic, normocephalic. Neck: Neck supple no neck masses, moist mucous membranes noted.. HEENT:[ PERRLA, EOMI, no icterus, throat is clear, Chest: [Crackles noted at the bases, more so at the right base. Cardiac Exam: [Normal S1 and S2, no S3 gallop, no murmur.] Abdomen: [Soft, nontender, no megaly, no rebound, no guarding, normal bowel sounds.] Extremities: [No clubbing, no edema, no cyanosis.] Neurological Exam: No gross focal neurologic deficit, however the patient is noted to be generally weak.] Psychiatric: Normal mood affect relatively normal mental status exam, - Labs CBC & Chem 7: 05/30/17 05:28 05/31/17 05:29 Labs: Abnormal Lab Results - Last 24 Hours (Table) 05/30/17 05/30/17 05/31/17 Range/Units 16:26 22:12 05:29 BUN 37 H (7-17) mg/dL Glucose 106 H (74-99) mg/dL POC Glucose (mg/dL) 128 H 134 H (75-99) mg/dL 05/31/17 Range/Units 06:35 BUN (7-17) mg/dL Glucose (74-99) mg/dL POC Glucose (mg/dL) 125 H (75-99) mg/dL Assessment and Plan Assessment: 1 acute cardiac arrest/V. fib, status post CPR, defibrillation and subsequent intubation mechanical ventilation. [address] segment elevation myocardial infarction involving the inferior wall secondary to dissection of the RCA. The patient underwent emergent cardiac catheterization and she currently has a GRISEL 3 flow and she did not require coronary stenting 3 acute shock, cardiogenic in nature with an ejection fraction of 20% 4 acute hypoxic respiratory failure secondary to above, resolved 5 acute right lower lobe pneumonia, stable on today's chest x-ray, remains on Zosyn 6 acute COPD exacerbation secondary to right lower lobe pneumonia 7 anoxic encephalopathy, improving. 8 acute head trauma the time of a cardiac arrest. The patient had a negative CAT scan of the head 9 diabetes mellitus 10 hyperlipidemia 11 hypothyroidism 13 history of hypertension 14 leukocytosis secondary to above 15 acute kidney injury improved renal profile was noted 16 acute shock liver with an underlying coagulopathy. Resolved Recommendation: Continue present supportive care measures, will maintain on Lasix 20 mg IV push every 12 hours. Continue incentive spirometry, continue antibiotics, continue physical therapy. Consider discharge planning soon to ECF. Time with Patient: Less than 30
[2017-05-31 12:27] LABS: Glucose,Whole Blood 186 mg/dL (75-99)
--- NOTE | 2017-05-31 12:46 | P.PN ---
Subjective Patient is awake and alert today. She was noted to be bradycardic on the monitor since yesterday with a heart rate in the 40s and low 50s. Patient received her morning dose of metoprolol 25 mg. She is awake and alert. She is having difficulty swallowing putting. She is also having a very weak cough and unable to cough appropriately when asked to do so. Objective - Vital Signs Vital signs: Vital Signs Temp 97.0 F L 05/31/17 11:56 Pulse 47 L 05/31/17 11:56 Resp 20 05/31/17 11:56 BP 80/59 05/31/17 11:56 Pulse Ox 100 05/31/17 11:56 Intake & Output 05/30/17 05/31/17 05/31/17 18:59 06:59 18:59 Intake Total 570 248 Output Total 1500 1450 250 Balance -930 -1450 -2 Weight 94 kg 116.9 kg 116.9 kg Intake: IV 100 70 Invasive Line 6 20 Piperacillin-Tazobactam 3 100 50 .375 gm In Dextrose/Water 1 50ml.bag @ 12.5 mls/hr IVPB Q12HR [facility] Rx#: [id number] Intake, IV Titration 250 Amount Vancomycin 1,750 mg In 250 Sodium Chloride 0.9% 250 ml @ 125 mls/hr IVPB Q16H [facility] Rx#:[id number] Oral 220 178 Output: Urine 1500 1450 250 Other: Voiding Method Indwelling Catheter Indwelling Catheter Indwelling Catheter ABP, PAP, CO, CI - Last Documented Arterial Blood Pressure 133/93 - Exam General: Patient is awake and alert. Eye: there is normal conjunctiva bilaterally. Neck: The neck is supple, there is no JVD. Cardiovascular: Normal S1-S2, no S3-S4, no murmurs. Respiratory: Lungs there is scattered crackles and rhonchi all over the chest. Gastrointestinal: Abdomen is soft, nontender Musculoskeletal: There is no pedal edema. Skin: Skin is warm and dry - Labs CBC & Chem 7: 05/30/17 05:28 05/31/17 05:29 Labs: Abnormal Lab Results - Last 24 Hours (Table) 05/30/17 05/30/17 05/31/17 Range/Units 16:26 22:12 05:29 BUN 37 H (7-17) mg/dL Glucose 106 H (74-99) mg/dL POC Glucose (mg/dL) 128 H 134 H (75-99) mg/dL 05/31/17 05/31/17 Range/Units 06:35 11:42 BUN (7-17) mg/dL Glucose (74-99) mg/dL POC Glucose (mg/dL) 125 H 186 H (75-99) mg/dL Assessment and Plan Assessment: 1. Cardiac arrest at the outside hospital status post CPR for approximately 20 minutes/defibrillation 2. Acute ST elevation AL status post left heart catheterization with findings suggestive of dissection of the RCA. Otherwise nonobstructive coronary artery disease. Followed by cardiology. 3. Acute cardiogenic shock: Requiring vasopressors. Now resolved. Blood pressure within acceptable range. Repeat echocardiogram showed EF of 25% which is new compared to her echo last month with a EF of greater than 50%. 4. Right lower lobe pneumonia maintained on Zosyn and vancomycin. 5. Acute hypoxic respiratory failure 6. Acute liver shock with significant transaminitis secondary to episodes of hypotension. now improving significantly. Liver function test back to normal 7. Type 2 diabetes mellitus 8. Mixed hyperlipidemia 9. Hypothyroidism maintained on levothyroxin 10. Episode of V. fib: Cardiology following closely. Her regimen has been adjusted. Patient would eventually need a defibrillator when her overall condition is improved. Electrolytes within acceptable range. - Chest metoprolol dose to 12.5 mg twice a day given significant bradycardia - Decrease spironolactone dose to 25 mg given hypotension - Hold Lasix for now - Repeat chest x-ray in the morning Patient is making slow progress. She was extubated on 05/27. Repeat echocardiogram showed EF of 20% PT/OT We'll continue supportive care. Repeat lab work in the morning.
[2017-05-31] MEDS: HYDROmorphone 2 MG TAB PO PRN (16:12)
--- NOTE | 2017-05-31 16:12 | P.PN ---
Subjective Progress Note Date: 05/31/17 This patient is a 72-year-old right-handed white female who is status post CPR for approximately 20 minutes following cardiac arrest. She was initially admitted to the intensive care unit and its mate is slow but steady progress. She was extubated on 05/27/2017 and is now been transferred to the medical floor on selective care. She has been doing fairly well but yesterday had an episode of ventricular fibrillation. Cardiology is closely following her for this condition. Adjustments have been made with her medications. Neurologically she is showing improvement with her overall mental status. According to the son who is at bedside she developed some symptoms of discoloration in her right foot which was noticed this morning. This is being followed up by the attending physician and cardiology. She is also been having episodes of bradycardia with heart rates in the 40s and 50s. Cardiology is recommending a defibrillator when her overall condition is improved. Nursing staff is at bedside and apparently she is being fitted with a special LifeVest which was ordered by cardiology. She is to be reevaluated in 6 weeks for possible ICD placement. Neurologically she continues to do well. She is alert and oriented able to answer some simple questions. We will continue to monitor her condition closely during this admission. Objective - Vital Signs Vital signs: Vital Signs Temp 97.0 F L 05/31/17 11:56 Pulse 68 05/31/17 13:19 Resp 20 05/31/17 12:00 BP 80/59 05/31/17 11:56 Pulse Ox 100 05/31/17 11:56 Intake & Output 05/30/17 05/31/17 05/31/17 18:59 06:59 18:59 Intake Total 570 688 Output Total 1500 1450 250 Balance -930 -1450 438 Weight 94 kg 116.9 kg 116.9 kg Intake: IV 100 70 Invasive Line 6 20 Piperacillin-Tazobactam 3 100 50 .375 gm In Dextrose/Water 1 50ml.bag @ 12.5 mls/hr IVPB Q12HR [facility] Rx#: [id number] Intake, IV Titration 250 Amount Vancomycin 1,750 mg In 250 Sodium Chloride 0.9% 250 ml @ 125 mls/hr IVPB Q16H [facility] Rx#:[id number] Oral 220 618 Output: Urine 1500 1450 250 Other: Voiding Method Indwelling Catheter Indwelling Catheter Indwelling Catheter ABP, PAP, CO, CI - Last Documented Arterial Blood Pressure 133/93 - Exam Physical examination: PHYSICAL EXAMINATION: Patient is resting comfortably in bed. Patient examined on selective care today. She is slightly confused. VITAL SIGNS: Blood pressure is [85/59]. Heart rate is [47]. Respiration is [20] . Temperature is [97.0]. HEENT: Head is atraumatic, neck is supple, there were no carotid bruits. CHEST: Lungs are clear to auscultation and percussion. CARDIAC: S1, S2 normal rate and rhythm. There is no murmur. ABDOMEN: Soft and nontender. Bowel sounds are present. EXTREMITIES: There is no pedal edema. Peripheral pulses are present. Neurological examination: Patient is examined today and selective care floor. The patient is awake and alert. She is following simple commands. She is more responsive as noted by her son. The patient is moving all extremities. Muscle tone is normal. Muscle strength testing reveals 4/5 strength throughout. Deep tendon reflexes are hypoactive. Plantar responses flexor bilaterally - Labs CBC & Chem 7: 05/30/17 05:28 05/31/17 05:29 Labs: Abnormal Lab Results - Last 24 Hours (Table) 05/30/17 05/30/17 05/31/17 Range/Units 16:26 22:12 05:29 BUN 37 H (7-17) mg/dL Glucose 106 H (74-99) mg/dL POC Glucose (mg/dL) 128 H 134 H (75-99) mg/dL 05/31/17 05/31/17 Range/Units 06:35 11:42 BUN (7-17) mg/dL Glucose (74-99) mg/dL POC Glucose (mg/dL) 125 H 186 H (75-99) mg/dL Assessment and Plan (1) Anoxic encephalopathy Current Visit: Yes Status: Acute Code(s): G93.1 - ANOXIC BRAIN DAMAGE, NOT ELSEWHERE CLASSIFIED SNOMED Code(s): 155159919 (2) Acute myocardial infarction Current Visit: Yes Status: Acute Code(s): I21.9 - ACUTE MYOCARDIAL INFARCTION, UNSPECIFIED SNOMED Code(s): 79114121 (3) CHF (congestive heart failure) Current Visit: Yes Status: Acute Code(s): I50.9 - HEART FAILURE, UNSPECIFIED SNOMED Code(s): 52108561 (4) Cardiac arrest with ventricular fibrillation Current Visit: Yes Status: Acute Code(s): I46.9 - CARDIAC ARREST, CAUSE UNSPECIFIED; I49.01 - VENTRICULAR FIBRILLATION SNOMED Code(s): 18893410 (5) Pneumonia Current Visit: Yes Status: Acute Code(s): J18.9 - PNEUMONIA, UNSPECIFIED ORGANISM SNOMED Code(s): 382432043 Plan: This patient is a 72-year-old female who is recovering following an episode of cardiac arrest with CPR performed for at least 20 minutes. She is now been transferred out of the intensive care unit and was extubated back on 2017. She has been making slow but steady progress. She is being fitted with a life vest today as per cardiology's recommendation given her history of ventricular fibrillation. She is to be reevaluated in 6 weeks for possible ICD placement. Neurologically she is doing much better and is able to follow simple commands. She is recognizing family members very easily including her and son. She has been conversing with no slurred speech. Neurologically she remains stable. We will be away during the weekend but will recheck this patient on Saturday if she is still an inpatient. Her overall prognosis at this time remains guarded. Case was discussed today with the patient's son. He is aware of her overall neurological status and slow improvement. He will inform his father and other family members of her overall condition. As noted her overall prognosis remains guarded.
[2017-05-31 16:43] LABS: Glucose,Whole Blood 123 mg/dL (75-99)
[2017-05-31] MEDS ORDERED: SODIUM CHLORIDE 0.9% 250 ML IV ONE (16:51)
[2017-05-31] MEDS: METOPROLOL TARTRATE 12.5 MG TAB PO SCH (16:53)
[2017-05-31] MEDS ORDERED: METOPROLOL TARTRATE 25 MG TAB PO SCH (21:00)
[2017-05-31] MEDS ORDERED: METOPROLOL TARTRATE 12.5 MG TAB PO SCH (21:00)
[2017-05-31 21:24] LABS: Glucose,Whole Blood 108 mg/dL (75-99)
[2017-06-01] MEDS: IPRATROPIUM-ALBUTEROL 3 ML NEB INHALATION PRN (01:42)
[2017-06-01] MEDS: HYDROmorphone 2 MG TAB PO PRN ×5 (05:46→23:27)
[2017-06-01 05:54] LABS: Glucose,Whole Blood 101 mg/dL (75-99)
[2017-06-01] MEDS: INSULIN ASPART 100 UNIT/ML 1 ML 10 ML VIAL SQ SCH ×4 (05:57→20:44)
[2017-06-01] MEDS: PANTOPRAZOLE 40 MG TABLET PO SCH (06:11)
[2017-06-01] MEDS: LEVOTHYROXINE 50 MCG TAB PO SCH (06:11)
[2017-06-01 06:16] LABS: Albumin 2.5 g/dL (3.5-5.0); Calcium 8.3 mg/dL (8.4-10.2); Magnesium 1.7 mg/dL (1.6-2.3); Potassium 4.1 mmol/L (3.5-5.1); Total Protein 4.9 g/dL (6.3-8.2)
[2017-06-01 06:45] LABS: Anisocytosis Slight; Basophils % (A) 0 %; Eosinophils % (A) 0 %; HGB 9.9 gm/dL (11.4-16.0); Hypochromasia Marked; Lymphocytes # (A) 1.1 k/uL (1.0-4.8); Lymphocytes % (A) 6 %; MCH 27.3 pg (25.0-35.0); MCV 94.1 fL (80.0-100.0); Macrocytosis Slight; Mean Platelet Volume 10.5; Monocytes # (A) 0.9 k/uL (0-1.0); Monocytes % (A) 5 %; Neutrophils # (A) 15.7 k/uL (1.3-7.7); Neutrophils % (A) 88 %; Platelet Count 119 k/uL (150-450); Poikilocytosis Slight; RBC 3.62 m/uL (3.80-5.40); RDW 18.8 % (11.5-15.5); WBC 17.9 k/uL (3.8-10.6)
--- NOTE | 2017-06-01 07:35 | XR ---
EXAMINATION TYPE: XR chest 2V DATE OF EXAM: 06/01/2017 HISTORY: f/u. REFERENCE: Previous study dated 05/29/2017. FINDINGS: The patient's right subclavian catheter remains in place. Its tip is in the right atrium. The heart is enlarged. There is improved aeration of the right lung. There is continuing left basilar airspace disease. There are small, bilateral effusions. IMPRESSION: IMPROVED AERATION, RIGHT LUNG BASE.
[2017-06-01] MEDS: MEXILETINE 150 MG CAP PO SCH ×3 (07:46→22:52)
[2017-06-01] MEDS: ASPIRIN 81 MG PO SCH (07:46)
[2017-06-01] MEDS: AMIODARONE 200 MG TAB PO SCH (07:46)
[2017-06-01] MEDS: SPIRONOLACTONE 25 MG TAB PO SCH (07:47)
[2017-06-01] MEDS: FLUoxetine HCL 20 MG CAP PO SCH (07:47)
[2017-06-01] MEDS: METOPROLOL TARTRATE 12.5 MG TAB PO SCH ×2 (07:47→20:46)
[2017-06-01] MEDS: HEPARIN SODIUM,PORCINE 5,000 UNIT/ML 1 ML VIAL SQ SCH ×2 (07:47→20:47)
[2017-06-01] MEDS: PIPERACILLIN-TAZOBACTAM 3.375 GM in DEXTROSE/WATER 1 50ML.BAG IVPB SCH (07:58)
[2017-06-01] MEDS: IPRATROPIUM-ALBUTEROL 3 ML NEB INHALATION SCH ×4 (08:02→20:14)
[2017-06-01] MEDS: MAGNESIUM SULFATE-D5W PMX 1 GM in DEXTROSE/WATER 1 100ML.BAG IVPB SCH ×2 (09:55→11:09)
--- NOTE | 2017-06-01 10:08 | P.PN ---
Subjective Progress Note Date: 06/01/17 This is a 72-year-old female patient with history of COPD, diastolic congestive heart failure, who was admitted to [facility] with complaints of shortness of breath. Her troponins were noted to be mildly elevated, EKGs did not reveal any acute changes. Chest x-ray suggested a right lower lobe pneumonia. Patient was treated with antibiotics. At the time of shift change, the nurses heard a loud noise and found that the patient was on the floor face down. On the yard jockey patient was noted to be in ventricular fibrillation, she was given epinephrine, as well as a shock and went into pulseless rhythm. She apparently regained a pulse, blood pressure at that time was very low. She was significantly hypoxic. Subsequent to that she was intubated, remained hypotensive requiring epinephrine. Patient then was transferred here to [facility] for further care. Patient was taken to the cardiac catheterization lab where she was found to have calcified coronary system with mild disease in the LAD. The right coronary artery shows haziness in the proximal portion which is felt to be secondary to spontaneous dissection that cannot be excluded. Films were reviewed at that time by Dr. Leggett in the decision was made to maximize medical therapy. Patient was noted at times to have a low magnesium and low potassium level, these were replaced. Patient had medication adjustments made. In spite of that it was noted that through afternoon hours yesterday patient again had runs of ventricular fibrillation. Magnesium level today is 2.0. Dr. Solano did discuss the patient's case with Dr. Goodman. Recommendations were to increase beta lincoln dose, add mexiletine 150 3 times a day, increase Aldactone to 50 daily, keep potassium in the range of 4.5 and keep the magnesium greater than 2. The patient's pneumonia improves, AICD therapy with external or internal should be considered. 05/31/2017 Patient was seen and examined this morning, overall feeling better. No further episodes of ventricular fibrillation were noted on the monitor. Blood pressure 102/60 with a heart rate in the 50s. Patient continues to be on 4 L of oxygen, satting 93%. Sodium 142, potassium 3.9, BUN 37, creatinine 1.0. Patient continues to be on IV antibiotics and IV Lasix. 06/01/2017 Patient seen and examined this morning, much less confused today. Continues to have cough, productive, yellow sputum. No arrhythmias noted on the monitor. Blood pressure 110/70 with a heart rate in the 70s, 98% on 4 L of oxygen. White blood cell count 17.9, hemoglobin 9.9, platelet count 119. Sodium 138, potassium 4.1, BUN 37, creatinine 0.9. Objective - Vital Signs Vital signs: Vital Signs Temp 96.1 F L 06/01/17 08:00 Pulse 71 06/01/17 08:12 Resp 20 06/01/17 08:00 BP 109/70 06/01/17 08:00 Pulse Ox 98 06/01/17 08:00 Intake & Output 05/31/17 06/01/17 06/01/17 18:59 06:59 18:59 Intake Total 688 300 360 Output Total 375 340 Balance 313 -40 360 Weight 116.9 kg 96 kg Intake: IV 70 50 Invasive Line 6 20 Piperacillin-Tazobactam 3 50 50 .375 gm In Dextrose/Water 1 50ml.bag @ 12.5 mls/hr IVPB Q12HR [facility] Rx#: [id number] Intake, IV Titration 250 Amount Sodium Chloride 0.9% 250 250 ml @ 999 mls/hr IV .Q16M [facility] Rx#:[id number] Oral 618 360 Output: Urine 375 340 Other: Voiding Method Indwelling Catheter Indwelling Catheter Indwelling Catheter ABP, PAP, CO, CI - Last Documented Arterial Blood Pressure 133/93 - Exam PHYSICAL EXAMINATION: HEENT: Head is atraumatic, normocephalic. Pupils equal, round. Neck is supple. There is no elevated jugular venous pressure. HEART EXAMINATION: Heart S1, S2 normal. No murmur or gallop heard. CHEST EXAMINATION: Lungs reveal scattered coarse rhonchi with crackles to bilateral bases, fine wheezing also noted. ABDOMEN: Soft, nontender. Bowel sounds are heard. No organomegaly noted. EXTREMITIES: 1+ peripheral pulses with no evidence of peripheral edema and no calf tenderness noted. NEUROLOGIC patient is awake, mildly confused . - Labs CBC & Chem 7: 06/01/17 05:27 06/01/17 05:27 Labs: Abnormal Lab Results - Last 24 Hours (Table) 05/31/17 05/31/17 05/31/17 Range/Units 11:42 16:35 21:02 WBC (3.8-10.6) k/uL RBC (3.80-5.40) m/uL Hgb (11.4-16.0) gm/dL MCHC (31.0-37.0) g/dL RDW (11.5-15.5) % Plt Count (150-450) k/uL Neutrophils # (1.3-7.7) k/uL BUN (7-17) mg/dL Glucose (74-99) mg/dL POC Glucose (mg/dL) 186 H 123 H 108 H (75-99) mg/dL Calcium (8.4-10.2) mg/dL AST (14-36) U/L ALT (9-52) U/L Total Protein (6.3-8.2) g/dL Albumin (3.5-5.0) g/dL 06/01/17 06/01/17 06/01/17 Range/Units 05:27 05:27 05:52 WBC 17.9 H (3.8-10.6) k/uL RBC 3.62 L (3.80-5.40) m/uL Hgb 9.9 L (11.4-16.0) gm/dL MCHC 29.0 L (31.0-37.0) g/dL RDW 18.8 H (11.5-15.5) % Plt Count 119 L (150-450) k/uL Neutrophils # 15.7 H (1.3-7.7) k/uL BUN 37 H (7-17) mg/dL Glucose 101 H (74-99) mg/dL POC Glucose (mg/dL) 101 H (75-99) mg/dL Calcium 8.3 L (8.4-10.2) mg/dL AST 47 H (14-36) U/L ALT 148 H (9-52) U/L Total Protein 4.9 L (6.3-8.2) g/dL Albumin 2.5 L (3.5-5.0) g/dL Assessment and Plan Plan: Assessment and plan #1 acute cardiac arrest/V. fib, status post CPR, defibrillation, and subsequent intubation requiring mechanical ventilation. Patient was noted again yesterday evening to have a run of ventricular fibrillation. #[address] elevation myocardial infarction involving the inferior wall, secondary to dissection of the RCA. Patient did undergo cardiac catheterization which revealed GRISEL-3 flow and did not require stenting #3 acute shock, cardiogenic in nature, EF 20% #4 acute hypoxic respiratory failure #5 right lower lobe pneumonia #6 COPD #7 diabetes #8 hyperlipidemia #9 hypertension #10 hypothyroidism Plan From cardiology's perspective, we'll continue current medications which include amiodarone 400 mg daily, aspirin 162 mg daily, metoprolol 25 mg 3 times a day, mexiletine 150 mg every 8 hour and Aldactone 50 mg daily. Once the pneumonia clears, defibrillator therapy with external or internal needs to be considered. We would recommend patient wear a LifeVest on discharge. DNP note has been reviewed, I agree with a documented findings and plan of care. Patient was seen and examined.
[2017-06-01] MEDS: FUROSEMIDE 10 MG/ML 2 ML VIAL IV SCH ×2 (11:13→20:47)
--- NOTE | 2017-06-01 11:25 | P.PN ---
Subjective Progress Note Date: 06/01/17 Principal diagnosis: Acute cardiac arrest/ventricular fibrillation status post CPR defibrillation and subsequent intubation A 72-year-old female patient with known history of COPD and CHF with diastolic dysfunction was originally admitted to [facility] for worsening shortness of breath and acute COPD exacerbation and CHF exacerbation. She did not have any chest pain. She did have some mild elevation of the troponin and EKG did not show any acute abnormalities. Chest x-ray showed possibly a right lower lobe pneumonia. Note that the patient was being treated and she acutely had an acute cardiac arrest. She collapsed on the floor. Initially she was found to be investigated fibrillation. CPR was initiated and the patient was defibrillated on several occasions. She was intubated and she remained hypotensive requiring pressors. The exact downtime is not known however I expect this was approximately 20 minutes of CPR and defibrillation on this patient. The patient got moved to the [place] emergency department where the EKG showed acute ST segment elevation in inferior leads with reciprocal changes. 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 The left main was patent. There was mild disease in the proximal LAD and circumflex. The dominant vessel was RCA. This was reviewed by Dr. Leggett and it was decided not to do any intervention knowing that the patient had a GRISEL 3 flow in the RCA. The patient had 3 more episodes of V. tach and the [facility] where she had to be defibrillated. She was started on amiodarone drip and she got moved to the intensive care unit on 35 mics of levo fed for hypotension. This morning and echo cardiac rhythm was done and ejection fraction is less than 20%. Overnight she was given a total of 2 L of IV fluid and currently she is on normal saline today to have 100 mL an hour. She is producing urine output in the order of 20 mL an hour. She was producing better urine output prior to that. She is currently weaned down to 50 mics of the prevent. Note that the patient also had a traumatic head injury and a CAT scan of the brain was done in the emergency department that showed no acute abnormalities. As far as the right lower lobe pneumonia, the patient is on IV Zosyn. The patient has a right venous and arterial sheath in the right groin. Amiodarone is running at the maintenance of 0.5 mg/m. She is sedated and she is moving all 4 extremities to painful is diminished yet she is not following any commands. Sylvesterrivan is running at 15 g. currently intubated on a mechanical ventilator on assist control mode at the rate of 18, tidal volume 500 , FiO2 of 50% and a PEEP of 5. Blood gases from this morning showed a pH of 7.36 with a pCO2 of 36 and pO2 of 87 on 50% FiO2. Patient was reevaluated today on 05/30/2017, seems to be doing relatively well, remains a slightly confused, not in distress, but she has difficulty with relatively weak cough. Patient had a follow-up chest x-ray yesterday which showed possible infiltrates at the right base, possibility of mild interstitial edema is also not entirely ruled out. At any rate patient remains on antibiotics, and today I maintained the patient on Lasix 20 mg daily. All her meds and her labs were reviewed, renal profile was also noted. Basically unchanged. Reevaluated today on 05/31/2017, patient looks frail, weak, continues to have a weak cough, but hemodynamically stable, seems to be less and less confused compared to the last few days. Basic metabolic profile is relatively normal, remains on bronchodilators, antibiotics, and diuretics. Patient was reevaluated today on 06/01/2017, she is definitely more awake, has less cough, less shortness of breath, less crackles and wheezes on physical examination. And her confusion seems to have completely resolved. Chest x-ray is also showing improvement in her right lower lobe infiltrate. CBC showed leukocytosis with WBC count of 17.9 basic metabolic profile is normal BUN is 37 creatinine is 0.9. Patient will remain on diuretics and on bronchodilators as well as antibiotics. Objective - Vital Signs Vital signs: Vital Signs Temp 94.2 F L 06/01/17 11:15 Pulse 52 L 06/01/17 11:15 Resp 20 06/01/17 11:15 BP 102/66 06/01/17 11:15 Pulse Ox 99 06/01/17 11:15 Intake & Output 05/31/17 06/01/17 06/01/17 18:59 06:59 18:59 Intake Total 688 300 360 Output Total 375 340 Balance 313 -40 360 Weight 116.9 kg 96 kg Intake: IV 70 50 Invasive Line 6 20 Piperacillin-Tazobactam 3 50 50 .375 gm In Dextrose/Water 1 50ml.bag @ 12.5 mls/hr IVPB Q12HR [facility] Rx#: [id number] Intake, IV Titration 250 Amount Sodium Chloride 0.9% 250 250 ml @ 999 mls/hr IV .Q16M ONE Rx#:[id number] Oral 618 360 Output: Urine 375 340 Other: Voiding Method Indwelling Catheter Indwelling Catheter Indwelling Catheter ABP, PAP, CO, CI - Last Documented Arterial Blood Pressure 133/93 - Exam Physical Exam: Revealed a 72-year-old female in no distress on nasal cannula. Definitely less confused today, recognizes all her family members around him today. And she knew where she was. Head: Atraumatic, normocephalic. Neck: Neck supple no neck masses, moist mucous membranes noted.. HEENT:[ PERRLA, EOMI, no icterus, throat is clear, Chest: [Very minimal crackles at the right base, no rhonchi no wheezes.. Cardiac Exam: [Normal S1 and S2, no S3 gallop, no murmur.] Abdomen: [Soft, nontender, no megaly, no rebound, no guarding, normal bowel sounds.] Extremities: [No clubbing, no edema, no cyanosis.] Neurological Exam: No gross focal neurologic deficit, however the patient is noted to be generally weak.] Psychiatric: Normal mood affect relatively normal mental status exam, - Labs CBC & Chem 7: 06/01/17 05:27 18 05:27 Labs: Abnormal Lab Results - Last 24 Hours (Table) 05/31/17 05/31/17 05/31/17 Range/Units 11:42 16:35 21:02 WBC (3.8-10.6) k/uL RBC (3.80-5.40) m/uL Hgb (11.4-16.0) gm/dL MCHC (31.0-37.0) g/dL RDW (11.5-15.5) % Plt Count (150-450) k/uL Neutrophils # (1.3-7.7) k/uL BUN (7-17) mg/dL Glucose (74-99) mg/dL POC Glucose (mg/dL) 186 H 123 H 108 H (75-99) mg/dL Calcium (8.4-10.2) mg/dL AST (14-36) U/L ALT (9-52) U/L Total Protein (6.3-8.2) g/dL Albumin (3.5-5.0) g/dL 06/01/17 06/01/1718 Range/Units 05:27 05:27 05:52 WBC 17.9 H (3.8-10.6) k/uL RBC 3.62 L (3.80-5.40) m/uL Hgb 9.9 L (11.4-16.0) gm/dL MCHC 29.0 L (31.0-37.0) g/dL RDW 18.8 H (11.5-15.5) % Plt Count 119 L (150-450) k/uL Neutrophils # 15.7 H (1.3-7.7) k/uL BUN 37 H (7-17) mg/dL Glucose 101 H (74-99) mg/dL POC Glucose (mg/dL) 101 H (75-99) mg/dL Calcium 8.3 L (8.4-10.2) mg/dL AST 47 H (14-36) U/L ALT 148 H (9-52) U/L Total Protein 4.9 L (6.3-8.2) g/dL Albumin 2.5 L (3.5-5.0) g/dL Assessment and Plan Assessment: 1 acute cardiac arrest/V. fib, status post CPR, defibrillation and subsequent intubation mechanical ventilation. [address] segment elevation myocardial infarction involving the inferior wall secondary to dissection of the RCA. The patient underwent emergent cardiac catheterization and she currently has a GRISEL 3 flow and she did not require coronary stenting 3 acute shock, cardiogenic in nature with an ejection fraction of 20% 4 acute hypoxic respiratory failure secondary to above, resolved 5 acute right lower lobe pneumonia, stable on today's chest x-ray, remains on Zosyn 6 acute COPD exacerbation secondary to right lower lobe pneumonia 7 anoxic encephalopathy, improving. 8 acute head trauma the time of a cardiac arrest. The patient had a negative CAT scan of the head 9 diabetes mellitus 10 hyperlipidemia 11 hypothyroidism 13 history of hypertension 14 leukocytosis secondary to above 15 acute kidney injury improved renal profile was noted 16 acute shock liver with an underlying coagulopathy. Resolved Recommendation: Continue present supportive care measures, will maintain on Lasix 20 mg IV push every 12 hours. Continue incentive spirometry, continue antibiotics, continue physical therapy. Possible discharge to ECF on Saturday. Time with Patient: Less than 30
[2017-06-01 11:38] LABS: Glucose,Whole Blood 122 mg/dL (75-99)
[2017-06-01] MEDS ORDERED: VANCOMYCIN 1,750 MG in SODIUM CHLORIDE 0.9% 250 ML IVPB SCH (14:00)
--- NOTE | 2017-06-01 14:09 | P.PN ---
Subjective Progress Note Date: 06/01/17 Patient is doing better today. She is more awake. No events on telemetry monitoring. Yesterday she had an episode of hypotension that was probably secondary to IV Lasix use. Her blood pressure is borderline low secondary to compromised ejection fraction. Objective - Vital Signs Vital signs: Vital Signs Temp 94.2 F L 06/01/17 11:15 Pulse 52 L 06/01/17 11:53 Resp 20 06/01/17 11:53 BP 102/66 06/01/17 11:15 Pulse Ox 99 06/01/17 11:15 Intake & Output 05/31/17 06/01/17 06/01/17 18:59 06:59 18:59 Intake Total 688 300 360 Output Total 375 340 750 Balance 313 -40 -390 Weight 116.9 kg 96 kg Intake: IV 70 50 Invasive Line 6 20 Piperacillin-Tazobactam 3 50 50 .375 gm In Dextrose/Water 1 50ml.bag @ 12.5 mls/hr IVPB Q12HR [facility] Rx#: [id number] Intake, IV Titration 250 Amount Sodium Chloride 0.9% 250 250 ml @ 999 mls/hr IV .Q16M ONE Rx#:[id number] Oral 618 360 Output: Urine 375 340 750 Other: Voiding Method Indwelling Catheter Indwelling Catheter Indwelling Catheter ABP, PAP, CO, CI - Last Documented Arterial Blood Pressure 133/93 - Exam General: Patient is awake and alert. Eye: there is normal conjunctiva bilaterally. Neck: The neck is supple, there is no JVD. Cardiovascular: Normal S1-S2, no S3-S4, no murmurs. Respiratory: Lungs there is scattered crackles and rhonchi all over the chest. Gastrointestinal: Abdomen is soft, nontender Musculoskeletal: There is no pedal edema. Skin: Skin is warm and dry - Labs CBC & Chem 7: 06/01/17 05:27 06/01/17 05:27 Labs: Abnormal Lab Results - Last 24 Hours (Table) 05/31/17 05/31/17 06/01/17 Range/Units 16:35 21:02 05:27 WBC 17.9 H (3.8-10.6) k/uL RBC 3.62 L (3.80-5.40) m/uL Hgb 9.9 L (11.4-16.0) gm/dL MCHC 29.0 L (31.0-37.0) g/dL RDW 18.8 H (11.5-15.5) % Plt Count 119 L (150-450) k/uL Neutrophils # 15.7 H (1.3-7.7) k/uL BUN (7-17) mg/dL Glucose (74-99) mg/dL POC Glucose (mg/dL) 123 H 108 H (75-99) mg/dL Calcium (8.4-10.2) mg/dL AST (14-36) U/L ALT (9-52) U/L Total Protein (6.3-8.2) g/dL Albumin (3.5-5.0) g/dL 06/01/17 06/01/17 06/01/17 Range/Units 05:27 05:52 11:31 WBC (3.8-10.6) k/uL RBC (3.80-5.40) m/uL Hgb (11.4-16.0) gm/dL MCHC (31.0-37.0) g/dL RDW (11.5-15.5) % Plt Count (150-450) k/uL Neutrophils # (1.3-7.7) k/uL BUN 37 H (7-17) mg/dL Glucose 101 H (74-99) mg/dL POC Glucose (mg/dL) 101 H 122 H (75-99) mg/dL Calcium 8.3 L (8.4-10.2) mg/dL AST 47 H (14-36) U/L ALT 148 H (9-52) U/L Total Protein 4.9 L (6.3-8.2) g/dL Albumin 2.5 L (3.5-5.0) g/dL Assessment and Plan Assessment: 1. Cardiac arrest at the outside hospital status post CPR for approximately 20 minutes/defibrillation 2. Acute ST elevation LA status post left heart catheterization with findings suggestive of dissection of the RCA. Otherwise nonobstructive coronary artery disease. Followed by cardiology. 3. Acute cardiogenic shock: Requiring vasopressors. Now resolved. Blood pressure within acceptable range. Repeat echocardiogram showed EF of 25% which is new compared to her echo last month with a EF of greater than 50%. Plan for AICD eventually. In the meantime we will use a LifeVest upon discharge. 4. Right lower lobe pneumonia finish 10 days course of Zosyn and vancomycin. 5. Acute hypoxic respiratory failure 6. Acute liver shock with significant transaminitis secondary to episodes of hypotension. now improving significantly. Liver function test back to normal 7. Type 2 diabetes mellitus 8. Mixed hyperlipidemia 9. Hypothyroidism maintained on levothyroxin 10. Episode of V. fib: Cardiology following closely. Her regimen has been adjusted. Patient would eventually need a defibrillator when her overall condition is improved. Electrolytes within acceptable range. - Repeat chest x-ray showed some improvement in aeration - IV Lasix twice a day - Today, I had a prolonged discussion with the patient and her at bedside regarding CODE STATUS. Patient would like to be a full code Patient is making slow progress. She was extubated on 05/27. Repeat echocardiogram showed EF of 20% PT/OT We'll continue supportive care. Repeat lab work in the morning. Appreciate community resource consultant's recommendation
[2017-06-01 16:16] LABS: Glucose,Whole Blood 127 mg/dL (75-99)
[2017-06-01 20:42] LABS: Glucose,Whole Blood 126 mg/dL (75-99)
[2017-06-02] MEDS: INSULIN ASPART 100 UNIT/ML 1 ML 10 ML VIAL SQ SCH ×4 (06:13→21:24)
[2017-06-02] MEDS: LEVOTHYROXINE 50 MCG TAB PO SCH (06:18)
[2017-06-02] MEDS: PANTOPRAZOLE 40 MG TABLET PO SCH (06:18)
[2017-06-02] MEDS: HYDROmorphone 2 MG TAB PO PRN ×3 (06:23→21:32)
[2017-06-02 06:24] LABS: Glucose,Whole Blood 99 mg/dL (75-99)
[2017-06-02 06:26] LABS: Anisocytosis Slight; Basophils % (A) 0 %; Eosinophils # (A) 0.1 k/uL (0-0.7); Eosinophils % (A) 0 %; HCT 34.2 % (34.0-46.0); HGB 9.8 gm/dL (11.4-16.0); Hypochromasia Marked; Lymphocytes # (A) 0.9 k/uL (1.0-4.8); Lymphocytes % (A) 4 %; MCH 26.7 pg (25.0-35.0); MCHC 28.7 g/dL (31.0-37.0); MCV 93.1 fL (80.0-100.0); Macrocytosis Slight; Mean Platelet Volume 8.6; Monocytes % (A) 5 %; Neutrophils # (A) 17.9 k/uL (1.3-7.7); Neutrophils % (A) 90 %; Platelet Count 135 k/uL (150-450); Poikilocytosis Slight; RBC 3.67 m/uL (3.80-5.40); RDW 19.1 % (11.5-15.5)
[2017-06-02 06:43] LABS: Albumin 2.6 g/dL (3.5-5.0); Calcium 8.8 mg/dL (8.4-10.2); Magnesium 1.8 mg/dL (1.6-2.3); Potassium 3.6 mmol/L (3.5-5.1); Total Bilirubin 1.1 mg/dL (0.2-1.3); Total Protein 5.1 g/dL (6.3-8.2)
[2017-06-02] MEDS: AMIODARONE 200 MG TAB PO SCH (07:29)
[2017-06-02] MEDS: MEXILETINE 150 MG CAP PO SCH ×3 (07:29→23:14)
[2017-06-02] MEDS: FLUoxetine HCL 20 MG CAP PO SCH (07:29)
[2017-06-02] MEDS: ASPIRIN 81 MG PO SCH (07:29)
[2017-06-02] MEDS: HEPARIN SODIUM,PORCINE 5,000 UNIT/ML 1 ML VIAL SQ SCH ×2 (07:31→21:25)
[2017-06-02] MEDS: SPIRONOLACTONE 25 MG TAB PO SCH (07:31)
[2017-06-02] MEDS: FUROSEMIDE 10 MG/ML 2 ML VIAL IV SCH ×2 (07:38→21:33)
[2017-06-02] MEDS: METOPROLOL TARTRATE 12.5 MG TAB PO SCH ×2 (07:38→21:25)
[2017-06-02] MEDS: IPRATROPIUM-ALBUTEROL 3 ML NEB INHALATION SCH ×4 (08:32→20:47)
[2017-06-02 12:06] LABS: Glucose,Whole Blood 101 mg/dL (75-99)
--- NOTE | 2017-06-02 12:48 | CONS ---
DATE OF CONSULTATION: 06/02/2017 This is a 72-year-old female with multiple medical problem. I was consulted for peripheral cyanosis noted on the right foot toes. The patient has multiple medical problems. Patient came with cardiac arrest with CPR outside the hospital. Patient developed acute elevation of ST elevation of post angiography and found to have a dissection of the right coronary artery. The patient was also in cardiogenic shock and also patient had a right lower lobe pneumonia. Patient was on vent. The patient also has history of type 2 diabetes mellitus, episodic VFib. SURGICAL HISTORY: Patient had a carotid endarterectomy done in the past. EXAMINATION: Patient was seen in her room. Patient is very weak and lethargic. Neck is no bruit appreciated. Chest has crackles bilateral. Abdomen is soft, nontender. Femorals are 1+. The patient has some discoloration of the toes involving the right foot. Posterior dorsal pedis by the Doppler. On the left side also patient has posterior dorsalis pedis by Doppler. At this point patient has no acute vascular insult. The patient has multiple comorbidities and the patient discussed with the family and not a candidate for any major surgical intervention. We will follow with you. MMODL / IJN: [id number] / KATIA
--- NOTE | 2017-06-02 12:50 | P.PN ---
Subjective Progress Note Date: 06/02/17 Principal diagnosis: Acute cardiac arrest/ventricular fibrillation status post CPR defibrillation and subsequent intubation A 72-year-old female patient with known history of COPD and CHF with diastolic dysfunction was originally admitted to [facility] for worsening shortness of breath and acute COPD exacerbation and CHF exacerbation. She did not have any chest pain. She did have some mild elevation of the troponin and EKG did not show any acute abnormalities. Chest x-ray showed possibly a right lower lobe pneumonia. Note that the patient was being treated and she acutely had an acute cardiac arrest. She collapsed on the floor. Initially she was found to be investigated fibrillation. CPR was initiated and the patient was defibrillated on several occasions. She was intubated and she remained hypotensive requiring pressors. The exact downtime is not known however I expect this was approximately 20 minutes of CPR and defibrillation on this patient. The patient got moved to the [place] emergency department where the EKG showed acute ST segment elevation in inferior leads with reciprocal changes. 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 The left main was patent. There was mild disease in the proximal LAD and circumflex. The dominant vessel was RCA. This was reviewed by Dr. Leggett and it was decided not to do any intervention knowing that the patient had a GRISEL 3 flow in the RCA. The patient had 3 more episodes of V. tach and the [facility] where she had to be defibrillated. She was started on amiodarone drip and she got moved to the intensive care unit on 35 mics of levo fed for hypotension. This morning and echo cardiac rhythm was done and ejection fraction is less than 20%. Overnight she was given a total of 2 L of IV fluid and currently she is on normal saline today to have 100 mL an hour. She is producing urine output in the order of 20 mL an hour. She was producing better urine output prior to that. She is currently weaned down to 50 mics of the prevent. Note that the patient also had a traumatic head injury and a CAT scan of the brain was done in the emergency department that showed no acute abnormalities. As far as the right lower lobe pneumonia, the patient is on IV Zosyn. The patient has a right venous and arterial sheath in the right groin. Amiodarone is running at the maintenance of 0.5 mg/m. She is sedated and she is moving all 4 extremities to painful is diminished yet she is not following any commands. Sylvesterrivan is running at 15 g. currently intubated on a mechanical ventilator on assist control mode at the rate of 18, tidal volume 500 , FiO2 of 50% and a PEEP of 5. Blood gases from this morning showed a pH of 7.36 with a pCO2 of 36 and pO2 of 87 on 50% FiO2. Patient was reevaluated today on 05/30/2017, seems to be doing relatively well, remains a slightly confused, not in distress, but she has difficulty with relatively weak cough. Patient had a follow-up chest x-ray yesterday which showed possible infiltrates at the right base, possibility of mild interstitial edema is also not entirely ruled out. At any rate patient remains on antibiotics, and today I maintained the patient on Lasix 20 mg daily. All her meds and her labs were reviewed, renal profile was also noted. Basically unchanged. Reevaluated today on 05/31/2017, patient looks frail, weak, continues to have a weak cough, but hemodynamically stable, seems to be less and less confused compared to the last few days. Basic metabolic profile is relatively normal, remains on bronchodilators, antibiotics, and diuretics. Patient was reevaluated today on 06/01/2017, she is definitely more awake, has less cough, less shortness of breath, less crackles and wheezes on physical examination. And her confusion seems to have completely resolved. Chest x-ray is also showing improvement in her right lower lobe infiltrate. CBC showed leukocytosis with WBC count of 17.9 basic metabolic profile is normal BUN is 37 creatinine is 0.9. Patient will remain on diuretics and on bronchodilators as well as antibiotics. Patient was reevaluated today on 06/02/2017, patient is about the same, generally weak, arousable, alert oriented 3, family seems to be a bit concerned about those of her right foot, seems to be slightly bluish in color, and the foot is a bit cold to touch with diminished distal pulses in the right foot. Hence I recommended a surgical consultation to be evaluated by vascular surgery. is considering transferring the patient to [facility], and he will discuss this with the admitting physician. Pulmonary-khan, the patient seems to be doing well, and her chest x-ray has shown significant improvement. However she continues to have leukocytosis with WBC count of 20.0 hemoglobin is 9.8 electrolytes and renal profile are relatively normal. Objective - Vital Signs Vital signs: Vital Signs Temp 98.3 F 06/02/17 10:52 Pulse 64 06/02/17 12:15 Resp 18 06/02/17 12:00 BP 115/71 06/02/17 10:52 Pulse Ox 97 06/02/17 10:52 Intake & Output 06/01/17 06/02/17 06/02/17 18:59 06:59 18:59 Intake Total 478 118 Output Total 1300 2000 1000 Balance -822 -1999 -88 Weight 91.5 kg Intake: Oral 478 118 Output: Urine 1300 1999 1000 Other: Voiding Method Indwelling Catheter Indwelling Catheter Indwelling Catheter ABP, PAP, CO, CI - Last Documented Arterial Blood Pressure 133/93 - Exam Physical Exam: Revealed a 72-year-old female in no distress on nasal cannula. In no form of respiratory distress. Head: Atraumatic, normocephalic. Neck: Neck supple no neck masses, moist mucous membranes noted.. HEENT:[ PERRLA, EOMI, no icterus, throat is clear, Chest: [Very minimal crackles at the right base, no rhonchi no wheezes.. Cardiac Exam: [Normal S1 and S2, no S3 gallop, no murmur.] Abdomen: [Soft, nontender, no megaly, no rebound, no guarding, normal bowel sounds.] Extremities: [No clubbing, no edema, bluish discoloration was noted of that big toe and the second toe of the right foot. Foot was felt slightly cold to touch , and diminished dorsalis pedis and posterior tibial pulses noted. Neurological Exam: No gross focal neurologic deficit, however the patient is noted to be generally weak.] Psychiatric: Normal mood affect relatively normal mental status exam, - Labs CBC & Chem 7: 06/02/17 05:38 06/02/17 05:38 Labs: Abnormal Lab Results - Last 24 Hours (Table) 06/01/17 06/01/17 06/02/17 Range/Units 16:12 20:41 05:38 WBC 20.0 H (3.8-10.6) k/uL RBC 3.67 L (3.80-5.40) m/uL Hgb 9.8 L (11.4-16.0) gm/dL MCHC 28.7 L (31.0-37.0) g/dL RDW 19.1 H (11.5-15.5) % Plt Count 135 L (150-450) k/uL Neutrophils # 17.9 H (1.3-7.7) k/uL Lymphocytes # 0.9 L (1.0-4.8) k/uL BUN (7-17) mg/dL POC Glucose (mg/dL) 127 H 126 H (75-99) mg/dL AST (14-36) U/L ALT (9-52) U/L Total Protein (6.3-8.2) g/dL Albumin (3.5-5.0) g/dL 06/02/17 06/02/17 Range/Units 05:38 11:38 WBC (3.8-10.6) k/uL RBC (3.80-5.40) m/uL Hgb (11.4-16.0) gm/dL MCHC (31.0-37.0) g/dL RDW (11.5-15.5) % Plt Count (150-450) k/uL Neutrophils # (1.3-7.7) k/uL Lymphocytes # (1.0-4.8) k/uL BUN 33 H (7-17) mg/dL POC Glucose (mg/dL) 101 H (75-99) mg/dL AST 44 H (14-36) U/L ALT 131 H (9-52) U/L Total Protein 5.1 L (6.3-8.2) g/dL Albumin 2.6 L (3.5-5.0) g/dL Assessment and Plan Assessment: 1 acute cardiac arrest/V. fib, status post CPR, defibrillation and subsequent intubation mechanical ventilation. [address] segment elevation myocardial infarction involving the inferior wall secondary to dissection of the RCA. The patient underwent emergent cardiac catheterization and she currently has a GRISEL 3 flow and she did not require coronary stenting 3 acute shock, cardiogenic in nature with an ejection fraction of 20% 4 acute hypoxic respiratory failure secondary to above, resolved 5 acute right lower lobe pneumonia, stable on today's chest x-ray, remains on Zosyn 6 acute COPD exacerbation secondary to right lower lobe pneumonia 7 anoxic encephalopathy, improving. 8 acute head trauma the time of a cardiac arrest. The patient had a negative CAT scan of the head 9 diabetes mellitus 10 hyperlipidemia 11 hypothyroidism 13 history of hypertension 14 leukocytosis secondary to above 15 acute kidney injury improved renal profile was noted 16 acute shock liver with an underlying coagulopathy. Resolved 17 suspect peripheral vessel occlusive disease involving the right leg, hence a surgical consultation will be initiated based upon the request of her who is at bedside. Recommendation: Continue present supportive care measures, will maintain on Lasix 20 mg IV push every 12 hours. Continue incentive spirometry, continue antibiotics, continue physical therapy. Surgical consult with vascular surgery was initiated. We'll continue to follow. Time with Patient: Less than 30
--- NOTE | 2017-06-02 13:34 | P.PN ---
Subjective Progress Note Date: 06/02/17 Mrs. Peterson is seen and examined this morning. Family is at the bedside. She is sleeping and able to arouse easily and converse. She denies symptoms of chest pain, dyspnea, dizziness, palpitations or nausea/vomiting. She states she feels tired. Telemetry tracings have been unremarkable for arrhythmias. Laboratory data reviewed, WBC 20, hemoglobin 9.8, platelets 135, potassium 3.6, creatinine 0.9, magnesium 1.8. Blood pressure 115/71 heart rate 52 afebrile maintaining oxygen saturation on nasal cannula. Chest x-ray yesterday reveals improved aeration of the right lung base. Objective - Vital Signs Vital signs: Vital Signs Temp 98.3 F 06/02/17 10:52 Pulse 52 L 06/02/17 10:52 Resp 18 06/02/17 10:52 BP 115/71 06/02/17 10:52 Pulse Ox 97 06/02/17 10:52 Intake & Output 06/01/17 06/02/17 06/02/17 18:59 06:59 18:59 Intake Total 478 118 Output Total 1300 1999 1000 Balance -822 -1999 -882 Weight 91.5 kg Intake: Oral 478 118 Output: Urine 1300 1999 1000 Other: Voiding Method Indwelling Catheter Indwelling Catheter Indwelling Catheter ABP, PAP, CO, CI - Last Documented Arterial Blood Pressure 133/93 - Exam GENERAL: In no acute distress. Respirations equal and unlabored. NECK: Supple without JVD or thyromegaly. LUNGS: Breath sounds diminished. Bibasilar rales, faint. Coarse rhonchi scattered throughout. No wheezes. Respiration equal and unlabored. HEART: Regular rate and rhythm without murmurs, rubs or gallops. S1 and S2 heard. EXTREMITIES: Normal range of motion, no edema. No clubbing. Purple discoloration right toes, Positive capillary refill. Peripheral pulses intact 1 +. - Labs CBC & Chem 7: 06/02/17 05:38 06/02/17 05:38 Labs: Abnormal Lab Results - Last 24 Hours (Table) 06/01/17 06/01/17 06/01/17 Range/Units 11:31 16:12 20:41 WBC (3.8-10.6) k/uL RBC (3.80-5.40) m/uL Hgb (11.4-16.0) gm/dL MCHC (31.0-37.0) g/dL RDW (11.5-15.5) % Plt Count (150-450) k/uL Neutrophils # (1.3-7.7) k/uL Lymphocytes # (1.0-4.8) k/uL BUN (7-17) mg/dL POC Glucose (mg/dL) 122 H 127 H 126 H (75-99) mg/dL AST (14-36) U/L ALT (9-52) U/L Total Protein (6.3-8.2) g/dL Albumin (3.5-5.0) g/dL 06/02/17 06/02/17 Range/Units 05:38 05:38 WBC 20.0 H (3.8-10.6) k/uL RBC 3.67 L (3.80-5.40) m/uL Hgb 9.8 L (11.4-16.0) gm/dL MCHC 28.7 L (31.0-37.0) g/dL RDW 19.1 H (11.5-15.5) % Plt Count 135 L (150-450) k/uL Neutrophils # 17.9 H (1.3-7.7) k/uL Lymphocytes # 0.9 L (1.0-4.8) k/uL BUN 33 H (7-17) mg/dL POC Glucose (mg/dL) (75-99) mg/dL AST 44 H (14-36) U/L ALT 131 H (9-52) U/L Total Protein 5.1 L (6.3-8.2) g/dL Albumin 2.6 L (3.5-5.0) g/dL Assessment and Plan Assessment: ASSESSMENT 1. Acute cardiac arrest/V. fib, status post CPR, defibrillation and subsequent intubation requiring mechanical ventilation. 2. Acute ST elevation [place] involving the inferior wall, secondary to dissection of the RCA. Patient did undergo cardiac catheterization which revealed GRISEL-3 flow and did not require stenting 3. Acute shock, cardiogenic. Ejection fraction 20% 4. Acute hypoxic respiratory failure 5. Right lower lobe pneumonia 6. COPD 7. Diabetes mellitus 8. Dyslipidemia 9. Hypertension 10. Hypothyroidism 11. Chronic tobacco abuse 12. Obesity, BMI 33.6 13. Leukocytosis, WBC today 20 PLAN We have recommended she go home with LifeVest in place. This has been provided and is ready for application upon discharge. Family is at the bedside and voicing concern over her ongoing weakness. Continue with amiodarone, aspirin, Lasix, metoprolol, mexiletine and Aldactone as as previously ordered. Recommend consultation with Vascular surgery for ischemic changes to the right foot. The above impression and plan of care have been discussed and directed by the signing physician. Sharon Leal, nurse practitioner, acting as scribe for signing physician.
--- NOTE | 2017-06-02 14:39 | P.DS ---
Providers Date of admission: 05/21/17 21:55 Expected date of discharge: 06/02/17 Attending physician: Cristin Jc Consults: 05/21/17 22:10 Consult Physician Stat Consulting Provider: Charlotte Ortiz Consult Reason/Comments: respitory failure Do you want consulting provider notified?: Yes 05/22/17 09:00 Consult Physician Stat Consulting Provider: Julian Goodman Consult Reason/Comments: EKG changes Do you want consulting provider notified?: Already Contacted 05/24/17 11:27 Consult Physician Routine Consulting Provider: Katharina Bird Consult Reason/Comments: Head trauma, cardiac arrest Do you want consulting provider notified?: Yes 06/02/17 10:10 Consult Physician Routine Consulting Provider: Ez Gates Consult Reason/Comments: rt foot ischemic changes cold and blue toes Do you want consulting provider notified?: Yes Primary care physician: Charlotte [facility] Course: This is a 72-year-old female who was transferred to [facility] from [facility] after she had an episode of cardiac arrest requiring CPR for approximately 20 minutes. Patient was admitted to the intensive care unit. She underwent left heart catheterization showing findings suggestive of dissection of the RCA. Otherwise nonobstructive coronary artery disease. Patient was seen and evaluated by multiple specialists including the bell spinner and cardiology. Her overall condition started to improve and she was eventually extubated. Patient was making slow progress after extubation with persistent encephalopathy and episodes of hypotension. Her overall condition continued to improve. Her mentation is a lot better now. On 317 she was noted to have cold feet and subsequently her toe started to turn bluish in color. She was seen and evaluated by vascular surgery. She was deemed to be a very poor candidate for any intervention or surgery at this time. Unfortunately her family were not satisfied with the nursing care in this hospital and the requested for transfer to [facility]. Below is a list of her medical problems addressed during this hospitalization 1. Cardiac arrest at the outside hospital status post CPR for approximately 20 minutes/defibrillation 2. Acute ST elevation CA status post left heart catheterization with findings suggestive of dissection of the RCA. Otherwise nonobstructive coronary artery disease. Followed by cardiology. 3. Acute cardiogenic shock: Requiring vasopressors. Now resolved. Blood pressure within acceptable range. Repeat echocardiogram showed EF of 25% which is new compared to her echo last month with a EF of greater than 50%. Plan for AICD eventually. In the meantime we will use a LifeVest upon discharge. 4. Right lower lobe pneumonia finished 10 days course of Zosyn and vancomycin. 5. Acute hypoxic respiratory failure requiring intubation and mechanical ventilation and extubated on 05/27 6. Acute liver shock with significant transaminitis secondary to episodes of hypotension. now improving significantly. Liver function test back to normal 7. Type 2 diabetes mellitus 8. Mixed hyperlipidemia 9. Hypothyroidism maintained on levothyroxin 10. Episode of V. fib: Cardiology following closely. Her regimen has been adjusted. Patient would eventually need a defibrillator when her overall condition is improved. Electrolytes within acceptable range. 11. Necrotic toes involving the right foot. Started within the past 24-48 hours. Seen and evaluated by vascular surgery. No vascular studies done as of yet. Patient is a very poor candidate for any surgical intervention at this time. Patient will be transferred to [facility] per family request. Please refer to the electronic chart for further details about her hospitalization Patient Condition at Discharge: Critical Plan - Discharge Summary New Discharge Prescriptions: No Action Albuterol Sulfate [Proair Hfa] 1 - 2 puff INHALATION RT-Q4H PRN PRN Reason: Shortness Of Breath Aspirin 81 mg PO DAILY Atorvastatin Calcium [Lipitor] 40 mg PO DAILY Cholecalciferol [Vitamin D3] 5,000 unit PO DAILY@1200 Levothyroxine Sodium [Synthroid] 50 mcg PO DAILY Lisinopril-Hctz 20-25 mg [Zestoretic 20-25] 1 tab PO DAILY metFORMIN HCL 500 mg PO DAILY Ranitidine HCl [Zantac] 300 mg PO BID Albuterol Nebulized [Ventolin Nebulized] 2.5 mg INHALATION RT-TID Budesonide/Formoterol Fumarate [Symbicort 160-4.5 Mcg Inhaler] 2 puff INHALATION RT-BID FLUoxetine HCL [PROzac] 60 mg PO DAILY HYDROcodone/APAP 10-325MG [[place] 10-325] 1 tab PO HS HYDROcodone/APAP 10-325MG [[place] 10-325] 2 tab PO TID Lansoprazole [Prevacid] 30 mg PO DAILY Discharge Medication List Albuterol Sulfate [Proair Hfa] 1 - 2 puff INHALATION RT-Q4H PRN 10/05/13 [ History] Aspirin 81 mg PO DAILY 10/05/13 [History] Atorvastatin Calcium [Lipitor] 40 mg PO DAILY 10/05/13 [History] Cholecalciferol [Vitamin D3] 5,000 unit PO DAILY@1200 10/05/13 [History] Levothyroxine Sodium [Synthroid] 50 mcg PO DAILY 10/05/13 [History] Lisinopril-Hctz 20-25 mg [Zestoretic 20-25] 1 tab PO DAILY 10/05/13 [History] Ranitidine HCl [Zantac] 300 mg PO BID 10/05/13 [History] metFORMIN HCL 500 mg PO DAILY 10/05/13 [History] Albuterol Nebulized [Ventolin Nebulized] 2.5 mg INHALATION RT-TID 05/22/17 [ History] Budesonide/Formoterol Fumarate [Symbicort 160-4.5 Mcg Inhaler] 2 puff INHALATION RT-BID 05/22/17 [History] FLUoxetine HCL [PROzac] 60 mg PO DAILY 05/22/17 [History] HYDROcodone/APAP 10-325MG [[place] 10-325] 1 tab PO HS 05/22/17 [History] HYDROcodone/APAP 10-325MG [[place] 10-325] 2 tab PO TID 05/22/17 [History] Lansoprazole [Prevacid] 30 mg PO DAILY 05/22/17 [History]
[2017-06-02 16:57] LABS: Glucose,Whole Blood 107 mg/dL (75-99)
[2017-06-02 21:22] LABS: Glucose,Whole Blood 107 mg/dL (75-99)
[2017-06-03] MEDS: HYDROmorphone 2 MG TAB PO PRN ×5 (02:51→22:04)
[2017-06-03 06:14] LABS: Anisocytosis Slight; Basophils % (A) 0 %; Eosinophils # (A) 0.1 k/uL (0-0.7); Eosinophils % (A) 0 %; HCT 30.8 % (34.0-46.0); HGB 9.3 gm/dL (11.4-16.0); Hypochromasia Marked; Lymphocytes # (A) 0.7 k/uL (1.0-4.8); Lymphocytes % (A) 4 %; MCH 27.4 pg (25.0-35.0); MCHC 30.1 g/dL (31.0-37.0); MCV 91.2 fL (80.0-100.0); Macrocytosis Slight; Monocytes # (A) 0.8 k/uL (0-1.0); Monocytes % (A) 5 %; Neutrophils # (A) 15.6 k/uL (1.3-7.7); Neutrophils % (A) 90 %; Platelet Count 161 k/uL (150-450); Poikilocytosis Moderate; RBC 3.38 m/uL (3.80-5.40); RDW 19.5 % (11.5-15.5); WBC 17.3 k/uL (3.8-10.6)
[2017-06-03 06:16] LABS: Albumin 2.4 g/dL (3.5-5.0); Calcium 8.7 mg/dL (8.4-10.2); Magnesium 1.6 mg/dL (1.6-2.3); Total Bilirubin 0.9 mg/dL (0.2-1.3); Total Protein 4.6 g/dL (6.3-8.2)
[2017-06-03 06:22] LABS: Glucose,Whole Blood 94 mg/dL (75-99)
[2017-06-03] MEDS: INSULIN ASPART 100 UNIT/ML 1 ML 10 ML VIAL SQ SCH ×4 (06:22→22:05)
[2017-06-03] MEDS: PANTOPRAZOLE 40 MG TABLET PO SCH (06:23)
[2017-06-03] MEDS: LEVOTHYROXINE 50 MCG TAB PO SCH (06:23)
[2017-06-03] MEDS ORDERED: Potassium Replacement Protocol 1 EACH MISC MISCELLANE PRN (07:15)
[2017-06-03] MEDS: METOPROLOL TARTRATE 12.5 MG TAB PO SCH ×2 (08:26→22:06)
[2017-06-03] MEDS: ASPIRIN 81 MG PO SCH (08:27)
[2017-06-03] MEDS: FUROSEMIDE 10 MG/ML 2 ML VIAL IV SCH ×2 (08:27→22:05)
[2017-06-03] MEDS: SPIRONOLACTONE 25 MG TAB PO SCH (08:27)
[2017-06-03] MEDS: MEXILETINE 150 MG CAP PO SCH ×3 (08:27→23:39)
[2017-06-03] MEDS: AMIODARONE 200 MG TAB PO SCH (08:27)
[2017-06-03] MEDS: HEPARIN SODIUM,PORCINE 5,000 UNIT/ML 1 ML VIAL SQ SCH ×2 (08:27→22:05)
[2017-06-03] MEDS: FLUoxetine HCL 20 MG CAP PO SCH (08:27)
[2017-06-03] MEDS: IPRATROPIUM-ALBUTEROL 3 ML NEB INHALATION SCH ×4 (08:37→19:09)
[2017-06-03] MEDS: POTASSIUM CHLORIDE 10 MEQ in SODIUM CHLORIDE 0.9% 100 ML IVPB SCH ×2 (08:56→10:21)
--- NOTE | 2017-06-03 10:59 | P.PN ---
Subjective Progress Note Date: 06/03/17 This is a 72-year-old female patient with history of COPD, diastolic congestive heart failure, who was admitted to [facility] with complaints of shortness of breath. Her troponins were noted to be mildly elevated, EKGs did not reveal any acute changes. Chest x-ray suggested a right lower lobe pneumonia. Patient was treated with antibiotics. At the time of shift change, the nurses heard a loud noise and found that the patient was on the floor face down. On the correctional maintenance technician patient was noted to be in ventricular fibrillation, she was given epinephrine, as well as a shock and went into pulseless rhythm. She apparently regained a pulse, blood pressure at that time was very low. She was significantly hypoxic. Subsequent to that she was intubated, remained hypotensive requiring epinephrine. Patient then was transferred here to [facility] for further care. Patient was taken to the cardiac catheterization lab where she was found to have calcified coronary system with mild disease in the LAD. The right coronary artery shows haziness in the proximal portion which is felt to be secondary to spontaneous dissection that cannot be excluded. Films were reviewed at that time by Dr. Leggett in the decision was made to maximize medical therapy. Patient was noted at times to have a low magnesium and low potassium level, these were replaced. Patient had medication adjustments made. In spite of that it was noted that through afternoon hours yesterday patient again had runs of ventricular fibrillation. Magnesium level today is 2.0. Dr. Solano did discuss the patient's case with Dr. Goodman. Recommendations were to increase beta lincoln dose, add mexiletine 150 3 times a day, increase Aldactone to 50 daily, keep potassium in the range of 4.5 and keep the magnesium greater than 2. The patient's pneumonia improves, AICD therapy with external or internal should be considered. 05/31/2017 Patient was seen and examined this morning, overall feeling better. No further episodes of ventricular fibrillation were noted on the monitor. Blood pressure 102/60 with a heart rate in the 50s. Patient continues to be on 4 L of oxygen, satting 93%. Sodium 142, potassium 3.9, BUN 37, creatinine 1.0. Patient continues to be on IV antibiotics and IV Lasix. 06/01/2017 Patient seen and examined this morning, much less confused today. Continues to have cough, productive, yellow sputum. No arrhythmias noted on the monitor. Blood pressure 110/70 with a heart rate in the 70s, 98% on 4 L of oxygen. White blood cell count 17.9, hemoglobin 9.9, platelet count 119. Sodium 138, potassium 4.1, BUN 37, creatinine 0.9. 06/03/2017 Patient seen and examined this morning, sleepy, arouses to voice, less confused. Continues to have productive cough of yellow sputum. No arrhythmias noted on the monitor. has requested transfer to [place], they are awaiting a bed. This time. Blood pressure 116/70 with a heart rate in the 50s to 60s, 94% on 3 L. White blood cell count 17.3, hemoglobin 9.3, platelet count 161. Sodium 140, potassium 3.0, BUN 28, creatinine 0.8. Mag level I.6. Objective - Vital Signs Vital signs: Vital Signs Temp 97.4 F L 06/03/17 08:00 Pulse 64 06/03/17 08:53 Resp 20 06/03/17 08:00 BP 116/70 06/03/17 08:00 Pulse Ox 94 L 06/03/17 08:00 Intake & Output 06/02/17 06/03/17 06/03/17 18:59 06:59 18:59 Intake Total 236 50 Output Total 1500 1900 Balance -1264 -1900 50 Weight 102 kg Intake: Oral 236 50 Output: Urine 1500 1900 Other: Voiding Method Indwelling Catheter Indwelling Catheter Indwelling Catheter ABP, PAP, CO, CI - Last Documented Arterial Blood Pressure 133/93 - Exam PHYSICAL EXAMINATION: HEENT: Head is atraumatic, normocephalic. Pupils equal, round. Neck is supple. There is no elevated jugular venous pressure. HEART EXAMINATION: Heart S1, S2 normal. No murmur or gallop heard. CHEST EXAMINATION: Lungs reveal scattered coarse rhonchi with crackles to bilateral bases, fine wheezing also noted. ABDOMEN: Soft, nontender. Bowel sounds are heard. No organomegaly noted. EXTREMITIES: 1+ peripheral pulses with no evidence of peripheral edema and no calf tenderness noted. NEUROLOGIC patient is awake, mildly confused . - Labs CBC & Chem 7: 06/03/17 05:15 06/03/17 05:15 Labs: Abnormal Lab Results - Last 24 Hours (Table) 06/02/17 06/02/17 06/02/17 Range/Units 11:38 16:26 21:02 WBC (3.8-10.6) k/uL RBC (3.80-5.40) m/uL Hgb (11.4-16.0) gm/dL Hct (34.0-46.0) % MCHC (31.0-37.0) g/dL RDW (11.5-15.5) % Neutrophils # (1.3-7.7) k/uL Lymphocytes # (1.0-4.8) k/uL Potassium (3.5-5.1) mmol/L Carbon Dioxide (22-30) mmol/L BUN (7-17) mg/dL POC Glucose (mg/dL) 101 H 107 H 107 H (75-99) mg/dL AST (14-36) U/L ALT (9-52) U/L Total Protein (6.3-8.2) g/dL Albumin (3.5-5.0) g/dL 06/03/17 06/03/17 Range/Units 05:15 05:15 WBC 17.3 H (3.8-10.6) k/uL RBC 3.38 L (3.80-5.40) m/uL Hgb 9.3 L (11.4-16.0) gm/dL Hct 30.8 L (34.0-46.0) % MCHC 30.1 L (31.0-37.0) g/dL RDW 19.5 H (11.5-15.5) % Neutrophils # 15.6 H (1.3-7.7) k/uL Lymphocytes # 0.7 L (1.0-4.8) k/uL Potassium 3.0 L* (3.5-5.1) mmol/L Carbon Dioxide 34 H (22-30) mmol/L BUN 28 H (7-17) mg/dL POC Glucose (mg/dL) (75-99) mg/dL AST 39 H (14-36) U/L ALT 98 H (9-52) U/L Total Protein 4.6 L (6.3-8.2) g/dL Albumin 2.4 L (3.5-5.0) g/dL Assessment and Plan Plan: Assessment and plan #1 acute cardiac arrest/V. fib, status post CPR, defibrillation, and subsequent intubation requiring mechanical ventilation. Patient was noted again yesterday evening to have a run of ventricular fibrillation. #[address] elevation myocardial infarction involving the inferior wall, secondary to dissection of the RCA. Patient did undergo cardiac catheterization which revealed GRISEL-3 flow and did not require stenting #3 acute shock, cardiogenic in nature, EF 20% #4 acute hypoxic respiratory failure #5 right lower lobe pneumonia #6 COPD #7 diabetes #8 hyperlipidemia #9 hypertension #10 hypothyroidism Plan From cardiology's perspective, we'll continue current medications which include amiodarone 400 mg daily, aspirin 162 mg daily, metoprolol 25 mg 3 times a day, mexiletine 150 mg every 8 hour and Aldactone 50 mg daily. We'll replace the patient's potassium and magnesium. Arrangements are being made for the patient to be transferred to [facility]. Once the pneumonia clears, defibrillator therapy with external or internal needs to be considered. She does have a LifeVest delivered to bedside. DNP note has been reviewed, I agree with a documented findings and plan of care. Patient was seen and examined.
[2017-06-03 11:15] LABS: Glucose,Whole Blood 110 mg/dL (75-99)
[2017-06-03] MEDS: MAGNESIUM SULFATE-D5W PMX 1 GM in DEXTROSE/WATER 1 100ML.BAG IVPB SCH ×2 (12:19→13:38)
--- NOTE | 2017-06-03 13:09 | P.PN ---
Subjective Progress Note Date: 06/03/17 Patient was declined by [facility] to be transferred. No acute events overnight. No events on the monitor. Potassium is being replaced right now. Objective - Vital Signs Vital signs: Vital Signs Temp 96.5 F L 06/03/17 11:43 Pulse 58 L 06/03/17 11:43 Resp 20 06/03/17 11:43 BP 115/74 06/03/17 11:43 Pulse Ox 96 06/03/17 11:43 Intake & Output 06/02/17 06/03/17 06/03/17 18:59 06:59 18:59 Intake Total 236 450 Output Total 1500 1900 850 Balance -1264 -1900 -400 Weight 102 kg 102 kg Intake: Intake, IV Titration 400 Amount Magnesium Sulfate-D5w Pmx 200 1 gm In Dextrose/Water 1 100ml.bag @ 100 mls/hr IVPB Q1H ANIA Rx#: [id number] Potassium Chloride 10 meq 200 In Sodium Chloride 0.9% 100 ml @ 105 mls/hr IVPB Q1H ANIA Rx#:[id number] Oral 236 50 Output: Urine 1500 1900 850 Other: Voiding Method Indwelling Catheter Indwelling Catheter Indwelling Catheter ABP, PAP, CO, CI - Last Documented Arterial Blood Pressure 133/93 - Exam General: Patient is awake and alert. Eye: there is normal conjunctiva bilaterally. Neck: The neck is supple, there is no JVD. Cardiovascular: Normal S1-S2, no S3-S4, no murmurs. Respiratory: Lungs there is diffuse crackles and rhonchi all over the chest. Gastrointestinal: Abdomen is soft, nontender Musculoskeletal: There is no pedal edema. Skin: Skin is warm and dry - Labs CBC & Chem 7: 06/03/17 05:15 06/03/17 05:15 Labs: Abnormal Lab Results - Last 24 Hours (Table) 06/02/17 06/02/17 06/03/17 Range/Units 16:26 21:02 05:15 WBC 17.3 H (3.8-10.6) k/uL RBC 3.38 L (3.80-5.40) m/uL Hgb 9.3 L (11.4-16.0) gm/dL Hct 30.8 L (34.0-46.0) % MCHC 30.1 L (31.0-37.0) g/dL RDW 19.5 H (11.5-15.5) % Neutrophils # 15.6 H (1.3-7.7) k/uL Lymphocytes # 0.7 L (1.0-4.8) k/uL Potassium (3.5-5.1) mmol/L Carbon Dioxide (22-30) mmol/L BUN (7-17) mg/dL POC Glucose (mg/dL) 107 H 107 H (75-99) mg/dL AST (14-36) U/L ALT (9-52) U/L Total Protein (6.3-8.2) g/dL Albumin (3.5-5.0) g/dL 06/03/17 06/03/17 Range/Units 05:15 11:13 WBC (3.8-10.6) k/uL RBC (3.80-5.40) m/uL Hgb (11.4-16.0) gm/dL Hct (34.0-46.0) % MCHC (31.0-37.0) g/dL RDW (11.5-15.5) % Neutrophils # (1.3-7.7) k/uL Lymphocytes # (1.0-4.8) k/uL Potassium 3.0 L* (3.5-5.1) mmol/L Carbon Dioxide 34 H (22-30) mmol/L BUN 28 H (7-17) mg/dL POC Glucose (mg/dL) 110 H (75-99) mg/dL AST 39 H (14-36) U/L ALT 98 H (9-52) U/L Total Protein 4.6 L (6.3-8.2) g/dL Albumin 2.4 L (3.5-5.0) g/dL Assessment and Plan Assessment: 1. Cardiac arrest at the outside hospital status post CPR for approximately 20 minutes/defibrillation 2. Acute ST elevation CT status post left heart catheterization with findings suggestive of dissection of the RCA. Otherwise nonobstructive coronary artery disease. Followed by cardiology. 3. Episodes of V. fib: Cardiology following closely. Her regimen has been adjusted. She is now on amiodarone and mexiletine Patient would eventually need a defibrillator/pacemaker when her overall condition is improved. Electrolytes within acceptable range. 4. Acute cardiogenic shock: Requiring vasopressors. Now resolved. Blood pressure within acceptable range. Repeat echocardiogram showed EF of 25% which is new compared to her echo last month with a EF of greater than 50%. Plan for AICD eventually. In the meantime we will use a LifeVest upon discharge. 5. Right lower lobe pneumonia finished 10 days course of Zosyn and vancomycin. 6. Acute hypoxic respiratory failure 7. Acute liver shock with significant transaminitis secondary to episodes of hypotension. now improving significantly. Liver function test back to normal 8. Type 2 diabetes mellitus 9. Mixed hyperlipidemia 10. Hypothyroidism maintained on levothyroxin - I informed the patient's and son the moment hospital refused transfer. They will let us know if they would like to keep her here or transfer her to a different hospital - Continue current management. Electrolytes being replaced. - Patient declined [facility] twice this morning but she said now he is ready. Nursing staff to contact [facility] if they're able to come back to evaluate patient - Patient is making slow progress. She was extubated on 05/27. Repeat echocardiogram showed EF of 20% - We'll continue supportive care. Repeat lab work in the morning. Appreciate call center consultant's recommendation
--- NOTE | 2017-06-03 14:07 | P.PN ---
Subjective Progress Note Date: 06/03/17 Principal diagnosis: Cardiac arrest Progress note dated 06/03/2017 This is a 72-year-old female who had a cardiac arrest. I the patient had cardiopulmonary resuscitation and return of spontaneous circulation. She was intubated and mechanically ventilated. She was found to have an acute ST segment elevation myocardial infarction involving the inferior wall she also dissection of the right coronary artery. The patient had acute shock hypoxemic respiratory failure right lower lobe pneumonia COPD exacerbation encephalopathy acute head trauma diabetes hyperlipidemia hypothyroidism hypertension acute kidney injury acute shock liver and peripheral vascular occlusive disease. Despite all of that, the patient seemed to make a pretty good recovery. She is resting comfortably in bed. She states that she probably will be discharged to senior care in a day or so. She denies any difficulty. States she's not having any pain. She still feels weak though. No shortness of breath. The patient will continue with supportive care her diuretics incentive spirometry antibiotics physical therapy and so forth. Objective - Vital Signs Vital signs: Vital Signs Temp 96.5 F L 06/03/17 11:43 Pulse 58 L 06/03/17 11:43 Resp 20 06/03/17 11:43 BP 115/74 06/03/17 11:43 Pulse Ox 96 06/03/17 11:43 Intake & Output 06/02/17 06/03/17 06/03/17 18:59 06:59 18:59 Intake Total 236 450 Output Total 1500 1900 850 Balance -1264 -1900 -400 Weight 102 kg 102 kg Intake: Intake, IV Titration 400 Amount Magnesium Sulfate-D5w Pmx 200 1 gm In Dextrose/Water 1 100ml.bag @ 100 mls/hr IVPB Q1H [facility] Rx#: [id number] Potassium Chloride 10 meq 200 In Sodium Chloride 0.9% 100 ml @ 105 mls/hr IVPB Q1H [facility] Rx#:[id number] Oral 236 50 Output: Urine 1500 1900 850 Other: Voiding Method Indwelling Catheter Indwelling Catheter Indwelling Catheter ABP, PAP, CO, CI - Last Documented Arterial Blood Pressure 133/93 - Exam No acute distress, oriented 3. A bit slow in answering questions. Nasal O2 in place. HEENT examination is grossly unremarkable. Mucous membranes are moist. No oral lesions. Neck supple. Full range of motion. No adenopathy thyromegaly or neck vein distention. Cardiovascular examination reveals regular rhythm rate. S1-S2 normal. No S3 or S4. No discernible murmur noted. Lungs reveal basilar crackles, right greater than left. No rhonchi. No wheezes. Abdomen soft bowel sounds are heard. No masses or tenderness. Extremities are intact. No cyanosis clubbing or edema. Skin is without rash or lesion. Neurologic examination is brief but nonfocal. - Labs CBC & Chem 7: 06/03/17 05:15 06/03/17 05:15 Labs: Abnormal Lab Results - Last 24 Hours (Table) 06/02/17 06/02/17 06/03/17 Range/Units 16:26 21:02 05:15 WBC 17.3 H (3.8-10.6) k/uL RBC 3.38 L (3.80-5.40) m/uL Hgb 9.3 L (11.4-16.0) gm/dL Hct 30.8 L (34.0-46.0) % MCHC 30.1 L (31.0-37.0) g/dL RDW 19.5 H (11.5-15.5) % Neutrophils # 15.6 H (1.3-7.7) k/uL Lymphocytes # 0.7 L (1.0-4.8) k/uL Potassium (3.5-5.1) mmol/L Carbon Dioxide (22-30) mmol/L BUN (7-17) mg/dL POC Glucose (mg/dL) 107 H 107 H (75-99) mg/dL AST (14-36) U/L ALT (9-52) U/L Total Protein (6.3-8.2) g/dL Albumin (3.5-5.0) g/dL 06/03/17 06/03/17 Range/Units 05:15 11:13 WBC (3.8-10.6) k/uL RBC (3.80-5.40) m/uL Hgb (11.4-16.0) gm/dL Hct (34.0-46.0) % MCHC (31.0-37.0) g/dL RDW (11.5-15.5) % Neutrophils # (1.3-7.7) k/uL Lymphocytes # (1.0-4.8) k/uL Potassium 3.0 L* (3.5-5.1) mmol/L Carbon Dioxide 34 H (22-30) mmol/L BUN 28 H (7-17) mg/dL POC Glucose (mg/dL) 110 H (75-99) mg/dL AST 39 H (14-36) U/L ALT 98 H (9-52) U/L Total Protein 4.6 L (6.3-8.2) g/dL Albumin 2.4 L (3.5-5.0) g/dL Assessment and Plan Assessment: Assessment Acute cardiac arrest/ventricular fibrillation, status post CPR defibrillation and subsequent intubation with mechanical ventilation. Acute ST segment elevation myocardial infarction involving the inferior wall with dissection of the right coronary artery status post emergent catheterization without stenting Acute cardiogenic shock, resolved Hypoxemic respiratory failure, resolved Right lower lobe pneumonia, stable COPD exacerbation, stable Anoxic brain injury, improved Acute head trauma secondary to cardiac arrest Diabetes mellitus Hyperlipidemia Hypothyroidism History of hypertension Acute kidney injury. Shock liver Peripheral vascular occlusive disease Plan: Plan dated 06/03/2017 The patient will continue with supportive care. I will include breathing treatments oxygen therapy and antibiotics physical therapy occupational therapy , etc. The patient will likely be discharged to senior care. I'm not sure that one has been picked outpatient. No additional recommendations are made. Prognosis is guarded. We'll continue to follow. Time with Patient: Less than 30
[2017-06-03 16:38] LABS: Glucose,Whole Blood 156 mg/dL (75-99)
--- NOTE | 2017-06-03 19:02 | P.PN ---
Subjective Progress Note Date: 06/03/17 This patient is a 72-year-old right-handed white female who was initially evaluated for acute cardiopulmonary arrest with anoxic brain injury. She was extubated on 05/27/2017 and is slowly been showing mild improvement in her overall condition. Apparently over the weekend plans were to transfer the patient to [facility] for further management. This is been placed on hold as apparently she was not accepted for transfer. The patient continues to remain relatively weak according to the son who is at bedside. She is being treated aggressively for multiple complex medical issues including recent episode of ventricular fibrillation. She is being considered for possible defibrillator placement one she is medically stable. The patient continues to do fairly well in terms of her mental status but still very weak. Her last computed tomography scan of the brain was done on 05/28/2017 which revealed mild atrophy. No acute intracranial abnormality was detected at that time. Her son is been concerned with her degree of weakness and poor respiratory status as she is still requiring frequent breathing treatments. She is being treated for right lower lobe pneumonia for the past 10 days and is on dual antibiotic therapy. Son is aware of her overall condition and is following with multiple specialists in her care at this time. We would recommend a follow -up computed tomography scan of the brain to be done today to rule out any new or acute changes in terms of her history of anoxic encephalopathy following cardiac arrest. Her generalized weakness is due to her complex medical history and general medical debility. We will continue to follow her progress closely during this admission. Her overall prognosis still remains very guarded. Case was discussed at length with the patient's son who was at bedside. All of his questions were answered. He is aware of her guarded condition. Objective - Vital Signs Vital signs: Vital Signs Temp 97.4 F L 06/03/17 15:34 Pulse 60 06/03/17 15:34 Resp 20 06/03/17 15:34 BP 119/71 06/03/17 15:34 Pulse Ox 93 L 06/03/17 15:34 Intake & Output 06/02/17 06/03/17 06/03/17 18:59 06:59 18:59 Intake Total 236 787 Output Total 1500 1900 1650 Balance -1264 -1900 -863 Weight 102 kg 102 kg Intake: Intake, IV Titration 400 Amount Magnesium Sulfate-D5w Pmx 200 1 gm In Dextrose/Water 1 100ml.bag @ 100 mls/hr IVPB Q1H [facility] Rx#: [id number] Potassium Chloride 10 meq 200 In Sodium Chloride 0.9% 100 ml @ 105 mls/hr IVPB Q1H [facility] Rx#:[id number] Oral 236 387 Output: Urine 1500 1900 1650 Other: Voiding Method Indwelling Catheter Indwelling Catheter Indwelling Catheter ABP, PAP, CO, CI - Last Documented Arterial Blood Pressure 133/93 - Exam Physical examination: PHYSICAL EXAMINATION: Patient is resting comfortably in bed. Patient examined on selective care today. She is slightly confused. VITAL SIGNS: Blood pressure is [119/71]. Heart rate is [60]. Respiration is [20] . Temperature is [97.5]. HEENT: Head is atraumatic, neck is supple, there were no carotid bruits. CHEST: Lungs are clear to auscultation and percussion. CARDIAC: S1, S2 normal rate and rhythm. There is no murmur. ABDOMEN: Soft and nontender. Bowel sounds are present. EXTREMITIES: There is no pedal edema. Peripheral pulses are present. Neurological examination: Patient is examined today and selective care floor. The patient is awake and alert. She is following simple commands. She is more responsive as noted by her son. The patient is moving all extremities. Muscle tone is normal. Muscle strength testing reveals 3+/5 strength throughout. Deep tendon reflexes are hypoactive. Plantar responses flexor bilaterally - Labs CBC & Chem 7: 06/03/17 05:15 06/03/17 05:15 Labs: Abnormal Lab Results - Last 24 Hours (Table) 06/02/17 06/03/17 06/03/17 Range/Units 21:02 05:15 05:15 WBC 17.3 H (3.8-10.6) k/uL RBC 3.38 L (3.80-5.40) m/uL Hgb 9.3 L (11.4-16.0) gm/dL Hct 30.8 L (34.0-46.0) % MCHC 30.1 L (31.0-37.0) g/dL RDW 19.5 H (11.5-15.5) % Neutrophils # 15.6 H (1.3-7.7) k/uL Lymphocytes # 0.7 L (1.0-4.8) k/uL Potassium 3.0 L* (3.5-5.1) mmol/L Carbon Dioxide 34 H (22-30) mmol/L BUN 28 H (7-17) mg/dL POC Glucose (mg/dL) 107 H (75-99) mg/dL AST 39 H (14-36) U/L ALT 98 H (9-52) U/L Total Protein 4.6 L (6.3-8.2) g/dL Albumin 2.4 L (3.5-5.0) g/dL 06/03/17 06/03/17 Range/Units 11:13 16:35 WBC (3.8-10.6) k/uL RBC (3.80-5.40) m/uL Hgb (11.4-16.0) gm/dL Hct (34.0-46.0) % MCHC (31.0-37.0) g/dL RDW (11.5-15.5) % Neutrophils # (1.3-7.7) k/uL Lymphocytes # (1.0-4.8) k/uL Potassium (3.5-5.1) mmol/L Carbon Dioxide (22-30) mmol/L BUN (7-17) mg/dL POC Glucose (mg/dL) 110 H 156 H (75-99) mg/dL AST (14-36) U/L ALT (9-52) U/L Total Protein (6.3-8.2) g/dL Albumin (3.5-5.0) g/dL Assessment and Plan (1) Anoxic encephalopathy Current Visit: Yes Status: Acute Code(s): G93.1 - ANOXIC BRAIN DAMAGE, NOT ELSEWHERE CLASSIFIED SNOMED Code(s): 800330732 (2) Acute myocardial infarction Current Visit: Yes Status: Acute Code(s): I21.9 - ACUTE MYOCARDIAL INFARCTION, UNSPECIFIED SNOMED Code(s): 49927337 (3) CHF (congestive heart failure) Current Visit: Yes Status: Acute Code(s): I50.9 - HEART FAILURE, UNSPECIFIED SNOMED Code(s): 52397979 (4) Cardiac arrest with ventricular fibrillation Current Visit: Yes Status: Acute Code(s): I46.9 - CARDIAC ARREST, CAUSE UNSPECIFIED; I49.01 - VENTRICULAR FIBRILLATION SNOMED Code(s): 54775022 (5) Pneumonia Current Visit: Yes Status: Acute Code(s): J18.9 - PNEUMONIA, UNSPECIFIED ORGANISM SNOMED Code(s): 038928149 Plan: This patient is a 72-year-old female who suffered an acute cardiac arrest with anoxic encephalopathy following this event. She was extubated back on 2017 and is showing very slow progress in her medical condition. She is more awake and alert but is still extremely weak. Her last computed tomography scan of the brain was performed on 05/28/2017 the results which are noted above. We will obtain a follow-up computed tomography scan today for comparison. The son was updated on her overall condition and prognosis. She still seems to have significant respiratory symptoms requiring frequent breathing treatments. She still appears to sounds somewhat congested as well. Patient was declined transferred to [facility] yesterday and we will continue to await further recommendations from Dr. Jc. We will obtain a follow-up computed tomography scan of the brain today for comparison to the previous study done on 05/28/2017. Patient with some improvement in her anoxic encephalopathy following extubation. Her overall condition however is progressing very slowly. She may need to be considered for correction placement at the time of discharge. We will continue to follow her progress very closely. This case was discussed with the patient's son at bedside. All of his questions are answered. He is aware of her guarded condition.
[2017-06-03 20:38] LABS: Glucose,Whole Blood 142 mg/dL (75-99)
[2017-06-03 22:51] LABS: Magnesium 1.9 mg/dL (1.6-2.3); Potassium 3.8 mmol/L (3.5-5.1)
[2017-06-03] MEDS: IPRATROPIUM-ALBUTEROL 3 ML NEB INHALATION PRN (23:26)
--- NOTE | 2017-06-03 23:34 | CT ---
EXAMINATION TYPE: CT brain wo con DATE OF EXAM: 06/03/2017 COMPARISON: 05/28/2017 HISTORY: WEAKNESS CT DLP: 2054.00 mGycm Automated exposure control for dose reduction was used. FINDINGS: There is cerebral cortical atrophy. There is no mass effect nor midline shift. There is no sign of in tracranial hemorrhage. The calvarium is intact. There is mucosal thickening in the ethmoid and left m axillary sinuses. There is mild caudal thickening left frontal sinus. IMPRESSION: CEREBRAL ATROPHY. THERE IS SINUSITIS THAT IS MOSTLY NEW COMPARED TO OLD EXAM.
[2017-06-04] MEDS: HYDROmorphone 2 MG TAB PO PRN ×4 (03:47→15:50)
[2017-06-04] MEDS: IPRATROPIUM-ALBUTEROL 3 ML NEB INHALATION PRN (03:59)
[2017-06-04 06:24] LABS: Anisocytosis Slight; Basophils % (A) 0 %; Eosinophils # (A) 0.1 k/uL (0-0.7); Eosinophils % (A) 1 %; HCT 30.6 % (34.0-46.0); HGB 9.3 gm/dL (11.4-16.0); Hypochromasia Marked; Lymphocytes # (A) 0.8 k/uL (1.0-4.8); Lymphocytes % (A) 5 %; MCH 27.4 pg (25.0-35.0); MCHC 30.5 g/dL (31.0-37.0); Mean Platelet Volume 7.7; Monocytes # (A) 0.9 k/uL (0-1.0); Monocytes % (A) 5 %; Neutrophils # (A) 15.3 k/uL (1.3-7.7); Neutrophils % (A) 89 %; Platelet Count 160 k/uL (150-450); Poikilocytosis Moderate; WBC 17.2 k/uL (3.8-10.6)
[2017-06-04 06:29] LABS: Glucose,Whole Blood 93 mg/dL (75-99)
[2017-06-04 06:34] LABS: ALT 91 U/L (9-52); AST 40 U/L (14-36); Albumin 2.4 g/dL (3.5-5.0); Alkaline Phosphatase 101 U/L (38-126); Anion Gap 7 mmol/L; Blood Urea Nitrogen 24 mg/dL (7-17); Calcium 8.5 mg/dL (8.4-10.2); Carbon Dioxide 35 mmol/L (22-30); Chloride 98 mmol/L (98-107); Glucose 77 mg/dL (74-99); Magnesium 1.6 mg/dL (1.6-2.3); Sodium 140 mmol/L (137-145); Total Bilirubin 1.1 mg/dL (0.2-1.3); Total Protein 4.7 g/dL (6.3-8.2)
[2017-06-04 06:39] LABS: Potassium 2.9 mmol/L (3.5-5.1)
[2017-06-04] MEDS ORDERED: EPINEPHrine 10 ML SYRINGE (0.1 MG/ML) ONE (06:50)
[2017-06-04] MEDS ORDERED: SODIUM BICARB 8.4% 50 ML SYR (1 MEQ/ML) ONE (06:50)
[2017-06-04] MEDS: INSULIN ASPART 100 UNIT/ML 1 ML 10 ML VIAL SQ SCH ×4 (06:55→20:53)
[2017-06-04] MEDS ORDERED: Potassium Replacement Protocol 1 EACH MISC MISCELLANE PRN ×2 (06:58→20:30)
[2017-06-04] MEDS: LEVOTHYROXINE 50 MCG TAB PO SCH (06:59)
[2017-06-04] MEDS: PANTOPRAZOLE 40 MG TABLET PO SCH (06:59)
[2017-06-04] MEDS: POTASSIUM CHLORIDE 10 MEQ in SODIUM CHLORIDE 0.9% 100 ML IVPB SCH ×3 (08:16→11:22)
[2017-06-04] MEDS: MEXILETINE 150 MG CAP PO SCH ×2 (08:16→15:43)
[2017-06-04] MEDS: SPIRONOLACTONE 25 MG TAB PO SCH (08:17)
[2017-06-04] MEDS: ASPIRIN 81 MG PO SCH (08:17)
[2017-06-04] MEDS: AMIODARONE 200 MG TAB PO SCH (08:17)
[2017-06-04] MEDS: FLUoxetine HCL 20 MG CAP PO SCH (08:17)
[2017-06-04] MEDS: METOPROLOL TARTRATE 12.5 MG TAB PO SCH ×2 (08:17→20:53)
[2017-06-04] MEDS: FUROSEMIDE 10 MG/ML 2 ML VIAL IV SCH ×2 (08:17→20:52)
[2017-06-04] MEDS: IPRATROPIUM-ALBUTEROL 3 ML NEB INHALATION SCH ×5 (09:00→20:42)
[2017-06-04] MEDS: HEPARIN SODIUM,PORCINE 5,000 UNIT/ML 1 ML VIAL SQ SCH ×2 (09:08→20:53)
[2017-06-04] MEDS: MAGNESIUM SULFATE-D5W PMX 1 GM in DEXTROSE/WATER 1 100ML.BAG IVPB SCH ×2 (09:10→11:22)
[2017-06-04] MEDS ORDERED: NA PHOS,M-B/NA PHOS,DI-BA 133 ML ENEMA RECTAL ONE (11:15)
--- NOTE | 2017-06-04 11:44 | P.PN ---
Subjective Progress Note Date: 06/04/17 Principal diagnosis: Cardiac arrest Progress note dated 06/03/2017 This is a 72-year-old female who had a cardiac arrest. I the patient had cardiopulmonary resuscitation and return of spontaneous circulation. She was intubated and mechanically ventilated. She was found to have an acute ST segment elevation myocardial infarction involving the inferior wall she also dissection of the right coronary artery. The patient had acute shock hypoxemic respiratory failure right lower lobe pneumonia COPD exacerbation encephalopathy acute head trauma diabetes hyperlipidemia hypothyroidism hypertension acute kidney injury acute shock liver and peripheral vascular occlusive disease. Despite all of that, the patient seemed to make a pretty good recovery. She is resting comfortably in bed. She states that she probably will be discharged to senior care in a day or so. She denies any difficulty. States she's not having any pain. She still feels weak though. No shortness of breath. The patient will continue with supportive care her diuretics incentive spirometry antibiotics physical therapy and so forth. Progress note dated 06/04/2017 The patient is seen again today in follow-up on the selective care unit. She is currently awake and alert. She denies any worsening shortness of breath at this time. She is maintaining good O2 saturations in the mid 90s on 3 L/m per nasal cannula. She's been afebrile. White count 17.2. Hemoglobin 9.3. Creatinine 0.75. Potassium is being replaced. Computed tomography scan of the brain revealed cerebral atrophy but no mass effect or midline shift. She does remain overall quite weak. She is working with physical therapy. The plan is for subacute placement to an [facility] for rehabilitation. Objective - Vital Signs Vital signs: Vital Signs Temp 97.5 F L 06/04/17 08:00 Pulse 64 06/04/17 09:19 Resp 17 06/04/17 08:00 BP 133/62 06/04/17 08:00 Pulse Ox 95 06/04/17 08:00 Intake & Output 06/03/17 06/04/17 06/04/17 18:59 06:59 18:59 Intake Total 787 160 Output Total 1650 2300 Balance -863 -3020 Weight 102 kg 95.5 kg Intake: Intake, IV Titration 400 Amount Magnesium Sulfate-D5w Pmx 200 1 gm In Dextrose/Water 1 100ml.bag @ 100 mls/hr IVPB Q[facility] Rx#: [id number] Potassium Chloride 10 meq 200 In Sodium Chloride 0.9% 100 ml @ 105 mls/hr IVPB Q1H [facility] Rx#:[id number] Oral 387 160 Output: Urine 1650 2300 Uretheral (Constantino) 1400 Other: Voiding Method Indwelling Catheter Indwelling Catheter Indwelling Catheter ABP, PAP, CO, CI - Last Documented Arterial Blood Pressure 133/93 - Exam No acute distress, oriented 3. A bit slow in answering questions. Nasal O2 in place. HEENT examination is grossly unremarkable. Mucous membranes are moist. No oral lesions. Neck supple. Full range of motion. No adenopathy thyromegaly or neck vein distention. Cardiovascular examination reveals regular rhythm rate. S1-S2 normal. No S3 or S4. No discernible murmur noted. Lungs reveal basilar crackles, right greater than left. No rhonchi. No wheezes. Abdomen soft bowel sounds are heard. No masses or tenderness. Extremities are intact. No cyanosis clubbing or edema. Skin is without rash or lesion. Neurologic examination is brief but nonfocal. - Labs CBC & Chem 7: 06/04/17 05:42 06/04/17 05:42 Labs: Abnormal Lab Results - Last 24 Hours (Table) 06/03/17 06/03/17 06/04/17 Range/Units 16:35 20:30 05:42 WBC 17.2 H (3.8-10.6) k/uL RBC 3.40 L (3.80-5.40) m/uL Hgb 9.3 L (11.4-16.0) gm/dL Hct 30.6 L (34.0-46.0) % MCHC 30.5 L (31.0-37.0) g/dL RDW 19.0 H (11.5-15.5) % Neutrophils # 15.3 H (1.3-7.7) k/uL Lymphocytes # 0.8 L (1.0-4.8) k/uL Potassium (3.5-5.1) mmol/L Carbon Dioxide (22-30) mmol/L BUN (7-17) mg/dL POC Glucose (mg/dL) 156 H 142 H (75-99) mg/dL AST (14-36) U/L ALT (9-52) U/L Total Protein (6.3-8.2) g/dL Albumin (3.5-5.0) g/dL 06/04/17 Range/Units 05:42 WBC (3.8-10.6) k/uL RBC (3.80-5.40) m/uL Hgb (11.4-16.0) gm/dL Hct (34.0-46.0) % MCHC (31.0-37.0) g/dL RDW (11.5-15.5) % Neutrophils # (1.3-7.7) k/uL Lymphocytes # (1.0-4.8) k/uL Potassium 2.9 L* (3.5-5.1) mmol/L Carbon Dioxide 35 H (22-30) mmol/L BUN 24 H (7-17) mg/dL POC Glucose (mg/dL) (75-99) mg/dL AST 40 H (14-36) U/L ALT 91 H (9-52) U/L Total Protein 4.7 L (6.3-8.2) g/dL Albumin 2.4 L (3.5-5.0) g/dL Assessment and Plan Assessment: Assessment Acute cardiac arrest/ventricular fibrillation, status post CPR defibrillation and subsequent intubation with mechanical ventilation. Acute ST segment elevation myocardial infarction involving the inferior wall with dissection of the right coronary artery status post emergent catheterization without stenting Acute cardiogenic shock, resolved Hypoxemic respiratory failure, resolved Right lower lobe pneumonia, stable COPD exacerbation, stable Anoxic brain injury, improved Acute head trauma secondary to cardiac arrest Diabetes mellitus Hyperlipidemia Hypothyroidism History of hypertension Acute kidney injury. Shock liver Peripheral vascular occlusive disease Plan: The patient was seen and evaluated by Dr. Carrasco. She is currently stable from the pulmonary standpoint. Continue to increase the use of the incentive spirometer and cough and deep breathing exercises. She remains on bronchodilators. No pulmonary complaints. The plan is for transfer to an extended care facility for continued rehabilitation. I, the cosigning physician, performed a history & physical examination of the patient. Lungs sounds are clear. Maintaining good O2 saturations in the 90s on 2 liters per minute per nasal canula. I discussed the assessment and plan of care with my nurse practitioner, Olga Li. I attest to the above note as dictated by her.
[2017-06-04 12:19] LABS: Glucose,Whole Blood 107 mg/dL (75-99)
--- NOTE | 2017-06-04 12:32 | P.PN ---
Subjective Patient is doing a lot better today. Her lung sounds are clearing up. She is more awake. She was able to sit at the side of the bed with 2 person assist earlier today but was unable to get up. Objective - Vital Signs Vital signs: Vital Signs Temp 97.5 F L 06/04/17 08:00 Pulse 66 06/04/17 11:50 Resp 16 06/04/17 11:50 BP 135/60 06/04/17 11:50 Pulse Ox 95 06/04/17 11:50 Intake & Output 06/03/17 06/04/17 06/04/17 18:59 06:59 18:59 Intake Total 787 160 Output Total 1650 2300 Balance -863 -2140 Weight 102 kg 95.5 kg Intake: Intake, IV Titration 400 Amount Magnesium Sulfate-D5w Pmx 200 1 gm In Dextrose/Water 1 100ml.bag @ 100 mls/hr IVPB Q1H [facility] Rx#: [id number] Potassium Chloride 10 meq 200 In Sodium Chloride 0.9% 100 ml @ 105 mls/hr IVPB Q1H [facility] Rx#:[id number] Oral 387 160 Output: Urine 1650 2300 Uretheral (Constantino) 1400 Other: Voiding Method Indwelling Catheter Indwelling Catheter Indwelling Catheter ABP, PAP, CO, CI - Last Documented Arterial Blood Pressure 133/93 - Exam General: Patient is awake and alert. Eye: there is normal conjunctiva bilaterally. Neck: The neck is supple, there is no JVD. Cardiovascular: Normal S1-S2, no S3-S4, no murmurs. Respiratory: Lungs scattered rhonchi to anterior chest auscultation Gastrointestinal: Abdomen is soft, nontender Musculoskeletal: There is no pedal edema. Skin: Skin is warm and dry - Labs CBC & Chem 7: 06/04/17 05:42 06/04/17 05:42 Labs: Abnormal Lab Results - Last 24 Hours (Table) 06/03/17 06/03/17 06/04/17 Range/Units 16:35 20:30 05:42 WBC 17.2 H (3.8-10.6) k/uL RBC 3.40 L (3.80-5.40) m/uL Hgb 9.3 L (11.4-16.0) gm/dL Hct 30.6 L (34.0-46.0) % MCHC 30.5 L (31.0-37.0) g/dL RDW 19.0 H (11.5-15.5) % Neutrophils # 15.3 H (1.3-7.7) k/uL Lymphocytes # 0.8 L (1.0-4.8) k/uL Potassium (3.5-5.1) mmol/L Carbon Dioxide (22-30) mmol/L BUN (7-17) mg/dL POC Glucose (mg/dL) 156 H 142 H (75-99) mg/dL AST (14-36) U/L ALT (9-52) U/L Total Protein (6.3-8.2) g/dL Albumin (3.5-5.0) g/dL 06/04/17 06/04/17 Range/Units 05:42 11:39 WBC (3.8-10.6) k/uL RBC (3.80-5.40) m/uL Hgb (11.4-16.0) gm/dL Hct (34.0-46.0) % MCHC (31.0-37.0) g/dL RDW (11.5-15.5) % Neutrophils # (1.3-7.7) k/uL Lymphocytes # (1.0-4.8) k/uL Potassium 2.9 L* (3.5-5.1) mmol/L Carbon Dioxide 35 H (22-30) mmol/L BUN 24 H (7-17) mg/dL POC Glucose (mg/dL) 107 H (75-99) mg/dL AST 40 H (14-36) U/L ALT 91 H (9-52) U/L Total Protein 4.7 L (6.3-8.2) g/dL Albumin 2.4 L (3.5-5.0) g/dL Assessment and Plan Assessment: 1. Cardiac arrest at the outside hospital status post CPR for approximately 20 minutes/defibrillation 2. Acute ST elevation NM status post left heart catheterization with findings suggestive of dissection of the RCA. Otherwise nonobstructive coronary artery disease. Followed by cardiology. 3. Episodes of V. fib: Cardiology following closely. Her regimen has been adjusted. She is now on amiodarone and mexiletine Patient would eventually need a defibrillator/pacemaker when her overall condition is improved. Electrolytes within acceptable range. 4. Acute cardiogenic shock: Requiring vasopressors. Now resolved. Blood pressure within acceptable range. Repeat echocardiogram showed EF of 25% which is new compared to her echo last month with a EF of greater than 50%. Plan for AICD eventually. In the meantime we will use a LifeVest upon discharge. 5. Right lower lobe pneumonia finished 10 days course of Zosyn and vancomycin. 6. Acute hypoxic respiratory failure 7. Acute liver shock with significant transaminitis secondary to episodes of hypotension. now improving significantly. Liver function test back to normal 8. Type 2 diabetes mellitus 9. Mixed hyperlipidemia 10. Hypothyroidism maintained on levothyroxin - Discontinue Constantino catheter and check postvoid residual - Continue current management. Electrolytes being replaced. - Continue PT/OT - LifeVest education for patient and her son - unit manager [employer] to start process for placement at [facility] - Acute abdominal series ordered today - Give 1 dose of lactulose and rectal enema today awaiting bowel movement - Patient is making slow progress. She was extubated on 05/27. Repeat echocardiogram showed EF of 20% - We'll continue supportive care. Repeat lab work in the morning. Appreciate furniture sales consultant's recommendation
--- NOTE | 2017-06-04 13:40 | P.PN ---
Subjective Progress Note Date: 06/04/17 This is a 72-year-old female patient with history of COPD, diastolic congestive heart failure, who was admitted to [facility] with complaints of shortness of breath. Her troponins were noted to be mildly elevated, EKGs did not reveal any acute changes. Chest x-ray suggested a right lower lobe pneumonia. Patient was treated with antibiotics. At the time of shift change, the nurses heard a loud noise and found that the patient was on the floor face down. On the fly tier patient was noted to be in ventricular fibrillation, she was given epinephrine, as well as a shock and went into pulseless rhythm. She apparently regained a pulse, blood pressure at that time was very low. She was significantly hypoxic. Subsequent to that she was intubated, remained hypotensive requiring epinephrine. Patient then was transferred here to [facility] for further care. Patient was taken to the cardiac catheterization lab where she was found to have calcified coronary system with mild disease in the LAD. The right coronary artery shows haziness in the proximal portion which is felt to be secondary to spontaneous dissection that cannot be excluded. Films were reviewed at that time by Dr. Leggett in the decision was made to maximize medical therapy. Patient was noted at times to have a low magnesium and low potassium level, these were replaced. Patient had medication adjustments made. In spite of that it was noted that through afternoon hours yesterday patient again had runs of ventricular fibrillation. Magnesium level today is 2.0. Dr. Solano did discuss the patient's case with Dr. Goodman. Recommendations were to increase beta lincoln dose, add mexiletine 150 3 times a day, increase Aldactone to 50 daily, keep potassium in the range of 4.5 and keep the magnesium greater than 2. The patient's pneumonia improves, AICD therapy with external or internal should be considered. 05/31/2017 Patient was seen and examined this morning, overall feeling better. No further episodes of ventricular fibrillation were noted on the monitor. Blood pressure 102/60 with a heart rate in the 50s. Patient continues to be on 4 L of oxygen, satting 93%. Sodium 142, potassium 3.9, BUN 37, creatinine 1.0. Patient continues to be on IV antibiotics and IV Lasix. 06/01/2017 Patient seen and examined this morning, much less confused today. Continues to have cough, productive, yellow sputum. No arrhythmias noted on the monitor. Blood pressure 110/70 with a heart rate in the 70s, 98% on 4 L of oxygen. White blood cell count 17.9, hemoglobin 9.9, platelet count 119. Sodium 138, potassium 4.1, BUN 37, creatinine 0.9. 06/03/2017 Patient seen and examined this morning, sleepy, arouses to voice, less confused. Continues to have productive cough of yellow sputum. No arrhythmias noted on the monitor. has requested transfer to [place], they are awaiting a bed. This time. Blood pressure 116/70 with a heart rate in the 50s to 60s, 94% on 3 L. White blood cell count 17.3, hemoglobin 9.3, platelet count 161. Sodium 140, potassium 3.0, BUN 28, creatinine 0.8. Mag level I.6. 06/04/2017 Patient was seen and examined this morning, sitting up at the bedside with assistance. Much more alert and oriented overall today. Blood pressure 134/60 , heart rate in the 60s, 95% on 3 L of oxygen. Patient is noted on the monitor. No episodes of ventricular fibrillation noted. White blood cell count 17.2, hemoglobin 9.3, platelet count 160. Sodium 140, potassium 2.9, BUN 24, creatinine 0.7, magnesium level is 1.6 today. Objective - Vital Signs Vital signs: Vital Signs Temp 97.5 F L 06/04/17 08:00 Pulse 66 06/04/17 11:50 Resp 16 06/04/17 11:50 BP 135/60 06/04/17 11:50 Pulse Ox 95 06/04/17 11:50 Intake & Output 06/03/17 06/04/17 06/04/17 18:59 06:59 18:59 Intake Total 787 160 90 Output Total 1650 2300 1600 Balance -660 -4295 -7115 Weight 102 kg 95.5 kg Intake: Intake, IV Titration 400 Amount Magnesium Sulfate-D5w Pmx 200 1 gm In Dextrose/Water 1 100ml.bag @ 100 mls/hr IVPB Q1H ANIA Rx#: [id number] Potassium Chloride 10 meq 200 In Sodium Chloride 0.9% 100 ml @ 105 mls/hr IVPB Q1H ANIA Rx#:[id number] Oral 387 160 90 Output: Urine 1650 2300 1600 Uretheral (Constantino) 1400 Other: Voiding Method Indwelling Catheter Indwelling Catheter Indwelling Catheter ABP, PAP, CO, CI - Last Documented Arterial Blood Pressure 133/93 - Exam PHYSICAL EXAMINATION: HEENT: Head is atraumatic, normocephalic. Pupils equal, round. Neck is supple. There is no elevated jugular venous pressure. HEART EXAMINATION: Heart S1, S2 normal. No murmur or gallop heard. CHEST EXAMINATION: Lungs reveal scattered coarse rhonchi with crackles to bilateral bases, fine wheezing also noted. ABDOMEN: Soft, nontender. Bowel sounds are heard. No organomegaly noted. EXTREMITIES: 1+ peripheral pulses with no evidence of peripheral edema and no calf tenderness noted. NEUROLOGIC patient is awake, mildly confused . - Labs CBC & Chem 7: 06/04/17 05:42 06/04/17 05:42 Labs: Abnormal Lab Results - Last 24 Hours (Table) 06/03/17 06/03/17 06/04/17 Range/Units 16:35 20:30 05:42 WBC 17.2 H (3.8-10.6) k/uL RBC 3.40 L (3.80-5.40) m/uL Hgb 9.3 L (11.4-16.0) gm/dL Hct 30.6 L (34.0-46.0) % MCHC 30.5 L (31.0-37.0) g/dL RDW 19.0 H (11.5-15.5) % Neutrophils # 15.3 H (1.3-7.7) k/uL Lymphocytes # 0.8 L (1.0-4.8) k/uL Potassium (3.5-5.1) mmol/L Carbon Dioxide (22-30) mmol/L BUN (7-17) mg/dL POC Glucose (mg/dL) 156 H 142 H (75-99) mg/dL AST (14-36) U/L ALT (9-52) U/L Total Protein (6.3-8.2) g/dL Albumin (3.5-5.0) g/dL 06/04/17 06/04/17 Range/Units 05:42 11:39 WBC (3.8-10.6) k/uL RBC (3.80-5.40) m/uL Hgb (11.4-16.0) gm/dL Hct (34.0-46.0) % MCHC (31.0-37.0) g/dL RDW (11.5-15.5) % Neutrophils # (1.3-7.7) k/uL Lymphocytes # (1.0-4.8) k/uL Potassium 2.9 L* (3.5-5.1) mmol/L Carbon Dioxide 35 H (22-30) mmol/L BUN 24 H (7-17) mg/dL POC Glucose (mg/dL) 107 H (75-99) mg/dL AST 40 H (14-36) U/L ALT 91 H (9-52) U/L Total Protein 4.7 L (6.3-8.2) g/dL Albumin 2.4 L (3.5-5.0) g/dL Assessment and Plan Plan: Assessment and plan #1 acute cardiac arrest/V. fib, status post CPR, defibrillation, and subsequent intubation requiring mechanical ventilation. Patient was noted again yesterday evening to have a run of ventricular fibrillation. #[address] elevation myocardial infarction involving the inferior wall, secondary to dissection of the RCA. Patient did undergo cardiac catheterization which revealed GRISEL-3 flow and did not require stenting #3 acute shock, cardiogenic in nature, EF 20% #4 acute hypoxic respiratory failure #5 right lower lobe pneumonia #6 COPD #7 diabetes #8 hyperlipidemia #9 hypertension #10 hypothyroidism Plan From cardiology's perspective, we'll continue current medications which include amiodarone 400 mg daily, aspirin 162 mg daily, metoprolol 25 mg 3 times a day, mexiletine 150 mg every 8 hour and Aldactone 50 mg daily. We'll replace the patient's potassium and magnesium. Patient no longer will be transferred to [place], as a did not accept transfer. Once the pneumonia clears, defibrillator therapy with external or internal needs to be considered. She does have a LifeVest delivered to bedside. DNP note has been reviewed, I agree with a documented findings and plan of care. Patient was seen and examined.
--- NOTE | 2017-06-04 14:57 | XR ---
EXAMINATION TYPE: XR chest 2V DATE OF EXAM: 06/04/2017 COMPARISON: 06/01/2017 HISTORY: Follow-up examination. Shortness of breath. TECHNIQUE: Frontal and lateral views of the chest are obtained. FINDINGS: There is increasing density within the right lung base from a layering small right pleural effusion and right basilar airspace disease. Cardiomegaly and right subclavian central venous cathet er are unchanged. No overt pulmonary vascular congestion or left pleural effusion. No pneumothorax. I ncidental note of nonunion of the anterior lateral right second rib fracture, acromioclavicular arthr opathy and degenerative changes of the thoracic spine. IMPRESSION: 1. Slight worsening of the small layering right pleural effusion and right basilar airspace disease. Cardiomegaly without overt pulmonary vascular congestion.
--- NOTE | 2017-06-04 15:02 | XR ---
EXAMINATION TYPE: XR abdomen 2V DATE OF EXAM: 06/04/2017 2:13 PM CLINICAL HISTORY: Constipation TECHNIQUE: Supine and upright abdominal radiographs were performed. COMPARISON: None. FINDINGS: Scattered gas is seen in non-distended small bowel loops. Gas and fecal material is seen in non-distended colon. There is no pneumoperitoneum. No gross evidence of abnormal calcification altho ugh slightly limited by patient body habitus. The lung bases are clear and the osseous structures are intact. Cholecystectomy clips are noted within the right upper quadrant. Protuberant osteophyte is s een from the left pubic bone at the pubic symphysis. IMPRESSION: Moderate amount of retained colonic debris and an overall nonobstructive bowel gas patter n.
[2017-06-04 16:49] LABS: Glucose,Whole Blood 102 mg/dL (75-99)
[2017-06-04 19:15] LABS: Anisocytosis Slight; Basophils % (A) 0 %; Eosinophils # (A) 0.1 k/uL (0-0.7); Eosinophils % (A) 1 %; HCT 30.1 % (34.0-46.0); HGB 8.9 gm/dL (11.4-16.0); Hypochromasia Marked; Lymphocytes # (A) 2.1 k/uL (1.0-4.8); Lymphocytes % (A) 11 %; MCH 27.2 pg (25.0-35.0); MCHC 29.4 g/dL (31.0-37.0); MCV 92.5 fL (80.0-100.0); Macrocytosis Slight; Mean Platelet Volume 9.2; Monocytes # (A) 0.9 k/uL (0-1.0); Monocytes % (A) 5 %; Neutrophils # (A) 15.1 k/uL (1.3-7.7); Neutrophils % (A) 82 %; Platelet Count 175 k/uL (150-450); Poikilocytosis Slight; RBC 3.26 m/uL (3.80-5.40); RDW 19.2 % (11.5-15.5); WBC 18.5 k/uL (3.8-10.6)
[2017-06-04] MEDS ORDERED: NOREPINEPHRIN 16 MG-0.9%NS PMX 16 MG/250 ML ML IV SCH (19:15)
[2017-06-04] MEDS ORDERED: DEXTROSE 5% IN WATER 100 ML with AMIODARONE 150 MG IV ONE (19:16)
[2017-06-04 19:41] LABS: Glucose,Whole Blood 101 mg/dL (75-99)
--- NOTE | 2017-06-04 20:00 | XR ---
EXAMINATION TYPE: XR chest 1V DATE OF EXAM: 06/04/2017 COMPARISON: 06/04/2017 HISTORY: Post intubation TECHNIQUE: Single frontal view of the chest is obtained. FINDINGS: Endotracheal tube terminates at the level of the aortic arch, appropriately placed. Enteri c tube extends beyond the distal [id number], also appropriately placed. Cardia megaly and moderate right pleural effusion with associated airspace disease are unchanged from the prior. Left lung sandra ins clear. Right subclavian central venous catheter is unchanged. IMPRESSION: Appropriately placed endotracheal and enteric tubes are similar right moderate pleural e ffusion, right basilar airspace disease and cardiomegaly.
--- NOTE | 2017-06-04 20:09 | P.PN ---
Subjective Progress Note Date: 06/04/17 This patient is a 72-year-old right-handed white female who was initially evaluated for acute cardiopulmonary arrest with anoxic brain injury. She was extubated on 05/27/2017 and is slowly been showing mild improvement in her overall condition. Apparently over the weekend plans were to transfer the patient to [facility] for further management. This is been placed on hold as apparently she was not accepted for transfer. The patient continues to remain relatively weak according to the son who is at bedside. She is being treated aggressively for multiple complex medical issues including recent episode of ventricular fibrillation. She is being considered for possible defibrillator placement one she is medically stable. The patient continues to do fairly well in terms of her mental status but still very weak. Her last computed tomography scan of the brain was done on 05/28/2017 which revealed mild atrophy. No acute intracranial abnormality was detected at that time. Her son is been concerned with her degree of weakness and poor respiratory status as she is still requiring frequent breathing treatments. She is being treated for right lower lobe pneumonia for the past 10 days and is on dual antibiotic therapy. Son is aware of her overall condition and is following with multiple specialists in her care at this time. We would recommend a follow -up computed tomography scan of the brain to be done today to rule out any new or acute changes in terms of her history of anoxic encephalopathy following cardiac arrest. Her generalized weakness is due to her complex medical history and general medical debility. The patient was sent for computed tomography scan of the brain yesterday which was reviewed. CAT scan reveals chronic changes with no evidence of acute stroke or hemorrhage. The CAT scan findings were discussed today with the patient as well as her was at bedside. She was happy that she is not showing any signs of acute stroke. She continues to show slow improvement in her overall mental status. She does have generalized medical weakness which is slowly improving. Her breathing pattern seems to be much better today. We will continue to follow her progress closely during this admission. Her overall prognosis still remains very guarded. Case was discussed at length with the patient's who was at bedside. All of his questions were answered. Patient is being considered for ECF placement. Her overall prognosis at this time remains guarded. Objective - Vital Signs Vital signs: Vital Signs Temp 97.5 F L 06/04/17 08:00 Pulse 66 03/20/18 11:50 Resp 16 06/04/17 11:50 BP 135/60 06/04/17 11:50 Pulse Ox 95 06/04/17 11:50 Intake & Output 06/03/17 06/04/17 06/04/17 18:59 06:59 18:59 Intake Total 787 160 Output Total 1650 2300 Balance -863 -2140 Weight 102 kg 95.5 kg Intake: Intake, IV Titration 400 Amount Magnesium Sulfate-D5w Pmx 200 1 gm In Dextrose/Water 1 100ml.bag @ 100 mls/hr IVPB Q1H ANIA Rx#: [id number] Potassium Chloride 10 meq 200 In Sodium Chloride 0.9% 100 ml @ 105 mls/hr IVPB Q1H ANIA Rx#:[id number] Oral 387 160 Output: Urine 1650 2300 Uretheral (Constantino) 1400 Other: Voiding Method Indwelling Catheter Indwelling Catheter Indwelling Catheter ABP, PAP, CO, CI - Last Documented Arterial Blood Pressure 133/93 - Exam Physical examination: PHYSICAL EXAMINATION: Patient is resting comfortably in bed. Patient examined on selective care today. She is slightly confused. VITAL SIGNS: Blood pressure is [136/65]. Heart rate is [65]. Respiration is [ 17. Temperature is [97.3]. HEENT: Head is atraumatic, neck is supple, there were no carotid bruits. CHEST: Lungs are clear to auscultation and percussion. CARDIAC: S1, S2 normal rate and rhythm. There is no murmur. ABDOMEN: Soft and nontender. Bowel sounds are present. EXTREMITIES: There is no pedal edema. Peripheral pulses are present. Neurological examination: Patient is examined today and selective care floor. The patient is awake and alert. She is following simple commands. She is more responsive as noted by her son. The patient is moving all extremities. Muscle tone is normal. Muscle strength testing reveals 3+/5 strength throughout. Deep tendon reflexes are hypoactive. Plantar responses flexor bilaterally - Labs CBC & Chem 7: 06/04/17 19:05 06/04/17 18:26 Labs: Abnormal Lab Results - Last 24 Hours (Table) 06/03/17 06/03/17 06/04/17 Range/Units 16:35 20:30 05:42 WBC 17.2 H (3.8-10.6) k/uL RBC 3.40 L (3.80-5.40) m/uL Hgb 9.3 L (11.4-16.0) gm/dL Hct 30.6 L (34.0-46.0) % MCHC 30.5 L (31.0-37.0) g/dL RDW 19.0 H (11.5-15.5) % Neutrophils # 15.3 H (1.3-7.7) k/uL Lymphocytes # 0.8 L (1.0-4.8) k/uL Potassium (3.5-5.1) mmol/L Carbon Dioxide (22-30) mmol/L BUN (7-17) mg/dL POC Glucose (mg/dL) 156 H 142 H (75-99) mg/dL AST (14-36) U/L ALT (9-52) U/L Total Protein (6.3-8.2) g/dL Albumin (3.5-5.0) g/dL 06/04/17 Range/Units 05:42 WBC (3.8-10.6) k/uL RBC (3.80-5.40) m/uL Hgb (11.4-16.0) gm/dL Hct (34.0-46.0) % MCHC (31.0-37.0) g/dL RDW (11.5-15.5) % Neutrophils # (1.3-7.7) k/uL Lymphocytes # (1.0-4.8) k/uL Potassium 2.9 L* (3.5-5.1) mmol/L Carbon Dioxide 35 H (22-30) mmol/L BUN 24 H (7-17) mg/dL POC Glucose (mg/dL) (75-99) mg/dL AST 40 H (14-36) U/L ALT 91 H (9-52) U/L Total Protein 4.7 L (6.3-8.2) g/dL Albumin 2.4 L (3.5-5.0) g/dL Assessment and Plan (1) Anoxic encephalopathy Current Visit: Yes Status: Acute Code(s): G93.1 - ANOXIC BRAIN DAMAGE, NOT ELSEWHERE CLASSIFIED SNOMED Code(s): 512926161 (2) Acute myocardial infarction Current Visit: Yes Status: Acute Code(s): I21.9 - ACUTE MYOCARDIAL INFARCTION, UNSPECIFIED SNOMED Code(s): 33949516 (3) CHF (congestive heart failure) Current Visit: Yes Status: Acute Code(s): I50.9 - HEART FAILURE, UNSPECIFIED SNOMED Code(s): 61230269 (4) Cardiac arrest with ventricular fibrillation Current Visit: Yes Status: Acute Code(s): I46.9 - CARDIAC ARREST, CAUSE UNSPECIFIED; I49.01 - VENTRICULAR FIBRILLATION SNOMED Code(s): 14736884 (5) Pneumonia Current Visit: Yes Status: Acute Code(s): J18.9 - PNEUMONIA, UNSPECIFIED ORGANISM SNOMED Code(s): 436016820 Plan: This patient is a 72-year-old female who is recovering following cardiac arrest and episodes of anoxic encephalopathy following cardiac arrest. She was extubated on 05/27/2017. She is making slow progress in terms of her overall mental status. She was sent for a follow-up computed tomography scan of the brain yesterday the results of which are noted above. CAT scan failed to reveal any acute changes. Patient has generalized weakness and will most likely require subacute rehab for ongoing therapy. We reviewed the results of the CAT scan today with the patient and her at bedside. All of their questions were answered. We will continue close neurological follow-up for the patient during this admission. Her overall prognosis at this time remains guarded.
[2017-06-04 20:17] LABS: ABG HCO3 37 mmol/L (21-25); ABG PCO2 50 mmHg (35-45); ABG PH 7.48 (7.35-7.45); ABG PO2 369 mmHg (83-108); ABG TCO2 38 mmol/L (19-24)
[2017-06-04 20:20] LABS: ALT 77 U/L (9-52); AST 45 U/L (14-36); Albumin 2.2 g/dL (3.5-5.0); Alkaline Phosphatase 99 U/L (38-126); Anion Gap 12 mmol/L; Blood Urea Nitrogen 22 mg/dL (7-17); Carbon Dioxide 38 mmol/L (22-30); Chloride 96 mmol/L (98-107); Glucose 93 mg/dL (74-99); Potassium 3.7 mmol/L (3.5-5.1); Sodium 146 mmol/L (137-145); Total Bilirubin 0.9 mg/dL (0.2-1.3); Total Protein 4.4 g/dL (6.3-8.2)
[2017-06-04] MEDS: AMIODARONE 450 MG in DEXTROSE 5% IN WATER 250 ML IV SCH ×2 (20:42)
[2017-06-04 20:52] LABS: Glucose,Whole Blood 134 mg/dL (75-99)
[2017-06-04] MEDS ORDERED: POTASSIUM BICARBONATE/CIT AC 20 MEQ TABLET.EFF NG-TUBE ONE (21:00)
[2017-06-04 21:30] LABS: Glucose,Whole Blood 132 mg/dL (75-99)
[2017-06-04] MEDS ORDERED: PROPOFOL 100 ML IV ONE (23:15)
[2017-06-04] MEDS: PROPOFOL 1,000 MG in EMPTY BAG 1 BAG IV SCH (23:45)
[2017-06-05] MEDS: AMIODARONE 450 MG in DEXTROSE 5% IN WATER 250 ML IV SCH ×4 (04:37→14:04)
[2017-06-05 04:43] LABS: Anisocytosis Slight; Basophils % (A) 0 %; Eosinophils # (A) 0.1 k/uL (0-0.7); Eosinophils % (A) 1 %; HCT 28.9 % (34.0-46.0); HGB 8.5 gm/dL (11.4-16.0); Hypochromasia Marked; Lymphocytes % (A) 6 %; MCH 26.6 pg (25.0-35.0); MCHC 29.5 g/dL (31.0-37.0); MCV 90.2 fL (80.0-100.0); Monocytes # (A) 0.8 k/uL (0-1.0); Monocytes % (A) 5 %; Neutrophils # (A) 14.8 k/uL (1.3-7.7); Neutrophils % (A) 88 %; Platelet Count 186 k/uL (150-450); Poikilocytosis Slight; RBC 3.21 m/uL (3.80-5.40); RDW 19.3 % (11.5-15.5); WBC 16.8 k/uL (3.8-10.6)
[2017-06-05] MEDS: PROPOFOL 1,000 MG in EMPTY BAG 1 BAG IV SCH ×3 (04:45→17:24)
[2017-06-05 05:00] LABS: ABG Base Excess 16.1 mmol/L; ABG HCO3 38 mmol/L (21-25); ABG Oxygen Saturation 99.6 % (94-97); ABG PCO2 43 mmHg (35-45); ABG PH 7.56 (7.35-7.45); ABG PO2 131 mmHg (83-108); ABG TCO2 40 mmol/L (19-24)
[2017-06-05 05:03] LABS: Albumin 2.2 g/dL (3.5-5.0); Magnesium 1.5 mg/dL (1.6-2.3); Phosphorus 3.8 mg/dL (2.5-4.5); Total Bilirubin 0.9 mg/dL (0.2-1.3); Total Protein 4.2 g/dL (6.3-8.2)
[2017-06-05 05:08] LABS: Potassium 2.6 mmol/L (3.5-5.1)
[2017-06-05] MEDS: MAGNESIUM SULFATE-D5W PMX 1 GM in DEXTROSE/WATER 1 100ML.BAG IVPB SCH ×2 (05:45→06:29)
[2017-06-05] MEDS ORDERED: POTASSIUM BICARBONATE/CIT AC 20 MEQ TABLET.EFF PO ONE (05:47)
[2017-06-05] MEDS ORDERED: POTASSIUM CHLORIDE 20 MEQ in SODIUM CHLORIDE 0.9% 100 ML IV ONE (06:00)
[2017-06-05] MEDS ORDERED: POTASSIUM CHLORIDE ER 20 MEQ TAB.ER PO SCH (06:00)
[2017-06-05] MEDS: SODIUM CHLORIDE 0.9% 1,000 ML IV SCH ×2 (07:19→14:05)
[2017-06-05] MEDS: LEVOTHYROXINE 50 MCG TAB PO SCH (07:20)
--- NOTE | 2017-06-05 08:12 | XR ---
EXAMINATION TYPE: XR chest 1V DATE OF EXAM: 06/05/2017 COMPARISON: 06/04/2017 HISTORY: Ventilatory dependent respiratory failure TECHNIQUE: Single frontal view of the chest is obtained. FINDINGS: There is improved aeration of the lung bases with minimal left residual basilar atelectasi s and a small layering right pleural effusion with associated right basilar airspace disease. Right s ubclavian central venous catheter, endotracheal tube and enteric tube remain in satisfactory position . No sizable pneumothorax. Osseous structures are grossly intact. Mild degenerative changes of the th oracic spine and acromioclavicular joints are present. IMPRESSION: Improved aeration of the lung bases with small right pleural effusion and bibasilar airs pace disease favored to represent atelectasis.
[2017-06-05] MEDS: IPRATROPIUM-ALBUTEROL 3 ML NEB INHALATION SCH ×3 (08:52→15:48)
[2017-06-05] MEDS: HEPARIN SODIUM,PORCINE 5,000 UNIT/ML 1 ML VIAL SQ SCH (09:35)
[2017-06-05] MEDS: FLUoxetine HCL 20 MG CAP PO SCH (09:36)
[2017-06-05] MEDS: MEXILETINE 150 MG CAP PO SCH ×2 (09:36)
[2017-06-05] MEDS: FUROSEMIDE 10 MG/ML 2 ML VIAL IV SCH (09:36)
[2017-06-05] MEDS: ASPIRIN 81 MG PO SCH (09:36)
[2017-06-05] MEDS: PANTOPRAZOLE 40 MG TABLET PO SCH (09:37)
[2017-06-05] MEDS: METOPROLOL TARTRATE 12.5 MG TAB PO SCH (09:37)
[2017-06-05] MEDS: SPIRONOLACTONE 25 MG TAB PO SCH (09:37)
[2017-06-05 10:39] VITALS: BMI 35.0
--- NOTE | 2017-06-05 10:55 | P.PN ---
Subjective Progress Note Date: 06/05/17 Principal diagnosis: Cardiac arrest Progress note dated 06/03/2017 This is a 72-year-old female who had a cardiac arrest. I the patient had cardiopulmonary resuscitation and return of spontaneous circulation. She was intubated and mechanically ventilated. She was found to have an acute ST segment elevation myocardial infarction involving the inferior wall she also dissection of the right coronary artery. The patient had acute shock hypoxemic respiratory failure right lower lobe pneumonia COPD exacerbation encephalopathy acute head trauma diabetes hyperlipidemia hypothyroidism hypertension acute kidney injury acute shock liver and peripheral vascular occlusive disease. Despite all of that, the patient seemed to make a pretty good recovery. She is resting comfortably in bed. She states that she probably will be discharged to longterm in a day or so. She denies any difficulty. States she's not having any pain. She still feels weak though. No shortness of breath. The patient will continue with supportive care her diuretics incentive spirometry antibiotics physical therapy and so forth. Progress note dated 06/05/2017 This is a patient who had a cardiopulmonary arrest yesterday. She was resuscitated and transferred to the ICU. This is her second cardiac arrest. Previously she had a cardiac arrest and hit her head. She had cardiopulmonary resuscitation and return of spontaneous circulation. She was intubated and mechanically ventilated prior and was found have an acute ST segment elevation myocardial infarction involving the inferior wall. She also apparently had dissection of the right coronary artery. In addition, she had acute shock hypoxemic respiratory failure right lower lobe pneumonia COPD exacerbation encephalopathy acute head injury diabetes hyperlipidemia hypothyroidism hypertension acute kidney injury and shock liver. In addition, she suffered or suffers from peripheral vascular occlusive disease. Despite all of that, she seemed to make a pretty good recovery and 2 days ago when I saw her up on the sixth floor, she was doing reasonably well. She was being evaluated for discharge to the longterm. Anyway last night she had a no other cardiac arrest. She again was resuscitated and intubated and transferred to the ICU. The circumstances surrounding this most recent episode are not clear. Currently , she is on the assist control mode rate of 14, tidal volume 450, FiO2 40%, and a PEEP of 5. Arterial blood gases show a PaO2 of 131 a PaCO2 of 43 and a pH is 7.56. Blood gases were done on an FiO2 of 50% and hence the drop the FiO2 down to 40%. She is also receiving saline IV to 100 mL now her propofol at 30 mics per kilogram per minute and norepinephrine at 1.5 mics per minute. Objective - Vital Signs Vital signs: Vital Signs Temp 98 F 06/05/17 04:00 Pulse 43 L 06/05/17 09:13 Resp 13 06/05/17 08:00 BP 94/45 06/04/17 23:00 Pulse Ox 98 06/05/17 08:00 Intake & Output 06/04/17 06/05/17 06/05/17 18:59 06:59 18:59 Intake Total 180 920.72 225.354 Output Total 2049 2225 50 Balance -1870 -1304.28 175.354 Weight 95.5 kg Intake: IV 809 103 Normal Saline 800 100 Pressure Bag 9 3 Intake, IV Titration 111.72 122.354 Amount Norepinephrin 16 mg-0.9% 11.72 19.844 Ns Pmx 16 mg In 250 ml @ Titrate IV .Q0M ANIA Rx#: [id number] Propofol 1,000 mg In 100 102.510 Empty Bag 1 bag @ Titrate IV .Q0M ANIA Rx#: [id number] Oral 180 Output: Urine 2049 2224 50 Uretheral (Constantino) 450 Other: Voiding Method Indwelling Catheter Indwelling Catheter # Bowel Movements 1 1 ABP, PAP, CO, CI - Last Documented Arterial Blood Pressure 88/45 - Exam No acute distress, the patient is currently sedated and has a orally placed endotracheal tube and NG tube. HEENT examination is grossly unremarkable. Mucous membranes are moist. Neck supple. Full range of motion. No adenopathy thyromegaly or neck vein distention. Cardiovascular examination reveals regular rhythm rate. S1-S2 normal. No S3 or S4. No discernible murmur noted. Lungs reveal basilar crackles, right greater than left. No rhonchi. No wheezes. Abdomen soft bowel sounds are heard. No masses or tenderness. Extremities are intact. No cyanosis clubbing or edema. Skin is without rash or lesion. Neurologic examination cannot be adequately assessed. - Labs CBC & Chem 7: 06/05/17 04:20 06/05/17 04:20 Labs: Abnormal Lab Results - Last 24 Hours (Table) 06/04/17 06/04/17 06/04/17 Range/Units 11:39 16:43 18:50 WBC (3.8-10.6) k/uL RBC (3.80-5.40) m/uL Hgb (11.4-16.0) gm/dL Hct (34.0-46.0) % MCHC (31.0-37.0) g/dL RDW (11.5-15.5) % Neutrophils # (1.3-7.7) k/uL ABG pH (7.35-7.45) ABG pCO2 (35-45) mmHg ABG pO2 (83-108) mmHg ABG HCO3 (21-25) mmol/L ABG Total CO2 (19-24) mmol/L ABG O2 Saturation (94-97) % Sodium (137-145) mmol/L Potassium (3.5-5.1) mmol/L Chloride (98-107) mmol/L Carbon Dioxide (22-30) mmol/L BUN (7-17) mg/dL Glucose (74-99) mg/dL POC Glucose (mg/dL) 107 H 102 H 101 H (75-99) mg/dL Calcium (8.4-10.2) mg/dL Magnesium (1.6-2.3) mg/dL AST (14-36) U/L ALT (9-52) U/L Total Protein (6.3-8.2) g/dL Albumin (3.5-5.0) g/dL 06/04/17 06/04/17 06/04/17 Range/Units 19:05 19:05 20:15 WBC 18.5 H (3.8-10.6) k/uL RBC 3.26 L (3.80-5.40) m/uL Hgb 8.9 L (11.4-16.0) gm/dL Hct 30.1 L (34.0-46.0) % MCHC 29.4 L (31.0-37.0) g/dL RDW 19.2 H (11.5-15.5) % Neutrophils # 15.1 H (1.3-7.7) k/uL ABG pH 7.48 H (7.35-7.45) ABG pCO2 50 H (35-45) mmHg ABG pO2 369 H (83-108) mmHg ABG HCO3 37 H (21-25) mmol/L ABG Total CO2 38 H (19-24) mmol/L ABG O2 Saturation 100.0 H (94-97) % Sodium 146 H (137-145) mmol/L Potassium (3.5-5.1) mmol/L Chloride 96 L (98-107) mmol/L Carbon Dioxide 38 H (22-30) mmol/L BUN 22 H (7-17) mg/dL Glucose (74-99) mg/dL POC Glucose (mg/dL) (75-99) mg/dL Calcium 8.0 L (8.4-10.2) mg/dL Magnesium (1.6-2.3) mg/dL AST 45 H (14-36) U/L ALT 77 H (9-52) U/L Total Protein 4.4 L (6.3-8.2) g/dL Albumin 2.2 L (3.5-5.0) g/dL 06/04/17 06/04/17 06/05/17 Range/Units 20:47 21:28 04:20 WBC 16.8 H (3.8-10.6) k/uL RBC 3.21 L (3.80-5.40) m/uL Hgb 8.5 L (11.4-16.0) gm/dL Hct 28.9 L (34.0-46.0) % MCHC 29.5 L (31.0-37.0) g/dL RDW 19.3 H (11.5-15.5) % Neutrophils # 14.8 H (1.3-7.7) k/uL ABG pH (7.35-7.45) ABG pCO2 (35-45) mmHg ABG pO2 (83-108) mmHg ABG HCO3 (21-25) mmol/L ABG Total CO2 (19-24) mmol/L ABG O2 Saturation (94-97) % Sodium (137-145) mmol/L Potassium (3.5-5.1) mmol/L Chloride (98-107) mmol/L Carbon Dioxide (22-30) mmol/L BUN (7-17) mg/dL Glucose (74-99) mg/dL POC Glucose (mg/dL) 134 H 132 H (75-99) mg/dL Calcium (8.4-10.2) mg/dL Magnesium (1.6-2.3) mg/dL AST (14-36) U/L ALT (9-52) U/L Total Protein (6.3-8.2) g/dL Albumin (3.5-5.0) g/dL 06/05/17 06/05/17 Range/Units 04:20 04:58 WBC (3.8-10.6) k/uL RBC (3.80-5.40) m/uL Hgb (11.4-16.0) gm/dL Hct (34.0-46.0) % MCHC (31.0-37.0) g/dL RDW (11.5-15.5) % Neutrophils # (1.3-7.7) k/uL ABG pH 7.56 H (7.35-7.45) ABG pCO2 (35-45) mmHg ABG pO2 131 H (83-108) mmHg ABG HCO3 38 H (21-25) mmol/L ABG Total CO2 40 H (19-24) mmol/L ABG O2 Saturation 99.6 H (94-97) % Sodium (137-145) mmol/L Potassium 2.6 L* (3.5-5.1) mmol/L Chloride 96 L (98-107) mmol/L Carbon Dioxide 38 H (22-30) mmol/L BUN 20 H (7-17) mg/dL Glucose 104 H (74-99) mg/dL POC Glucose (mg/dL) (75-99) mg/dL Calcium 8.0 L (8.4-10.2) mg/dL Magnesium 1.5 L (1.6-2.3) mg/dL AST (14-36) U/L ALT 75 H (9-52) U/L Total Protein 4.2 L (6.3-8.2) g/dL Albumin 2.2 L (3.5-5.0) g/dL Microbiology - Last 24 Hours (Table) 06/04/17 19:16 Gram Stain - Preliminary Sputum Sputum Culture - Preliminary Assessment and Plan Assessment: Assessment Status post a second cardiopulmonary arrest with cardiopulmonary resuscitation and return of spontaneous circulation, of unclear etiology Acute cardiac arrest/ventricular fibrillation, status post CPR defibrillation and subsequent intubation with mechanical ventilation. Acute ST segment elevation myocardial infarction involving the inferior wall with dissection of the right coronary artery status post emergent catheterization without stenting Acute cardiogenic shock, resolved Hypoxemic respiratory failure, resolved Right lower lobe pneumonia, stable COPD exacerbation, stable Anoxic brain injury, improved Acute head trauma secondary to cardiac arrest Diabetes mellitus Hyperlipidemia Hypothyroidism History of hypertension Acute kidney injury. Shock liver Peripheral vascular occlusive disease Plan: Plan dated 06/03/2017 The patient will continue with supportive care. I will include breathing treatments oxygen therapy and antibiotics physical therapy occupational therapy , etc. The patient will likely be discharged to longterm. I'm not sure that one has been picked outpatient. No additional recommendations are made. Prognosis is guarded. We'll continue to follow. Plan dated 06/05/2017 Currently, the patient's on the mechanical ventilator. We'll review the labs x- rays and medications. Additional recommendations and suggestions are forthcoming. We'll make sure she is on updrafts every 4 hours. We'll make sure that she has GI and DVT prophylaxis. I'll review the current medication list. Prognosis is very poor. We'll continue to follow closely. Critical care time 36 minutes Time with Patient: Greater than 30
[2017-06-05] MEDS ORDERED: LIDOCAINE-D5W PMX 2G/500ML 2,000 MG in DEXTROSE/WATER 1 500ML.BAG IV SCH (11:15)
[2017-06-05] MEDS ORDERED: INSULIN ASPART 100 UNIT/ML 1 ML 10 ML VIAL SQ SCH (12:00)
[2017-06-05 12:12] LABS: Glucose,Whole Blood 114 mg/dL (75-99)
--- NOTE | 2017-06-05 12:18 | P.PN ---
Subjective Patient was transferred back to the ICU last night. She is sedated and intubated this morning. Unfortunately, patient went to another episode of V. tach that was persistent yesterday and eventually lost her pulse requiring CPR for short time with return of spontaneous circulation. Patient was intubated and was transferred to the ICU. She continues to have significant ventricular arrhythmia. Cardiology following closely. She required vasopressors for a short period of time. She is currently on minimal vent settings. Objective - Vital Signs Vital signs: Vital Signs Temp 98 F 06/05/17 04:00 Pulse 51 L 06/05/17 11:52 Resp 13 06/05/17 08:00 BP 94/45 06/04/17 23:00 Pulse Ox 98 06/05/17 08:00 Intake & Output 06/04/17 06/05/17 06/05/17 18:59 06:59 18:59 Intake Total 180 920.72 227.478 Output Total 2049 2225 50 Balance -1870 -1304.28 177.478 Weight 95.5 kg Intake: IV 809 103 Normal Saline 800 100 Pressure Bag 9 3 Intake, IV Titration 111.72 124.478 Amount Norepinephrin 16 mg-0.9% 11.72 21.968 Ns Pmx 16 mg In 250 ml @ Titrate IV .Q0M [facility] Rx#: [id number] Propofol 1,000 mg In 100 102.510 Empty Bag 1 bag @ Titrate IV .Q0M ANIA Rx#: [id number] Oral 180 Output: Urine 0 2225 50 Uretheral (Constantino) 450 Other: Voiding Method Indwelling Catheter Indwelling Catheter # Bowel Movements 1 1 ABP, PAP, CO, CI - Last Documented Arterial Blood Pressure 88/45 - Exam General: Patient is sedated and intubated Eye: there is normal conjunctiva bilaterally. Neck: The neck is supple, there is no JVD. Cardiovascular: Normal S1-S2, no S3-S4, no murmurs. Respiratory: Lungs scattered rhonchi to anterior chest auscultation Gastrointestinal: Abdomen is soft, nontender Musculoskeletal: There is no pedal edema. Skin: Skin is warm and dry - Labs CBC & Chem 7: 06/05/17 04:20 06/05/17 11:00 Labs: Abnormal Lab Results - Last 24 Hours (Table) 06/04/17 06/04/17 06/04/17 Range/Units 11:39 16:43 18:50 WBC (3.8-10.6) k/uL RBC (3.80-5.40) m/uL Hgb (11.4-16.0) gm/dL Hct (34.0-46.0) % MCHC (31.0-37.0) g/dL RDW (11.5-15.5) % Neutrophils # (1.3-7.7) k/uL ABG pH (7.35-7.45) ABG pCO2 (35-45) mmHg ABG pO2 (83-108) mmHg ABG HCO3 (21-25) mmol/L ABG Total CO2 (19-24) mmol/L ABG O2 Saturation (94-97) % Sodium (137-145) mmol/L Potassium (3.5-5.1) mmol/L Chloride (98-107) mmol/L Carbon Dioxide (22-30) mmol/L BUN (7-17) mg/dL Glucose (74-99) mg/dL POC Glucose (mg/dL) 107 H 102 H 101 H (75-99) mg/dL Calcium (8.4-10.2) mg/dL Magnesium (1.6-2.3) mg/dL AST (14-36) U/L ALT (9-52) U/L Total Protein (6.3-8.2) g/dL Albumin (3.5-5.0) g/dL 06/04/17 06/04/17 06/04/17 Range/Units 19:05 19:05 20:15 WBC 18.5 H (3.8-10.6) k/uL RBC 3.26 L (3.80-5.40) m/uL Hgb 8.9 L (11.4-16.0) gm/dL Hct 30.1 L (34.0-46.0) % MCHC 29.4 L (31.0-37.0) g/dL RDW 19.2 H (11.5-15.5) % Neutrophils # 15.1 H (1.3-7.7) k/uL ABG pH 7.48 H (7.35-7.45) ABG pCO2 50 H (35-45) mmHg ABG pO2 369 H (83-108) mmHg ABG HCO3 37 H (21-25) mmol/L ABG Total CO2 38 H (19-24) mmol/L ABG O2 Saturation 100.0 H (94-97) % Sodium 146 H (137-145) mmol/L Potassium (3.5-5.1) mmol/L Chloride 96 L (98-107) mmol/L Carbon Dioxide 38 H (22-30) mmol/L BUN 22 H (7-17) mg/dL Glucose (74-99) mg/dL POC Glucose (mg/dL) (75-99) mg/dL Calcium 8.0 L (8.4-10.2) mg/dL Magnesium (1.6-2.3) mg/dL AST 45 H (14-36) U/L ALT 77 H (9-52) U/L Total Protein 4.4 L (6.3-8.2) g/dL Albumin 2.2 L (3.5-5.0) g/dL 06/04/17 06/04/17 06/05/17 Range/Units 20:47 21:28 04:20 WBC 16.8 H (3.8-10.6) k/uL RBC 3.21 L (3.80-5.40) m/uL Hgb 8.5 L (11.4-16.0) gm/dL Hct 28.9 L (34.0-46.0) % MCHC 29.5 L (31.0-37.0) g/dL RDW 19.3 H (11.5-15.5) % Neutrophils # 14.8 H (1.3-7.7) k/uL ABG pH (7.35-7.45) ABG pCO2 (35-45) mmHg ABG pO2 (83-108) mmHg ABG HCO3 (21-25) mmol/L ABG Total CO2 (19-24) mmol/L ABG O2 Saturation (94-97) % Sodium (137-145) mmol/L Potassium (3.5-5.1) mmol/L Chloride (98-107) mmol/L Carbon Dioxide (22-30) mmol/L BUN (7-17) mg/dL Glucose (74-99) mg/dL POC Glucose (mg/dL) 134 H 132 H (75-99) mg/dL Calcium (8.4-10.2) mg/dL Magnesium (1.6-2.3) mg/dL AST (14-36) U/L ALT (9-52) U/L Total Protein (6.3-8.2) g/dL Albumin (3.5-5.0) g/dL 06/05/17 06/05/17 06/05/17 Range/Units 04:20 04:58 11:00 WBC (3.8-10.6) k/uL RBC (3.80-5.40) m/uL Hgb (11.4-16.0) gm/dL Hct (34.0-46.0) % MCHC (31.0-37.0) g/dL RDW (11.5-15.5) % Neutrophils # (1.3-7.7) k/uL ABG pH 7.56 H (7.35-7.45) ABG pCO2 (35-45) mmHg ABG pO2 131 H (83-108) mmHg ABG HCO3 38 H (21-25) mmol/L ABG Total CO2 40 H (19-24) mmol/L ABG O2 Saturation 99.6 H (94-97) % Sodium (137-145) mmol/L Potassium 2.6 L* 3.4 L (3.5-5.1) mmol/L Chloride 96 L (98-107) mmol/L Carbon Dioxide 38 H (22-30) mmol/L BUN 20 H (7-17) mg/dL Glucose 104 H (74-99) mg/dL POC Glucose (mg/dL) (75-99) mg/dL Calcium 8.0 L (8.4-10.2) mg/dL Magnesium 1.5 L (1.6-2.3) mg/dL AST (14-36) U/L ALT 75 H (9-52) U/L Total Protein 4.2 L (6.3-8.2) g/dL Albumin 2.2 L (3.5-5.0) g/dL 06/05/17 Range/Units 12:10 WBC (3.8-10.6) k/uL RBC (3.80-5.40) m/uL Hgb (11.4-16.0) gm/dL Hct (34.0-46.0) % MCHC (31.0-37.0) g/dL RDW (11.5-15.5) % Neutrophils # (1.3-7.7) k/uL ABG pH (7.35-7.45) ABG pCO2 (35-45) mmHg ABG pO2 (83-108) mmHg ABG HCO3 (21-25) mmol/L ABG Total CO2 (19-24) mmol/L ABG O2 Saturation (94-97) % Sodium (137-145) mmol/L Potassium (3.5-5.1) mmol/L Chloride (98-107) mmol/L Carbon Dioxide (22-30) mmol/L BUN (7-17) mg/dL Glucose (74-99) mg/dL POC Glucose (mg/dL) 114 H (75-99) mg/dL Calcium (8.4-10.2) mg/dL Magnesium (1.6-2.3) mg/dL AST (14-36) U/L ALT (9-52) U/L Total Protein (6.3-8.2) g/dL Albumin (3.5-5.0) g/dL Microbiology - Last 24 Hours (Table) 06/04/17 19:16 Gram Stain - Preliminary Sputum Sputum Culture - Preliminary Assessment and Plan Assessment: 1. Cardiac arrest at the outside hospital status post CPR for approximately 20 minutes/defibrillation. Now with another cardiac arrest on 06/04 requiring CPR for short period of time 2. Acute ST elevation ID status post left heart catheterization with findings suggestive of dissection of the RCA. Otherwise nonobstructive coronary artery disease. Followed by cardiology. 3. Episodes of V. fib: Cardiology following closely. Her regimen has been adjusted. She was on amiodarone and mexiletine prior to this last event yesterday. Currently cardiology adjusting her regimen probably starting amiodarone drip. Patient would eventually need a defibrillator/pacemaker when her overall condition is improved. Electrolytes being replaced 4. Acute cardiogenic shock: Requiring vasopressors. Now resolved. Blood pressure within acceptable range. Repeat echocardiogram showed EF of 25% which is new compared to her echo last month with a EF of greater than 50%. Plan for AICD eventually. In the meantime we will use a LifeVest upon discharge. 5. Right lower lobe pneumonia finished 10 days course of Zosyn and vancomycin. 6. Acute hypoxic respiratory failure 7. Acute liver shock with significant transaminitis secondary to episodes of hypotension. now improving significantly. Liver function test back to normal 8. Type 2 diabetes mellitus 9. Mixed hyperlipidemia 10. Hypothyroidism maintained on levothyroxin Unfortunately the patient's overall condition PICC line yesterday after she was supposed to be getting ready for discharge within the next couple of days. She is back in the ICU and sedated and intubated. Today, I had a prolonged discussion with her son and . They are considering transferring her to a tertiary care facility. She appeared very unstable for transfer at this time. We will continue ICU care and supportive measures. Appreciate internal consultant 's recommendations. She was extubated on 05/27 and the intubated on 06/04 after another episode of persistent V. tach/cardiac arrest. Echocardiogram showed EF of 20% - We'll continue supportive care. Repeat lab work in the morning. Appreciate internal consultant's recommendation
[2017-06-05] MEDS ORDERED: POTASSIUM CHLORIDE 20 MEQ in SODIUM CHLORIDE 0.9% 100 ML IVPB ONE (12:30)
--- NOTE | 2017-06-05 12:57 | PN ---
PROGRESS NOTE Ita is a 72-year-old lady who had a cardiac arrest with ventricular fibrillation, underwent cardiac catheterization with spontaneous dissection of the right coronary artery. She was advised conservative therapy. Subsequently has had has had ventricular tachycardia. She was on amiodarone and mexiletine. We were going to do any ICD on her, but because of some concern about infection she had a LifeVest on. She was actually doing fairly well until yesterday she had another run of ventricular fibrillation and had to be resuscitated, intubated and transferred to ICU. This morning, she remained in stable sinus rhythm. She had been off amiodarone and mexiletine for unclear reasons, her mexiletine was held. The mexiletine has been resumed this morning. If not, we will put her on lidocaine. This morning on my evaluation, patient remains in sinus rhythm. Heart rates are in the 40s per minute. Blood pressure is 90/45. Chest exam reveals diminished air entry at the bases. Heart exam reveals first and second heart sounds. No gallop. Abdomen is soft. Exam of the extremities did not reveal any edema. Peripheral pulses are felt. Labs shows that her hemoglobin is low at 8.5, platelet count is 186. Potassium was low at 2.6, early this morning. This is been supplemented. Blood gases show a pH of 7.5, pCO2 43. ASSESSMENT: 1. Ventricular fibrillation, status post cardiac arrest the second time. 2. History of dissection of the right coronary artery, status post catheterization and was advised medical therapy. An echocardiogram on her shows she has an ejection fraction of 20%. PLAN: I spoke to Dr. Goodman, her primary lacquer coater, who felt that will continue with the antiarrhythmic therapy and his suggestion was that we transfer her to a tertiary care center. Family earlier wanted her to go to [place] where they did not accept her. We will see if we can transfer her to [facility]. MMBENNETTL / WONGN: [id number] /
[2017-06-05 16:00] VITALS: PULSE 51
[2017-06-05 16:50] VITALS: BP 86/55; RESP 14; TEMP 97.6
[2017-06-05] MEDS ORDERED: CHLORHEXIDINE GLUCONATE 15 ML CUP MUCOUS MEM SCH (21:00)
[2017-06-06] MEDS ORDERED: PANTOPRAZOLE 40 MG/10 ML VIAL IVP SCH (09:00)
== END 2017-06-05 18:24 | disposition short-term general hospital (02) | DRG 280 ==
LOC: SUPCPDRO 20:43 → EC 20:43 → 6ICU 21:55 → 6SEL 05-28 12:43 → 6ICU 06-04 21:10
PROVIDERS: ADMIT Internal Medicine; ATTEND Internal Medicine
PROC: B2111ZZ Fluoroscopy of Multiple Coronary Arteries using Low Osmolar Contrast (ICD-10-PCS; 2017-05-21)
PROC: 4A023N7 Measurement of Cardiac Sampling and Pressure, Left Heart, Percutaneous Approach (ICD-10-PCS; 2017-05-21)
PROC: 0BH18EZ Insertion of Endotracheal Airway into Trachea, Via Natural or Artificial Opening Endoscopic (ICD-10-PCS; principal; 2017-05-21 21:15)
PROC: 5A1955Z Respiratory Ventilation, Greater than 96 Consecutive Hours (ICD-10-PCS; principal; 2017-05-21 21:15)
PROC: 4A133J1 Monitoring of Arterial Pulse, Peripheral, Percutaneous Approach (ICD-10-PCS; 2017-05-22)
PROC: 02H633Z Insertion of Infusion Device into Right Atrium, Percutaneous Approach (ICD-10-PCS; 2017-05-22)
PROC: 03HY32Z Insertion of Monitoring Device into Upper Artery, Percutaneous Approach (ICD-10-PCS; 2017-05-22)
PROC: 4A133B1 Monitoring of Arterial Pressure, Peripheral, Percutaneous Approach (ICD-10-PCS; 2017-05-22)
DX: I21.19 ST elevation (STEMI) myocardial infarction involving other coronary artery of inferior wall (principal); I25.42 Coronary artery dissection; J96.01 Acute respiratory failure with hypoxia; K72.00 Acute and subacute hepatic failure without coma; I49.01 Ventricular fibrillation; I96 Gangrene, not elsewhere classified; G93.1 Anoxic brain damage, not elsewhere classified; D68.4 Acquired coagulation factor deficiency; R57.0 Cardiogenic shock; J18.9 Pneumonia, unspecified organism; I50.43 Acute on chronic combined systolic (congestive) and diastolic (congestive) heart failure; I47.2 Ventricular tachycardia; I42.9 Cardiomyopathy, unspecified; J44.0 Chronic obstructive pulmonary disease with (acute) lower respiratory infection; J44.1 Chronic obstructive pulmonary disease with (acute) exacerbation; N17.9 Acute kidney failure, unspecified; E11.52 Type 2 diabetes mellitus with diabetic peripheral angiopathy with gangrene; I11.0 Hypertensive heart disease with heart failure; E03.9 Hypothyroidism, unspecified; E66.9 Obesity, unspecified; E78.2 Mixed hyperlipidemia; F17.200 Nicotine dependence, unspecified, uncomplicated; G89.29 Other chronic pain; I25.10 Atherosclerotic heart disease of native coronary artery without angina pectoris; I34.0 Nonrheumatic mitral (valve) insufficiency; I48.91 Unspecified atrial fibrillation; S09.90XA Unspecified injury of head, initial encounter; T50.1X5A Adverse effect of loop [high-ceiling] diuretics, initial encounter; W19.XXXA Unspecified fall, initial encounter; Z79.51 Long term (current) use of inhaled steroids; Z79.82 Long term (current) use of aspirin; Z79.899 Other long term (current) drug therapy
CPT/HCPCS: 36600; 70450; 71045; 71046; 74019; 80048; 80053; 80061; 80202; 81001; 82140; 82330; 82550; 82553; 82805; 83036; 83735; 84100; 84132; 84484; 85025; 85610; 85730; 87070; 87075; 87086; 87205; 93005; 93306; 93458; 94002; 94003; 94640; 94760; 95816; 95819; 96374; 99285